=== PATIENT | female | born 1950 | race Caucasian/White ===

== ENCOUNTER 2016-09-08 11:54 | Observation (INO) | payer OTHER ==
[2016-09-08] MEDS ORDERED: RX INFO: IV CONTRAST WAS GIVEN 1 EACH MISC MISCELLANE PRN (12:23)
[2016-09-08] MEDS ORDERED: SODIUM CHLORIDE 0.9% 500 ML IV STA (12:23)
--- NOTE | 2016-09-08 12:53 | ED ---
General Adult HPI - General Source: patient, RN notes reviewed Mode of arrival: wheelchair Limitations: no limitations <Carlo Betts - Last Filed: 09/08/16 12:51> <Rufino Gil - Last Filed: 09/08/16 15:45> - General Chief complaint: Recheck/Abnormal Lab/Rx Stated complaint: Bowel Issues Time Seen by Provider: 09/08/16 12:13 - History of Present Illness Initial comments: this a 65-year-old female presents emergency Department chief complaint concerns about her colostomy. Patient states that around 450 this morning she felt that she is a have a bowel movement though she states that she's had a colostomy since January. Patient states that she sat down below the bathroom and states that she had a large bowel movement which had formed stool. Patient is concerned about this. Patient states she had her ruptured bowel and this is her cause of her colostomy. Patient states she has no abdominal discomfort this time. Denies any nausea vomiting. Denies fever, chills, dysuria. Patient denies rectal bleeding. (Carlo Betts) - Related Data Home Medications Medication Instructions Recorded Confirmed Amiodarone [Cordarone] 200 mg PO DAILY 03/01/16 09/08/16 Allopurinol [Zyloprim] 100 mg PO DAILY 03/09/16 09/08/16 Atorvastatin [Lipitor] 40 mg PO HS 03/09/16 09/08/16 Carvedilol [Coreg] 6.25 mg PO BID 03/09/16 09/08/16 Famotidine [Pepcid] 20 mg PO DAILY 03/09/16 09/08/16 Ferrous Sulfate [Feosol] 325 mg PO DAILY 03/09/16 09/08/16 Ipratropium-Albuterol Nebulize 3 ml INHALATION RT-QID PRN 03/09/16 09/08/16 [Duoneb 0.5 mg-3 mg/3 ml Soln] Montelukast Sodium [Singulair] 10 mg PO HS 03/09/16 09/08/16 buPROPion XL [Wellbutrin XL] 300 mg PO DAILY 03/09/16 09/08/16 Acetaminophen Tab [Tylenol] 650 mg PO Q4H PRN 03/10/16 09/08/16 Citalopram Hydrobromide [CeleXA] 40 mg PO DAILY 03/10/16 09/08/16 HYDROcodone/APAP 10-325MG [[place] 1 tab PO QID PRN 03/10/16 09/08/16 10-325] Isosorbide Mononitrate ER [Imdur] 30 mg PO DAILY 03/10/16 09/08/16 Lactulose 10 gm PO Q12H 03/10/16 09/08/16 Beclomethasone Dipropionate [Qvar 2 puff INHALATION RT-BID PRN 09/08/16 09/08/16 80 mcg] Furosemide [Lasix] 20 mg PO W/SUPPER 09/08/16 09/08/16 Furosemide [Lasix] 60 mg PO QAM 09/08/16 09/08/16 Insulin Glargine [Lantus] 30 unit SQ HS 09/08/16 09/08/16 Insulin Glulisine [Apidra] See Protocol SQ DAILY 09/08/16 09/08/16 Losartan Potassium [Cozaar] 25 mg PO DAILY 09/08/16 09/08/16 Magnesium Oxide [Mag-Ox] 400 mg PO DAILY 09/08/16 09/08/16 Metolazone [Zaroxolyn] 2.5 mg PO MOWEFR 09/08/16 09/08/16 Potassium Chloride [Klor-Con 20] 20 meq PO DAILY 09/08/16 09/08/16 Spironolactone [Aldactone] 12.5 mg PO DAILY 09/08/16 09/08/16 amLODIPine BESYLATE [Norvasc] 5 mg PO DAILY 09/08/16 09/08/16 rOPINIRole HCL [Requip] 0.5 mg PO HS 09/08/16 09/08/16 Previous Rx's Medication Instructions Recorded Nitroglycerin Sl Tabs [Nitrostat] 0.4 mg SUBLINGUAL Q5M PRN #25 tab 12/17/15 Allergies Allergy/AdvReac Type Severity Reaction Status Date / Time cephalexin monohydrate Allergy Unknown Rash/Hives Verified 09/08/16 12:22 [From Keflex] Review of Systems ROS Other: All systems not noted in ROS Statement are negative. <Carlo Betts - Last Filed: 09/08/16 12:51> ROS Other: All systems not noted in ROS Statement are negative. <Rufino Gil - Last Filed: 09/08/16 15:45> ROS Statement: Those systems with pertinent positive or pertinent negative responses have been documented in the HPI. Past Medical History Past Medical History: Asthma, Heart Failure, COPD, Diabetes Mellitus, Hearing Disorder / Deafness, Hyperlipidemia, Hypertension, Osteoarthritis (OA), Pneumonia, Renal Disease, Sleep Apnea/CPAP/BIPAP, Vascular Disorder Additional Past Medical History / Comment(s): ANEMIA History of Any Multi-Drug Resistant Organisms: None Reported Past Surgical History: Bladder Surgery, Cholecystectomy, Coronary Bypass/CABG, Heart Catheterization, Heart Catheterization With Stent, Hernia Repair, Hysterectomy, Joint Replacement, Orthopedic Surgery Additional Past Surgical History / Comment(s): COLOSTOMY in january, bilateral knee surgery Past Anesthesia/Blood Transfusion Reactions: Motion Sickness, No Reported Reaction Additional Past Anesthesia/Blood Transfusion Reaction / Comment(s): Pt has received blood without reaction. Date of Last Stent Placement:: 2009 Past Psychological History: Anxiety, Depression Additional Psychological History / Comment(s): Pt resides wit her spouse. She uses a walker at times. She has not driven lately, her spouse drives her. She has a CPAP, home O2 and blood glucose monitor at home. Smoking Status: Former smoker Past Alcohol Use History: None Reported Additional Past Alcohol Use History / Comment(s): SMOKED 1 & 1/2 PPD-QUIT 2010, SMOKED FOR 47 YEARS. Past Drug Use History: None Reported - Past Family History Mother Family Medical History: Cancer Additional Family Medical History / Comment(s): Mother had lung cancer. Father Family Medical History: Liver Disease Additional Family Medical History / Comment(s): Father of cirrhosis of the liver. He was a alcoholic. <Carlo Betts - Last Filed: 09/08/16 12:51> General Exam Limitations: no limitations General appearance: alert, in no apparent distress Head exam: Present: atraumatic, normocephalic, normal inspection Eye exam: Present: normal appearance, PERRL, EOMI. Absent: scleral icterus, conjunctival injection, periorbital swelling ENT exam: Present: mucous membranes moist Respiratory exam: Present: normal lung sounds bilaterally. Absent: respiratory distress, wheezes, rales, rhonchi, stridor Cardiovascular Exam: Present: regular rate, normal rhythm, normal heart sounds. Absent: systolic murmur, diastolic murmur, rubs, gallop, clicks GI/Abdominal exam: Present: soft, normal bowel sounds, other (colostomy noted there is no erythema no drainage appears within normal limits). Absent: distended, tenderness, guarding, rebound, rigid Back exam: Absent: CVA tenderness (R), CVA tenderness (L) Skin exam: Present: warm, dry, intact, normal color. Absent: rash <Carlo Betts - Last Filed: 09/08/16 12:51> General appearance: alert, in no apparent distress, obese Head exam: Present: atraumatic, normocephalic, normal inspection Eye exam: Present: normal appearance, PERRL, EOMI. Absent: scleral icterus, conjunctival injection, periorbital swelling ENT exam: Present: normal exam, mucous membranes moist Neck exam: Present: normal inspection. Absent: tenderness, meningismus, lymphadenopathy Respiratory exam: Present: normal lung sounds bilaterally. Absent: respiratory distress, wheezes, rales, rhonchi, stridor Cardiovascular Exam: Present: regular rate, normal rhythm, normal heart sounds. Absent: systolic murmur, diastolic murmur, rubs, gallop, clicks GI/Abdominal exam: Present: soft, normal bowel sounds. Absent: distended, tenderness, guarding, rebound, rigid Extremities exam: Present: normal inspection, full ROM, normal capillary refill. Absent: tenderness, pedal edema, joint swelling, calf tenderness Back exam: Present: normal inspection Neurological exam: Present: alert, oriented X3, CN II-XII intact Psychiatric exam: Present: normal affect, normal mood Skin exam: Present: warm, dry, intact, normal color. Absent: rash <Rufino Gil - Last Filed: 09/08/16 15:45> Course <Carlo Betts - Last Filed: 09/08/16 12:51> <Rufino Gil - Last Filed: 09/08/16 15:45> Vital Signs 09/08/16 09/08/16 12:06 15:19 Temperature 100 F H 98 F Pulse Rate 59 L 56 L Respiratory 16 18 Rate Blood Pressure 109/56 85/48 O2 Sat by Pulse 100 Oximetry - Reevaluation(s) Reevaluation #1: 09/08/16 15:45 Patient is without bowel movement here in the emergency room, not lightheaded or dizziness or week (Rufino Gil) Medical Decision Making <Carlo Betts - Last Filed: 09/08/16 12:51> - Lab Data Result diagrams: 09/08/16 12:50 09/08/16 12:50 <Rufino Gil - Last Filed: 09/08/16 15:45> - Medical Decision Making 61 for female in the ER for evaluation of bowel movement, patient has no apparent abnormalities on CT, hemoglobin has dropped 3 points, patient be admitted for treading of hemoglobin and reevaluation by GI, this is been in recurrent issue since her last surgery. (Rufino Gil) - Lab Data Lab Results 09/08/16 09/08/16 09/08/16 Range/Units 12:50 12:50 13:35 WBC 5.5 (3.8-10.6) k/uL RBC 2.92 L (3.80-5.40) m/uL Hgb 7.5 L (11.4-16.0) gm/dL Hct 25.4 L (34.0-46.0) % MCV 87.0 (80.0-100.0) fL MCH 25.8 (25.0-35.0) pg MCHC 29.7 L (31.0-37.0) g/dL RDW 17.1 H (11.5-15.5) % Plt Count 271 (150-450) k/uL Neutrophils % (Manual) 75.0 % Band Neutrophils % 2.0 % Lymphocytes % (Manual) 10.0 % Monocytes % (Manual) 12.0 % Eosinophils % (Manual) 1.0 % Neutrophils # (Manual) 4.2 (1.3-7.7) k/uL Lymphocytes # (Manual) 0.6 L (1.0-4.8) k/uL Monocytes # (Manual) 0.7 (0-1.0) k/uL Eosinophils # (Manual) 0.1 (0-0.7) k/uL Nucleated RBCs 0 (0-0) /100 WBC Polychromasia Present Hypochromasia Marked Poikilocytosis (manual Present Anisocytosis Slight Ovalocytes Present Sodium 133 L (137-145) mmol/L Potassium 4.2 (3.5-5.1) mmol/L Chloride 94 L (98-107) mmol/L Carbon Dioxide 27 (22-30) mmol/L Anion Gap 12 mmol/L BUN 68 H (7-17) mg/dL Creatinine 1.21 H (0.52-1.04) mg/dL Est GFR (MDRD) Af Amer 54 (>60 ml/min/1.73 sqM) Est GFR (MDRD) Non-Af 45 (>60 ml/min/1.73 sqM) Glucose 187 H (74-99) mg/dL Calcium 8.7 (8.4-10.2) mg/dL Total Bilirubin 0.5 (0.2-1.3) mg/dL AST 21 (14-36) U/L ALT 27 (9-52) U/L Alkaline Phosphatase 50 (38-126) U/L Total Protein 6.0 L (6.3-8.2) g/dL Albumin 3.1 L (3.5-5.0) g/dL Amylase 38 (30-110) U/L Lipase 87 (23-300) U/L Urine Color Yellow Urine Appearance Clear (Clear) Urine pH 6.5 (5.0-8.0) Ur Specific [place] 1.008 (1.001-1.035) Urine Protein Negative (Negative) Urine Glucose (UA) Negative (Negative) Urine Ketones Negative (Negative) Urine Blood Negative (Negative) Urine Nitrate Negative (Negative) Urine Bilirubin Negative (Negative) Urine Urobilinogen <2.0 (<2.0) mg/dL Ur Leukocyte Esterase Trace H (Negative) Urine WBC 1 (0-5) /hpf Ur Squamous Epith Cells <1 (0-4) /hpf Hyaline Casts 3 H (0-2) /lpf Disposition <Carlo Betts - Last Filed: 09/08/16 12:51> <Rufino Gil - Last Filed: 09/08/16 15:45> Clinical Impression: Renal insufficiency, Anemia, GI bleed Disposition: ADMITTED IP TO THIS [facility] Condition: Fair Referrals: Lul Aquino MD [Primary Care Provider] - 1-2 days
[2016-09-08 13:14] LABS: Anisocytosis Slight; Aty Lym Flag Slight; CH 25.2; HCT 25.4 % (34.0-46.0); HDW 3.11; HGB 7.5 gm/dL (11.4-16.0); Hypochromasia Marked; MCH 25.8 pg (25.0-35.0); MCHC 29.7 g/dL (31.0-37.0); Mean Platelet Volume 6.8; RBC 2.92 m/uL (3.80-5.40); RDW 17.1 % (11.5-15.5); WBC 5.5 k/uL (3.8-10.6); WBC (Perox) 5.35
[2016-09-08 13:16] LABS: Calcium 8.7 mg/dL (8.4-10.2); Potassium 4.2 mmol/L (3.5-5.1); Total Bilirubin 0.5 mg/dL (0.2-1.3)
[2016-09-08 13:52] LABS: Appearance,Urine Clear (Clear); Bilirubin,Urine Negative (Negative); Glucose,Urine (UA) Negative (Negative); Ketones,Urine Negative (Negative); Leukocyte Esterase,Urine Trace (Negative); Nitrite,Urine Negative (Negative); PH, Urine 6.5 (5.0-8.0); Particle Count 1081; Protein,Urine Negative (Negative); Specific Gravity,Urine 1.008 (1.001-1.035); Squamous Epithelial Cell,Urine <1 /hpf (0-4); UA Billing (MACRO vs. MICRO) MICRO; Urobilinogen,Urine <2.0 mg/dL (<2.0); WBC,Urine 1 /hpf (0-5)
[2016-09-08 14:17] LABS: Add Differential Manual Differential
[2016-09-08 14:19] LABS: Nucleated Red Blood Cells 0 /100 WBC (0-0); Total Cells Counted 100
[2016-09-08] MEDS ORDERED: SODIUM CHLORIDE 0.9% 1,000 ML IV ONE ×2 (14:19→15:46)
[2016-09-08 14:23] LABS: Polychromasia Present
[2016-09-08 14:24] LABS: Ovalocytes Present
[2016-09-08] MEDS: IOHEXOL 350 MG/ML 25 ML BOTTLE (ORAL USE) PO PRN ×2 (15:02→15:04)
--- NOTE | 2016-09-08 15:20 | CT ---
EXAMINATION TYPE: CT abdomen pelvis wo con DATE OF EXAM: 09/08/2016 2:57 PM COMPARISON: NONE INDICATION: PT states of bowel movement today not via colostomy like normal. DLP: 1924.1 mGycm, Automated exposure control for dose reduction was used. CONTRAST: mL of . Study performed with Oral Contrast TECHNIQUE: Axial images were obtained from above the diaphragm to the pubic rami in the axial plane a t 5 mm thick sections. Reconstructed images are reviewed on the computer in the coronal plane. FINDINGS: Limited CT sections are obtained the lung bases. The lung bases are clear. CT ABDOMEN: Liver: Normal Spleen: Normal Pancreas: Normal Adrenal glands: The adrenal glands are normal. Gallbladder: Surgically absent Kidneys: No masses are evident. No hydronephrosis is present. No cysts are present. Aorta: Vascular calcification is within the aorta. Inferior vena cava: Normal. There is an anterior abdominal wall hernia containing loops of colon. This extends toward the ostomy. No obstruction is identified. CT PELVIS: Loops of bowel within the abdomen and pelvis are normal. Appendix: Not identified Urinary bladder: Normal. Genitourinary structures: Uterus and adnexa are not identified. Osseous structures: No suspicious lytic or sclerotic lesions. Degenerative disc changes are through t he lumbar spine IMPRESSIONS: 1. Anterior abdominal wall hernia at the ostomy site. Mesenteric fat and loops of bowel are greater than typical for normal ostomy postsurgical changes.
[2016-09-08] MEDS ORDERED: PANTOPRAZOLE 40 MG/10 ML VIAL IVP STA (15:46)
[2016-09-08] MEDS ORDERED: ONDANSETRON 4 MG/2 ML VIAL IVP PRN (15:46)
[2016-09-08] MEDS ORDERED: ONDANSETRON 4 MG/2 ML VIAL IVP STA (15:46)
[2016-09-08 17:49] LABS: Glucose,Whole Blood 118 mg/dL (75-99)
[2016-09-08] MEDS ORDERED: NITROGLYCERIN SL TABS 0.4 MG TAB SUBLINGUAL PRN (18:53)
[2016-09-08] MEDS ORDERED: IPRATROPIUM-ALBUTEROL 3 ML NEB INHALATION PRN (18:53)
[2016-09-08] MEDS ORDERED: ACETAMINOPHEN TAB 325 MG TAB PO PRN (18:53)
[2016-09-08] MEDS: MONTELUKAST 10 MG TAB PO SCH (20:28)
[2016-09-08] MEDS: INSULIN GLARGINE 100 UNIT/ML 10 ML VIAL SQ SCH (20:28)
[2016-09-08] MEDS: ATORVASTATIN 40 MG TAB PO SCH (20:28)
[2016-09-08 21:03] LABS: Glucose,Whole Blood 127 mg/dL (75-99)
[2016-09-08] MEDS: INSULIN LISPRO (humaLOG) 300 UNIT/3 ML VIAL SQ SCH (21:11)
[2016-09-08] MEDS: METOLAZONE 2.5 MG TAB PO SCH (21:15)
[2016-09-08] MEDS: CARVEDILOL 6.25 MG TAB PO SCH (21:16)
[2016-09-08] MEDS: HYDROcodone/APAP 10-325MG 1 EACH TAB PO PRN (23:38)
[2016-09-09 06:16] LABS: Anisocytosis Slight; Aty Lym Flag Slight; CH 25.8; CHCM 28.9; HCT 26.8 % (34.0-46.0); HDW 4.11; Hypochromasia Marked; MCH 26.5 pg (25.0-35.0); MCHC 29.7 g/dL (31.0-37.0); MCV 89.2 fL (80.0-100.0); Mean Platelet Volume 6.6; Poikilocytosis Moderate; RDW 16.6 % (11.5-15.5); WBC (Perox) 5.26
[2016-09-09 06:26] LABS: Glucose,Whole Blood 116 mg/dL (75-99)
[2016-09-09] MEDS: INSULIN LISPRO (humaLOG) 300 UNIT/3 ML VIAL SQ SCH ×4 (06:26→20:56)
[2016-09-09] MEDS: CARVEDILOL 6.25 MG TAB PO SCH ×2 (06:30→17:13)
[2016-09-09 06:41] LABS: Anion Gap 8 mmol/L; Blood Urea Nitrogen 46 mg/dL (7-17); Calcium 8.2 mg/dL (8.4-10.2); Carbon Dioxide 26 mmol/L (22-30); Chloride 100 mmol/L (98-107); Glucose 109 mg/dL (74-99); Non-African American GFR(MDRD) 56 (>60 ml/min/1.73 sqM); Sodium 134 mmol/L (137-145)
[2016-09-09 08:06] LABS: Add Differential Manual Differential
[2016-09-09 08:10] LABS: Manual Review Performed; Nucleated Red Blood Cells 0 /100 WBC (0-0); Total Cells Counted 100
[2016-09-09] MEDS: PANTOPRAZOLE 40 MG/10 ML VIAL IVP SCH (09:21)
[2016-09-09] MEDS: FUROSEMIDE 20 MG TAB PO SCH (09:21)
[2016-09-09] MEDS: buPROPion XL 150 MG TAB.ER.24H PO SCH (09:21)
[2016-09-09] MEDS: ALLOPURINOL 100 MG TAB PO SCH (09:22)
[2016-09-09] MEDS: ISOSORBIDE MONONITRATE ER 30 MG TAB.ER.24H PO SCH (09:22)
[2016-09-09] MEDS: amLODIPine 5 MG TAB PO SCH (09:22)
[2016-09-09] MEDS: AMIODARONE 200 MG TAB PO SCH (09:22)
[2016-09-09] MEDS: LOSARTAN 25 MG TAB PO SCH (09:22)
[2016-09-09] MEDS: POTASSIUM CHLORIDE ER 20 MEQ TAB.ER PO SCH (09:22)
[2016-09-09] MEDS: SPIRONOLACTONE 25 MG TAB PO SCH (09:22)
[2016-09-09] MEDS: CITALOPRAM HYDROBROMIDE 20 MG TAB PO SCH (09:22)
[2016-09-09] MEDS: BECLOMETHASONE DIP 80 MCG/PUFF INHALER INHALATION PRN ×2 (09:49→20:05)
--- NOTE | 2016-09-09 10:07 | P.CONS ---
History of Present Illness - Reason for Consult Consult date: 09/09/16 Possible GI bleed Requesting physician: Arminda Mayes - History of Present Illness 65-year-old female patient of Dr. Aquino with a past medical history of morbid obesity, ischemic colitis with colectomy/colostomy 2016 at [facility], CAD, advanced COPD, chronic anemia, diabetes mellitus, chronic neuropathy, CHF with ischemic cardiomyopathy, and depression. Admitted with concerns of bleeding near her ostomy. Patient states on Thursday she noticed some thin red blood emanating around the stoma but denies gross blood inside her colostomy bag. Denies fever, chills, diarrhea, epigastric/ abdominal pain, coffee-ground emesis, hematemesis, gross hematochezia or melena. No rectal bleeding. Admission hemoglobin 7.5. MCV 87. Current hemoglobin 8.0. Creatinine 1.2. BUN 68 currently 46. Upon review of medical records average hemoglobin ranges between 7-10; maintained on oral iron supplementation. Denies NSAID aspirin usage. No history of EGD. She believes she had a colonoscopy after her bowel surgery. CT abdomen and pelvis without contrast reported intra-abdominal hernia at the ostomy site. Review of Systems Constitutional: Denies fever, chills, sweats, weight gain, or loss. HEENT: Negative for migraines, blurred vision or loss, earaches, drainage, tinnitus, oral mucosal lesions, dysphagia, or odynophagia. CARDIAC: CHF. Hypertension. Hyperlipidemia. Ischemic cardiomyopathy. Negative for chest pain, arrhythmias, or palpitation. RESPIRATORY: Asthma. Advanced COPD. Sleep apnea. Denies hemoptysis, cough, or sputum production. GI: See HPI for pertinent findings. : Negative for hematuria, urgency, frequency, polyuria, or dysuria. GYNc: Denies possibility of . Negative vaginal discharge. MUSCULOSKELETAL: Negative for muscle aches, swelling, arthritis, and arthralgias. NEUROLOGIC: Negative for stroke or TIA. ENDOCRINE: Diabetes mellitus. Negative for thyroid problems. SKIN: Negative for rash or itching. PSYCHIATRIC: Negative history for depression and anxiety All systems: negative (See HPI) Past Medical History Past Medical History: Asthma, Heart Failure, COPD, Diabetes Mellitus, Hearing Disorder / Deafness, Hyperlipidemia, Hypertension, Osteoarthritis (OA), Pneumonia, Renal Disease, Sleep Apnea/CPAP/BIPAP, Vascular Disorder Additional Past Medical History / Comment(s): ANEMIA, RLS, HOME 02 2 LITERS N/C , RT EYE CATARACT, SORE ON 2ND TOE OF BOTH FEET, anemia of chronic disease, pulmonary hypertension, hyponatremia, combined systolic and diastolic failure, last ejection fraction 35% August 2016, hypovolemic shock, circulatory collapse, diabetic polyneuropathy, gout, chronic pain, restless legs syndrome History of Any Multi-Drug Resistant Organisms: None Reported Past Surgical History: Bladder Surgery, Cholecystectomy, Coronary Bypass/CABG, Heart Catheterization, Heart Catheterization With Stent, Hernia Repair, Hysterectomy, Joint Replacement, Orthopedic Surgery Additional Past Surgical History / Comment(s): RUPTURED BOWEL HADCOLOSTOMY in january, bilateral knee surgery(X2 RT KNEE REPLACMENTS) Past Anesthesia/Blood Transfusion Reactions: Motion Sickness, No Reported Reaction Additional Past Anesthesia/Blood Transfusion Reaction / Comm: Pt has received blood without reaction. Date of Last Stent Placement:: 2009 Past Psychological History: Anxiety, Depression Additional Psychological History / Comment(s): Pt resides with her spouse. She uses a walker at times. She has not driven lately, her spouse drives her. She has a CPAP, home O2 and blood glucose monitor at home. Smoking Status: Former smoker Past Alcohol Use History: None Reported Additional Past Alcohol Use History / Comment(s): SMOKED 1 & 1/2 PPD-QUIT 2010, SMOKED FOR 47 YEARS. Past Drug Use History: None Reported - Past Family History Mother Family Medical History: Cancer Additional Family Medical History / Comment(s): Mother had lung cancer. Father Family Medical History: Liver Disease Additional Family Medical History / Comment(s): Father of cirrhosis of the liver. He was a alcoholic. Medications and Allergies Home Medications Medication Instructions Recorded Confirmed Type Amiodarone [Cordarone] 200 mg PO DAILY 03/01/16 09/08/16 History Allopurinol [Zyloprim] 100 mg PO DAILY 03/09/16 09/08/16 History Atorvastatin [Lipitor] 40 mg PO HS 03/09/16 09/08/16 History Carvedilol [Coreg] 6.25 mg PO BID 03/09/16 09/08/16 History Famotidine [Pepcid] 20 mg PO DAILY 03/09/16 09/08/16 History Ferrous Sulfate [Feosol] 325 mg PO DAILY 03/09/16 09/08/16 History Ipratropium-Albuterol Nebulize 3 ml INHALATION RT-QID PRN 03/09/16 09/08/16 History [Duoneb 0.5 mg-3 mg/3 ml Soln] Montelukast Sodium [Singulair] 10 mg PO HS 03/09/16 09/08/16 History buPROPion XL [Wellbutrin XL] 300 mg PO DAILY 03/09/16 09/08/16 History Acetaminophen Tab [Tylenol] 650 mg PO Q4H PRN 03/10/16 09/08/16 History Citalopram Hydrobromide [CeleXA] 40 mg PO DAILY 03/10/16 09/08/16 History HYDROcodone/APAP 10-325MG [[place] 1 tab PO QID PRN 03/10/16 09/08/16 History 10-325] Isosorbide Mononitrate ER [Imdur] 30 mg PO DAILY 03/10/16 09/08/16 History Lactulose 10 gm PO Q12H 03/10/16 09/08/16 History Beclomethasone Dipropionate [Qvar 2 puff INHALATION RT-BID PRN 09/08/16 History 80 mcg] Furosemide [Lasix] 20 mg PO W/SUPPER 09/08/16 09/08/16 History Furosemide [Lasix] 60 mg PO QAM 09/08/16 09/08/16 History Insulin Glargine [Lantus] 30 unit SQ HS 09/08/16 09/08/16 History Insulin Glulisine [Apidra] See Protocol SQ DAILY 09/08/16 09/08/16 History Losartan Potassium [Cozaar] 25 mg PO DAILY 09/08/16 09/08/16 History Magnesium Oxide [Mag-Ox] 400 mg PO DAILY 09/08/16 09/08/16 History Metolazone [Zaroxolyn] 2.5 mg PO MOWEFR 09/08/16 09/08/16 History Potassium Chloride [Klor-Con 20] 20 meq PO DAILY 09/08/16 09/08/16 History Spironolactone [Aldactone] 12.5 mg PO DAILY 09/08/16 09/08/16 History amLODIPine BESYLATE [Norvasc] 5 mg PO DAILY 02/27/17 02/27/17 History rOPINIRole HCL [Requip] 0.5 mg PO HS 09/08/16 09/08/16 History Allergies Allergy/AdvReac Type Severity Reaction Status Date / Time cephalexin monohydrate Allergy Unknown Rash/Hives Verified 09/08/16 12:22 [From Keflex] Physical Exam Vitals: Vital Signs Temp Pulse Pulse Resp BP BP Pulse Ox 09/09/16 08:00 96.6 F L 56 L 16 94/56 99 09/09/16 02:56 61 16 09/09/16 02:55 97.1 F L 61 16 95/48 98 09/08/16 23:58 61 16 09/08/16 23:56 97.1 F L 61 16 80/44 97 09/08/16 20:42 98.2 F 50 L 18 80/44 100 09/08/16 20:00 97.1 F L 50 L 18 80/44 100 09/08/16 18:53 98.2 F 58 L 18 84/53 100 09/08/16 18:23 98.2 F 57 L 18 88/51 100 09/08/16 18:13 98.2 F 57 L 18 75/40 100 09/08/16 17:22 57 L 18 99/62 98 09/08/16 16:45 98.2 F 59 L 18 103/56 100 09/08/16 16:03 98.9 F 61 18 96/45 98 Intake and Output 09/08/16 09/09/16 09/09/16 22:59 06:59 14:59 Intake Total 550 2210 318 Output Total 1100 1400 Balance -550 810 318 Intake: IV 1100 Sodium Chloride 0.9% 1, 1100 000 ml @ 100 mls/hr IV . Q10H ONE Rx#:[id number] Oral 240 800 318 Blood Product 310 310 Rc As-1 Unit 310 [id number] Output: Urine 1100 1400 Other: Voiding Method Bedside Commode Bedside Commode # Voids 0 0 # Bowel Movements 0 0 Weight 115.4 kg 115.3 kg General appearance: The patient is alert, oriented, in no acute distress. HET: Head is normocephalic and atraumatic. Pupils are equal and reactive. Oropharynx is clear without lesions. Neck: Supple without lymphadenopathy. Trachea midline. Heart: S1 S2. Regular rate and rhythm. Lungs: No crackles or wheezes are heard. Abdomen: Soft, peristomal hernia present. Stoma pink viable with 3 large brown formed bowel movements in bag without evidence of bleeding. No bleeding around stoma site., nondistended with bowel sounds. Obese large pannus. No peritoneal signs. No palpable organomegaly or masses. Extremities: Normal skin color and turgor. No cyanosis, rash, ulceration, clubbing, or edema. Radial and pedal pulses are 2/4 bilaterally. Neurological: No focal deficits. Strength and sensation are grossly intact. Results CBC & Chem 7: 09/09/16 05:45 09/09/16 05:45 Labs: Abnormal Lab Results - Last 24 Hours (Table) 09/08/16 09/08/16 09/09/16 Range/Units 17:40 21:01 05:45 RBC 3.00 L (3.80-5.40) m/uL Hgb 8.0 L (11.4-16.0) gm/dL Hct 26.8 L (34.0-46.0) % MCHC 29.7 L (31.0-37.0) g/dL RDW 16.6 H (11.5-15.5) % Lymphocytes # (Manual) 0.9 L (1.0-4.8) k/uL Sodium (137-145) mmol/L BUN (7-17) mg/dL Glucose (74-99) mg/dL POC Glucose (mg/dL) 118 H 127 H (75-99) mg/dL Calcium (8.4-10.2) mg/dL 09/09/16 09/09/16 Range/Units 05:45 06:25 RBC (3.80-5.40) m/uL Hgb (11.4-16.0) gm/dL Hct (34.0-46.0) % MCHC (31.0-37.0) g/dL RDW (11.5-15.5) % Lymphocytes # (Manual) (1.0-4.8) k/uL Sodium 134 L (137-145) mmol/L BUN 46 H (7-17) mg/dL Glucose 109 H (74-99) mg/dL POC Glucose (mg/dL) 116 H (75-99) mg/dL Calcium 8.2 L (8.4-10.2) mg/dL CT scan - abdomen: report reviewed (Reviewed by Dr. Scott) Assessment and Plan (1) Anemia Narrative/Plan: Chronic anemia with reports of bleeding suspect peristomal in nature with bright red blood with no current evidence of overt gastrointestinal bleeding such as hematemesis, hematochezia, or melena. History of ischemic bowel with partial colectomy 1 year ago with reports of postoperative colonoscopy being performed. Status: Acute Plan: 1. Diabetic diet. Endoscopy is not planned at this time; contingent on clinical course. Presently ostomy is producing brown formed stool with stable hemoglobin. We'll reevaluate patient and monitor CBC. Advised patient to follow up in GI office after discharge 1 week for reevaluation. Continue supportive measures. Thank you for this kind referral and the opportunity to participate in the care of your patient. This consultation was discussed with Dr. Scott. The impression and plan of care have been directed as dictated.
--- NOTE | 2016-09-09 10:15 | P.HPIM ---
History of Present Illness H&P Date: 09/08/16 Chief Complaint: Rectal excrement after colostomy, anemia This is a 65-year-old pleasant lady patient of Dr. Lul Pickett, underlying history of COPD CHF diabetes mellitus hypertension diabetes polyneuropathy restless leg and prior history of colostomy placement, she was recently discharged from [facility] Admitted to [facility] 08/23/2016- Secondary to COPD Exacerbation, CHF exacerbation on chronic combined with severe cardiomyopathy ejection fraction 35%, pulmonary hypertension major depression AND was discharged with oral antibiotics, and tapering dose of prednisone. She was seen by cardiology and pulmonary infectious disease during her last admission She presented with emergency room she worried that after her colostomy in early last year, she had a rectal excrementtoday , non blood she thought that they were stools, patient denies any sam bleeding from the GI tract including the upper GI and lower gi. her colostomy always has liquid stools or pasty stools patient denies any fever and chills abdominal cramps and in the emergency room she had routine labs however she was found to have hemoglobin of 7.0, her last hemoglobin on [facility] was around 8.5. GI source of bleeding among others were the primary admitting diagnosis. Her pulmonary complaints are stable. she can black tarry stool on colostomy on occasion with epigastric pain. Review of Systems All systems: negative Constitutional: Reports as per HPI, Denies anorexia, Denies chills, Denies chronic headaches, Denies chronic pain, Denies daytime sleepiness, Denies fatigue, Denies fever, Denies lethargy, Denies malaise, Denies night sweats, Denies poor appetite, Denies sweats, Denies weakness, Denies weight gain, Denies weight loss Ears, nose, mouth and throat: Reports as per HPI, Denies ant. neck pain, Denies bleeding gums, Denies dental pain, Denies dysphagia, Denies epistaxis, Denies headache, Denies hoarseness, Denies mouth pain, Denies nasal congestion, Denies nasal discharge, Denies neck fullness/pressure, Denies neck lump, Denies nose pain, Denies odynophagia, Denies post-nasal drip, Denies sinus pain, Denies sinus pressure, Denies swelling in mouth, Denies swelling in throat, Denies sore throat, Denies vertigo, Denies voice changes Cardiovascular: Reports as per HPI, Denies chest pain, Denies claudication, Denies decreased exercise tolerance, Denies dyspnea on exertion, Denies edema, Denies high blood pressure, Denies irregular heart beat, Denies leg edema, Denies lightheadedness, Denies orthopnea, Denies palpitations, Denies paroxysmal nocturnal dyspnea, Denies phlebitis, Denies rapid heart beat, Denies shortness of breath, Denies syncope Respiratory: Reports as per HPI, Denies congestion, Denies cough, Denies cough with sputum, Denies dyspnea, Denies excessive sputum, Denies hemoptysis, Denies home oxygen, Denies pain, Denies pain on inspiration, Denies pleurisy, Denies respiratory infections, Denies sleep apnea, Denies snoring, Denies wheezing Gastrointestinal: Reports as per HPI, Denies abdominal pain, Denies belching, Denies bloating, Denies BRBPR, Denies change in bowel habits, Denies coffee ground emesis, Denies constipation, Denies diarrhea, Denies dyspepsia, Denies early satiety, Denies excessive gas, Denies heartburn, Denies hematemesis, Denies hematochezia, Denies indigestion, Denies jaundice, Denies lactose intolerance, Denies loss of appetite, Denies melena, Denies nausea, Denies vomiting Genitourinary: Reports as per HPI, Denies abnormal vaginal bleeding, Denies decreased libido, Denies difficulty conceiving, Denies difficulty voiding, Denies dysmenorrhea, Denies dyspareunia, Denies dysuria, Denies flank pain, Denies genital sores, Denies hematuria, Denies hot flashes, Denies incomplete emptying, Denies kidney stones, Denies menorrhagia, Denies mixed incontinence, Denies nocturia, Denies pelvic pain, Denies post void dribbling, Denies , Denies prolapse symptoms, Denies stress incontinence, Denies urge incontinence , Denies urgency, Denies urinary frequency, Denies vaginal discharge, Denies vaginal dryness, Denies vaginal itching, Denies vaginal odor Menstruation: Reports as per HPI, Denies amenorrhea, Denies amenorrhea on BC, Denies currently menstrual, Denies cycle < 21 days, Denies cycle > 35 days, Denies cycle variable, Denies menses 1-7 days, Denies menses 8 or > days, Denies menses variable, Denies period heavy, Denies period light, Denies period normal, Denies period spotting, Denies post hysterectomy, Denies postmenopausal , Denies premenarcheal Musculoskeletal: Reports as per HPI, Denies arm numbness/tingling, Denies atrophy, Denies fractures, Denies frequent falls, Denies gait dysfunction, Denies hot joints, Denies leg numbness/tingling, Denies limitation of motion, Denies loss of height, Denies low back pain, Denies morning stiffness, Denies muscle cramps, Denies muscle weakness, Denies myalgias, Denies neck pain, Denies neck stiffness, Denies prior amputations, Denies redness of joints, Denies shooting arm pain, Denies shooting leg pain Integumentary: Reports as per HPI, Denies acne, Denies boils, Denies brittle nails, Denies change in hair/nails, Denies color changes, Denies darkening of skin, Denies depigmentation, Denies dryness, Denies foot/leg ulcers, Denies growths, Denies hirsutism, Denies lesions, Denies onychomycosis, Denies pruritus , Denies rash, Denies sores, Denies striae, Denies unusual bruising, Denies wounds Neurological: Reports as per HPI, Denies aphasia, Denies ataxia, Denies balance difficulties, Denies burning pain, Denies change in mentation, Denies change in smell/taste, Denies change in speech, Denies confusion, Denies convulsions, Denies double vision, Denies gait dysfunction, Denies head injury, Denies headaches, Denies hearing difficulties, Denies lack of coordination, Denies loss of vision, Denies memory loss, Denies migraines, Denies motor disturbance, Denies numbness, Denies paralysis, Denies paresthesias, Denies seizures, Denies sensory deficit, Denies spasticity, Denies syncope, Denies tic, Denies tingling , Denies transient paralysis, Denies tremors, Denies vertigo, Denies weakness, Denies visual changes Psychiatric: Reports as per HPI, Denies anhedonia, Denies anxiety, Denies anxiety attacks, Denies change in appetite, Denies change in libido, Denies change in sleep habits, Denies confusion, Denies depression, Denies difficulty concentrating, Denies disorientation, Denies hallucinations, Denies hopelessness , Denies hypersomnia, Denies insomnia, Denies irritability, Denies memory loss, Denies mood swings, Denies paranoia, Denies sadness/tearfulness, Denies sleep disturbances, Denies suicidal ideation Endocrine: Reports as per HPI, Denies cold intolerance, Denies deepening of the voice, Denies excessive sweating, Denies excessive thirst, Denies fatigue, Denies flushing, Denies heat intolerance, Denies high blood sugars, Denies increase in ring/shoe/hat size, Denies low blood sugars, Denies nocturia, Denies palpitations, Denies polydipsia, Denies polyphagia, Denies polyuria, Denies proptosis, Denies recent glucocorticoid use, Denies thyroid mass, Denies weight change Hematologic/Lymphatic: Reports as per HPI, Denies easy bleeding, Denies easy bruising, Denies lymphadenopathy, Denies lymphedema, Denies thrombophilia Allergic/Immunologic: Reports as per HPI, Denies allergic rhinitis, Denies anaphylaxis, Denies angioedema, Denies gluten intolerance, Denies persistent infections, Denies seasonal allergies, Denies urticaria, Denies wheezing Past Medical History Past Medical History: Asthma, Heart Failure, COPD, Diabetes Mellitus, Hearing Disorder / Deafness, Hyperlipidemia, Hypertension, Osteoarthritis (OA), Pneumonia, Renal Disease, Sleep Apnea/CPAP/BIPAP, Vascular Disorder Additional Past Medical History / Comment(s): ANEMIA, RLS, HOME 02 2 LITERS N/C , RT EYE CATARACT, SORE ON 2ND TOE OF BOTH FEET, anemia of chronic disease, pulmonary hypertension, hyponatremia, combined systolic and diastolic failure, last ejection fraction 35% August 2016, hypovolemic shock, circulatory collapse, diabetic polyneuropathy, gout, chronic pain, restless legs syndrome History of Any Multi-Drug Resistant Organisms: None Reported Past Surgical History: Bladder Surgery, Cholecystectomy, Coronary Bypass/CABG, Heart Catheterization, Heart Catheterization With Stent, Hernia Repair, Hysterectomy, Joint Replacement, Orthopedic Surgery Additional Past Surgical History / Comment(s): RUPTURED BOWEL HADCOLOSTOMY in january, bilateral knee surgery(X2 RT KNEE REPLACMENTS) Past Anesthesia/Blood Transfusion Reactions: Motion Sickness, No Reported Reaction Additional Past Anesthesia/Blood Transfusion Reaction / Comment(s): Pt has received blood without reaction. Date of Last Stent Placement:: 2009 Past Psychological History: Anxiety, Depression Additional Psychological History / Comment(s): Pt resides with her spouse. She uses a walker at times. She has not driven lately, her spouse drives her. She has a CPAP, home O2 and blood glucose monitor at home. Smoking Status: Former smoker Past Alcohol Use History: None Reported Additional Past Alcohol Use History / Comment(s): SMOKED 1 & 1/2 PPD-QUIT 2010, SMOKED FOR 47 YEARS. Past Drug Use History: None Reported - Past Family History Mother Family Medical History: Cancer Additional Family Medical History / Comment(s): Mother had lung cancer. Father Family Medical History: Liver Disease Additional Family Medical History / Comment(s): Father of cirrhosis of the liver. He was a alcoholic. Medications and Allergies Home Medications Medication Instructions Recorded Confirmed Type Amiodarone [Cordarone] 200 mg PO DAILY 03/01/16 09/08/16 History Allopurinol [Zyloprim] 100 mg PO DAILY 03/09/16 09/08/16 History Atorvastatin [Lipitor] 40 mg PO HS 03/09/16 09/08/16 History Carvedilol [Coreg] 6.25 mg PO BID 03/09/16 09/08/16 History Famotidine [Pepcid] 20 mg PO DAILY 03/09/16 09/08/16 History Ferrous Sulfate [Feosol] 325 mg PO DAILY 03/09/16 09/08/16 History Ipratropium-Albuterol Nebulize 3 ml INHALATION RT-QID PRN 03/09/16 09/08/16 History [Duoneb 0.5 mg-3 mg/3 ml Soln] Montelukast Sodium [Singulair] 10 mg PO HS 03/09/16 09/08/16 History buPROPion XL [Wellbutrin XL] 300 mg PO DAILY 03/09/16 09/08/16 History Acetaminophen Tab [Tylenol] 650 mg PO Q4H PRN 03/10/16 09/08/16 History Citalopram Hydrobromide [CeleXA] 40 mg PO DAILY 03/10/16 09/08/16 History HYDROcodone/APAP 10-325MG [Ono 1 tab PO QID PRN 03/10/16 09/08/16 History 10-325] Isosorbide Mononitrate ER [Imdur] 30 mg PO DAILY 03/10/16 09/08/16 History Lactulose 10 gm PO Q12H 03/10/16 09/08/16 History Beclomethasone Dipropionate [Qvar 2 puff INHALATION RT-BID PRN 09/08/16 History 80 mcg] Furosemide [Lasix] 20 mg PO W/SUPPER 09/08/16 09/08/16 History Furosemide [Lasix] 60 mg PO QAM 09/08/16 09/08/16 History Insulin Glargine [Lantus] 30 unit SQ HS 09/08/16 09/08/16 History Insulin Glulisine [Apidra] See Protocol SQ DAILY 09/08/16 09/08/16 History Losartan Potassium [Cozaar] 25 mg PO DAILY 09/08/16 09/08/16 History Magnesium Oxide [Mag-Ox] 400 mg PO DAILY 09/08/16 09/08/16 History Metolazone [Zaroxolyn] 2.5 mg PO MOWEFR 09/08/16 09/08/16 History Potassium Chloride [Klor-Con 20] 20 meq PO DAILY 09/08/16 09/08/16 History Spironolactone [Aldactone] 12.5 mg PO DAILY 09/08/16 09/08/16 History amLODIPine BESYLATE [Norvasc] 5 mg PO DAILY 09/08/16 09/08/16 History rOPINIRole HCL [Requip] 0.5 mg PO HS 09/08/16 09/08/16 History Allergies Allergy/AdvReac Type Severity Reaction Status Date / Time cephalexin monohydrate Allergy Unknown Rash/Hives Verified 09/08/16 12:22 [From Keflex] Physical Exam Vitals: Vital Signs Temp Pulse Pulse Resp BP BP Pulse Ox 09/08/16 20:42 98.2 F 50 L 18 80/44 100 09/08/16 20:00 97.1 F L 50 L 18 80/44 100 09/08/16 18:53 98.2 F 58 L 18 84/53 100 09/08/16 18:23 98.2 F 57 L 18 88/51 100 09/08/16 18:13 98.2 F 57 L 18 75/40 100 09/08/16 17:22 57 L 18 99/62 98 09/08/16 16:45 98.2 F 59 L 18 103/56 100 09/08/16 16:03 98.9 F 61 18 96/45 98 Intake and Output 09/08/16 09/08/16 09/08/16 06:59 14:59 22:59 Intake Total 310 Balance 310 Intake: Blood Product 310 Rc As-1 Unit 310 [id number] Other: Voiding Method Bedside Commode # Voids 0 # Bowel Movements 0 Weight 115.4 kg Patient Weight 09/09/16 06:59 Weight 115.4 kg - Constitutional General appearance: cooperative, morbidly obese - EENT Eyes: anicteric sclerae, EOMI, PERRLA, dentition normal, normal appearance ENT: hearing grossly normal, NA/AT, normal oropharynx - Neck Neck: no lymphadenopathy, normal ROM, no other, no rigidity, no stridor, no thyromegaly - Respiratory Respiratory: bilateral: CTA, negative: diminished, dullness, rales, rhonchi, wheezing - Cardiovascular Rhythm: regular Heart sounds: normal: S1, S2 Abnormal Heart Sounds: no systolic murmur, no diastolic murmur, no rub, no S3 Gallop, no S4 Gallop, no click, no other - Gastrointestinal General gastrointestinal: normal bowel sounds - Integumentary Integumentary: normal, normal turgor - Neurologic Neurologic: CNII-XII intact - Musculoskeletal Musculoskeletal: gait normal - Psychiatric Psychiatric: A&O x's 3, appropriate affect, intact judgment & insight Results CBC & Chem 7: 09/09/16 05:45 09/09/16 05:45 Labs: Abnormal Lab Results - Last 24 Hours (Table) 09/08/16 09/08/16 Range/Units 17:40 21:01 POC Glucose (mg/dL) 118 H 127 H (75-99) mg/dL Laboratory Results WBC 5.5 k/uL (3.8-10.6) 09/08/16 12:50 RBC 2.92 m/uL (3.80-5.40) L 09/08/16 12:50 Hgb 7.5 gm/dL (11.4-16.0) L 09/08/16 12:50 Hct 25.4 % (34.0-46.0) L 09/08/16 12:50 MCV 87.0 fL (80.0-100.0) 09/08/16 12:50 MCH 25.8 pg (25.0-35.0) 09/08/16 12:50 MCHC 29.7 g/dL (31.0-37.0) L 09/08/16 12:50 RDW 17.1 % (11.5-15.5) H 09/08/16 12:50 Plt Count 271 k/uL (150-450) 09/08/16 12:50 Neutrophils % (Manual) 75.0 % 09/08/16 12:50 Band Neutrophils % 2.0 % 09/08/16 12:50 Lymphocytes % (Manual) 10.0 % 09/08/16 12:50 Monocytes % (Manual) 12.0 % 09/08/16 12:50 Eosinophils % (Manual) 1.0 % 09/08/16 12:50 Neutrophils # (Manual) 4.2 k/uL (1.3-7.7) 09/08/16 12:50 Lymphocytes # (Manual) 0.6 k/uL (1.0-4.8) L 09/08/16 12:50 Monocytes # (Manual) 0.7 k/uL (0-1.0) 09/08/16 12:50 Eosinophils # (Manual) 0.1 k/uL (0-0.7) 09/08/16 12:50 Nucleated RBCs 0 /100 WBC (0-0) 09/08/16 12:50 Polychromasia Present 09/08/16 12:50 Hypochromasia Marked 09/08/16 12:50 Poikilocytosis (manual Present 09/08/16 12:50 Anisocytosis Slight 09/08/16 12:50 Ovalocytes Present 09/08/16 12:50 Sodium 133 mmol/L (137-145) L 09/08/16 12:50 Potassium 4.2 mmol/L (3.5-5.1) 09/08/16 12:50 Chloride 94 mmol/L (98-107) L 09/08/16 12:50 Carbon Dioxide 27 mmol/L (22-30) 09/08/16 12:50 Anion Gap 12 mmol/L 09/08/16 12:50 BUN 68 mg/dL (7-17) H 09/08/16 12:50 Creatinine 1.21 mg/dL (0.52-1.04) H 09/08/16 12:50 Est GFR (MDRD) Af Amer 54 (>60 ml/min/1.73 sqM) 09/08/16 12:50 Est GFR (MDRD) Non-Af 45 (>60 ml/min/1.73 sqM) 09/08/16 12:50 Glucose 187 mg/dL (74-99) H 09/08/16 12:50 POC Glucose (mg/dL) 127 mg/dL (75-99) H 09/08/16 21:01 POC Glu [employer]opter [employer] ID Jackie Billings 09/08/16 21:[address] Glu mg/dL 154 mg/dL 09/08/16 12:50 Hemoglobin A1c 7.0 % (4.2-6.1) H 09/08/16 12:50 Calcium 8.7 mg/dL (8.4-10.2) 09/08/16 12:50 Total Bilirubin 0.5 mg/dL (0.2-1.3) 09/08/16 12:50 AST 21 U/L (14-36) 09/08/16 12:50 ALT 27 U/L (9-52) 09/08/16 12:50 Alkaline Phosphatase 50 U/L (38-126) 09/08/16 12:50 Total Protein 6.0 g/dL (6.3-8.2) L 09/08/16 12:50 Albumin 3.1 g/dL (3.5-5.0) L 09/08/16 12:50 Amylase 38 U/L (30-110) 09/08/16 12:50 Lipase 87 U/L (23-300) 09/08/16 12:50 Urine Color Yellow 09/08/16 13:35 Urine Appearance Clear (Clear) 09/08/16 13:35 Urine pH 6.5 (5.0-8.0) 09/08/16 13:35 Ur Specific [place] 1.008 (1.001-1.035) 09/08/16 13:35 Urine Protein Negative (Negative) 09/08/16 13:35 Urine Glucose (UA) Negative (Negative) 09/08/16 13:35 Urine Ketones Negative (Negative) 09/08/16 13:35 Urine Blood Negative (Negative) 09/08/16 13:35 Urine Nitrate Negative (Negative) 09/08/16 13:35 Urine Bilirubin Negative (Negative) 09/08/16 13:35 Urine Urobilinogen <2.0 mg/dL (<2.0) 09/08/16 13:35 Ur Leukocyte Esterase Trace (Negative) H 09/08/16 13:35 Urine WBC 1 /hpf (0-5) 09/08/16 13:35 Ur Squamous Epith Cells <1 /hpf (0-4) 09/08/16 13:35 Hyaline Casts 3 /lpf (0-2) H 09/08/16 13:35 Blood Type A Positive 09/08/16 12:50 Blood Type Recheck No 09/08/16 12:50 Antibody Screen NEGATIVE 09/08/16 12:50 Crossmatch See Detail 09/08/16 12:50 Spec Expiration Date 09/11/2016234909/08/16 12:50 Thrombosis Risk Factor Assmnt - Choose All That Apply Each Factor Represents 1 point: Heart failure (<1month), Obesity (BMI >25) Each Risk Factor Represents 2 Points: Age 61-74 years Thrombosis Risk Factor Assessment Total Risk Factor Score: 4 Assessment and Plan Plan: 1. Anemia multifactorial has anemia of chronic illness possibly also from multiple admissions iatrogenic blood loss has been unavoidable,suspect steroid gastritis, lower GI bleeding cannot be ruled out, she would be seen consultation by gastroenterology iron studies will be performed upper GI sources also need to be ruled out as the patient has been exposed to multiple treatments for COPD including steroids, might need an EGD during this hospitalization, continue protonix iv 2. Rectal excrement after colectomy, most likely secondary to retained glandular secretions from the rectum, we would investigate this further as the patient is worried about this, also facet nephrology is following the patient 3. COPD with pulmonary hypertension and chronic bronchitis stable has nebulized albuterol Atrovent was recently placed on oral prednisone and antibiotic from her last admission, continue Singulair 4. Diabetes mellitus with renal complications, CK D stage III, diabetic polyneuropathy, patient is on Levemir 15 units twice a day and NovoLog 15 units 3 times a day pre-meal 5. CAD currently on ice Sorbide 30 mg daily, Coreg 6.25 mg daily, amiodarone 200 mg daily 6. Recent admission for mixed systolic diastolic CHF ejection fraction 35%, compensated 10. CK D stage III, or toxins will be avoided, avoid hypotension, maintain medications at this time 11. gout, on allopurinol 12 Obstructive sleep apnea patient has a home CPAP machine which would be brought from home for use in the hospital 13 Chronic pain syndrome on Ono when necessary 14 Restless leg syndrome Requip 0.75 mg twice a day 15Hypertensive cardio vascular disease on coronary 6.25 mg, atorvastatin 40 mg, 16 Chronic hypoxemia on maintenance O2 at home 17. gi prophylaxis with protonix dvt prophlazxis with mechanical, chemical prophylaxis probably wll be unsafe at this time as blood loss anemia is entertained expected length of stay 2 days
[2016-09-09 11:36] LABS: Glucose,Whole Blood 140 mg/dL (75-99)
[2016-09-09 11:40] LABS: % Iron Saturation 11.3 % (20-50)
[2016-09-09] MEDS: FERROUS SULFATE 325 MG TAB PO SCH (11:57)
[2016-09-09] MEDS: MAGNESIUM OXIDE 400 MG TAB PO SCH (11:57)
[2016-09-09 17:06] LABS: Glucose,Whole Blood 194 mg/dL (75-99)
[2016-09-09] MEDS ORDERED: FUROSEMIDE 20 MG TAB PO SCH (17:30)
[2016-09-09] MEDS: ATORVASTATIN 40 MG TAB PO SCH (20:13)
[2016-09-09] MEDS: MONTELUKAST 10 MG TAB PO SCH (20:13)
[2016-09-09 20:50] LABS: Glucose,Whole Blood 137 mg/dL (75-99)
[2016-09-09] MEDS: HYDROcodone/APAP 10-325MG 1 EACH TAB PO PRN (20:57)
[2016-09-09] MEDS: INSULIN GLARGINE 100 UNIT/ML 10 ML VIAL SQ SCH (20:57)
[2016-09-10 02:51] VITALS: TEMP 98.8
[2016-09-10 06:02] LABS: Glucose,Whole Blood 103 mg/dL (75-99)
[2016-09-10 06:14] LABS: Anisocytosis Slight; Aty Lym Flag Slight; CHCM 29.6; HCT 28.3 % (34.0-46.0); HDW 3.84; HGB 8.5 gm/dL (11.4-16.0); Hypochromasia Marked; MCH 26.3 pg (25.0-35.0); MCHC 29.8 g/dL (31.0-37.0); MCV 88.3 fL (80.0-100.0); Mean Platelet Volume 7.6; Poikilocytosis Slight; RBC 3.21 m/uL (3.80-5.40); RDW 16.8 % (11.5-15.5)
[2016-09-10 06:23] LABS: Anion Gap 11 mmol/L; Blood Urea Nitrogen 41 mg/dL (7-17); Calcium 8.6 mg/dL (8.4-10.2); Carbon Dioxide 28 mmol/L (22-30); Chloride 98 mmol/L (98-107); Glucose 86 mg/dL (74-99); Non-African American GFR(MDRD) 51 (>60 ml/min/1.73 sqM); Potassium 3.8 mmol/L (3.5-5.1); Sodium 137 mmol/L (137-145)
[2016-09-10] MEDS: INSULIN LISPRO (humaLOG) 300 UNIT/3 ML VIAL SQ SCH ×2 (06:38→12:41)
[2016-09-10] MEDS: CARVEDILOL 6.25 MG TAB PO SCH (06:39)
[2016-09-10 07:00] LABS: Add Differential Manual Differential
[2016-09-10 07:06] LABS: Manual Review Performed; Nucleated Red Blood Cells 0 /100 WBC (0-0); Total Cells Counted 100
[2016-09-10 08:16] VITALS: RESP 18
[2016-09-10] MEDS: FUROSEMIDE 20 MG TAB PO SCH (08:29)
[2016-09-10] MEDS: buPROPion XL 150 MG TAB.ER.24H PO SCH (08:29)
[2016-09-10] MEDS: CITALOPRAM HYDROBROMIDE 20 MG TAB PO SCH (08:29)
[2016-09-10] MEDS: ISOSORBIDE MONONITRATE ER 30 MG TAB.ER.24H PO SCH (08:30)
[2016-09-10] MEDS: LOSARTAN 25 MG TAB PO SCH (08:30)
[2016-09-10] MEDS: METOLAZONE 2.5 MG TAB PO SCH (08:30)
[2016-09-10] MEDS: ALLOPURINOL 100 MG TAB PO SCH (08:30)
[2016-09-10] MEDS: PANTOPRAZOLE 40 MG/10 ML VIAL IVP SCH (08:30)
[2016-09-10] MEDS: amLODIPine 5 MG TAB PO SCH (08:30)
[2016-09-10] MEDS: SPIRONOLACTONE 25 MG TAB PO SCH (08:30)
[2016-09-10] MEDS: AMIODARONE 200 MG TAB PO SCH (08:30)
[2016-09-10] MEDS: POTASSIUM CHLORIDE ER 20 MEQ TAB.ER PO SCH (08:30)
[2016-09-10] MEDS: BECLOMETHASONE DIP 80 MCG/PUFF INHALER INHALATION PRN (09:32)
--- NOTE | 2016-09-10 09:32 | P.PN ---
Subjective Principal diagnosis: GI bleed 55-year-old female with a history of ischemic colitis with partial colectomy year ago at [facility] presents with reports of bleeding around her ostomy. No episodes of GI bleeding. Ostomy producing brown formed stool. Denies abdominal pain. Tolerating diet. Hemoglobin 8.5. Objective - Vital Signs Vital signs: Vital Signs Temp 98.8 F 09/10/16 08:00 Pulse 52 L 09/10/16 08:00 Resp 18 09/10/16 08:00 BP 85/54 09/10/16 08:00 Pulse Ox 97 09/10/16 08:00 Intake & Output 09/09/16 09/10/16 09/10/16 18:59 06:59 18:59 Intake Total 1198 Output Total 1300 2650 Balance -102 -2650 Weight 115.3 kg 114.5 kg Intake: IV 500 Sodium Chloride 0.9% 1, 500 000 ml @ 100 mls/hr IV . Q10H ONE Rx#:[id number] Oral 698 Output: Urine 1300 2650 Other: Voiding Method Bedside Commode Bedside Commode # Voids 0 0 # Bowel Movements 0 0 - Exam General appearance: The patient is alert, oriented, in no acute distress. HET: Head is normocephalic and atraumatic. Pupils are equal and reactive. Oropharynx is clear without lesions. Neck: Supple without lymphadenopathy. Trachea midline. Heart: S1 S2. Regular rate and rhythm. Lungs: No crackles or wheezes are heard. Abdomen: Soft, peristomal hernia present. Stoma pink viable with large brown formed stool without evidence of bleeding. No bleeding around stoma site., nondistended with bowel sounds. Obese large pannus. No peritoneal signs. No palpable organomegaly or masses. Extremities: Normal skin color and turgor. No cyanosis, rash, ulceration, clubbing, or edema. Radial and pedal pulses are 2/4 bilaterally. Neurological: No focal deficits. Strength and sensation are grossly intact. - Labs CBC & Chem 7: 09/10/16 05:47 09/10/16 05:47 Labs: Abnormal Lab Results - Last 24 Hours (Table) 09/09/16 09/09/16 09/09/16 Range/Units 05:45 11:33 17:03 RBC (3.80-5.40) m/uL Hgb (11.4-16.0) gm/dL Hct (34.0-46.0) % MCHC (31.0-37.0) g/dL RDW (11.5-15.5) % BUN (7-17) mg/dL Creatinine (0.52-1.04) mg/dL POC Glucose (mg/dL) 140 H 194 H (75-99) mg/dL Iron 36 L (37-170) ug/dL % Saturation 11.3 L (20-50) % 09/09/16 09/10/16 09/10/16 Range/Units 20:46 05:47 05:47 RBC 3.21 L (3.80-5.40) m/uL Hgb 8.5 L (11.4-16.0) gm/dL Hct 28.3 L (34.0-46.0) % MCHC 29.8 L (31.0-37.0) g/dL RDW 16.8 H (11.5-15.5) % BUN 41 H (7-17) mg/dL Creatinine 1.09 H (0.52-1.04) mg/dL POC Glucose (mg/dL) 137 H (75-99) mg/dL Iron (37-170) ug/dL % Saturation (20-50) % 09/10/16 Range/Units 06:00 RBC (3.80-5.40) m/uL Hgb (11.4-16.0) gm/dL Hct (34.0-46.0) % MCHC (31.0-37.0) g/dL RDW (11.5-15.5) % BUN (7-17) mg/dL Creatinine (0.52-1.04) mg/dL POC Glucose (mg/dL) 103 H (75-99) mg/dL Iron (37-170) ug/dL % Saturation (20-50) % Assessment and Plan (1) Anemia Narrative/Plan: Chronic anemia with reports of bleeding suspect peristomal in nature with bright red blood with no current evidence of overt gastrointestinal bleeding such as hematemesis, hematochezia, or melena. History of ischemic bowel with partial colectomy 1 year ago with reports of postoperative colonoscopy being performed. Status: Acute Plan: 1. No further workup at this time. Return to GI office in 1-2 weeks after discharge for reevaluation and discussion of outpatient endoscopies if necessary. Continue oral iron supplementation. Assessment and plan of care discussed with Dr. Scott
[2016-09-10] MEDS: HYDROcodone/APAP 10-325MG 1 EACH TAB PO PRN (11:25)
[2016-09-10 11:44] VITALS: BP 83/52; PULSE 54
[2016-09-10 12:00] LABS: Glucose,Whole Blood 144 mg/dL (75-99)
[2016-09-10] MEDS: MAGNESIUM OXIDE 400 MG TAB PO SCH (12:40)
[2016-09-10] MEDS: FERROUS SULFATE 325 MG TAB PO SCH (12:40)
[2016-09-10 15:10] VITALS: BMI 43.3
--- NOTE | 2016-09-16 15:09 | P.DS ---
Providers Date of admission: 09/08/16 15:44 Expected date of discharge: 09/10/16 Attending physician: Arminda Mayes Primary care physician: Lul [place] Hospital Course: This is a 65-year-old pleasant lady patient of Dr. Lul Pickett, underlying history of COPD CHF diabetes mellitus hypertension diabetes polyneuropathy restless leg and prior history of colostomy placement, she was recently discharged from [facility] Admitted to [facility] 08/23/2016- Secondary to COPD Exacerbation, CHF exacerbation on chronic combined with severe cardiomyopathy ejection fraction 35%, pulmonary hypertension major depression AND was discharged with oral antibiotics, and tapering dose of prednisone. She was seen by cardiology and pulmonary infectious disease during her last admission She presented with emergency room she worried that after her colostomy in early last year, she had a rectal excrementtoday , non blood she thought that they were stools, patient denies any sam bleeding from the GI tract including the upper GI and lower gi. her colostomy always has liquid stools or pasty stools patient denies any fever and chills abdominal cramps and in the emergency room she had routine labs however she was found to have hemoglobin of 7.0, her last hemoglobin on [facility] was around 8.5. GI source of bleeding among others were the primary admitting diagnosis. Her pulmonary complaints are stable. she can black tarry stool on colostomy on occasion with epigastric pain. 09/10: Patient has been seen by GI with no plan for endoscopy. Plan to follow-up in the office after discharge in 1 week. Iron studies show iron level XXXVI, TIBC 318, iron saturation 11.3, ferritin 46. Patient will be discharged home in stable condition. Discharge diagnoses: 1. Anemia multifactorial has anemia of chronic illness possibly also from multiple admissions iatrogenic blood loss has been unavoidable,suspect steroid gastritis, lower GI bleeding cannot be ruled out 2. Rectal excrement after colectomy, most likely secondary to retained glandular secretions from the rectum 3. COPD with pulmonary hypertension and chronic bronchitis stable 4. Diabetes mellitus 2, insulin-requiring with renal complications, CKD stage III, diabetic polyneuropathy 5. CAD 6. Chronic systolic and diastolic heart failure 10. CKD stage III 11. gout, unspecified 12 Obstructive sleep apnea patient has a home CPAP machine 13 Chronic pain syndrome 14 Restless leg syndrome 15Hypertensive cardio vascular disease 16 Chronic hypoxemia respiratory failure on home O2 Discharge plan: Return home Impression and plan of care have been directed as dictated by the signing physician. Charmaine Fowler nurse practitioner acting as scribe for signing physician. Cc: Dr. Lul Aquino Patient Condition at Discharge: Good Plan - Discharge Summary New Discharge Prescriptions: Omeprazole [PriLOSEC] 20 mg PO AC-BID #60 cap Discharge Medication List Nitroglycerin Sl Tabs [Nitrostat] 0.4 mg SUBLINGUAL Q5M PRN #25 tab 12/17/15 [Rx ] Amiodarone [Cordarone] 200 mg PO DAILY 03/01/16 [History] Allopurinol [Zyloprim] 100 mg PO DAILY 03/09/16 [History] Atorvastatin [Lipitor] 40 mg PO HS 03/09/16 [History] Carvedilol [Coreg] 6.25 mg PO BID 03/09/16 [History] Ferrous Sulfate [Feosol] 325 mg PO DAILY 03/09/16 [History] Ipratropium-Albuterol Nebulize [Duoneb 0.5 mg-3 mg/3 ml Soln] 3 ml INHALATION RT -QID PRN 03/09/16 [History] Montelukast Sodium [Singulair] 10 mg PO HS 03/09/16 [History] buPROPion XL [Wellbutrin XL] 300 mg PO DAILY 03/09/16 [History] Acetaminophen Tab [Tylenol] 650 mg PO Q4H PRN 03/10/16 [History] Citalopram Hydrobromide [CeleXA] 40 mg PO DAILY 03/10/16 [History] HYDROcodone/APAP 10-325MG [[place] 10-325] 1 tab PO QID PRN 03/10/16 [History] Lactulose 10 gm PO Q12H 03/10/16 [History] Beclomethasone Dipropionate [Qvar 80 mcg] 2 puff INHALATION RT-BID PRN 09/08/16 [History] Furosemide [Lasix] 20 mg PO W/SUPPER 09/08/16 [History] Insulin Glargine [Lantus] 30 unit SQ HS 09/08/16 [History] Insulin Glulisine [Apidra] See Protocol SQ DAILY 09/08/16 [History] Losartan Potassium [Cozaar] 25 mg PO DAILY 09/08/16 [History] Magnesium Oxide [Mag-Ox] 400 mg PO DAILY 09/08/16 [History] Metolazone [Zaroxolyn] 2.5 mg PO MOWEFR 09/08/16 [History] Potassium Chloride [Klor-Con 20] 20 meq PO DAILY 09/08/16 [History] Spironolactone [Aldactone] 12.5 mg PO DAILY 09/08/16 [History] rOPINIRole HCL [Requip] 0.5 mg PO HS 09/08/16 [History] Furosemide [Lasix] 40 mg PO QAM tab 09/10/16 [Rx] Omeprazole [PriLOSEC] 20 mg PO AC-BID #60 cap 09/10/16 [Rx] amLODIPine BESYLATE [Norvasc] 2.5 mg PO DAILY #0 09/10/16 [Rx] Follow up Appointment(s)/Referral(s): Rowena Scott MD [STAFF PHYSICIAN] - 09/22/16 4:00 pm Lul Aquino MD [Primary Care Provider] - 09/17/16 12:45 pm Ty Scott MD [STAFF PHYSICIAN] - 09/18/16 1:45 pm Patient Instructions/Handouts: Gastrointestinal Bleeding (DC), Anemia (DC) Discharge Disposition: HOME SELF-CARE
== END 2016-09-10 16:06 | disposition home or self-care (01) ==
LOC: EC 11:54 → INTOOBSV 15:44 → 6SEL 15:44
PROVIDERS: ADMIT Family Medicine; ATTEND Family Medicine
PROC: 30233N1 Transfusion of Nonautologous Red Blood Cells into Peripheral Vein, Percutaneous Approach (ICD-10-PCS; principal; 2016-09-08)
DX: D50.0 Iron deficiency anemia secondary to blood loss (chronic) (principal); I50.42 Chronic combined systolic (congestive) and diastolic (congestive) heart failure; E11.29 Type 2 diabetes mellitus with other diabetic kidney complication; I27.2 Other secondary pulmonary hypertension; Z68.41 Body mass index [BMI] 40.0-44.9, adult; K92.2 Gastrointestinal hemorrhage, unspecified; K94.01 Colostomy hemorrhage; E66.01 Morbid (severe) obesity due to excess calories; E11.42 Type 2 diabetes mellitus with diabetic polyneuropathy; D63.8 Anemia in other chronic diseases classified elsewhere; E78.5 Hyperlipidemia, unspecified; F32.9 Major depressive disorder, single episode, unspecified; F41.9 Anxiety disorder, unspecified; G25.81 Restless legs syndrome; G47.33 Obstructive sleep apnea (adult) (pediatric); G89.4 Chronic pain syndrome; H91.90 Unspecified hearing loss, unspecified ear; I25.10 Atherosclerotic heart disease of native coronary artery without angina pectoris; I25.5 Ischemic cardiomyopathy; J44.9 Chronic obstructive pulmonary disease, unspecified; J45.909 Unspecified asthma, uncomplicated; K46.9 Unspecified abdominal hernia without obstruction or gangrene; M10.9 Gout, unspecified; R09.02 Hypoxemia; M19.90 Unspecified osteoarthritis, unspecified site; I12.9 Hypertensive chronic kidney disease with stage 1 through stage 4 chronic kidney disease, or unspecified chronic kidney disease; N18.3 Chronic kidney disease, stage 3 (moderate); Z79.899 Other long term (current) drug therapy; Z79.4 Long term (current) use of insulin; Z87.891 Personal history of nicotine dependence; Z95.1 Presence of aortocoronary bypass graft; Z99.81 Dependence on supplemental oxygen; Z95.5 Presence of coronary angioplasty implant and graft; Y83.3 Surgical operation with formation of external stoma as the cause of abnormal reaction of the patient, or of later complication, without mention of misadventure at the time of the procedure
CPT/HCPCS: 96361; 96374; 96375; 99285; 36415; 94640 ×3; 86900; 86901; 80053; 80048 ×2; 82728; 82150; 83036; 83540; 83550; 83690; 85025 ×3; 86850; 86920; 81001; 74176; G0378 ×3; P9016; J2405; C9113 ×3; 96376; 99284

== ENCOUNTER 2016-10-03 07:07 | Day surgery (SDC) | payer OTHER ==
[2016-10-02 14:24] VITALS: BMI 42.5
[~2016-10-03 07:07] MED LIST: LACTATED RINGERS 1,000 ML IV SCH; LIDOCAINE 1% 20 ML VIAL (10MG/ML) FOR IV START INTRADERMA PRN
[2016-10-03 07:47] VITALS: RESP 20; TEMP 97.6
[2016-10-03 07:51] LABS: Glucose,Whole Blood 139 mg/dL (75-99)
[2016-10-03] MEDS ORDERED: LIDOCAINE 1% INJ 10MG/ML (20 ML MDV) ONE (08:16)
[2016-10-03] MEDS ORDERED: PROPOFOL 10 MG/ML 20 ML VIAL IV ONE (08:16)
--- NOTE | 2016-10-03 09:03 | P.PCN ---
Date of Procedure: 10/03/16 Procedure(s) Performed: Brief history: Patient is a pleasant 65-year-old white female, scheduled for an elective upper endoscopy as well as colonoscopy as a part of evaluation of iron deficiency anemia. She was recently noted to have a hemoglobin of 7. right 5 requiring 2 units of PRBC transfusion. She has history of acute ischemic colitis in February 2016 admission she was transferred to [facility] and she underwent emergency last colectomy with colostomy. She recalls having a colonoscopy about 20 years ago. Because of iron deficiency anemia she is scheduled for both an upper endoscopy as well as colonoscopy today. She is been complaining of intermittent rectal bleeding for the colostomy bag in the last 6 months. Procedure performed: Esophagogastroduodenoscopy with biopsy Colonoscopy with biopsy and tattooing with Kristen ink Preoperative diagnosis: Iron deficiency anemia Intermittent bleeding for the colostomy Anesthesia: MAC Procedure: After informed consent was obtained from the patient was brought into the endoscopy unit and IV conscious sedation was administered by anesthesia under continuous monitoring. Initially upper endoscopy was done. The Olympus GF 160 video endoscope was inserted inserted into the mouth and esophagus intubated without any difficulty and was gradually advanced into the stomach and duodenum and carefully examined. The bulb and second part of the duodenum appeared normal. Biopsies were done from the duodenum to rule out celiac disease. The scope was then withdrawn into the stomach adequately insufflated with air and upon careful examination the antrum had mild diffuse gastritis and biopsies were done from this area. The body, cardia and fundus appeared normal. The scope was then withdrawn into the esophagus. The GE junction was located at 40 cm to the incisors. It appeared regular with no erythema erosions or ulcerations. Rest of the esophagus appeared normal. Patient tolerated the procedure well. At this time the patient continued to remain sedation. Initial digital rectal examination was normal. Olympus CF 160 video colonoscope was then inserted into the rectum and gradually advanced to the sigmoid colon and there was no mucosal pathology identified. There was some fecal material noted. At this time the patient was placed in supine position. The colostomy f area was exposed. The mucosa of the colostomy appeared normal. Digital examination was normal. The Olympus CF 160 video colonoscope was then inserted into the colostomy site and was gradually advanced into the right colon and cecum without any difficulty. Careful examination was performed as the scope was gradually being withdrawn. The prep was excellent. The cecum, appeared normal. In the mid descending colon extending to the distal ascending colon there was a circumferential ulcerated mass identified and multiple biopsies were done from this area. The tattooing of the distal margin was performed using Kristen ink. The transverse colon, descending colon, appeared normal Patient tolerated the procedure well. Impression: 1 Upper endoscopy revealed mild diffuse antral gastritis but no evidence of esophagitis or peptic ulcer disease. 2.. Colonoscopy through the colostomy revealed: a) Mid ascending colon ulcerated mass, nonobstructing measuring 6 cm in length suspicious for neoplasm status post multiple biopsies b) Rest of the colon appeared normal c) Biggs's pouch appeared normal Recommendations: Findings of this examination were discussed with the patient as well as well as her family. She was advised to follow with the biopsy results. In the meantime she'll be scheduled for a CT of the abdomen and pelvis and she'll be seen in the office in a week to discuss the results and constipation for surgical surgical evaluation
[2016-10-03 10:05] VITALS: BP 152/75; PULSE 70
== END 2016-10-03 10:25 | disposition home or self-care (01) ==
LOC: ORWHC2ENDO 07:07
PROVIDERS: ATTEND Internal Medicine Gastroenterology
DX: C18.2 Malignant neoplasm of ascending colon (principal); K29.50 Unspecified chronic gastritis without bleeding; Z87.19 Personal history of other diseases of the digestive system; Z93.3 Colostomy status; I25.10 Atherosclerotic heart disease of native coronary artery without angina pectoris; I11.0 Hypertensive heart disease with heart failure; I50.9 Heart failure, unspecified; E78.5 Hyperlipidemia, unspecified; J44.9 Chronic obstructive pulmonary disease, unspecified; J45.909 Unspecified asthma, uncomplicated; G47.33 Obstructive sleep apnea (adult) (pediatric); E11.9 Type 2 diabetes mellitus without complications; Z79.4 Long term (current) use of insulin; Z79.51 Long term (current) use of inhaled steroids; Z79.899 Other long term (current) drug therapy; Z88.1 Allergy status to other antibiotic agents
CPT/HCPCS: 88305; 88342; 44389; 43239; 44404; J2001; J2704; 45381

== ENCOUNTER → 2016-10-08 | Outpatient (CLI) | payer OTHER ==
[2016-10-08 08:15] LABS: Blood Urea Nitrogen 45 mg/dL (7-17); Non-African American GFR(MDRD) 53 (>60 ml/min/1.73 sqM)
--- NOTE | 2016-10-08 09:37 | CT ---
EXAMINATION TYPE: CT abdomen pelvis w con DATE OF EXAM: 10/08/2016 8:54 AM COMPARISON: Prior CT abdomen pelvis August, additional CTs 11 April 2009, 2015 HISTORY: Follow abn colonoscopy, mass CT DLP: 1789 mGycm Automated exposure control for dose reduction was used. TECHNIQUE: Helical acquisition of images was performed from the lung bases through the pelvis. CONTRAST: Performed with Oral Contrast and with IV Contrast, patient injected with 100 mL of Omnipaque 300. FINDINGS: LUNG BASES: No significant abnormality is appreciated. LIVER/GB: Stable, the liver shows low attenuation possibly due to fatty infiltration. Patient is post cholecystectomy. Liver at the upper limit of normal for size. Soft tissue density measuring 2.5 cm a t the level of the lorenzo and associated metallic densities is stable and may be postoperative or repr esent local carlos enlargement. PANCREAS: No significant abnormality is seen. SPLEEN: No significant abnormality is seen. ADRENALS: Similar to prior, there is a soft tissue mass with associated calcification at the level of the left adrenal gland which is stable and measures approximately 3 cm, lesion is stable dating to March KIDNEYS: Left kidney is atrophic. Right kidney shows no hydronephrosis. RETROPERITONEAL ADENOPATHY: None visualized REPRODUCTIVE ORGANS: Postop changes are stable status post hysterectomy URINARY BLADDER: No significant abnormality is seen. PELVIC ADENOPATHY: None visualized. OSSEOUS STRUCTURES: Stable degenerative disc disease in the visualized spine, associated facet arthr opathy and possible spinal stenosis BOWEL: There is thickening of the colon at the level of the hepatic flexure which is indeterminate, c orrelate for patient's mass Large anterior abdominal wall hernia is again noted at the level of the p atient's ostomy, there is increased density within the subcutaneous fat possibly due to local celluli tis, edema OTHER: Aorta is not dilated but shows atheromatous change. Colonic interposition is present anterior to the liver. There are coronary artery calcifications. IMPRESSION: COLONIC GAS MAY BE PRESENT AT THE HEPATIC FLEXURE. ADDITIONAL FINDINGS ABOVE ARE ESSENTIALLY STABLE.
== END ==
LOC: RADCTMAIN 07:27
PROVIDERS: ATTEND Internal Medicine Gastroenterology
DX: K63.89 Other specified diseases of intestine (principal)
CPT/HCPCS: 82565; 84520; 74177; 36415; Q9967

== ENCOUNTER → 2017-01-22 | Outpatient (CLI) | payer MEDICARE ==
--- NOTE | 2017-01-28 11:01 | P.ARTDOP ---
Arterial Doppler LOWER EXTREMITY ARTERIAL DOPPLER: DATE OF SERVICE: 01/22/2017 Reason for study: Cold feet. Doppler waveforms: Multiphasic bilaterally throughout. Pulse volume recording: Normal configuration. Pressure gradients: Mild gradients below the knee. Ankle-brachial indices: 0.94 on the right and 0.91 on the left.. Toe pressures: 49 on the right, 74 on the left Impression: Probably normal lower extremity until Doppler. Given the excellent waveforms at the toe level I suspect the gradient is related to vasospastic phenomenon. Perfusion should be more than adequate for healing..
== END | disposition home or self-care (01) ==
LOC: RADUSWWP 09:28
PROVIDERS: ATTEND Family Medicine
DX: R68.89 Other general symptoms and signs (principal)
CPT/HCPCS: 93923

== ENCOUNTER 2017-02-09 14:16 | Inpatient (IN) | payer MEDICARE ==
[2017-02-09] MEDS ORDERED: SODIUM CHLORIDE 0.9% 500 ML IV STA (15:55)
[2017-02-09] MEDS ORDERED: PIPERACILLIN-TAZOBACTAM 3.375 GM in DEXTROSE/WATER 1 50ML.BAG IVPB STA (16:01)
--- NOTE | 2017-02-09 16:17 | ED ---
General Adult HPI - General Source: patient, RN notes reviewed Mode of arrival: wheelchair Limitations: no limitations <Rufino Gregory - Last Filed: 02/09/17 16:04> <Bebe Mace - Last Filed: 02/09/17 19:07> - General Chief complaint: Recheck/Abnormal Lab/Rx Stated complaint: Dr Janay Time Seen by Provider: 02/09/17 15:35 - History of Present Illness Initial comments: This is a 66-year-old female with past medical history significant for cancer and a colectomy. Patient also has a ventral hernia. Patient went in and saw Dr. Ashraf he ordered a CAT scan of the abdomen and pelvis I got a call from CAT scan that the patient had a intra-abdominal abscess. Patient states she was not having any more abdominal discomfort than normal. Patient denies any nausea vomiting or diarrhea. Patient denies any recent history trauma. Patient denies chest pain difficulty breathing first breath per patient denies any lightheadedness or dizziness. Patient denies any recent fever chills. Patient denies any back pain. Patient denies dysuria hematuria urinary frequency. (Rufino Gregory) - Related Data Home Medications Medication Instructions Recorded Confirmed Amiodarone [Cordarone] 200 mg PO DAILY 03/01/16 02/09/17 Allopurinol [Zyloprim] 100 mg PO DAILY 03/09/16 02/09/17 Atorvastatin [Lipitor] 40 mg PO HS 03/09/16 02/09/17 Carvedilol [Coreg] 6.25 mg PO BID 03/09/16 02/09/17 Ferrous Sulfate [Feosol] 325 mg PO DAILY 03/09/16 02/09/17 Ipratropium-Albuterol Nebulize 3 ml INHALATION RT-QID PRN 03/09/16 02/09/17 [Duoneb 0.5 mg-3 mg/3 ml Soln] Montelukast Sodium [Singulair] 10 mg PO HS 03/09/16 02/09/17 Beclomethasone Dipropionate [Qvar 2 puff INHALATION RT-BID PRN 09/08/16 02/09/17 80 mcg] Insulin Glargine [Lantus] 30 unit SQ HS 09/08/16 02/09/17 Insulin Glulisine [Apidra] See Protocol SQ DAILY 09/08/16 02/09/17 Potassium Chloride [Klor-Con 20] 20 meq PO DAILY 09/08/16 02/09/17 rOPINIRole HCL [Requip] 0.5 mg PO DAILY PRN 09/08/16 02/09/17 Furosemide [Lasix] 60 mg PO DAILY 10/02/16 02/09/17 Cholecalciferol (Vitamin D3) 2,000 unit PO DAILY 02/09/17 02/09/17 [Vitamin D3] DULoxetine HCL [Cymbalta] 60 mg PO DAILY 02/09/17 02/09/17 Famotidine [Pepcid] 20 mg PO HS 02/09/17 02/09/17 HYDROcodone/APAP 7.5-325MG [[place] 1 tab PO TID PRN 02/09/17 02/09/17 7.5-325] Isosorbide Mononitrate ER [Imdur] 30 mg PO DAILY 02/09/17 02/09/17 Lactulose 20 gm PO BID PRN 02/09/17 02/09/17 Levothyroxine Sodium [Synthroid] 25 mcg PO DAILY 02/09/17 02/09/17 Lisinopril [Zestril] 5 mg PO DAILY 02/09/17 02/09/17 amLODIPine [Norvasc] 5 mg PO DAILY 02/09/17 02/09/17 guaiFENesin [Mucinex] 600 mg PO Q12H PRN 02/09/17 02/09/17 rOPINIRole HCL [Requip] 1 mg PO HS 02/09/17 02/09/17 Previous Rx's Medication Instructions Recorded Nitroglycerin Sl Tabs [Nitrostat] 0.4 mg SUBLINGUAL Q5M PRN #25 tab 12/17/15 Allergies Allergy/AdvReac Type Severity Reaction Status Date / Time cephalexin monohydrate Allergy Unknown Rash/Hives Verified 02/09/17 16:02 [From Keflex] Review of Systems ROS Other: All systems not noted in ROS Statement are negative. <Rufino Gregory - Last Filed: 02/09/17 16:04> ROS Other: All systems not noted in ROS Statement are negative. <Bebe Mace - Last Filed: 02/09/17 19:07> ROS Statement: Those systems with pertinent positive or pertinent negative responses have been documented in the HPI. Past Medical History Past Medical History: Asthma, Heart Failure, COPD, Diabetes Mellitus, Hearing Disorder / Deafness, Hyperlipidemia, Hypertension, Osteoarthritis (OA), Pneumonia, Renal Disease, Sleep Apnea/CPAP/BIPAP, Vascular Disorder Additional Past Medical History / Comment(s): ANEMIA, HOME 02 2 LITERS N/C PRN, SORE ON 2ND TOE OF BOTH FEET, has colostomy, pulmonary hypertension, combined systolic and diastolic failure, last ejection fraction 35% August 2016, diabetic neuropathy, gout, chronic pain, restless leg syndrome, uses CPAP History of Any Multi-Drug Resistant Organisms: None Reported Past Surgical History: Bladder Surgery, Cholecystectomy, Coronary Bypass/CABG, Heart Catheterization, Heart Catheterization With Stent, Hernia Repair, Hysterectomy, Joint Replacement, Orthopedic Surgery Additional Past Surgical History / Comment(s): RUPTURED BOWEL-HAD COLOSTOMY in january, bilateral knee surgery(X2 RT KNEE REPLACEMENTS), cataract surg., triple bypass 2007 Past Anesthesia/Blood Transfusion Reactions: Motion Sickness, No Reported Reaction Additional Past Anesthesia/Blood Transfusion Reaction / Comment(s): Pt has received blood without reaction. Date of Last Stent Placement:: 2009 Past Psychological History: Anxiety, Depression Smoking Status: Former smoker Past Alcohol Use History: None Reported Past Drug Use History: None Reported - Past Family History Mother Family Medical History: Cancer Additional Family Medical History / Comment(s): Mother had lung cancer. Father Family Medical History: Liver Disease Additional Family Medical History / Comment(s): Father of cirrhosis of the liver. He was a alcoholic. <Rufino Gregory - Last Filed: 02/09/17 16:04> General Exam Limitations: no limitations <Rufino Gregory - Last Filed: 02/09/17 16:04> <Bebe Mace - Last Filed: 02/09/17 19:07> - General Exam Comments Initial Comments: GENERAL: Patient is well-developed and well-nourished. Patient is nontoxic and well- hydrated and is in no acute distress. ENT: Neck is soft and supple. No significant lymphadenopathy is noted. Oropharynx is clear. Moist mucous membranes. Neck has full range of motion without eliciting any pain. EYES: The sclera were anicteric and conjunctiva were pink and moist. Extraocular movements were intact and pupils were equal round and reactive to light. Eyelids were unremarkable. PULMONARY: Unlabored respirations. Good breath sounds bilaterally. No audible rales rhonchi or wheezing was noted. CARDIOVASCULAR: There is a regular rate and rhythm without any murmurs gallops or rubs. ABDOMEN: Patient has slight left-sided abdominal pain patient also has a small ventral hernia. SKIN: Skin is clear with no lesions or rashes and otherwise unremarkable. NEUROLOGIC: Patient is alert and oriented x3. Cranial nerves II through XII are grossly intact. Motor and sensory are also intact. Normal speech, volume and content. Symmetrical smile. MUSCULOSKELETAL: Normal extremities with adequate strength and full range of motion. No lower extremity swelling or edema. No calf tenderness. LYMPHATICS: No significant lymphadenopathy is noted PSYCHIATRIC: Normal psychiatric evaluation. (Rufino Gregory) Course <Rufino Gregory - Last Filed: 02/09/17 16:04> <Bebe Mace - Last Filed: 02/09/17 19:07> Vital Signs 02/09/17 02/09/17 02/09/17 14:32 16:22 17:06 Temperature 98.7 F Pulse Rate 85 86 80 Respiratory 18 18 18 Rate Blood Pressure 122/63 147/66 119/66 O2 Sat by Pulse 98 97 97 Oximetry 02/09/17 02/09/17 17:22 18:22 Temperature 98.4 F Pulse Rate 72 72 Respiratory 18 18 Rate Blood Pressure 138/63 120/77 O2 Sat by Pulse 96 95 Oximetry At 1845 patient's labs and CAT scan was reviewed, CBC, compressive metabolic panel urinalysis are absolutely normal and she had a CAT scan of the abdomen earlier earlier done in order by Dr. gonzales showed 5 cm fluid collection she be better to Dr. Alexander's service and Dr. Atkinson also (Bebe Mace) - Reevaluation(s) Reevaluation #1: 02/09/17 19:06 Patient had a question about eating and drinking discussed with Dr. Champagne, she okayed a regular diet for now (Bebe Mace) Medical Decision Making - Lab Data Result diagrams: 02/09/17 16:48 02/09/17 16:48 <Bebe Mace - Last Filed: 02/09/17 19:07> - Lab Data Lab Results 02/09/17 02/09/17 02/09/17 Range/Units 16:48 16:48 16:48 WBC 8.9 (3.8-10.6) k/uL RBC 4.48 (3.80-5.40) m/uL Hgb 12.0 (11.4-16.0) gm/dL Hct 38.9 (34.0-46.0) % MCV 87.0 (80.0-100.0) fL MCH 26.8 (25.0-35.0) pg MCHC 30.8 L (31.0-37.0) g/dL RDW 19.1 H (11.5-15.5) % Plt Count 285 (150-450) k/uL Neutrophils % 72 % Lymphocytes % 17 % Monocytes % 6 % Eosinophils % 1 % Basophils % 1 % Neutrophils # 6.4 (1.3-7.7) k/uL Lymphocytes # 1.5 (1.0-4.8) k/uL Monocytes # 0.6 (0-1.0) k/uL Eosinophils # 0.1 (0-0.7) k/uL Basophils # 0.0 (0-0.2) k/uL Hypochromasia Moderate Anisocytosis Slight Sodium 135 L (137-145) mmol/L Potassium 4.4 (3.5-5.1) mmol/L Chloride 96 L (98-107) mmol/L Carbon Dioxide 28 (22-30) mmol/L Anion Gap 11 mmol/L BUN 35 H (7-17) mg/dL Creatinine 0.94 (0.52-1.04) mg/dL Est GFR (MDRD) Af Amer >60 (>60 ml/min/1.73 sqM) Est GFR (MDRD) Non-Af 60 (>60 ml/min/1.73 sqM) Glucose 149 H (74-99) mg/dL Plasma Lactic Acid Jose 1.3 (0.7-2.0) mmol/L Calcium 9.8 (8.4-10.2) mg/dL Total Bilirubin 0.6 (0.2-1.3) mg/dL AST 33 (14-36) U/L ALT 41 (9-52) U/L Alkaline Phosphatase 80 (38-126) U/L Total Protein 7.6 (6.3-8.2) g/dL Albumin 4.1 (3.5-5.0) g/dL Amylase 51 (30-110) U/L Lipase 160 (23-300) U/L Urine Color Urine Appearance (Clear) Urine pH (5.0-8.0) Ur Specific [place] (1.001-1.035) Urine Protein (Negative) Urine Glucose (UA) (Negative) Urine Ketones (Negative) Urine Blood (Negative) Urine Nitrite (Negative) Urine Bilirubin (Negative) Urine Urobilinogen (<2.0) mg/dL Ur Leukocyte Esterase (Negative) 02/09/17 Range/Units 18:15 WBC (3.8-10.6) k/uL RBC (3.80-5.40) m/uL Hgb (11.4-16.0) gm/dL Hct (34.0-46.0) % MCV (80.0-100.0) fL MCH (25.0-35.0) pg MCHC (31.0-37.0) g/dL RDW (11.5-15.5) % Plt Count (150-450) k/uL Neutrophils % % Lymphocytes % % Monocytes % % Eosinophils % % Basophils % % Neutrophils # (1.3-7.7) k/uL Lymphocytes # (1.0-4.8) k/uL Monocytes # (0-1.0) k/uL Eosinophils # (0-0.7) k/uL Basophils # (0-0.2) k/uL Hypochromasia Anisocytosis Sodium (137-145) mmol/L Potassium (3.5-5.1) mmol/L Chloride (98-107) mmol/L Carbon Dioxide (22-30) mmol/L Anion Gap mmol/L BUN (7-17) mg/dL Creatinine (0.52-1.04) mg/dL Est GFR (MDRD) Af Amer (>60 ml/min/1.73 sqM) Est GFR (MDRD) Non-Af (>60 ml/min/1.73 sqM) Glucose (74-99) mg/dL Plasma Lactic Acid Jose (0.7-2.0) mmol/L Calcium (8.4-10.2) mg/dL Total Bilirubin (0.2-1.3) mg/dL AST (14-36) U/L ALT (9-52) U/L Alkaline Phosphatase (38-126) U/L Total Protein (6.3-8.2) g/dL Albumin (3.5-5.0) g/dL Amylase (30-110) U/L Lipase (23-300) U/L Urine Color Yellow Urine Appearance Clear (Clear) Urine pH 7.0 (5.0-8.0) Ur Specific [place] 1.040 H (1.001-1.035) Urine Protein Trace H (Negative) Urine Glucose (UA) Negative (Negative) Urine Ketones Negative (Negative) Urine Blood Negative (Negative) Urine Nitrite Negative (Negative) Urine Bilirubin Negative (Negative) Urine Urobilinogen <2.0 (<2.0) mg/dL Ur Leukocyte Esterase Negative (Negative) Disposition <Rufino Gregory - Last Filed: 02/09/17 16:04> <Bebe Mace - Last Filed: 02/09/17 19:07> Clinical Impression: Intra-abdominal abscess Disposition: ADMITTED IP TO THIS HOSP Condition: Good Referrals: Lul Aquino MD [Primary Care Provider] - 1-2 days
[2017-02-09] MEDS ORDERED: ACETAMINOPHEN TAB 325 MG TAB PO STA (16:25)
[2017-02-09 16:58] LABS: Anisocytosis Slight; Basophils % (A) 1 %; CH 26.6; CHCM 30.6; Eosinophils # (A) 0.1 k/uL (0-0.7); Eosinophils % (A) 1 %; HCT 38.9 % (34.0-46.0); HDW 2.99; Hypochromasia Moderate; Luc # (Auto) 0.26; Luc % (Auto) 3; Lymphocytes # (A) 1.5 k/uL (1.0-4.8); Lymphocytes % (A) 17 %; MCH 26.8 pg (25.0-35.0); MCHC 30.8 g/dL (31.0-37.0); Mean Platelet Volume 7.5; Monocytes # (A) 0.6 k/uL (0-1.0); Monocytes % (A) 6 %; Neutrophils # (A) 6.4 k/uL (1.3-7.7); Neutrophils % (A) 72 %; RBC 4.48 m/uL (3.80-5.40); RDW 19.1 % (11.5-15.5); WBC 8.9 k/uL (3.8-10.6)
[2017-02-09 17:09] LABS: ALT 41 U/L (9-52); AST 33 U/L (14-36); Alkaline Phosphatase 80 U/L (38-126); Amylase 51 U/L (30-110); Anion Gap 11 mmol/L; Blood Urea Nitrogen 35 mg/dL (7-17); Calcium 9.8 mg/dL (8.4-10.2); Carbon Dioxide 28 mmol/L (22-30); Chloride 96 mmol/L (98-107); Glucose 149 mg/dL (74-99); Non-African American GFR(MDRD) 60 (>60 ml/min/1.73 sqM); Potassium 4.4 mmol/L (3.5-5.1); Sodium 135 mmol/L (137-145); Total Bilirubin 0.6 mg/dL (0.2-1.3); Total Protein 7.6 g/dL (6.3-8.2)
[2017-02-09 18:47] LABS: Appearance,Urine Clear (Clear); Bilirubin,Urine Negative (Negative); Glucose,Urine (UA) Negative (Negative); Ketones,Urine Negative (Negative); Leukocyte Esterase,Urine Negative (Negative); Nitrite,Urine Negative (Negative); Protein,Urine Trace (Negative); UA Billing (MACRO vs. MICRO) CHEM; Urobilinogen,Urine <2.0 mg/dL (<2.0)
[2017-02-09] MEDS ORDERED: SODIUM CHLORIDE 0.9% 1,000 ML IV ONE (19:07)
[2017-02-09] MEDS ORDERED: NITROGLYCERIN SL TABS 0.4 MG TAB SUBLINGUAL PRN (19:11)
[2017-02-09] MEDS ORDERED: guaiFENesin 600 MG TABLET.ER PO PRN (19:11)
[2017-02-09] MEDS ORDERED: LACTULOSE 20 GM/30 ML CUP PO PRN (19:11)
[2017-02-09 20:14] LABS: Glucose,Whole Blood 147 mg/dL (75-99)
[2017-02-09 20:25] VITALS: BMI 40.8
[2017-02-09] MEDS: BUDESONIDE 1 MG/2 ML NEBU INHALATION SCH (20:50)
[2017-02-09] MEDS ORDERED: FAMOTIDINE 20 MG TAB PO SCH (21:00)
[2017-02-09] MEDS: INSULIN GLARGINE 100 UNIT/ML 10 ML VIAL SQ SCH (22:05)
[2017-02-09] MEDS: HYDROcodone/APAP 7.5-325MG 1 EACH TAB PO PRN (22:06)
[2017-02-09] MEDS: ATORVASTATIN 40 MG TAB PO SCH (22:08)
[2017-02-09] MEDS: MONTELUKAST 10 MG TAB PO SCH (22:08)
[2017-02-09] MEDS: CARVEDILOL 6.25 MG TAB PO SCH (22:08)
[2017-02-10] MEDS: PIPERACILLIN-TAZOBACTAM 3.375 GM in DEXTROSE/WATER 1 50ML.BAG IVPB SCH ×4 (00:46→22:43)
[2017-02-10] MEDS: LEVOTHYROXINE 25 MCG TAB PO SCH (05:22)
[2017-02-10] MEDS: HYDROcodone/APAP 7.5-325MG 1 EACH TAB PO PRN ×2 (05:24→16:12)
[2017-02-10] MEDS: IPRATROPIUM-ALBUTEROL 3 ML NEB INHALATION PRN ×4 (07:49→20:26)
[2017-02-10] MEDS: BUDESONIDE 1 MG/2 ML NEBU INHALATION SCH ×2 (07:49→20:26)
--- NOTE | 2017-02-10 08:34 | P.GSCN ---
History of Present Illness Consult date: 02/10/17 Reason for Consult: Abscess History of present illness: The patient is a 66-year-old female known to me for a colon resection earlier this year for colon cancer. She went in for a routine computed tomography scan of her chest, abdomen, pelvis, which was ordered by Dr. Ashraf. This Was for staging. She was found to have an abscess. She denies any fevers or chills. No nausea or vomiting. Her bowels are moving normally. She has some discomfort in the lower abdomen which has been present for quite some time. It hasn't Changed in character. Review of Systems All systems: negative Past Medical History Past Medical History: Asthma, Heart Failure, COPD, Diabetes Mellitus, Hearing Disorder / Deafness, Hyperlipidemia, Hypertension, Osteoarthritis (OA), Pneumonia, Renal Disease, Sleep Apnea/CPAP/BIPAP, Vascular Disorder Additional Past Medical History / Comment(s): ANEMIA, N, SORE ON 2ND TOE OF BOTH FEET, , pulmonary hypertension, combined systolic and diastolic failure, last ejection fraction 35% August 2016, diabetic neuropathy, gout, chronic pain, restless leg syndrome, uses CPAP, colon Ca History of Any Multi-Drug Resistant Organisms: None Reported Past Surgical History: Bladder Surgery, Cholecystectomy, Coronary Bypass/CABG, Heart Catheterization, Heart Catheterization With Stent, Hernia Repair, Hysterectomy, Joint Replacement, Orthopedic Surgery Additional Past Surgical History / Comment(s): RUPTURED BOWEL-HAD COLOSTOMY in january, bilateral knee surgery(X2 RT KNEE REPLACEMENTS), cataract surg., triple bypass 2007 Past Anesthesia/Blood Transfusion Reactions: Motion Sickness, No Reported Reaction Additional Past Anesthesia/Blood Transfusion Reaction / Comm: Pt has received blood without reaction. Date of Last Stent Placement:: 2009 Past Psychological History: Anxiety, Depression Additional Psychological History / Comment(s): Pt resides with her spouse. She uses a walker at times. She has not driven lately, her spouse drives her. She has a CPAP, and blood glucose monitor at home. Smoking Status: Former smoker Past Alcohol Use History: None Reported Additional Past Alcohol Use History / Comment(s): SMOKED 1 & 1/2 PPD-QUIT 2010, SMOKED FOR 47 YEARS. Past Drug Use History: None Reported - Past Family History Mother Family Medical History: Cancer Additional Family Medical History / Comment(s): Mother had lung cancer. Father Family Medical History: Liver Disease Additional Family Medical History / Comment(s): Father of cirrhosis of the liver. He was a alcoholic. Medications and Allergies Home Medications Medication Instructions Recorded Confirmed Type Amiodarone [Cordarone] 200 mg PO DAILY 03/01/16 02/09/17 History Allopurinol [Zyloprim] 100 mg PO DAILY 03/09/16 02/09/17 History Atorvastatin [Lipitor] 40 mg PO HS 03/09/16 02/09/17 History Carvedilol [Coreg] 6.25 mg PO BID 03/09/16 02/09/17 History Ferrous Sulfate [Feosol] 325 mg PO DAILY 03/09/16 02/09/17 History Ipratropium-Albuterol Nebulize 3 ml INHALATION RT-QID PRN 03/09/16 02/09/17 History [Duoneb 0.5 mg-3 mg/3 ml Soln] Montelukast Sodium [Singulair] 10 mg PO HS 03/09/16 02/09/17 History Beclomethasone Dipropionate [Qvar 2 puff INHALATION RT-BID PRN 09/08/16 History 80 mcg] Insulin Glargine [Lantus] 30 unit SQ HS 09/08/16 02/09/17 History Insulin Glulisine [Apidra] See Protocol SQ DAILY 09/08/16 02/09/17 History Potassium Chloride [Klor-Con 20] 20 meq PO DAILY 09/08/16 02/09/17 History rOPINIRole HCL [Requip] 0.5 mg PO DAILY PRN 09/08/16 02/09/17 History Furosemide [Lasix] 60 mg PO DAILY 10/02/16 02/09/17 History Cholecalciferol (Vitamin D3) 2,000 unit PO DAILY 02/09/17 02/09/17 History [Vitamin D3] DULoxetine HCL [Cymbalta] 60 mg PO DAILY 02/09/17 02/09/17 History Famotidine [Pepcid] 20 mg PO HS 02/09/17 02/09/17 History HYDROcodone/APAP 7.5-325MG [[place] 1 tab PO TID PRN 02/09/17 02/09/17 History 7.5-325] Isosorbide Mononitrate ER [Imdur] 30 mg PO DAILY 02/09/17 02/09/17 History Lactulose 20 gm PO BID PRN 02/09/17 02/09/17 History Levothyroxine Sodium [Synthroid] 25 mcg PO DAILY 02/09/17 02/09/17 History Lisinopril [Zestril] 5 mg PO DAILY 02/09/17 02/09/17 History amLODIPine [Norvasc] 5 mg PO DAILY 02/09/17 02/09/17 History guaiFENesin [Mucinex] 600 mg PO Q12H PRN 02/09/17 02/09/17 History rOPINIRole HCL [Requip] 1 mg PO HS 02/09/17 02/09/17 History Allergies Allergy/AdvReac Type Severity Reaction Status Date / Time cephalexin monohydrate Allergy Unknown Rash/Hives Verified 02/10/17 02:10 [From Keflex] Surgical - Exam Osteopathic Statement: *. No significant issues noted on an osteopathic structural exam other than those noted in the History and Physical/Consult. Vital Signs Temp Pulse Resp BP Pulse Ox 98.7 F 85 18 122/63 98 02/09/17 14:32 02/09/17 14:32 02/09/17 14:32 02/09/17 14:32 02/09/17 14:32 - General well developed, well nourished, obese - Eyes normal ocular movement - ENT normal mucosa - Neck trachea midline - Respiratory clear to auscultation (Mildly diminished bilaterally which is chronic) - Cardiovascular Rhythm: regular - Abdomen Abdomen: soft, bowel sounds, surgical scars Hernia: incisional (irreducible fat filled periumbilical hernia. Minimal nonspecific tenderness without guarding or rebound) - Psychiatric oriented to time, oriented to person, oriented to place, speech is normal, memory intact Results - Labs 02/09/17 16:48 02/09/17 16:48 Abnormal Lab Results - Last 24 Hours (Table) 02/09/17 02/09/17 02/09/17 Range/Units 16:48 16:48 18:15 MCHC 30.8 L (31.0-37.0) g/dL RDW 19.1 H (11.5-15.5) % Sodium 135 L (137-145) mmol/L Chloride 96 L (98-107) mmol/L BUN 35 H (7-17) mg/dL Glucose 149 H (74-99) mg/dL POC Glucose (mg/dL) (75-99) mg/dL Ur Specific [place] 1.040 H (1.001-1.035) Urine Protein Trace H (Negative) 02/09/17 Range/Units 20:12 MCHC (31.0-37.0) g/dL RDW (11.5-15.5) % Sodium (137-145) mmol/L Chloride (98-107) mmol/L BUN (7-17) mg/dL Glucose (74-99) mg/dL POC Glucose (mg/dL) 147 H (75-99) mg/dL Ur Specific [place] (1.001-1.035) Urine Protein (Negative) Diabetes panel 02/09/17 Range/Units 16:48 Sodium 135 L (137-145) mmol/L Potassium 4.4 (3.5-5.1) mmol/L Chloride 96 L (98-107) mmol/L Carbon Dioxide 28 (22-30) mmol/L BUN 35 H (7-17) mg/dL Creatinine 0.94 (0.52-1.04) mg/dL Glucose 149 H (74-99) mg/dL Calcium 9.8 (8.4-10.2) mg/dL AST 33 (14-36) U/L ALT 41 (9-52) U/L Alkaline Phosphatase 80 (38-126) U/L Total Protein 7.6 (6.3-8.2) g/dL Albumin 4.1 (3.5-5.0) g/dL Calcium panel 02/09/17 Range/Units 16:48 Calcium 9.8 (8.4-10.2) mg/dL Albumin 4.1 (3.5-5.0) g/dL Pituitary panel 02/09/17 Range/Units 16:48 Sodium 135 L (137-145) mmol/L Potassium 4.4 (3.5-5.1) mmol/L Chloride 96 L (98-107) mmol/L Carbon Dioxide 28 (22-30) mmol/L BUN 35 H (7-17) mg/dL Creatinine 0.94 (0.52-1.04) mg/dL Glucose 149 H (74-99) mg/dL Calcium 9.8 (8.4-10.2) mg/dL Adrenal panel 02/09/17 Range/Units 16:48 Sodium 135 L (137-145) mmol/L Potassium 4.4 (3.5-5.1) mmol/L Chloride 96 L (98-107) mmol/L Carbon Dioxide 28 (22-30) mmol/L BUN 35 H (7-17) mg/dL Creatinine 0.94 (0.52-1.04) mg/dL Glucose 149 H (74-99) mg/dL Calcium 9.8 (8.4-10.2) mg/dL Total Bilirubin 0.6 (0.2-1.3) mg/dL AST 33 (14-36) U/L ALT 41 (9-52) U/L Alkaline Phosphatase 80 (38-126) U/L Total Protein 7.6 (6.3-8.2) g/dL Albumin 4.1 (3.5-5.0) g/dL - Imaging CT scan - abdomen: report reviewed, image reviewed (CT was reviewed with the radiologist. There is a fluid collection with an air-fluid level.) Assessment and Plan (1) History of colon cancer Status: Acute (2) Intra-abdominal abscess Status: Acute (3) COPD (chronic obstructive pulmonary disease) Status: Acute (4) Diabetes Status: Acute Plan: Given the fact this is an incidental finding on a staging CAT scan with no sign of fever, chills or leukocytosis, this could be a sterile abscess. I discussed the case with the radiologist. To see whether this is an acute process, we'll order a tagged WBC scan to further evaluate the fluid collection. Further recommendations to follow.
[2017-02-10] MEDS: amLODIPine 5 MG TAB PO SCH (09:20)
[2017-02-10] MEDS: FUROSEMIDE 20 MG TAB PO SCH (09:21)
[2017-02-10] MEDS: LISINOPRIL 5 MG TAB PO SCH (09:21)
[2017-02-10] MEDS: ISOSORBIDE MONONITRATE ER 30 MG TAB.ER.24H PO SCH (09:29)
[2017-02-10] MEDS: POTASSIUM CHLORIDE ER 20 MEQ TAB.ER PO SCH (09:29)
[2017-02-10] MEDS: AMIODARONE 200 MG TAB PO SCH (09:29)
[2017-02-10] MEDS: ALLOPURINOL 100 MG TAB PO SCH (09:30)
[2017-02-10] MEDS: DULoxetine HCL 60 MG CAPSULE.DR PO SCH (09:30)
[2017-02-10] MEDS: CHOLECALCIFEROL 1,000 UNIT TAB PO SCH (09:30)
[2017-02-10] MEDS: CARVEDILOL 6.25 MG TAB PO SCH ×2 (09:30→17:46)
[2017-02-10] MEDS: FERROUS SULFATE 325 MG TAB PO SCH (09:30)
[2017-02-10] MEDS: PANTOPRAZOLE 40 MG TABLET PO SCH (11:59)
--- NOTE | 2017-02-10 13:17 | P.HPIM ---
History of Present Illness H&P Date: 02/10/17 Chief Complaint: Abnormal finding on CAT scan, lower abdominal pain This is a 66-year-old female patient of Dr. Aquino with past history of COPD, chronic systolic heart failure, pulmonary hypertension, diabetes mellitus type 2 with diabetic polyneuropathy, hypertension, restless leg syndrome, recurrent depression. Patient has history of subtotal colectomy with colostomy at [facility] in approximately January 2016 with reversal done in October 2016. She follows with Dr. Ashraf. Patient underwent an outpatient routine CAT scan of the chest, abdomen, pelvis for staging and found to have an abscess. Patient denies having any fever or chills. She has had no nausea or vomiting. Patient does complain of pressure at the site of the scar. She also states this area hurts when she coughs. She denies having any chemotherapy or radiation therapy and she states that this time she does not want any. She is complaining of cough at night with phlegm production. She is also complaining of headache to the right sabianism there is been going on for the last one and half weeks with sudden onset and lasts for about 15 minutes each episode. Patient complains that she has gastric esophageal reflux disease and current use of Pepcid is not helping. She has had weight loss of 63 pounds over the past year. Review of Systems All systems: negative Constitutional: Denies chills, Denies fever Eyes: denies blurred vision, denies pain Ears, nose, mouth and throat: Reports headache, Denies sore throat Cardiovascular: Denies chest pain, Denies shortness of breath Respiratory: Reports cough with sputum, Denies cough Gastrointestinal: Reports abdominal pain, Denies diarrhea, Denies nausea, Denies vomiting Genitourinary: Denies dysuria, Denies hematuria Musculoskeletal: Denies myalgias Integumentary: Denies pruritus, Denies rash Neurological: Denies numbness, Denies weakness Psychiatric: Denies anxiety, Denies depression Endocrine: Denies fatigue, Denies weight change Past Medical History Past Medical History: Asthma, Heart Failure, COPD, Diabetes Mellitus, Hearing Disorder / Deafness, Hyperlipidemia, Hypertension, Osteoarthritis (OA), Pneumonia, Renal Disease, Sleep Apnea/CPAP/BIPAP, Vascular Disorder Additional Past Medical History / Comment(s): ANEMIA, N, SORE ON 2ND TOE OF BOTH FEET, , pulmonary hypertension, combined systolic and diastolic failure, last ejection fraction 35% August 2016, diabetic neuropathy, gout, chronic pain, restless leg syndrome, uses CPAP, colon Ca History of Any Multi-Drug Resistant Organisms: None Reported Past Surgical History: Bladder Surgery, Cholecystectomy, Coronary Bypass/CABG, Heart Catheterization, Heart Catheterization With Stent, Hernia Repair, Hysterectomy, Joint Replacement, Orthopedic Surgery Additional Past Surgical History / Comment(s): RUPTURED BOWEL-HAD COLOSTOMY in january, bilateral knee surgery(X2 RT KNEE REPLACEMENTS), cataract surg., triple bypass 2007 Past Anesthesia/Blood Transfusion Reactions: Motion Sickness, No Reported Reaction Additional Past Anesthesia/Blood Transfusion Reaction / Comment(s): Pt has received blood without reaction. Date of Last Stent Placement:: 2009 Past Psychological History: Anxiety, Depression Additional Psychological History / Comment(s): Pt resides with her spouse. She uses a walker at times. She has not driven lately, her spouse drives her. She has a CPAP, and blood glucose monitor at home. Smoking Status: Former smoker Past Alcohol Use History: None Reported Additional Past Alcohol Use History / Comment(s): SMOKED 1 & 1/2 PPD-QUIT 2010, SMOKED FOR 47 YEARS. Past Drug Use History: None Reported - Past Family History Mother Family Medical History: Cancer Additional Family Medical History / Comment(s): Mother had lung cancer. Father Family Medical History: Liver Disease Additional Family Medical History / Comment(s): Father of cirrhosis of the liver. He was a alcoholic. Medications and Allergies Home Medications Medication Instructions Recorded Confirmed Type Amiodarone [Cordarone] 200 mg PO DAILY 03/01/16 02/09/17 History Allopurinol [Zyloprim] 100 mg PO DAILY 03/09/16 02/09/17 History Atorvastatin [Lipitor] 40 mg PO HS 03/09/16 02/09/17 History Carvedilol [Coreg] 6.25 mg PO BID 03/09/16 02/09/17 History Ferrous Sulfate [Feosol] 325 mg PO DAILY 03/09/16 02/09/17 History Ipratropium-Albuterol Nebulize 3 ml INHALATION RT-QID PRN 03/09/16 02/09/17 History [Duoneb 0.5 mg-3 mg/3 ml Soln] Montelukast Sodium [Singulair] 10 mg PO HS 03/09/16 02/09/17 History Beclomethasone Dipropionate [Qvar 2 puff INHALATION RT-BID PRN 09/08/16 History 80 mcg] Insulin Glargine [Lantus] 30 unit SQ HS 09/08/16 02/09/17 History Insulin Glulisine [Apidra] See Protocol SQ DAILY 09/08/16 02/09/17 History Potassium Chloride [Klor-Con 20] 20 meq PO DAILY 09/08/16 02/09/17 History rOPINIRole HCL [Requip] 0.5 mg PO DAILY PRN 09/08/16 02/09/17 History Furosemide [Lasix] 60 mg PO DAILY 10/02/16 02/09/17 History Cholecalciferol (Vitamin D3) 2,000 unit PO DAILY 02/09/17 02/09/17 History [Vitamin D3] DULoxetine HCL [Cymbalta] 60 mg PO DAILY 02/09/17 02/09/17 History Famotidine [Pepcid] 20 mg PO HS 02/09/17 02/09/17 History HYDROcodone/APAP 7.5-325MG [[place] 1 tab PO TID PRN 02/09/17 02/09/17 History 7.5-325] Isosorbide Mononitrate ER [Imdur] 30 mg PO DAILY 02/09/17 02/09/17 History Lactulose 20 gm PO BID PRN 02/09/17 02/09/17 History Levothyroxine Sodium [Synthroid] 25 mcg PO DAILY 02/09/17 02/09/17 History Lisinopril [Zestril] 5 mg PO DAILY 02/09/17 02/09/17 History amLODIPine [Norvasc] 5 mg PO DAILY 02/09/17 02/09/17 History guaiFENesin [Mucinex] 600 mg PO Q12H PRN 02/09/17 02/09/17 History rOPINIRole HCL [Requip] 1 mg PO HS 02/09/17 02/09/17 History Allergies Allergy/AdvReac Type Severity Reaction Status Date / Time cephalexin monohydrate Allergy Unknown Rash/Hives Verified 02/10/17 02:10 [From Keflex] Physical Exam Vitals: Vital Signs Temp Pulse Pulse Resp BP BP Pulse Ox 02/10/17 08:00 80 02/10/17 07:50 78 02/09/17 23:00 96.8 F L 81 16 145/64 96 02/09/17 20:50 73 14 02/09/17 20:16 96.9 F L 74 16 141/65 95 02/09/17 19:41 99.0 F 71 20 114/53 97 02/09/17 18:22 98.4 F 72 18 120/77 95 02/09/17 17:22 72 18 138/63 96 02/09/17 17:06 80 18 119/66 97 02/09/17 16:22 86 18 147/66 97 02/09/17 14:32 98.7 F 85 18 122/63 98 Intake and Output 02/09/17 02/10/17 02/10/17 22:59 06:59 14:59 Intake Total 590 180 Balance 590 180 Intake: Oral 590 180 Other: Voiding Method Toilet # Voids 3 1 Weight 107.955 kg Gen: This is a morbidly obese 66-year-old female. She is sitting on the edge of the bed and appears to be in no acute distress. HEENT: Head is atraumatic, normocephalic. Pupils equal, round. Sclerae is anicteric. NECK: Supple. No JVD. No lymphadenopathy. No thyromegaly. LUNGS: Clear to auscultation. No wheezes or rhonchi. No intercostal retractions. HEART: Regular rate and rhythm. No murmur. ABDOMEN: Soft. Bowel sounds are present. No masses. No tenderness. EXTREMITIES: No pedal edema. No calf tenderness. Dorsalis pedis +1 bilaterally. NEUROLOGICAL: Patient is awake, alert and oriented x3. Cranial nerves 2 through 12 are grossly intact. Results CBC & Chem 7: 02/09/17 16:48 02/09/17 16:48 Labs: Abnormal Lab Results - Last 24 Hours (Table) 02/09/17 02/09/17 02/09/17 Range/Units 16:48 16:48 18:15 MCHC 30.8 L (31.0-37.0) g/dL RDW 19.1 H (11.5-15.5) % Sodium 135 L (137-145) mmol/L Chloride 96 L (98-107) mmol/L BUN 35 H (7-17) mg/dL Glucose 149 H (74-99) mg/dL POC Glucose (mg/dL) (75-99) mg/dL Ur Specific [place] 1.040 H (1.001-1.035) Urine Protein Trace H (Negative) 02/09/17 Range/Units 20:12 MCHC (31.0-37.0) g/dL RDW (11.5-15.5) % Sodium (137-145) mmol/L Chloride (98-107) mmol/L BUN (7-17) mg/dL Glucose (74-99) mg/dL POC Glucose (mg/dL) 147 H (75-99) mg/dL Ur Specific [place] (1.001-1.035) Urine Protein (Negative) Thrombosis Risk Factor Assmnt - DVT/VTE Prophylaxis DVT/VTE Prophylaxis: Pharmacologic Prophylaxis ordered - Choose All That Apply Each Factor Represents 1 point: Obesity (BMI >25) Each Risk Factor Represents 2 Points: Age 61-74 years Thrombosis Risk Factor Assessment Total Risk Factor Score: 3 Thrombosis Risk Factor Assessment Level: Moderate Risk Assessment and Plan Plan: 1. Possible intra-abdominal abscess found on staging CAT scan with no fever, chills, leukocytosis. Consult with Dr. Mahi castellanos. Patient is scheduled for tagged WBC scan. Continue Zosyn. 2. History of colon cancer in the care of Dr. Ashraf. 3. Coronary artery disease. Continue amiodarone, Lipitor, Coreg, Imdur. 4. Chronic systolic heart failure. Continue Lasix 60 mg daily 5. Chronic kidney disease stage III. Avoid nephrotoxic agents and hypotension. 6. Obstructive sleep apnea on CPAP. 7. Restless leg syndrome. Continue Requip. 8. Hypertension, hypertensive cardiovascular disease. Continue Norvasc, Coreg , lisinopril 9. Diabetes mellitus type 2, insulin requiring. Continue Lantus 30 units at bedtime and Humalog scale before meals and at bedtime. 10. Gout. Continue allopurinol. 11. Gastroesophageal reflux disease and gastrointestinal prophylaxis. Continue Protonix 40 mg daily. 12. DVT prophylaxis. Heparin subcu. Patient will be admitted to the hospital for a minimum of 2 night stay. Discharge plan: Home with VNA Impression and plan of care have been directed as dictated by the signing physician. Charmaine Fowler nurse practitioner acting as scribe for signing physician.
[2017-02-10 14:33] LABS: Hemoglobin A1C 6.9 % (4.2-6.1)
[2017-02-10 16:51] LABS: Glucose,Whole Blood 170 mg/dL (75-99)
[2017-02-10] MEDS: INSULIN LISPRO (humaLOG) 300 UNIT/3 ML VIAL SQ SCH ×2 (17:46→20:20)
[2017-02-10] MEDS: ATORVASTATIN 40 MG TAB PO SCH (20:20)
[2017-02-10] MEDS: MONTELUKAST 10 MG TAB PO SCH (20:20)
[2017-02-10 20:47] LABS: Glucose,Whole Blood 154 mg/dL (75-99)
[2017-02-10] MEDS: INSULIN GLARGINE 100 UNIT/ML 10 ML VIAL SQ SCH (22:42)
[2017-02-11] MEDS: IPRATROPIUM-ALBUTEROL 3 ML NEB INHALATION PRN ×4 (03:35→19:34)
[2017-02-11] MEDS: LEVOTHYROXINE 25 MCG TAB PO SCH (05:15)
[2017-02-11 06:54] LABS: Glucose,Whole Blood 131 mg/dL (75-99)
[2017-02-11] MEDS: ENOXAPARIN 40 MG/0.4 ML SYRINGE SQ SCH (07:59)
[2017-02-11] MEDS: CARVEDILOL 6.25 MG TAB PO SCH ×2 (07:59→18:13)
[2017-02-11] MEDS: ISOSORBIDE MONONITRATE ER 30 MG TAB.ER.24H PO SCH (07:59)
[2017-02-11] MEDS: CHOLECALCIFEROL 1,000 UNIT TAB PO SCH (07:59)
[2017-02-11] MEDS: PANTOPRAZOLE 40 MG TABLET PO SCH (07:59)
[2017-02-11] MEDS: amLODIPine 5 MG TAB PO SCH (07:59)
[2017-02-11 08:00] LABS: ALT 33 U/L (9-52); AST 19 U/L (14-36); Alkaline Phosphatase 72 U/L (38-126); Anion Gap 9 mmol/L; Blood Urea Nitrogen 21 mg/dL (7-17); Calcium 9.1 mg/dL (8.4-10.2); Carbon Dioxide 23 mmol/L (22-30); Chloride 105 mmol/L (98-107); Glucose 113 mg/dL (74-99); Non-African American GFR(MDRD) >60 (>60 ml/min/1.73 sqM); Potassium 3.8 mmol/L (3.5-5.1); Sodium 137 mmol/L (137-145); Total Bilirubin 0.7 mg/dL (0.2-1.3); Total Protein 6.2 g/dL (6.3-8.2)
[2017-02-11] MEDS: POTASSIUM CHLORIDE ER 20 MEQ TAB.ER PO SCH (08:00)
[2017-02-11] MEDS: PIPERACILLIN-TAZOBACTAM 3.375 GM in DEXTROSE/WATER 1 50ML.BAG IVPB SCH ×2 (08:00→16:33)
[2017-02-11] MEDS: ALLOPURINOL 100 MG TAB PO SCH (08:00)
[2017-02-11] MEDS: AMIODARONE 200 MG TAB PO SCH (08:00)
[2017-02-11] MEDS: LISINOPRIL 5 MG TAB PO SCH (08:00)
[2017-02-11] MEDS: FERROUS SULFATE 325 MG TAB PO SCH (08:00)
[2017-02-11] MEDS: FUROSEMIDE 20 MG TAB PO SCH (08:00)
[2017-02-11] MEDS: DULoxetine HCL 60 MG CAPSULE.DR PO SCH (08:00)
[2017-02-11] MEDS: INSULIN LISPRO (humaLOG) 300 UNIT/3 ML VIAL SQ SCH ×4 (08:09→21:38)
--- NOTE | 2017-02-11 08:43 | PN ---
Jasmin is seen on rounds this morning. She is having no pain, no nausea, no vomiting, no fevers, no chills. Abdomen is soft and then tender. ASSESSMENT: Abscess, question sterile abscess. PLAN: A nuclear medicine test has been ordered to rule out an infectious process. When she was seen this evening about 5:30, results were pending. Further recommendations to follow. AMYD
[2017-02-11] MEDS: BUDESONIDE 1 MG/2 ML NEBU INHALATION SCH ×2 (09:00→19:34)
[2017-02-11] MEDS: HYDROcodone/APAP 7.5-325MG 1 EACH TAB PO PRN ×2 (10:39→20:39)
[2017-02-11 11:14] LABS: Glucose,Whole Blood 192 mg/dL (75-99)
--- NOTE | 2017-02-11 11:46 | P.PN ---
Subjective Principal diagnosis: Pelvic abscess Patient denies any significant pain. She describes some mild pressure sensation in the lower pelvis. She is tolerating her regular diet. Normal bowel function per the patient. White blood cell scan is still pending. Objective - Vital Signs Vital signs: Vital Signs Temp 98.2 F 02/11/17 07:00 Pulse 72 02/11/17 09:18 Resp 14 02/11/17 07:00 BP 119/67 02/11/17 07:00 Pulse Ox 99 02/11/17 07:00 Intake & Output 02/10/17 02/11/17 02/11/17 18:59 06:59 18:59 Intake Total 180 1130 120 Output Total 800 2600 1200 Balance -243 -8353 -2866 Weight 107.955 kg Intake: Intake, IV Titration 400 Amount Piperacillin-Tazobactam 3 100 .375 gm In Dextrose/Water 1 50ml.bag @ 12.5 mls/hr IVPB Q8HR [facility] Rx#: [id number] Sodium Chloride 0.9% 1, 300 000 ml @ 100 mls/hr IV . Q10H [facility] Rx#:[id number] Oral 180 730 120 Output: Urine 800 2600 1200 Uretheral ([place]) 1200 1000 Other: Voiding Method Indwelling Catheter Indwelling Catheter Indwelling Catheter - Exam Abdomen: Soft, obese, minimal lower abdominal tenderness - Labs CBC & Chem 7: 02/09/17 16:48 02/11/17 07:24 Labs: Abnormal Lab Results - Last 24 Hours (Table) 02/09/17 02/10/17 02/10/17 Range/Units 16:51 16:48 20:17 BUN (7-17) mg/dL Glucose (74-99) mg/dL POC Glucose (mg/dL) 170 H 154 H (75-99) mg/dL Hemoglobin A1c 6.9 H (4.2-6.1) % Total Protein (6.3-8.2) g/dL Albumin (3.5-5.0) g/dL 02/11/17 02/11/17 02/11/17 Range/Units 06:49 07:24 11:08 BUN 21 H (7-17) mg/dL Glucose 113 H (74-99) mg/dL POC Glucose (mg/dL) 131 H 192 H (75-99) mg/dL Hemoglobin A1c (4.2-6.1) % Total Protein 6.2 L (6.3-8.2) g/dL Albumin 3.2 L (3.5-5.0) g/dL Assessment and Plan (1) Intra-abdominal abscess Narrative/Plan: Await findings of the white blood cell scan. Continue diet. Status: Acute
--- NOTE | 2017-02-11 14:48 | NM ---
EXAMINATION TYPE: NM WBC abscess imaging DATE OF EXAM: 02/11/2017 COMPARISON: CT chest abdomen pelvis 02/09/2017 HISTORY: Intra-abdominal fluid collection TECHNIQUE: Following administration of 23.9 mCi Tc99m Ceretec. Images obtained 4 hour(s) and 24 stacy r(s) post injection. FINDINGS: There is normal biodistribution of the radio pharmaceutical at 4 hours with 1 exception. There is a f ocal area of radiopharmaceutical uptake present at the level of pelvic inlet which may correspond to the abnormal fluid collection seen on CT rather than bladder. Rfanklin catheter is in place. IMPRESSION: Findings suggest abdominal abscess as described.
[2017-02-11 17:35] LABS: Glucose,Whole Blood 167 mg/dL (75-99)
[2017-02-11 20:14] LABS: Glucose,Whole Blood 147 mg/dL (75-99)
[2017-02-11] MEDS: ATORVASTATIN 40 MG TAB PO SCH (21:37)
[2017-02-11] MEDS: MONTELUKAST 10 MG TAB PO SCH (21:37)
[2017-02-11] MEDS: INSULIN GLARGINE 100 UNIT/ML 10 ML VIAL SQ SCH (21:40)
[2017-02-12] MEDS: PIPERACILLIN-TAZOBACTAM 3.375 GM in DEXTROSE/WATER 1 50ML.BAG IVPB SCH ×3 (00:01→16:26)
[2017-02-12] MEDS: LEVOTHYROXINE 25 MCG TAB PO SCH (06:16)
[2017-02-12 06:58] LABS: Glucose,Whole Blood 123 mg/dL (75-99)
[2017-02-12] MEDS: IPRATROPIUM-ALBUTEROL 3 ML NEB INHALATION PRN ×4 (07:04→20:30)
[2017-02-12] MEDS: BUDESONIDE 1 MG/2 ML NEBU INHALATION SCH ×2 (07:04→20:30)
[2017-02-12] MEDS: HYDROcodone/APAP 7.5-325MG 1 EACH TAB PO PRN ×3 (07:17→22:36)
[2017-02-12] MEDS: ISOSORBIDE MONONITRATE ER 30 MG TAB.ER.24H PO SCH (07:20)
[2017-02-12] MEDS: amLODIPine 5 MG TAB PO SCH (07:20)
[2017-02-12] MEDS: FERROUS SULFATE 325 MG TAB PO SCH (07:20)
[2017-02-12] MEDS: CARVEDILOL 6.25 MG TAB PO SCH ×2 (07:20→18:03)
[2017-02-12] MEDS: AMIODARONE 200 MG TAB PO SCH (07:21)
[2017-02-12] MEDS: PANTOPRAZOLE 40 MG TABLET PO SCH (07:21)
[2017-02-12] MEDS: CHOLECALCIFEROL 1,000 UNIT TAB PO SCH (07:21)
[2017-02-12] MEDS: LISINOPRIL 5 MG TAB PO SCH (07:21)
[2017-02-12] MEDS: FUROSEMIDE 20 MG TAB PO SCH (07:21)
[2017-02-12] MEDS: ALLOPURINOL 100 MG TAB PO SCH (07:21)
[2017-02-12] MEDS: ENOXAPARIN 40 MG/0.4 ML SYRINGE SQ SCH (07:22)
[2017-02-12] MEDS: DULoxetine HCL 60 MG CAPSULE.DR PO SCH (07:22)
[2017-02-12] MEDS: POTASSIUM CHLORIDE ER 20 MEQ TAB.ER PO SCH (07:22)
[2017-02-12] MEDS: INSULIN LISPRO (humaLOG) 300 UNIT/3 ML VIAL SQ SCH ×5 (08:00→21:03)
[2017-02-12 08:05] LABS: Anion Gap 11 mmol/L; Blood Urea Nitrogen 28 mg/dL (7-17); Carbon Dioxide 22 mmol/L (22-30); Chloride 103 mmol/L (98-107); Glucose 102 mg/dL (74-99); Non-African American GFR(MDRD) >60 (>60 ml/min/1.73 sqM); Potassium 4.1 mmol/L (3.5-5.1); Sodium 136 mmol/L (137-145)
[2017-02-12 08:08] LABS: Anisocytosis Slight; Basophils % (A) 1 %; CH 26.3; CHCM 29.8; Eosinophils # (A) 0.2 k/uL (0-0.7); Eosinophils % (A) 3 %; HCT 35.5 % (34.0-46.0); HGB 10.9 gm/dL (11.4-16.0); Hypochromasia Marked; Luc # (Auto) 0.22; Luc % (Auto) 3; Lymphocytes # (A) 1.1 k/uL (1.0-4.8); Lymphocytes % (A) 15 %; MCH 27.2 pg (25.0-35.0); MCHC 30.8 g/dL (31.0-37.0); MCV 88.4 fL (80.0-100.0); Mean Platelet Volume 7.3; Monocytes # (A) 0.5 k/uL (0-1.0); Monocytes % (A) 6 %; Neutrophils # (A) 5.3 k/uL (1.3-7.7); Neutrophils % (A) 72 %; RBC 4.01 m/uL (3.80-5.40); RDW 18.4 % (11.5-15.5); WBC 7.3 k/uL (3.8-10.6); WBC (Perox) 7.63
--- NOTE | 2017-02-12 09:21 | P.PN ---
Subjective This is a 66-year-old female patient of Dr. Aquino with past history of COPD, chronic systolic heart failure, pulmonary hypertension, diabetes mellitus type 2 with diabetic polyneuropathy, hypertension, restless leg syndrome, recurrent depression. Patient has history of subtotal colectomy with colostomy at [facility] in approximately January 2016 with reversal done in October 2016. She follows with Dr. Ashraf. Patient underwent an outpatient routine CAT scan of the chest, abdomen, pelvis for staging and found to have an abscess. Patient denies having any fever or chills. She has had no nausea or vomiting. Patient does complain of pressure at the site of the scar. She also states this area hurts when she coughs. She denies having any chemotherapy or radiation therapy and she states that this time she does not want any. She is complaining of cough at night with phlegm production. She is also complaining of headache to the right yazdanism there is been going on for the last one and half weeks with sudden onset and lasts for about 15 minutes each episode. Patient complains that she has gastric esophageal reflux disease and current use of Pepcid is not helping. She has had weight loss of 63 pounds over the past year. 02/11: Patient denies any new complaints. She states she has her continued abdominal pain which is unchanged. She denies any nausea or vomiting. WBC scan shows abscess. Await further recommendations from general surgery. She is currently on IV Zosyn. Objective - Vital Signs Vital signs: Vital Signs Temp 97.5 F L 02/11/17 01:10 Pulse 68 02/11/17 09:00 Resp 16 02/11/17 01:10 BP 116/80 02/11/17 01:10 Pulse Ox 92 L 02/11/17 01:10 Intake & Output 02/10/17 02/11/17 02/11/17 18:59 06:59 18:59 Intake Total 180 1130 120 Output Total 800 2600 Balance -620 -1470 120 Weight 107.955 kg Intake: Intake, IV Titration 400 Amount Piperacillin-Tazobactam 3 100 .375 gm In Dextrose/Water 1 50ml.bag @ 12.5 mls/hr IVPB Q8HR [facility] Rx#: [id number] Sodium Chloride 0.9% 1, 300 000 ml @ 100 mls/hr IV . Q10H ONE Rx#:[id number] Oral 180 730 120 Output: Urine 800 2600 Uretheral ([place]) 1200 Other: Voiding Method Indwelling Catheter Indwelling Catheter - Exam Gen: This is a morbidly obese 66-year-old female. She is sitting on the edge of the bed and appears to be in no acute distress. HEENT: Head is atraumatic, normocephalic. Pupils equal, round. Sclerae is anicteric. NECK: Supple. No JVD. No lymphadenopathy. No thyromegaly. LUNGS: Clear to auscultation. No wheezes or rhonchi. No intercostal retractions. HEART: Regular rate and rhythm. No murmur. ABDOMEN: Soft. Bowel sounds are present. No masses. No tenderness. EXTREMITIES: No pedal edema. No calf tenderness. Dorsalis pedis +1 bilaterally. NEUROLOGICAL: Patient is awake, alert and oriented x3. Cranial nerves 2 through 12 are grossly intact. - Labs CBC & Chem 7: 02/12/17 06:39 02/12/17 06:39 Labs: Abnormal Lab Results - Last 24 Hours (Table) 02/09/17 02/10/17 02/10/17 Range/Units 16:51 16:48 20:17 BUN (7-17) mg/dL Glucose (74-99) mg/dL POC Glucose (mg/dL) 170 H 154 H (75-99) mg/dL Hemoglobin A1c 6.9 H (4.2-6.1) % Total Protein (6.3-8.2) g/dL Albumin (3.5-5.0) g/dL 02/11/17 02/11/17 Range/Units 06:49 07:24 BUN 21 H (7-17) mg/dL Glucose 113 H (74-99) mg/dL POC Glucose (mg/dL) 131 H (75-99) mg/dL Hemoglobin A1c (4.2-6.1) % Total Protein 6.2 L (6.3-8.2) g/dL Albumin 3.2 L (3.5-5.0) g/dL Assessment and Plan Plan: 1. Possible intra-abdominal abscess found on staging CAT scan with no fever, chills, leukocytosis. Consult with Dr. Champagne appreciated. Tagged WBC scan as above. Continue Zosyn. 2. History of colon cancer in the care of Dr. Ashraf. 3. Coronary artery disease. Continue amiodarone, Lipitor, Coreg, Imdur. 4. Chronic systolic heart failure. Continue Lasix 60 mg daily 5. Chronic kidney disease stage III. Avoid nephrotoxic agents and hypotension. 6. Obstructive sleep apnea on CPAP. 7. Restless leg syndrome. Continue Requip. 8. Hypertension, hypertensive cardiovascular disease. Continue Norvasc, Coreg , lisinopril 9. Diabetes mellitus type 2, insulin requiring. Continue Lantus 30 units at bedtime and Humalog scale before meals and at bedtime. 10. Gout. Continue allopurinol. 11. Gastroesophageal reflux disease and gastrointestinal prophylaxis. Continue Protonix 40 mg daily. 12. DVT prophylaxis. Heparin subcu. Patient will be admitted to the hospital for a minimum of 2 night stay. Discharge plan: Home with VNA Impression and plan of care have been directed as dictated by the signing physician. Charmaine Fowler nurse practitioner acting as scribe for signing physician.
[2017-02-12 11:44] LABS: Glucose,Whole Blood 152 mg/dL (75-99)
--- NOTE | 2017-02-12 12:05 | P.PN ---
Subjective This is a 66-year-old female patient of Dr. Aquino with past history of COPD, chronic systolic heart failure, pulmonary hypertension, diabetes mellitus type 2 with diabetic polyneuropathy, hypertension, restless leg syndrome, recurrent depression. Patient has history of subtotal colectomy with colostomy at [facility] in approximately January 2016 with reversal done in October 2016. She follows with Dr. Ashraf. Patient underwent an outpatient routine CAT scan of the chest, abdomen, pelvis for staging and found to have an abscess. Patient denies having any fever or chills. She has had no nausea or vomiting. Patient does complain of pressure at the site of the scar. She also states this area hurts when she coughs. She denies having any chemotherapy or radiation therapy and she states that this time she does not want any. She is complaining of cough at night with phlegm production. She is also complaining of headache to the right muslim there is been going on for the last one and half weeks with sudden onset and lasts for about 15 minutes each episode. Patient complains that she has gastric esophageal reflux disease and current use of Pepcid is not helping. She has had weight loss of 63 pounds over the past year. 02/11: Patient denies any new complaints. She states she has her continued abdominal pain which is unchanged. She denies any nausea or vomiting. WBC scan shows abscess. Await further recommendations from general surgery. She is currently on IV Zosyn. 02/12: Contacted Dr. chino with recommendations to have ID consult and PICC line placement for IV antibiotics. Consult placed with Dr. Mace. PICC line ordered for today. Anticipate discharge home tomorrow. Case management updated. Objective - Vital Signs Vital signs: Vital Signs Temp 98.0 F 02/11/17 23:00 Pulse 72 02/12/17 07:22 Resp 16 02/12/17 04:00 BP 167/85 02/11/17 23:00 Pulse Ox 93 L 02/11/17 23:00 Intake & Output 02/11/17 02/12/17 02/12/17 18:59 06:59 18:59 Intake Total 1070 680 Output Total 1200 Balance -130 680 Intake: Intake, IV Titration 50 Amount Piperacillin-Tazobactam 3 50 .375 gm In Dextrose/Water 1 50ml.bag @ 12.5 mls/hr IVPB Q8HR [facility] Rx#: [id number] Oral 1020 680 Output: Urine 1200 Uretheral ([place]) 1000 Other: Voiding Method Toilet Toilet # Voids 2 1 - Exam Gen: This is a morbidly obese 66-year-old female. She is sitting on the edge of the bed and appears to be in no acute distress. HEENT: Head is atraumatic, normocephalic. Pupils equal, round. Sclerae is anicteric. NECK: Supple. No JVD. No lymphadenopathy. No thyromegaly. LUNGS: Clear to auscultation. No wheezes or rhonchi. No intercostal retractions. HEART: Regular rate and rhythm. No murmur. ABDOMEN: Soft. Bowel sounds are present. No masses. No tenderness. EXTREMITIES: No pedal edema. No calf tenderness. Dorsalis pedis +1 bilaterally. NEUROLOGICAL: Patient is awake, alert and oriented x3. Cranial nerves 2 through 12 are grossly intact. - Labs CBC & Chem 7: 02/12/17 06:39 02/12/17 06:39 Labs: Abnormal Lab Results - Last 24 Hours (Table) 02/11/17 02/11/17 02/11/17 Range/Units 11:08 17:34 20:12 Hgb (11.4-16.0) gm/dL MCHC (31.0-37.0) g/dL RDW (11.5-15.5) % Sodium (137-145) mmol/L BUN (7-17) mg/dL Glucose (74-99) mg/dL POC Glucose (mg/dL) 192 H 167 H 147 H (75-99) mg/dL 02/12/17 02/12/17 02/12/17 Range/Units 06:39 06:39 06:56 Hgb 10.9 L (11.4-16.0) gm/dL MCHC 30.8 L (31.0-37.0) g/dL RDW 18.4 H (11.5-15.5) % Sodium 136 L (137-145) mmol/L BUN 28 H (7-17) mg/dL Glucose 102 H (74-99) mg/dL POC Glucose (mg/dL) 123 H (75-99) mg/dL Assessment and Plan Plan: 1. Possible intra-abdominal abscess found on staging CAT scan with no fever, chills, leukocytosis. Consult with Dr. Mahi castellanos. Tagged WBC scan as above. Continue Zosyn. Consult with Dr. Mace. PICC line to be placed today. 2. History of colon cancer in the care of Dr. Ashraf. 3. Coronary artery disease. Continue amiodarone, Lipitor, Coreg, Imdur. 4. Chronic systolic heart failure. Continue Lasix 60 mg daily 5. Chronic kidney disease stage III. Avoid nephrotoxic agents and hypotension. 6. Obstructive sleep apnea on CPAP. 7. Restless leg syndrome. Continue Requip. 8. Hypertension, hypertensive cardiovascular disease. Continue Norvasc, Coreg , lisinopril 9. Diabetes mellitus type 2, insulin requiring. Continue Lantus 30 units at bedtime and Humalog scale before meals and at bedtime. 10. Gout. Continue allopurinol. 11. Gastroesophageal reflux disease and gastrointestinal prophylaxis. Continue Protonix 40 mg daily. 12. DVT prophylaxis. Heparin subcu. Discharge plan: Home with VNA Impression and plan of care have been directed as dictated by the signing physician. Charmaine Fowler nurse practitioner acting as scribe for signing physician.
[2017-02-12 17:00] LABS: Glucose,Whole Blood 150 mg/dL (75-99)
--- NOTE | 2017-02-12 18:22 | P.PN ---
Subjective Principal diagnosis: Pelvic abscess Patient continues to have minimal lower abdominal pressure. Complains more of slight discomfort at her hernia site. No nausea or vomiting. Tolerating diet. She was quite anxious today after learning about the results of the white blood cell scan. She is afebrile. Count is normal. Objective - Vital Signs Vital signs: Vital Signs Temp 98.7 F 02/12/17 15:00 Pulse 74 02/12/17 17:11 Resp 18 02/12/17 16:00 BP 96/59 02/12/17 16:23 Pulse Ox 95 02/12/17 15:00 Intake & Output 02/11/17 02/12/17 02/12/17 18:59 06:59 18:59 Intake Total 1070 680 450 Output Total 1200 200 Balance -130 680 250 Weight 107.955 kg Intake: Intake, IV Titration 50 50 Amount Piperacillin-Tazobactam 3 50 50 .375 gm In Dextrose/Water 1 50ml.bag @ 12.5 mls/hr IVPB Q8HR [facility] Rx#: [id number] Oral 1020 680 400 Output: Urine 1200 200 Uretheral ([place]) 1000 Other: Voiding Method Toilet Toilet Toilet # Voids 2 1 4 - Exam Abdomen: Soft, nondistended, reducible incisional hernia that is nontender, no significant lower abdominal tenderness now. - Labs CBC & Chem 7: 02/12/17 06:39 02/12/17 06:39 Labs: Abnormal Lab Results - Last 24 Hours (Table) 02/11/17 02/12/17 02/12/17 Range/Units 20:12 06:39 06:39 Hgb 10.9 L (11.4-16.0) gm/dL MCHC 30.8 L (31.0-37.0) g/dL RDW 18.4 H (11.5-15.5) % Sodium 136 L (137-145) mmol/L BUN 28 H (7-17) mg/dL Glucose 102 H (74-99) mg/dL POC Glucose (mg/dL) 147 H (75-99) mg/dL 02/12/17 02/12/17 02/12/17 Range/Units 06:56 11:42 16:56 Hgb (11.4-16.0) gm/dL MCHC (31.0-37.0) g/dL RDW (11.5-15.5) % Sodium (137-145) mmol/L BUN (7-17) mg/dL Glucose (74-99) mg/dL POC Glucose (mg/dL) 123 H 152 H 150 H (75-99) mg/dL Assessment and Plan (1) Intra-abdominal abscess Narrative/Plan: Continue antibiotics. Recommend a nonsurgical approach at this point. Outpatient IV antibiotics being considered. We'll follow with you. Status: Acute
[2017-02-12 20:59] LABS: Glucose,Whole Blood 163 mg/dL (75-99)
[2017-02-12] MEDS: INSULIN GLARGINE 100 UNIT/ML 10 ML VIAL SQ SCH (21:02)
[2017-02-12] MEDS: ATORVASTATIN 40 MG TAB PO SCH (21:03)
[2017-02-12] MEDS: MONTELUKAST 10 MG TAB PO SCH (21:03)
[2017-02-13 00:48] LABS: Glucose,Whole Blood 120 mg/dL (75-99)
[2017-02-13] MEDS: PIPERACILLIN-TAZOBACTAM 3.375 GM in DEXTROSE/WATER 1 50ML.BAG IVPB SCH ×2 (01:45→08:03)
[2017-02-13] MEDS: HYDROcodone/APAP 7.5-325MG 1 EACH TAB PO PRN (05:37)
[2017-02-13] MEDS: LEVOTHYROXINE 25 MCG TAB PO SCH (05:38)
[2017-02-13 07:05] LABS: Glucose,Whole Blood 111 mg/dL (75-99)
[2017-02-13] MEDS: IPRATROPIUM-ALBUTEROL 3 ML NEB INHALATION PRN (09:08)
[2017-02-13] MEDS: BUDESONIDE 1 MG/2 ML NEBU INHALATION SCH (09:08)
[2017-02-13] MEDS: INSULIN LISPRO (humaLOG) 300 UNIT/3 ML VIAL SQ SCH ×2 (09:19→13:42)
[2017-02-13] MEDS: ENOXAPARIN 40 MG/0.4 ML SYRINGE SQ SCH (09:26)
[2017-02-13 09:31] VITALS: PULSE 76
[2017-02-13] MEDS ORDERED: LIDOCAINE 2% INJ 20 MG/ML SQ ONE (10:10)
[2017-02-13] MEDS ORDERED: ONDANSETRON 4 MG/2 ML VIAL IVP PRN (10:23)
--- NOTE | 2017-02-13 11:11 | CONS ---
DATE OF SERVICE: 02/12/2017 REASON FOR CONSULTATION: Abdominal abscess. HISTORY OF PRESENT ILLNESS: The patient is a 66-year-old female who did have CT of the chest, abdomen and pelvis ( ) by Dr. Ashraf for staging of her disease. On that CAT scan, the patient was noticed to have phlegmonous changes within the pelvis with measurement of 5 x 4.8 cm. At the adjacent foci of air, these phlegmonous changes extend inferiorly and posteriorly towards the anastomotic site within the rectosigmoid junction. Patient subsequently has been admitted to the hospital where the patient was started on Zosyn. No blood cultures were done. Patient was evaluated by general surgery, Dr. Champagne, who did recommend a tagged WBC scan for abscess localization, which came back positive. ID was consulted for further recommendation regarding antibiotic and therapy. The patient did have some vague abdominal pain, which apparently is not severe or worse in the last few days to weeks. The patient denies any high grade fever, rigors and chills. The patient did not have any elevated white count. Patient denies significant chest pain, shortness of breath or cough. REVIEW OF SYSTEMS: CONSTITUTIONAL: Positive for weakness, but no fever has been encountered. EYES: No complaint. ENT: No complaint. RESPIRATORY: No complaint. CARDIOVASCULAR: No complaint. GENITOURINARY: No complaint. GASTROINTESTINAL: As per HPI. MUSCULOSKELETAL: No complaint. INTEGUMENTARY: No complaint. PSYCHOLOGICAL: No complaint. ENDOCRINE: No complaint. NEUROLOGIC: No complaint. PAST MEDICAL HISTORY: COPD, heart failure, diabetes mellitus, hypertension, hyperlipidemia, osteoarthritis, pneumonia, renal insufficiency, sleep apnea, diverticulitis with perforation. PAST SURGICAL HISTORY: Cholecystectomy, coronary artery bypass grafting, PTCA with stent placement, hysterectomy, colostomy, subsequent reversal. SOCIAL HISTORY: Former smoker. Quit back in 2010. No drinking or drug use. FAMILY HISTORY: Mother with history of lung cancer. Father from cirrhosis of the liver. Allergies to CEPHALEXIN. Medications currently include patient is on [place], DuoNeb, Zyloprim, amiodarone , Norvasc, Lipitor, Pulmicort, Coreg, vitamin D3, Cymbalta, iron sulfate, Lasix , Mucinex, Lantus, piperacillin tazobactam, Requip. On examination her blood pressure is 103/55 with a pulse of 66, temperature 98.4. She is 93% on 2 L nasal cannula. General description is an elderly female up in the chair in no distress. No tachypnea or accessory muscle of respiration use. HEENT examination shows pallor. No scleral icterus. Oral mucous membranes are dry. NECK: Trachea is central. No thyromegaly. LUNGS: Unlabored breathing. Clear to auscultation anteriorly. No wheeze or crackles. HEART: S1 and S2 regular rate and rhythm. ABDOMEN: Soft. She did have an epigastric ( ) hernia. No significant guarding or rigidity was noticed. EXTREMITIES: No edema of feet. SKIN EXAMINATION: No rashes or masses palpable. NEUROLOGICALLY: The patient is awake, alert and oriented x3. Mood and affect normal. LABS: Hemoglobin is 10.9, white count 7.3 with a BUN of 20, creatinine 0.90. Electrolytes have been normal. No culture has been obtained. CT report as mentioned above. DIAGNOSTIC IMPRESSION AND PLAN: Patient admitted to the hospital with abnormality seen on the CT scan of abdomen and pelvis that was done for staging of disease. The patient does have history of perforated diverticulitis requiring extensive surgery in the past with colostomy that has currently been reversed now with fluid which is 5 x 4.8 cm with some air fluid collection and extending all the way down to the anastomotic site. Underlying abscess felt to be the likely suspicious, however, the patient is clinically not behaving as an abscess with no fever and no elevated white count. PLAN: 1. Will need to confirm the diagnosis of the abscess as this fluid should be aspirated, CT guided; if not, laparoscopic guided through surgery. This will be discussed further with the surgeon on the case as we need the cultures to guide antibiotic therapy. 2. Blood cultures have been ordered stat. 3. Depending on her clinical response as well as culture ( ) will adjust antibiotics further. Thank you for this consultation. I will follow this patient along with you. MARLENY
--- NOTE | 2017-02-13 11:24 | IR ---
EXAMINATION TYPE: IR cvc insert >=5 years DATE OF EXAM: 02/13/2017 COMPARISON: NONE CLINICAL HISTORY: Abscess Needs long-term intravenous access for antibiotics. PROCEDURE: After informed consent, the skin overlying the right basilic vein was localized with ultrasound and n oted to be compressible and patent. An ultrasound image was obtained and submitted on the patient's chart. The overlying skin was prepped and draped and Lidocaine was used for local anesthesia. A ski n juanjo was made with a scalpel. Access was gained to the vein under ultrasound guidance with a 21 ga uge needle and a 0.018 inch wire was advanced. Access site was dilated with Peel-Away sheath and cat heter tailored to the appropriate length and advanced such that the distal tip is at the cavoatrial j unction. Spot image was obtained verifying placement. Catheter was fixed to the skin with suture an d a sterile dressing was placed following hemostasis. Catheter was aspirated and flushed with saline . Patient was discharged in stable condition without complication. Maximal barrier technique is util ized. Ultrasound image is documented on the chart. Ultrasound used with sterile technique. Fluoro time and fluoroscopic images submitted to document procedure: 0.5 minutes fluoroscopy time, 35 intraoperative C-arm images document the procedure IMPRESSION: STATUS POST ULTRASOUND AND FLUOROSCOPIC GUIDED PICC LINE PLACEMENT, READY FOR USE. THIS PROCEDURE WAS PERFORMED BY THE UNDERSIGNED.
[2017-02-13 11:50] LABS: Glucose,Whole Blood 184 mg/dL (75-99)
[2017-02-13] MEDS: AMIODARONE 200 MG TAB PO SCH (12:15)
[2017-02-13] MEDS: amLODIPine 5 MG TAB PO SCH (12:15)
[2017-02-13] MEDS: ISOSORBIDE MONONITRATE ER 30 MG TAB.ER.24H PO SCH (12:15)
[2017-02-13] MEDS: FERROUS SULFATE 325 MG TAB PO SCH (12:15)
[2017-02-13] MEDS: ALLOPURINOL 100 MG TAB PO SCH (12:15)
[2017-02-13] MEDS: CHOLECALCIFEROL 1,000 UNIT TAB PO SCH (12:15)
[2017-02-13] MEDS: POTASSIUM CHLORIDE ER 20 MEQ TAB.ER PO SCH (12:16)
[2017-02-13] MEDS: FUROSEMIDE 20 MG TAB PO SCH (12:16)
[2017-02-13] MEDS: PANTOPRAZOLE 40 MG TABLET PO SCH (12:16)
[2017-02-13] MEDS: CARVEDILOL 6.25 MG TAB PO SCH (12:16)
[2017-02-13] MEDS: LISINOPRIL 5 MG TAB PO SCH (12:16)
[2017-02-13] MEDS: DULoxetine HCL 60 MG CAPSULE.DR PO SCH (12:16)
--- NOTE | 2017-02-13 13:10 | CDI ---
In responding to this query, please exercise your independent professional judgment. The [facility] Coding Staff and Clinical Documentation Specialists appreciate your assistance in clarifying documentation, maintaining compliance with coding guidelines, accurately documenting patients condition and capturing severity of illness. The fact that a question is asked does not imply that any particular answer is desired or expected. Communication forms are a method of clarifying documentation and are not made part of the Legal Health Record. Thank you in advance for your clarification. Last Revision, May 2015 Lakia Cabrera [address] [place] [address] Documentation Clarification Form Date: 02/13/2017 1:05:00 PM From: Ev Tan RN, CCDS Admit Date: 02/09/2017 7:08:00 PM Patient Name: Jasmin Uirbe Visit Number: [id number] Dr. Mor Sinclair/Charmaine Fowler CNP A diagnosis of anemia lacks specificity to accurately reflect your patients severity of condition and clarification is needed. Patient history/risk factors: Anemia, asthma, Combined CHF, COPD, DM, pneumonia, RAFA w CPAP, Pulmonary HTN Clinical Indicators: Hemoglobin: 12/10.9 Hematocrit: 38.9/35.5 Treatment: Feosol 325 MG PO QD CBC In order to capture the severity of condition, please clarify the type of anemia and etiology if known: Acute blood loss anemia Acute on chronic blood loss anemia Chronic blood loss anemia Iron deficiency anemia Hemolytic anemia Drug induced anemia Anemia due to malignancy Nutritional anemia Anemia of chronic kidney disease Unable to determine Other, please specify Please document in your progress notes and discharge summary in order to capture severity of illness and risk of mortality. Include clinical findings that support your diagnosis. FYI: Press F11 to launch patient chart. MARLENY
[2017-02-13] MEDS ORDERED: ERTAPENEM 1 GM in SODIUM CHLORIDE 0.9% 50 ML IVPB STA (14:32)
[2017-02-13 14:55] VITALS: BP 147/67; RESP 16; TEMP 97.5
--- NOTE | 2017-02-13 17:40 | PN ---
DATE OF SERVICE: 02/13/2017 REASON FOR FOLLOW UP: Possible abdominal abscess. INTERVAL HISTORY: The patient is afebrile. The patient denies any worsening abdominal pain. No nausea, vomiting or any diarrhea. The patient seemed to be slightly upset on whole scenario that she has been in here in the hospital for this possible abscess. On examination, blood pressure 147/57 with a pulse of 76, temperature 97.5, she is 90% on room air. GENERAL DESCRIPTION: Elderly female up in bed in no distress. RESPIRATORY: Unlabored breathing. Clear to auscultation. HEART: S1/S2, regular. ABDOMEN: Soft. No significant tenderness, guarding or rigidity. LABS: White count normal at 7.3 as of yesterday. BUN 28 with a creatinine of 0.90. Blood culture obtained yesterday so far pending. DIAGNOSTIC IMPRESSION: Patient with abdominal fluid collection in a patient noted to have history of ruptured diverticulitis status post laparotomy, drainage of the abscess previously and diverting colostomy that was recently reversed in October of 2016. The patient did have staging CT of chest, abdomen and pelvis done as outpatient and this ( ) patient was not having significant fever or abdominal pain. I did review the CT itself with the radiologist and it shows inflammatory changes on the left lower abdominal area that extend all the way down to the anastomotic site. An underlying infection cannot be entirely excluded. We did offer a CT guided drainage of this abscess , however, that could not be done and this case was discussed in detail with Dr. Guillen, the surgeon currently on the case who thinks it cannot be done laparoscopically and the patient would need to have a laparotomy and another diverting colostomy and drainage of this fluid. The patient will be sent for ( ) antibiotic therapy. However, apparently the patient is refusing any further surgery. We have her on Zosyn and the patient already got a PICC line per the admitting services. ( ) outpatient of antibiotic therapy though the patient has been told it will be empiric as we do not have any microbiological diagnosis. Zosyn could not be done because the patient does not have any antibiotic coverage at home and she has to come to the infusion clinic per the case investigator working on the case. The patient did have a cephalexin allergy limiting the use of Rocephin or Flagyl. Hence, the patient will be tried on Invanz 1 gm a day. If she tolerates it she can go home on IV Invanz along with oral Flagyl for two weeks with repeat CT scan done in 1-2 weeks time. The plan of care discussed in detail with the patient and the in layman's terms and also with Dr. Guillen, currently the surgeon on the case. MARLENY
--- NOTE | 2017-02-17 12:20 | PN ---
This is a 66-year-old female who presented to the hospital with abdominal pain. The patient was evaluated by Dr. Champagne who felt that the patient was having intra-abdominal fluid collection. WBC scan was done and showed possible abscess. Dr. Guillen was covering for Dr. Champagne who recommended IV antibiotics and PICC line placement. Infectious disease consult was obtained. The patient currently is denying chest pain, shortness of breath, nausea, vomiting, abdominal pain, dizziness, lightheadedness or or blurry vision. PHYSICAL EXAMINATION: VITAL SIGNS: Reviewed and stable. LUNGS: Clear to auscultation bilaterally. HEART: S1/S2. ABDOMEN: Soft. Tenderness in the midline. No guarding or rebound. Positive bowel sounds in all four quadrants. LOWER EXTREMITIES: No edema. PSYCH: Alert and oriented x3. Relaxed mood and affect. IMAGING AND LABS: Glucose fluctuating between 111 and 184. ASSESSMENT AND PLAN: 1. Intra-abdominal abscess. Patient would benefit from IV antibiotics and PICC line placement, awaiting on Dr. Mace evaluation. Patient is not a candidate for CT guided drainage given the location and I discussed that with Dr. Champagne who states that it is going to be exploratory laparotomy and that will cause patient to have right colostomy again. Patient is against colostomy and would like to take the chance and treat with IV antibiotics. At this point will follow up with Dr. Mace's recommendation. 2. Colon cancer. Patient is following up with Dr. Powell outpatient. Patient is to resume her chemo and radiation regimen outpatient with Dr. Powell when appropriate by him. 3. Diabetes, under fair control. 4. Morbid obesity. Was counseled regarding weight loss. 5. Hypertension, under fair control. 6. Discharge planning once PICC line inserted and Dr. Mace evaluates the patient for recommendation regarding IV antibiotics. [facility]
--- NOTE | 2017-02-20 14:37 | P.DS ---
Providers Date of admission: 02/09/17 19:08 Expected date of discharge: 02/13/17 Attending physician: Mor Sinclair Consults: 02/09/17 19:07 Consult Physician Stat Consulting Provider: Colette Champagne Consult Reason/Comments: Intra-abdominal abscess Do you want consulting provider notified?: Yes Primary care physician: Llu Aquino [facility] Course: This is a 66-year-old female patient of Dr. Aquino with past history of COPD, chronic systolic heart failure, pulmonary hypertension, diabetes mellitus type 2 with diabetic polyneuropathy, hypertension, restless leg syndrome, recurrent depression. Patient has history of subtotal colectomy with colostomy at [facility] in approximately January 2016 with reversal done in October 2016. She follows with Dr. Ashraf. Patient underwent an outpatient routine CAT scan of the chest, abdomen, pelvis for staging and found to have an abscess. Patient denies having any fever or chills. She has had no nausea or vomiting. Patient does complain of pressure at the site of the scar. She also states this area hurts when she coughs. She denies having any chemotherapy or radiation therapy and she states that this time she does not want any. She is complaining of cough at night with phlegm production. She is also complaining of headache to the right catholic there is been going on for the last one and half weeks with sudden onset and lasts for about 15 minutes each episode. Patient complains that she has gastric esophageal reflux disease and current use of Pepcid is not helping. She has had weight loss of 63 pounds over the past year. 02/11: Patient denies any new complaints. She states she has her continued abdominal pain which is unchanged. She denies any nausea or vomiting. WBC scan shows abscess. Await further recommendations from general surgery. She is currently on IV Zosyn. 02/12: Contacted Dr. Guillen and he recommended ID consult and PICC line placement for IV antibiotics. Consult placed with Dr. Mace. PICC line ordered for today. Anticipate discharge home tomorrow. Case management updated. 02/13: Patient was set up with IV Invanz and oral Flagyl Discharge diagnoses: 1. Intra-abdominal abscess found on staging CAT scan 2. History of colon cancer in the care of Dr. Ashraf. 3. Coronary artery disease. 4. Chronic systolic heart failure. 5. Chronic kidney disease stage IIIwith anemia of chronic kidney disease. 6. Obstructive sleep apnea on CPAP. 7. Restless leg syndrome. 8. Hypertension, hypertensive cardiovascular disease. 9. Diabetes mellitus type 2, insulin requiring. 10. Gout, unspecified. 11. Gastroesophageal reflux disease. Discharge plan: Home with [facility] Impression and plan of care have been directed as dictated by the signing physician. Charmaine Fowler nurse practitioner acting as scribe for signing physician. Patient Condition at Discharge: Good Plan - Discharge Summary New Discharge Prescriptions: New Ertapenem [INVanz] 1 gm IVPB Q24H #14 bag metroNIDAZOLE [Flagyl] 500 mg PO TID #42 tab No Action RX: Nitroglycerin Sl Tabs [Nitrostat] 0.4 mg SUBLINGUAL Q5M PRN #25 tab PRN Reason: Chest Pain RX: Amiodarone [Cordarone] 200 mg PO DAILY RX: Ipratropium-Albuterol Nebulize [Duoneb 0.5 mg-3 mg/3 ml Soln] 3 ml INHALATION TID PRN PRN Reason: Wheezing RX: Carvedilol [Coreg] 6.25 mg PO BID RX: Montelukast Sodium [Singulair] 10 mg PO HS RX: Atorvastatin [Lipitor] 40 mg PO HS RX: Allopurinol [Zyloprim] 100 mg PO DAILY RX: Ferrous Sulfate [Feosol] 325 mg PO DAILY RX: rOPINIRole HCL [Requip] 0.5 mg PO DAILY PRN PRN Reason: Restless Legs RX: Beclomethasone Dipropionate [Qvar 80 mcg] 2 puff INHALATION RT-BID PRN PRN Reason: Shortness Of Breath RX: Potassium Chloride [Klor-Con 20] 20 meq PO DAILY RX: Insulin Glargine [Lantus] 30 unit SQ HS RX: Insulin Glulisine [Apidra] See Protocol SQ DAILY RX: Furosemide [Lasix] 60 mg PO DAILY Isosorbide Mononitrate ER [Imdur] 30 mg PO DAILY Lisinopril [Zestril] 5 mg PO DAILY Cholecalciferol (Vitamin D3) [Vitamin D3] 2,000 unit PO DAILY rOPINIRole HCL [Requip] 1 mg PO HS Levothyroxine Sodium [Synthroid] 25 mcg PO DAILY amLODIPine [Norvasc] 5 mg PO DAILY guaiFENesin [Mucinex] 600 mg PO Q12H PRN PRN Reason: Cold Symptoms Famotidine [Pepcid] 20 mg PO HS RX: Lactulose 20 gm PO BID PRN PRN Reason: Constipation DULoxetine HCL [Cymbalta] 60 mg PO DAILY HYDROcodone/APAP 7.5-325MG [[place] 7.5-325] 1 tab PO TID PRN PRN Reason: Pain Discharge Medication List RX: Nitroglycerin Sl Tabs [Nitrostat] 0.4 mg SUBLINGUAL Q5M PRN #25 tab [Rx] RX: Amiodarone [Cordarone] 200 mg PO DAILY 03/01/16 [History] RX: Allopurinol [Zyloprim] 100 mg PO DAILY 03/09/16 [History] RX: Atorvastatin [Lipitor] 40 mg PO HS 03/09/16 [History] RX: Carvedilol [Coreg] 6.25 mg PO BID 03/09/16 [History] RX: Ferrous Sulfate [Feosol] 325 mg PO DAILY 03/09/16 [History] RX: Ipratropium-Albuterol Nebulize [Duoneb 0.5 mg-3 mg/3 ml Soln] 3 ml INHALATION TID PRN 03/09/16 [History] RX: Montelukast Sodium [Singulair] 10 mg PO HS 03/09/16 [History] RX: Beclomethasone Dipropionate [Qvar 80 mcg] 2 puff INHALATION RT-BID PRN 09/08 [History] RX: Insulin Glargine [Lantus] 30 unit SQ HS 09/08/16 [History] RX: Insulin Glulisine [Apidra] See Protocol SQ DAILY 09/08/16 [History] RX: Potassium Chloride [Klor-Con 20] 20 meq PO DAILY 09/08/16 [History] RX: rOPINIRole HCL [Requip] 0.5 mg PO DAILY PRN 09/08/16 [History] RX: Furosemide [Lasix] 60 mg PO DAILY 10/02/16 [History] Cholecalciferol (Vitamin D3) [Vitamin D3] 2,000 unit PO DAILY 02/09/17 [History] DULoxetine HCL [Cymbalta] 60 mg PO DAILY 02/09/17 [History] Famotidine [Pepcid] 20 mg PO HS 02/09/17 [History] HYDROcodone/APAP 7.5-325MG [[place] 7.5-325] 1 tab PO TID PRN 02/09/17 [History] Isosorbide Mononitrate ER [Imdur] 30 mg PO DAILY 02/09/17 [History] Levothyroxine Sodium [Synthroid] 25 mcg PO DAILY 02/09/17 [History] Lisinopril [Zestril] 5 mg PO DAILY 02/09/17 [History] RX: Lactulose 20 gm PO BID PRN 02/09/17 [History] amLODIPine [Norvasc] 5 mg PO DAILY 02/09/17 [History] guaiFENesin [Mucinex] 600 mg PO Q12H PRN 02/09/17 [History] rOPINIRole HCL [Requip] 1 mg PO HS 02/09/17 [History] Ertapenem [INVanz] 1 gm IVPB Q24H #14 bag 02/13/17 [Rx] metroNIDAZOLE [Flagyl] 500 mg PO TID #42 tab 02/13/17 [Rx] Follow up Appointment(s)/Referral(s): Chau Ashraf MD [STAFF PHYSICIAN] - 02/17/17 3:30 pm [facility], [REFERRING] - Lul Aquino MD [Primary Care Provider] - 1 Week (Office closed. Please call office Thursday to make follow-up appointment.) Luisa Mace MD [STAFF PHYSICIAN] - 02/19/17 11:00 am [facility] Visiting Nurse, [NON-STAFF] - Activity/Diet/Wound Care/Special Instructions: IV antibiotics to start Thursday02/14/2017 at 5PM in Pediatrics. Discharge Disposition: HOME WITH HOME HEALTH SERVICES
== END 2017-02-13 16:34 | disposition home health service (06) | DRG 372 ==
LOC: EC 14:16 → 3SUR 19:08
PROVIDERS: ADMIT Internal Medicine; ATTEND Internal Medicine
PROC: 02HV33Z Insertion of Infusion Device into Superior Vena Cava, Percutaneous Approach (ICD-10-PCS; principal; 2017-02-13 10:00)
PROC: B548ZZA Ultrasonography of Superior Vena Cava, Guidance (ICD-10-PCS; 2017-02-13 10:00)
PROC: B518ZZA Fluoroscopy of Superior Vena Cava, Guidance (ICD-10-PCS; 2017-02-13 10:00)
DX: K65.1 Peritoneal abscess (principal); I50.22 Chronic systolic (congestive) heart failure; I13.0 Hypertensive heart and chronic kidney disease with heart failure and stage 1 through stage 4 chronic kidney disease, or unspecified chronic kidney disease; Z68.41 Body mass index [BMI] 40.0-44.9, adult; I27.2 Other secondary pulmonary hypertension; C18.9 Malignant neoplasm of colon, unspecified; E11.22 Type 2 diabetes mellitus with diabetic chronic kidney disease; F33.9 Major depressive disorder, recurrent, unspecified; E11.42 Type 2 diabetes mellitus with diabetic polyneuropathy; E66.01 Morbid (severe) obesity due to excess calories; N18.3 Chronic kidney disease, stage 3 (moderate); J44.9 Chronic obstructive pulmonary disease, unspecified; I25.10 Atherosclerotic heart disease of native coronary artery without angina pectoris; G47.33 Obstructive sleep apnea (adult) (pediatric); G25.81 Restless legs syndrome; K21.9 Gastro-esophageal reflux disease without esophagitis; M10.9 Gout, unspecified; D63.1 Anemia in chronic kidney disease; R51 Headache; K43.9 Ventral hernia without obstruction or gangrene; H91.90 Unspecified hearing loss, unspecified ear; E78.5 Hyperlipidemia, unspecified; F41.9 Anxiety disorder, unspecified; G89.29 Other chronic pain; M19.91 Primary osteoarthritis, unspecified site; Z79.4 Long term (current) use of insulin; Z79.899 Other long term (current) drug therapy; Z95.1 Presence of aortocoronary bypass graft; Z95.5 Presence of coronary angioplasty implant and graft; Z96.653 Presence of artificial knee joint, bilateral; Z98.49 Cataract extraction status, unspecified eye; Z87.891 Personal history of nicotine dependence; Z90.710 Acquired absence of both cervix and uterus; Z90.49 Acquired absence of other specified parts of digestive tract; Z91.02 Food additives allergy status; Z88.1 Allergy status to other antibiotic agents
CPT/HCPCS: 36415; 36569; 76937; 77001; 78805; 80048; 80053; 81003; 82150; 83036; 83605; 83690; 85025; 87040; 94640; 96365; 96366; 99285

== ENCOUNTER → 2017-02-09 | Outpatient (CLI) | payer MEDICARE ==
[2017-02-09 11:56] LABS: Blood Urea Nitrogen 34 mg/dL (7-17); Non-African American GFR(MDRD) >60 (>60 ml/min/1.73 sqM)
--- NOTE | 2017-02-09 13:55 | CT ---
EXAMINATION TYPE: CT ChestAbdPelvis w con DATE OF EXAM: 02/09/2017 COMPARISON: CT abdomen pelvis dated 10/08/2016. CT abdomen pelvis dated 04/11/2009. HISTORY: colon ca CT DLP: 3058.8 mGycm. Automated Exposure Control for Dose Reduction was Utilized. CONTRAST: CT scan of the thorax, abdomen and pelvis is performed with IV Contrast, patient injected with 100 mL of Omnipaque 300. FINDINGS: LUNGS: The lungs are grossly clear, there is no concerning parenchymal mass or nodule identified. T here is no pleural effusion or pneumothorax seen. The tracheobronchial tree is patent. MEDIASTINUM: There are no greater than 1 cm hilar or mediastinal lymph nodes. No pericardial effusi on is seen. OTHER: No additional significant abnormality is seen. LIVER/GB: There is mild hepatic steatosis, limiting the evaluation for underlying masses. Soft tissue attenuation just inferior to the lorenzo hepatis with associated calcifications adjacent to cholecyste ctomy clips is stable in size from the prior examination currently measuring 1.9 x 2.5 cm. This may r epresent treated carlos disease or postoperative changes. This mass within the lorenzo hepatis is decrea sed in size in comparison the prior exam of 04/11/2009. No intrahepatic or extra hepatic biliary ducta l dilatation. PANCREAS: No significant abnormality is seen. SPLEEN: No significant abnormality is seen. ADRENALS: A left-sided adrenal gland mass containing calcification is overall unchanged in comparison to exam of 04/11/2009 and therefore favored to be benign in etiology. KIDNEYS: There is left renal atrophy in comparison to the right. Numerous right renal cortical defect s likely relate to scarring.. BOWEL: There has been interval surgical closure of the previously seen midline ventral hernia with a small periumbilical hernia remaining containing loops of nondilated small bowel. This hernia neck keshav sures 2.7 cm. Phlegmonous changes are seen within the pelvis. Just superior to the urinary bladder and closely asso ciated with numerous loops of small bowel there is a central fluid collection containing an air-fluid level measuring approximately 5.0 x 4.8 cm. Other adjacent foci of air are thought to be located wit hin decompressed loops of bowel rather than relating to pneumoperitoneum and perforation. Phlegmonous changes extend inferiorly and posteriorly towards the anastomotic site within the rectosigmoid junct ion. The descending colon remains unaffected. Subcutaneous emphysema is noted of the left lateral abd ominal wall, and may be related to injections or postsurgical. Focal skin thickening is seen along th e anterior left paracentral abdominal wall and may relate to postsurgical changes or cellulitis. No e vidence of bowel obstruction. GENITAL ORGANS: No gross abnormality seen. LYMPH NODES: No greater than 1cm abdominal or pelvic lymph nodes are appreciated. OSSEOUS STRUCTURES: No significant abnormality is seen. No suspicious abnormality is seen. Degenerati ve changes are present of the thoracolumbar and lumbosacral spine. Midline sternotomy wires are prese nt from prior coronary artery bypass grafting. OTHER: No significant additional abnormality is seen. IMPRESSION: 1. 5.0 cm intra-abdominal fluid collection containing an air-fluid level concerning for abscess. This is intimately associated with adjacent loops of small bowel and phlegmonous changes and therefore ma y not be amenable to percutaneous drainage. 2. Stable left adrenal mass dating back to 2009 and stable soft tissue density within the lorenzo hepat is, likely treated adenopathy. 3. Interval ventral hernia repair with a small periumbilical residual hernia containing loops of nond ilated small bowel. 4. Left anterior abdominal wall skin thickening which may relate to cellulitis or postsurgical change . Findings communicated directly to Dr. Ashraf (ordering physician) by Dr. Weber on 02/09/2017 at 1350.
== END | disposition home or self-care (01) ==
LOC: RADCTMAIN 11:14
PROVIDERS: ATTEND Internal Medicine Hematology & Oncology
DX: E27.8 Other specified disorders of adrenal gland (principal); R19.09 Other intra-abdominal and pelvic swelling, mass and lump; K43.9 Ventral hernia without obstruction or gangrene; R23.4 Changes in skin texture; C18.2 Malignant neoplasm of ascending colon; E11.9 Type 2 diabetes mellitus without complications; Z88.1 Allergy status to other antibiotic agents
CPT/HCPCS: 82565; 84520; 71260; 74177; 36415; Q9967

== ENCOUNTER → 2017-03-03 | Outpatient (CLI) | payer MEDICARE ==
--- NOTE | 2017-03-03 14:16 | CT ---
EXAMINATION TYPE: CT abdomen pelvis wo con DATE OF EXAM: 03/03/2017 COMPARISON: Chest abdomen pelvis 02/09/2017 INDICATION: Follow up to peritoneal abscess DLP: 1370.3 mGycm, Automated exposure control for dose reduction was used. CONTRAST: 0 mL of Omnipaque 300. Study performed with Oral Contrast TECHNIQUE: Axial images were obtained from above the diaphragm to the pubic rami in the axial plane a t 5 mm thick sections. Reconstructed images are reviewed on the computer in the coronal plane. FINDINGS: Limited CT sections are obtained the lung bases. The lung bases are clear. Coronary artery calcific ations present. CT ABDOMEN: Beam hardening artifact from the patient's arms limits the evaluation of the upper abdome n. There is an anterior abdominal wall hernia in the periumbilical region containing small bowel loop s with contrast. No obstruction is evident. Opening is approximately 2.7 cm. Liver: Normal Spleen: Normal Pancreas: Normal Adrenal glands: Left adrenal gland is thickened at 2.4 cm. The right adrenal gland appears normal. Gallbladder: Normal Kidneys: Left kidney: Left kidney appears atrophic. Right kidney: No masses are evident. No hydronephrosis is present. No cysts are present. Delayed i mages were obtained through the kidneys, which remain unremarkable. Aorta: Vascular calcification is within the aorta. Inferior vena cava: Normal. CT PELVIS: Within the mid pelvis at the location of the previous abscess there is continued air collection the s maller density adjacent to normal contrast-filled loops of bowel. This measures approximately 2.9 x 1 .9 cm which is diminished from 5.0 x 4.8 cm. Findings can be compatible with resolving abscess. Loops of bowel within the abdomen and pelvis are normal. There are loops of bowel which are incom pletely distended or lack oral contrast limiting their evaluation. The ascending colon appears resect ed. Appendix: Not present. Urinary bladder: Normal. Genitourinary structures: Osseous structures: No suspicious lytic or sclerotic lesions. Degenerative disc changes throughout th e lumbar spine. IMPRESSIONS: 1. Postsurgical changes through the abdomen. 2. Enlarged left adrenal gland. 3. Anterior abdominal wall hernia containing a loop of nonobstructed small bowel. 4. Prior pelvic abscess appears to be resolving.
== END | disposition home or self-care (01) ==
LOC: RADCTMAIN 10:53
PROVIDERS: ATTEND Internal Medicine Infectious Disease
DX: K43.9 Ventral hernia without obstruction or gangrene (principal); E27.9 Disorder of adrenal gland, unspecified; N73.9 Female pelvic inflammatory disease, unspecified; Z98.890 Other specified postprocedural states
CPT/HCPCS: 74176

== ENCOUNTER → 2017-04-01 | Outpatient (CLI) | payer MEDICARE ==
--- NOTE | 2017-04-01 08:19 | CT ---
EXAMINATION TYPE: CT abdomen pelvis wo con DATE OF EXAM: 04/01/2017 COMPARISON: 03/03/2017 HISTORY: abdominal abscess CT DLP: 1305.70 mGycm Examination of the solid and hollow viscera is limited given the lack of contrast. FINDINGS: LUNG BASES: No evidence for nodule. No evidence for infiltrate. LIVER/GB: No space-occupying hepatic lesion. Cholecystectomy clips are in place. PANCREAS: No pancreatic mass identified. No inflammatory process seen. SPLEEN: No evidence for splenomegaly. No intrasplenic lesions seen. ADRENALS: Left adrenal nodule measures 2.4 cm. No evidence for thickening. KIDNEYS: Atrophic changes of the left kidney. No evidence for renal mass. No nephrolithiasis. No hydr onephrosis. BOWEL: Again noted within the mid pelvis at the location of prior abscess there is continued air elizabeth ection adjacent to normal contrast-filled small bowel loops. Current measurement is 2.6 x 1.6 cm vers us 4.9 x 3.0 cm previously. Stable periumbilical anterior abdominal wall hernia which contains a shor t segment of small bowel. No evidence for obstruction or incarceration. Appendix has a normal appeara nce. No evidence of bowel obstruction. No inflammatory process. Lymph nodes: No evidence for adenopathy greater than 1 cm. Abdominal aorta: Atheromatous changes seen. No evidence for aneurysm. Genital organs: No significant abnormality. Other: No significant abnormality. IMPRESSION: 1. CONTINUED DIMINUTION IN SIZE OF PELVIC ABSCESS. 2. STABLE LEFT ADRENAL NODULE. 3. STABLE ATROPHIC CHANGE LEFT KIDNEY. 4. STABLE ANTERIOR ABDOMINAL WALL HERNIA.
== END | disposition home or self-care (01) ==
LOC: RADCTMAIN 07:42
PROVIDERS: ATTEND Internal Medicine Infectious Disease
DX: K65.1 Peritoneal abscess (principal); E27.9 Disorder of adrenal gland, unspecified; K46.9 Unspecified abdominal hernia without obstruction or gangrene; N26.1 Atrophy of kidney (terminal)
CPT/HCPCS: 74176

== ENCOUNTER → 2017-04-27 | Outpatient (CLI) | payer MEDICARE ==
--- NOTE | 2017-04-27 14:23 | CT ---
EXAMINATION TYPE: CT abdomen pelvis wo con DATE OF EXAM: 04/27/2017 COMPARISON: 04/01/2017 HISTORY: Follow up to abd abscess CT DLP: 2303.2 mGycm Automated exposure control for dose reduction was used. TECHNIQUE: Helical acquisition of images was performed from the lung bases through the pelvis. FINDINGS: Lack of intravenous contrast limits evaluation of the solid viscera. LUNG BASES: Extensive three-vessel coronary artery calcifications are partially visualized. Heart is not enlarged. LIVER/GB: No significant abnormality is appreciated. Cholecystectomy clips are within the gallbladder fossa. Adjacent to this there is a calcified mesenteric possible lymph node measuring approximately 2.5 x 1.7 cm on series 3 image 40 that is unchanged from the prior exam. PANCREAS: No significant abnormality is seen. SPLEEN: No significant abnormality is seen. ADRENALS: Overall stable left adrenal gland nodule measures 2.8 x 2.3 cm and measured 2.8 cm on the e xam of 04/11/2009, therefore this is likely benign. Right adrenal gland is unremarkable. KIDNEYS: Left renal atrophy is again demonstrated. FREE AIR/BOWEL: There is overall similar size in the loculated intraperitoneal air within the midlin e pelvis at the location of the prior intra-abdominal abscess measuring similar to the prior exam. Th is currently measures 2.7 x 1.6 cm and previously measured 2.6 x 1.7 cm. Phlegmonous changes are seen surrounding this with no focal circumscribed fluid collection. Postsurgical changes of the ventral a bdominal wall are again present with diastases recti and small bowel filled ventral/periumbilical her georgie with a neck measuring 3.1 cm that is just superior to the umbilicus. Bowel is nondilated with no bowel wall thickening to correspond to CT evidence of incarceration. Anastomotic site is seen within the right lower quadrant ADENOPATHY: Numerous prominent but nonenlarged lymph nodes are seen within the periaortic region and within the mesentery. No greater than 1 cm lymph nodes are seen within the abdomen or pelvis. Nonenl arged superficial inguinal and right external chain iliac lymph nodes are also visualized. OSSEOUS STRUCTURES: Multilevel degenerative change of the visualized thoracolumbar and lumbosacral s pine are moderate to severe. OTHER: Localized skin thickening is seen of the left lower abdomen measuring up to 9 mm which could c orrespond with cellulitis. IMPRESSION: 1. STABLE SIZE OF THE LOCULATED AIR WITHIN THE MIDLINE PELVIS WITHOUT DISCRETE FLUID COLLECTION IN CO MPARISON TO THE EXAM OF 04/01/2017. 2. LOCALIZED SKIN THICKENING OVER THE LEFT LOWER QUADRANT WHICH COULD RELATE TO CELLULITIS. 3. UNCHANGED VENTRAL ABDOMINAL HERNIA CONTAINING LOOPS OF SMALL BOWEL WITHOUT BOWEL WALL THICKENING O R EVIDENCE OF CURRENT OBSTRUCTION.
== END | disposition home or self-care (01) ==
LOC: RADCTMAIN 12:09
PROVIDERS: ATTEND Internal Medicine Infectious Disease
DX: K43.9 Ventral hernia without obstruction or gangrene (principal)
CPT/HCPCS: 74176

== ENCOUNTER → 2017-07-01 | Outpatient (CLI) | payer MEDICARE, OTHER ==
--- NOTE | 2017-07-01 15:36 | CT ---
EXAMINATION TYPE: CT abdomen pelvis w con DATE OF EXAM: 07/01/2017 COMPARISON: 04/27/2017, 04/01/2017, 02/09/2017, 03/01/2016 HISTORY: 66-year-old female with history of colon cancer. Per patient, this exam is to follow-up on a bscess and infection in stomach. TECHNIQUE: Contiguous axial scanning of the abdomen and pelvis following administration of 100 ml Omn ipaque 300 IV contrast. Delayed images through the kidneys and coronal/sagittal reconstructions perf ormed. CT DLP: 2067.30 mGycm Automated exposure control for dose reduction was used. FINDINGS: Retained epicardial pacer leads. Heart normal size. No pericardial effusion. Slight circumferential w all thickening distal esophagus. Some patchy dependent atelectasis posterior right base. Somewhat early phase of postcontrast imaging. No focal liver lesion seen allowing for incomplete enha ncement. Cholecystectomy clips are present. No biliary ductal dilatation. Right adrenal gland, spleen, and pancreas show no gross abnormality. Chronic 2.8 cm left adrenal mass, unchanged from 03/01/2016 Cortical defect lateral upper pole right kidney suggests sequela of prior vascular or infectious insu lt. Atrophic left kidney possibly secondary to renal artery stenosis given the degree of atherosclerotic calcifications. Delayed excretion of contrast from both kidneys. Moderate atherosclerotic calcifications throughout the abdominal aorta and iliac arteries. While contrast has progressed to the proximal transverse colon. Suspect prior ascending colectomy wit h ileocolonic anastomosis. Moderate stool burden. Moderate sized anterior abdominal wall hernia hernia sac measuring 5.2 cm wide containing couple smal l bowel loops. No abnormal dilatation. Thick walled small air collection interposed centrally behind mid lower abdominal small bowel loops m easures 3.2 cm wide versus 2.7 cm, previously. It does not appear to be significantly changed. Mild s urrounding and fat stranding persists. This does not contain any oral contrast material. No free fluid or free air. Continued soft tissue thickening along the deep anterior abdominal wall gonzalez bcutaneous fat. Bladder partially distended. Uterus surgically absent. Ovaries are visualized. No pelvic lymphadenopa thy seen. Anastomotic staple line at the rectosigmoid junction. Bones: Degenerative changes at the hips. Degenerative changes throughout the lumbar spine. No osseous destructive process. IMPRESSION: 1. THICK WALLED AIR COLLECTION MIDLINE LOWER ABDOMEN INTERPOSED BEHIND SOME SMALL BOWEL LOOPS IS NOT SIGNIFICANTLY CHANGED. IT MEASURES 3.2 CM, A FEW MILLIMETERS LARGER BUT THE OVERALL APPEARANCE IS STA BLE. THERE IS SOME CONTINUED SURROUNDING LOW-GRADE INFLAMMATION. A CHRONIC CONTAINED ABSCESS IS CONSI DERED. GIVEN THE INTERNAL AIR, THERE MAY BE FISTULOUS COMMUNICATION WITH THE ADJACENT SIGMOID. 2. REDEMONSTRATED ATROPHIC LEFT KIDNEY POSSIBLY SECONDARY TO RENAL ARTERY STENOSIS GIVEN THE DEGREE O F ATHEROSCLEROTIC CALCIFICATION. 3. MODERATE-SIZED VENTRAL ABDOMINAL WALL HERNIA MEASURING 5.2 CM WIDE CONTINUES TO CONTAIN A COUPLE S MALL BOWEL LOOPS. NO OBSTRUCTIVE CHANGES. 4. CONTINUED SUBCUTANEOUS SOFT TISSUE THICKENING ALONG THE LOWER ANTERIOR ABDOMINAL WALL COULD REPRES ENT SCARRING OR CELLULITIS.
== END | disposition home or self-care (01) ==
LOC: RADCTMAIN 12:28
PROVIDERS: ATTEND Internal Medicine Hematology & Oncology
DX: C18.2 Malignant neoplasm of ascending colon (principal); N26.1 Atrophy of kidney (terminal); K43.9 Ventral hernia without obstruction or gangrene; R93.5 Abnormal findings on diagnostic imaging of other abdominal regions, including retroperitoneum
CPT/HCPCS: 74177; Q9967

== ENCOUNTER → 2017-08-03 | Outpatient (CLI) | payer MEDICARE, OTHER ==
--- NOTE | 2017-08-03 13:33 | CT ---
EXAMINATION TYPE: CT pelvis wo con DATE OF EXAM: 08/03/2017 COMPARISON: NONE HISTORY: 66-year-old female with generalized abdominal pain, abscess TECHNIQUE: Contiguous axial scanning of the pelvis after oral and rectal contrast. Coronal and sagitt al reconstructions performed. CT DLP: 962 mGycm Automated exposure control for dose reduction was used. FINDINGS: The abnormal thick-walled air collection in the lower abdomen and upper post and some small bowel loo ps is redemonstrated. This appears slightly larger in the interval measuring 5.6 x 5.5 cm versus 3.2 cm, previously. The abutting small bowel loops may be matted together here from chronic inflammation. There seems to be some surgical change with anastomosis at the rectosigmoid junction probably within and to side anastomosis. The blind-ending distal end fills with contrast and seems to terminate at th e site of inflammation and irregular air collection. No contrast accumulating within the collection a t this time. Right ovary is seen just adjacent. Left ovary not clearly seen. Mild straightening edema tracking lola ng the right adnexa without any significant free fluid. Redemonstrated 5.8 cm wide ventral abdominal wall hernia containing a couple small bowel loops. No ob structive changes. There is narrowing of the mid sigmoid proximal to the anastomosis with some wall thickening likely re active changes from the adjacent inflammation. Bladder nondistended. Rectal tube is present. No lower abdominal lymphadenopathy seen. Bones: Degenerative changes throughout the lumbar spine. IMPRESSION: 1. THE INFLAMMATORY, THICK-WALLED AIR COLLECTION IN THE LOWER ABDOMEN APPEARS SLIGHTLY LARGER NOW JONATHAN SURING 5.6 X 5.5 CM VERSUS 3.2 CM, PREVIOUSLY. 2. THIS INFLAMMATORY COLLECTION SEEMS TO BE AT THE BLIND END OF AN END TO SIDE RECTOSIGMOID ANASTOMOS IS. CHRONIC CONTAINED LEAK FROM THE STAPLED BLIND END IS CONSIDERED (REFER TO CORONAL IMAGES 45 THROU GH 50). 3. CIRCUMFERENTIAL WALL THICKENING AND NARROWING ALONG THE DISTAL SIGMOID BEFORE THE ANASTOMOSIS LIKE LY REACTIVE TO THE ADJACENT INFLAMMATION. 4. SMALL BOWEL LOOPS ABUTTING THE COLLECTION MAY BE MATTED TOGETHER FROM THE CHRONIC INFLAMMATION.
== END | disposition home or self-care (01) ==
LOC: RADCTMAIN 11:33
PROVIDERS: ATTEND Surgery
DX: K65.1 Peritoneal abscess (principal); R10.84 Generalized abdominal pain; Z98.890 Other specified postprocedural states
CPT/HCPCS: 72192; Q9967

== ENCOUNTER → 2017-08-15 | Outpatient (CLI) | payer MEDICARE, OTHER ==
--- NOTE | 2017-08-16 15:09 | PE ---
EXAMINATION TYPE: PET CT fusion skull to thigh DATE OF EXAM: 08/15/2017 COMPARISON: CT abdomen pelvis 07/01/2017, CT pelvis 08/03/2017 Prior PET/CT: None HISTORY: Colorectal cancer TECHNIQUE: Following the intravenous administration of 13.92 mCi of F-18 FDG, whole body images are performed from the skull base to the midthigh. Images are reviewed on the computer in the coronal, a xial, and sagittal planes. Reconstructed rotating images are created on independent workstation and reviewed on the computer. A localization and attenuation correction CT is performed in conjunction with the PET scan. DLP: 441.86 mGycm SCAN: Initial Blood glucose: 119 mg/dL Average Mediastinum SUV: 1.25 Average Liver SUV: 2.90 FINDINGS: NECK: No abnormal uptake THORAX: There is increased uptake about the left shoulder which can be related to some inflammatory c hanges. Suspicious changes for metastatic lesions are not identified. ABDOMEN: No abnormal uptake PELVIS: In the mid pelvis there is a focal area of increased radiotracer accumulation which appears t o be associated with the sigmoid colon. This has an SUV value of 6.69 which may be related to the pat ient's colon cancer. Correlate with previous findings. This is located at the location of previous gonzalez spected abscess. SUV value is greater than expected for infection. OSSEOUS STRUCTURES: No abnormal uptake LOCALIZATION CT: Left kidney is atrophic. The ascending thoracic aorta at the level the main pulmonar y artery is 3.8 cm. The main pulmonary artery the bifurcation is 3.5 cm. COMPARISON: Focus of radiotracer accumulation correlates with the previous suspected abscess within t he pelvis. SUV value appears more suggestive for neoplasm. Fecal debris is within the colon. IMPRESSION: 1. Increased radiotracer accumulation within the mid pelvis has elevated SUV suggestive for neoplasm. The location of the patient's colorectal cancer. 2. Distant metastatic lesions are not identified. 3. Inflammatory changes at the left shoulder.
== END ==
LOC: RADPETMAIN 14:47
PROVIDERS: ATTEND Internal Medicine Hematology & Oncology
DX: C19 Malignant neoplasm of rectosigmoid junction (principal)
CPT/HCPCS: 78815; A9552

== ENCOUNTER 2017-10-10 07:08 | Inpatient (IN) | payer MEDICARE, OTHER ==
[2017-10-10] MEDS ORDERED: methylPREDNISolone SOD SUCCI 125 MG/2 ML VIAL IV STA (07:14)
[2017-10-10] MEDS ORDERED: LEVOFLOXACIN 750MG-D5W PMX 750 MG in DEXTROSE/WATER 1 150ML.BAG IVPB STA (07:14)
[2017-10-10] MEDS ORDERED: SODIUM CHLORIDE 0.9% 1,000 ML IV STA (07:14)
[2017-10-10] MEDS ORDERED: FUROSEMIDE 10 MG/ML 4 ML VIAL IV STA (07:14)
[2017-10-10] MEDS ORDERED: ALBUTEROL NEBULIZED 2.5 MG/3 ML INHALATION STA (07:14)
[2017-10-10 07:31] LABS: ABG Base Excess 3.8 mmol/L; ABG HCO3 29 mmol/L (21-25); ABG PCO2 47 mmHg (35-45); ABG PO2 >400 mmHg (83-108); ABG TCO2 30 mmol/L (19-24)
--- NOTE | 2017-10-10 07:34 | ED ---
SOB HPI - General Chief Complaint: Shortness of Breath Stated Complaint: frederick Time Seen by Provider: 10/10/17 07:13 Source: patient, family, EMS Mode of arrival: EMS Limitations: no limitations - History of Present Illness Initial Comments: 66 Years old with a BMI of 43 With the difficulty breathing she has ongoing shortness of breath for a few days ago worse today , on arrival EMS noticed that his O2 sat was 85% and she was breathing at a rate of 70 breaths per minute and she was using accessory muscles she has a history of respiratory distress in the past she has a history of COPD, CHF, diabetes, hypertension, sleep apnea, coronary artery disease status post CABG she is complaining about the chest pain worse with deep breaths along the shortness of breath , she came in on a CPAP, we converted that to BiPAP she is not able to talk she is only answering with the knots she is nodding her head reactive system is unremarkable otherwise - Related Data Home Medications Medication Instructions Recorded Confirmed Amiodarone [Cordarone] 200 mg PO DAILY 03/01/16 06/16/17 Allopurinol [Zyloprim] 100 mg PO DAILY 03/09/16 06/16/17 Atorvastatin [Lipitor] 40 mg PO HS 03/09/16 06/16/17 Ferrous Sulfate [Feosol] 325 mg PO DAILY 03/09/16 06/16/17 Ipratropium-Albuterol Nebulize 3 ml INHALATION RT-QID PRN 03/09/16 06/16/17 [Duoneb 0.5 mg-3 mg/3 ml Soln] Montelukast Sodium [Singulair] 10 mg PO HS 03/09/16 06/16/17 Insulin Glargine [Lantus] 35 unit SQ HS 09/08/16 06/16/17 Insulin Glulisine [Apidra] See Protocol SQ DAILY 09/08/16 06/16/17 Potassium Chloride [Klor-Con 20] 20 meq PO DAILY 09/08/16 06/16/17 Furosemide [Lasix] 60 mg PO DAILY 10/02/16 06/16/17 Cholecalciferol (Vitamin D3) 2,000 unit PO DAILY 02/09/17 06/16/17 [Vitamin D3] DULoxetine HCL [Cymbalta] 60 mg PO DAILY 02/09/17 06/16/17 Isosorbide Mononitrate ER [Imdur] 30 mg PO DAILY 02/09/17 06/16/17 Levothyroxine Sodium [Synthroid] 25 mcg PO DAILY 02/09/17 06/16/17 rOPINIRole HCL [Requip] 1 mg PO HS 02/09/17 06/16/17 Losartan Potassium 50 mg PO DAILY 06/16/17 06/16/17 Magnesium Oxide [Mag-Ox] 400 mg PO DAILY 06/16/17 06/16/17 Spironolactone [Aldactone] 25 mg PO DAILY 06/16/17 06/16/17 Previous Rx's Medication Instructions Recorded Nitroglycerin Sl Tabs [Nitrostat] 0.4 mg SUBLINGUAL Q5M PRN #25 tab 12/17/15 Carvedilol [Coreg*] 12.5 mg PO BID-W/MEALS #60 tab 06/19/17 Metolazone [Zaroxolyn] 2.5 mg PO DAILY PRN #30 tablet 06/19/17 guaiFENesin [Mucinex] 600 mg PO Q12HR tablet.er 06/19/17 Allergies Allergy/AdvReac Type Severity Reaction Status Date / Time cephalexin monohydrate Allergy Unknown Rash/Hives Verified 06/16/17 10:36 [From Keflex] yellow dye Allergy Unknown Verified 06/16/17 10:36 Review of Systems ROS Statement: Those systems with pertinent positive or pertinent negative responses have been documented in the HPI. ROS Other: All systems not noted in ROS Statement are negative. 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 triple bypass 2007, picc line -since removed. one cardiac stent Past Anesthesia/Blood Transfusion Reactions: Motion Sickness, No Reported Reaction Additional Past Anesthesia/Blood Transfusion Reaction / Comment(s): Pt has received blood without reaction. Date of Last Stent Placement:: 2009 Past Psychological History: Anxiety, Depression Smoking Status: Former smoker - Past Family History Mother Family Medical History: Cancer Additional Family Medical History / Comment(s): Mother had lung cancer. Father Family Medical History: Liver Disease Additional Family Medical History / Comment(s): Father of cirrhosis of the liver. He was a alcoholic. General Exam - General Exam Comments Initial Comments: General: The patient is awake in severe distress unable to talk only able to nod her head him and noticed some sweats Skin: Skin is warm and dry and no rashes or lesions are noted. Eye: Pupils are equal, round and reactive to light, extra-ocular movements are intact; there is normal conjunctiva bilaterally. Ears, nose, mouth and throat: There are moist mucous membranes and no oral lesions. Neck: The neck is supple, there is no tenderness Cardiovascular: There is a regular rate and rhythm. No murmur, rub or gallop is appreciated. Respiratory: To auscultation bilateral, hardly moving any air Gastrointestinal: Soft, non-distended, non-tender abdomen without masses or organomegaly noted. There is no rebound or guarding present. Bowel sounds are unremarkable. Back: There is no tenderness to palpation in the midline. There is no obvious deformity. Musculoskeletal: Normal ROM, no tenderness, There is no pedal edema. There is no calf tenderness or swelling. No cords were appreciated. Neurological: CN II-XII intact, Cranial nerves III through XII are intact. There are no obvious motor or sensory deficits. Coordination appears grossly intact. Speech is normal. Psychiatric: Cooperative, appropriate mood & affect, normal judgment. Limitations: no limitations Course Vital Signs 10/10/17 10/10/17 10/10/17 07:09 07:22 07:44 Temperature 97 F L Pulse Rate 96 56 L Respiratory 26 H 26 H Rate Blood Pressure 176/67 O2 Sat by Pulse 98 Oximetry 10/10/17 10/10/17 08:00 08:15 Temperature Pulse Rate 62 60 Respiratory Rate Blood Pressure O2 Sat by Pulse Oximetry Respiratory distress EKG has multiple artifacts that makes interpretation accurately and possible acute EKG was bit better but still has a lot of artifacts , G showed left bundle branch block last EKG was from 06/16/2017 WE had a left bundle branch block Medical Decision Making - Lab Data Result diagrams: 10/10/17 08:20 10/10/17 08:20 Lab Results 10/10/17 10/10/17 10/10/17 Range/Units 07:27 08:20 08:20 WBC 7.5 (3.8-10.6) k/uL RBC 3.75 L (3.80-5.40) m/uL Hgb 11.3 L (11.4-16.0) gm/dL Hct 36.5 (34.0-46.0) % MCV 97.4 (80.0-100.0) fL MCH 30.1 (25.0-35.0) pg MCHC 30.9 L (31.0-37.0) g/dL RDW 16.6 H (11.5-15.5) % Plt Count 179 (150-450) k/uL Neutrophils % 88 % Lymphocytes % 6 % Monocytes % 4 % Eosinophils % 2 % Basophils % 0 % Neutrophils # 6.6 (1.3-7.7) k/uL Lymphocytes # 0.4 L (1.0-4.8) k/uL Monocytes # 0.3 (0-1.0) k/uL Eosinophils # 0.1 (0-0.7) k/uL Basophils # 0.0 (0-0.2) k/uL Hypochromasia Moderate Anisocytosis Slight Macrocytosis Slight PT 10.3 (9.0-12.0) sec INR 1.1 (<1.2) APTT 18.4 L (22.0-30.0) sec D-Dimer 7.79 H (<0.60) mg/L FEU Sample Site rt radial ABG pH 7.40 (7.35-7.45) ABG pCO2 47 H (35-45) mmHg ABG pO2 >400 H (83-108) mmHg ABG HCO3 29 H (21-25) mmol/L ABG Total CO2 30 H (19-24) mmol/L ABG O2 Saturation 100.0 H (94-97) % ABG Base Excess 3.8 mmol/L Kyle Test Yes FiO2 100 % Sodium (137-145) mmol/L Potassium (3.5-5.1) mmol/L Chloride (98-107) mmol/L Carbon Dioxide (22-30) mmol/L Anion Gap mmol/L BUN (7-17) mg/dL Creatinine (0.52-1.04) mg/dL Est GFR (CKD-EPI)AfAm (>60 ml/min/1.73 sqM) Est GFR (CKD-EPI)NonAf (>60 ml/min/1.73 sqM) Glucose (74-99) mg/dL Calcium (8.4-10.2) mg/dL Total Bilirubin (0.2-1.3) mg/dL AST (14-36) U/L ALT (9-52) U/L Alkaline Phosphatase (38-126) U/L Total Creatine Kinase (30-135) U/L CK-MB (CK-2) (0.0-2.4) ng/mL CK-MB (CK-2) Rel Index Troponin I (0.000-0.034) ng/mL Total Protein (6.3-8.2) g/dL Albumin (3.5-5.0) g/dL 10/10/17 10/10/17 Range/Units 08:20 08:20 WBC (3.8-10.6) k/uL RBC (3.80-5.40) m/uL Hgb (11.4-16.0) gm/dL Hct (34.0-46.0) % MCV (80.0-100.0) fL MCH (25.0-35.0) pg MCHC (31.0-37.0) g/dL RDW (11.5-15.5) % Plt Count (150-450) k/uL Neutrophils % % Lymphocytes % % Monocytes % % Eosinophils % % Basophils % % Neutrophils # (1.3-7.7) k/uL Lymphocytes # (1.0-4.8) k/uL Monocytes # (0-1.0) k/uL Eosinophils # (0-0.7) k/uL Basophils # (0-0.2) k/uL Hypochromasia Anisocytosis Macrocytosis PT (9.0-12.0) sec INR (<1.2) APTT (22.0-30.0) sec D-Dimer (<0.60) mg/L FEU Sample Site ABG pH (7.35-7.45) ABG pCO2 (35-45) mmHg ABG pO2 (83-108) mmHg ABG HCO3 (21-25) mmol/L ABG Total CO2 (19-24) mmol/L ABG O2 Saturation (94-97) % ABG Base Excess mmol/L Kyle Test FiO2 % Sodium 142 (137-145) mmol/L Potassium 4.5 (3.5-5.1) mmol/L Chloride 99 (98-107) mmol/L Carbon Dioxide 29 (22-30) mmol/L Anion Gap 14 mmol/L BUN 53 H (7-17) mg/dL Creatinine 1.01 (0.52-1.04) mg/dL Est GFR (CKD-EPI)AfAm 68 (>60 ml/min/1.73 sqM) Est GFR (CKD-EPI)NonAf 59 (>60 ml/min/1.73 sqM) Glucose 197 H (74-99) mg/dL Calcium 9.4 (8.4-10.2) mg/dL Total Bilirubin 1.2 (0.2-1.3) mg/dL AST 65 H (14-36) U/L ALT 57 H (9-52) U/L Alkaline Phosphatase 105 (38-126) U/L Total Creatine Kinase 55 (30-135) U/L CK-MB (CK-2) 0.9 (0.0-2.4) ng/mL CK-MB (CK-2) Rel Index 1.6 Troponin I 0.022 (0.000-0.034) ng/mL Total Protein 7.1 (6.3-8.2) g/dL Albumin 3.8 (3.5-5.0) g/dL Critical Care Time Total Critical Care Time: 45 Critical Care Time: 66 years old female with a history of COPD, congestive heart failure, diabetes, hypertension, sleep apnea, status post CABG and renal insufficiency came in with a respiratory failure BiPAP was started immediately ABG surprisingly were not too bad pH is 7.39 and bicarb was 28.7 pCO2 was 46 but she was breathing at the rate of 30 breaths per minute chest x-ray reveals COPD plus congestive heart failure CBC is unremarkable chest x-ray is positive troponin is unremarkable, d-dimer is quite elevated down ([facility] do the CT chest angiogram a creatinine is normal. Regardless of firm CT angios she would need admission because he came in with a respiratory failure patient be admitted to Dr. Caraballo' s service and Dr. Marie auto radio mechanic will be a consult obviously will go on heparin if PE is confirmed him a she did get her Lasix and BiPAP for congestive heart failure Disposition Clinical Impression: CHF (congestive heart failure), COPD with acute exacerbation, Elevated d-dimer Disposition: ADMITTED IP TO THIS HOSP Referrals: Lul Aquino MD [Primary Care Provider] - 1-2 days
--- NOTE | 2017-10-10 08:10 | XR ---
EXAMINATION TYPE: XR chest 1V portable DATE OF EXAM: 10/10/2017 HISTORY: difficulty breathing. REFERENCE: The dated 03/13/2016. FINDINGS: There has been a midline sternotomy. The heart is enlarged. There is vascular congestion and interstitial change. There are bilateral effu sions. There is underlying COPD. IMPRESSION: 1. COPD. 2. CHANGES CONSISTENT WITH MILD HEART FAILURE. 3. SMALL, BILATERAL EFFUSIONS.
[2017-10-10 08:37] LABS: Anisocytosis Slight; Basophils % (A) 0 %; Eosinophils # (A) 0.1 k/uL (0-0.7); Eosinophils % (A) 2 %; HCT 36.5 % (34.0-46.0); HGB 11.3 gm/dL (11.4-16.0); Hypochromasia Moderate; Lymphocytes # (A) 0.4 k/uL (1.0-4.8); Lymphocytes % (A) 6 %; MCH 30.1 pg (25.0-35.0); MCHC 30.9 g/dL (31.0-37.0); MCV 97.4 fL (80.0-100.0); Macrocytosis Slight; Mean Platelet Volume 8.2; Monocytes # (A) 0.3 k/uL (0-1.0); Monocytes % (A) 4 %; Neutrophils # (A) 6.6 k/uL (1.3-7.7); Neutrophils % (A) 88 %; Platelet Count 179 k/uL (150-450); RBC 3.75 m/uL (3.80-5.40); RDW 16.6 % (11.5-15.5); WBC 7.5 k/uL (3.8-10.6)
[2017-10-10 08:47] LABS: Albumin 3.8 g/dL (3.5-5.0); Calcium 9.4 mg/dL (8.4-10.2); Potassium 4.5 mmol/L (3.5-5.1); Total Bilirubin 1.2 mg/dL (0.2-1.3); Total Protein 7.1 g/dL (6.3-8.2)
[2017-10-10 09:00] LABS: D-Dimer 7.79 mg/L FEU (<0.60); INR 1.1 (<1.2); Prothrombin Time 10.3 sec (9.0-12.0)
[2017-10-10 09:04] LABS: Partial Thromboplastin Time 18.4 sec (22.0-30.0)
[2017-10-10] MEDS ORDERED: RX INFO: IV CONTRAST WAS GIVEN 1 EACH MISC MISCELLANE PRN (09:19)
[2017-10-10 09:20] LABS: Creatine Kinase MB 0.9 ng/mL (0.0-2.4); Troponin I 0.022 ng/mL (0.000-0.034)
[2017-10-10] MEDS ORDERED: IPRATROPIUM-ALBUTEROL 3 ML NEB INHALATION PRN ×2 (09:30→09:34)
[2017-10-10] MEDS ORDERED: NITROGLYCERIN SL TABS 0.4 MG TAB SUBLINGUAL PRN (09:34)
[2017-10-10] MEDS ORDERED: METOLAZONE 2.5 MG TAB PO PRN (09:34)
[2017-10-10] MEDS ORDERED: ACETAMINOPHEN TAB 500 MG TAB PO STA (10:45)
--- NOTE | 2017-10-10 11:13 | CT ---
EXAMINATION TYPE: CT angio chest DATE OF EXAM: 10/10/2017 11:10 AM COMPARISON: Previous study dated 06/16/2017 HISTORY: CRISTI CT DLP: 1148.2 mGycm Automated exposure control for dose reduction was used. CONTRAST: CTA scan of the thorax is performed with IV Contrast, patient injected with 80 mL of Isovue 370, pulm onary embolism protocol. . FINDINGS: There are emphysematous changes throughout the lungs. There is dependent atelectasis at the lung bases. There are small, bilateral effusions, slightly greater on the right than the left. There is no significant mediastinal or hilar adenopathy. There is no evidence of pulmonary embolus. The aorta is normal in caliber. There is no pericardial fluid. The heart is mildly enlarged. There is a 2.9 cm, partially calcified rounded mass adjacent to the left adrenal gland and adjacent t o the tail of the pancreas. This was present previously and is unchanged. There is moderately severe hypertrophic spondylosis within the spine. IMPRESSION: 1. THIS EXAMINATION IS NEGATIVE FOR PULMONARY EMBOLUS. 2. EMPHYSEMATOUS CHANGE. 3. SMALL, BILATERAL EFFUSIONS, GREATER ON THE RIGHT THAN THE LEFT. 4. MILD CARDIOMEGALY. 5. STABLE LEFT UPPER QUADRANT MASS. 6. DEGENERATIVE CHANGES WITHIN THE SPINE.
[2017-10-10] MEDS: HYDROcodone/APAP 10-325MG 1 EACH TAB PO PRN ×2 (12:14→20:36)
[2017-10-10] MEDS: methylPREDNISolone SOD SUCCI 125 MG/2 ML VIAL IV SCH ×3 (12:15→22:55)
--- NOTE | 2017-10-10 12:21 | P.CNPUL ---
History of Present Illness Consult date: 10/10/17 Reason for consult: dyspnea Chief complaint: Shortness of breath History of present illness: This is a 66-year-old female who presented emergency department complaining of worsening shortness of breath. The patient was recently admitted at outside hospital on 10/06/2017. The patient was discharged to home. She states at home her breathing became worse and she became very short of breath. She states she does have a CPAP at home but does not like the mask that she has. This is been discussed with her as an outpatient on multiple occasions. She does follow with Dr. YULIA To in the office. The patient is currently on BiPAP and states that she is feeling better. She would like some water or ice chips. The patient did have an O2 saturation of 85% the emergency department. She did have a chest x-ray which showed small pleural effusions and pulmonary edema. She underwent CTA of the chest which is negative for pulmonary embolism. It does show again small bilateral pleural effusions. Review of Systems All systems: negative Past Medical History Past Medical History: Asthma, Cancer, Heart Failure, COPD, Diabetes Mellitus, Hearing Disorder / Deafness, Hyperlipidemia, Hypertension, Osteoarthritis (OA), Pneumonia, Renal Disease, Sleep Apnea/CPAP/BIPAP, Vascular Disorder Additional Past Medical History / Comment(s): ANEMIA,(previously charted pulmonary hypertension, combined systolic and diastolic failure, last ejection fraction 35% August 2016), diabetic neuropathy, gout, chronic pain, restless leg syndrome, uses CPAP, colon Ca, constipation, History of Any Multi-Drug Resistant Organisms: None Reported Past Surgical History: Bladder Surgery, Cholecystectomy, Coronary Bypass/CABG, Heart Catheterization, Heart Catheterization With Stent, Hernia Repair, Hysterectomy, Joint Replacement, Orthopedic Surgery Additional Past Surgical History / Comment(s): RUPTURED BOWEL-HAD COLOSTOMY since reversed,lX2 RT KNEE REPLACEMENTS, [place] cataract surg. triple bypass 2007, picc line -since removed. one cardiac stent Past Anesthesia/Blood Transfusion Reactions: Motion Sickness, No Reported Reaction Additional Past Anesthesia/Blood Transfusion Reaction / Comment(s): Pt has received blood without reaction. Date of Last Stent Placement:: 2009 Past Psychological History: Anxiety, Depression Smoking Status: Former smoker - Past Family History Mother Family Medical History: Cancer Additional Family Medical History / Comment(s): Mother had lung cancer. Father Family Medical History: Liver Disease Additional Family Medical History / Comment(s): Father of cirrhosis of the liver. He was a alcoholic. Medications and Allergies Home Medications Medication Instructions Recorded Confirmed Type Atorvastatin [Lipitor] 40 mg PO HS 03/09/16 10/10/17 History Montelukast Sodium [Singulair] 10 mg PO HS 03/09/16 10/10/17 History Potassium Chloride [Klor-Con 20] 20 meq PO BID 09/08/16 10/10/17 History Furosemide [Lasix] 40 mg PO BID 10/02/16 10/10/17 History Isosorbide Mononitrate ER [Imdur] 15 mg PO DAILY 02/09/17 10/10/17 History Levothyroxine Sodium [Synthroid] 25 mcg PO DAILY 02/09/17 10/10/17 History Losartan Potassium 50 mg PO DAILY 06/16/17 10/10/17 History Carvedilol [Coreg*] 12.5 mg PO BID-W/MEALS #60 tab 06/19/17 10/10/17 Rx Albuterol Nebulized [Ventolin 2.5 mg INHALATION RT-QID 10/10/17 10/10/17 History Nebulized] DULoxetine HCL [Cymbalta] 30 mg PO DAILY 10/10/17 10/10/17 History Fluticasone Propionate [Flovent 2 puff INHALATION RT-BID 10/10/17 10/10/17 History Hfa 110mcg] HYDROcodone/APAP 10-325MG [[place] 1 tab PO TID PRN 10/10/17 10/10/17 History 10-325] Insulin Aspart [NovoLOG See Protocol SQ AC-TID PRN 10/10/17 10/10/17 History (formulary)] amLODIPine [Norvasc] 5 mg PO DAILY 10/10/17 10/10/17 History Allergies Allergy/AdvReac Type Severity Reaction Status Date / Time cephalexin monohydrate Allergy Unknown Rash/Hives Verified 06/16/17 10:36 [From Keflex] yellow dye Allergy Unknown Verified 06/16/17 10:36 Physical Exam Osteopathic Statement: *. No significant issues noted on an osteopathic structural exam other than those noted in the History and Physical/Consult. Vitals: Vital Signs Temp Pulse Resp BP Pulse Ox 10/10/17 11:04 97 F L 78 18 151/89 100 10/10/17 10:18 78 18 151/89 100 10/10/17 08:15 60 10/10/17 08:00 62 10/10/17 07:44 56 L 10/10/17 07:22 26 H 10/10/17 07:09 97 F L 96 26 H 176/67 98 Intake and Output 10/09/17 10/10/17 10/10/17 22:59 06:59 14:59 Other: Weight 123.06 kg Gen.: Patient is alert and oriented 3, no acute distress, currently on BiPAP and appears comfortable Cardiovascular: Regular rate and rhythm, S1/S2 Lungs: Diminished breath sounds bilaterally with scattered crackles Abdomen: Soft nontender nondistended positive bowel sounds Extremities: Trace edema Results - Laboratory Findings CBC and BMP: 10/10/17 08:20 10/10/17 08:20 ABG ABG pH 7.40 (7.35-7.45) 10/10/17 07:27 ABG pCO2 47 mmHg (35-45) H 10/10/17 07:27 ABG pO2 >400 mmHg (83-108) H 10/10/17 07:27 ABG O2 Saturation 100.0 % (94-97) H 10/10/17 07:27 PT/INR, D-dimer PT 10.3 sec (9.0-12.0) 10/10/17 08:20 INR 1.1 (<1.2) 10/10/17 08:20 D-Dimer 7.79 mg/L FEU (<0.60) H 10/10/17 08:20 Abnormal lab findings: Abnormal Labs 10/10/17 10/10/17 10/10/17 07:27 08:20 08:20 RBC 3.75 L Hgb 11.3 L MCHC 30.9 L RDW 16.6 H Lymphocytes # 0.4 L APTT 18.4 L D-Dimer 7.79 H ABG pCO2 47 H ABG pO2 >400 H ABG HCO3 29 H ABG Total CO2 30 H ABG O2 Saturation 100.0 H BUN Glucose AST ALT 10/10/17 08:20 RBC Hgb MCHC RDW Lymphocytes # APTT D-Dimer ABG pCO2 ABG pO2 ABG HCO3 ABG Total CO2 ABG O2 Saturation BUN 53 H Glucose 197 H AST 65 H ALT 57 H - Diagnostic Findings Chest x-ray: report reviewed, image reviewed CT scan - chest: report reviewed, image reviewed Assessment and Plan Assessment: Acute on chronic hypoxic respiratory failure Small bilateral pleural effusions and pulmonary vascular congestion Acute exacerbation of diastolic congestive heart failure Acute exacerbation of COPD Peripheral eosinophilia Obstructive sleep apnea, patient noncompliant with CPAP Iron deficiency anemia Pulmonary hypertension Atherosclerotic coronary artery disease with a history of PCI Hypertension Morbid obesity Paroxysmal atrial fibrillation Chronic kidney disease stage III Diabetes mellitus type 2 Depression Hypothyroidism O2 to maintain saturation greater than or equal to 90% BiPAP at night and as needed, discussed with nursing okay to trial off today Pulmicort and Perforomist Duray nebs Singulair Diuresis Continue patient's home medications Mucinex Solu-Medrol taper Consult PT and OT Incentive spirometry and pulmonary hygiene Patient might benefit from rehab placement No evidence of PE on CTA GI and DVT prophylaxis Outpatient discussion for possible biologic Thank you for this consultation. We will continue to follow along.
[2017-10-10 12:22] LABS: Glucose,Whole Blood 196 mg/dL (75-99)
--- NOTE | 2017-10-10 13:32 | P.HPIM ---
History of Present Illness H&P Date: 10/10/17 This is a 66 years old female patient of Dr. Aquino with past medical history of sytolic heart failure last reported ejection fraction 35%, advanced COPD, history of colon cancer with ruptured bowels for which she was transferred to [facility] ended up having partial colectomy and colostomy which was reversed later. Patient was found to have an intra- abdominal abscess on computed tomography scan which was considered to be a sterile abscess, followed by [facility] Hayward and Dr. Gulilen. Patient was recently hospitalized at [facility] for acute exacerbation of COPD at that time she did have an echocardiogram was seen in consultation by pulmonary and by cardiology and the patient was discharged home yesterday at around 3:00 in the afternoon patient was placed on oxygen at 2 L nasal cannula, patient does have a nebulizer at home she also does have a CPAP that does not work properly, according to her son she needs a change in the tubing of her CPAP, apparently the patient went to bed yesterday after she had subs with her at [facility] and she was feeling fine up until 5:00 in the morning when she woke up with extreme shortness of breath associated with significant hypoxemia patient's ended up the getting sent to the ER at [facility] and she was found to have a low oxygen saturation at 85% she ended up going to the computed tomography scan of the chest because of elevated d- dimer that was negative for pulmonary embolism however it did show bilateral pleural effusion patient did have an echocardiogram at [facility] yesterday the results still pending at the time of dictation I have placed a consultation for cardiology Dr. Alberto and pulmonary medicine Dr. Morejon and patient was admitted to the hospital she was pleasant and BiPAP and she will be weaned down to nasal cannula 2 L cannula, I spoke with her as well as her son the bedside and updated about her situation was given. Review of Systems Constitutional: Reports weakness, Reports weight gain, Denies anorexia, Denies chronic headaches, Denies lethargy Eyes: denies blurred vision, denies bulging eye, denies decreased vision, denies diplopia Ears: deny: decreased hearing Ears, nose, mouth and throat: Denies dental pain, Denies neck fullness/pressure , Denies swelling in throat, Denies sore throat Breasts: absent: as per HPI Cardiovascular: Reports decreased exercise tolerance, Reports dyspnea on exertion, Reports high blood pressure, Reports shortness of breath, Denies chest pain, Denies paroxysmal nocturnal dyspnea, Denies phlebitis, Denies rapid heart beat Respiratory: Reports congestion, Reports cough, Reports cough with sputum, Reports dyspnea, Reports home oxygen, Reports sleep apnea, Reports snoring, Reports wheezing Gastrointestinal: Denies abdominal pain, Denies bloating Genitourinary: Denies dysuria, Denies hematuria Menstruation: Reports post hysterectomy, Reports postmenopausal Musculoskeletal: Denies myalgias Musculoskeletal: absent: ankle pain, ankle stiffness, ankle swelling, elbow pain , elbow stiffness, elbow swelling, foot pain, foot stiffness, foot swelling, hand pain, hand stiffness, hand swelling, hip pain, hip stiffness, hip swelling , knee pain, knee stiffness, knee swelling, shoulder pain, shoulder stiffness, shoulder swelling, wrist pain, wrist stiffness, wrist swelling Integumentary: Denies pruritus, Denies rash Neurological: Denies numbness, Denies weakness Psychiatric: Reports anxiety, Reports depression, Denies sadness/tearfulness, Denies sleep disturbances, Denies suicidal ideation Endocrine: Denies fatigue, Denies weight change Past Medical History Past Medical History: Asthma, Cancer, Heart Failure, COPD, Diabetes Mellitus, Hearing Disorder / Deafness, Hyperlipidemia, Hypertension, Osteoarthritis (OA), Pneumonia, Renal Disease, Sleep Apnea/CPAP/BIPAP, Vascular Disorder Additional Past Medical History / Comment(s): ANEMIA,(previously charted pulmonary hypertension, combined systolic and diastolic failure, last ejection fraction 35% August 2016), diabetic neuropathy, gout, chronic pain, restless leg syndrome, uses CPAP, colon Ca, constipation, History of Any Multi-Drug Resistant Organisms: None Reported Past Surgical History: Bladder Surgery, Cholecystectomy, Coronary Bypass/CABG, Heart Catheterization, Heart Catheterization With Stent, Hernia Repair, Hysterectomy, Joint Replacement, Orthopedic Surgery Additional Past Surgical History / Comment(s): RUPTURED BOWEL-HAD COLOSTOMY since reversed,lX2 RT KNEE REPLACEMENTS, corinna cataract surg. triple bypass 2007, picc line -since removed. one cardiac stent Past Anesthesia/Blood Transfusion Reactions: Motion Sickness, No Reported Reaction Additional Past Anesthesia/Blood Transfusion Reaction / Comment(s): Pt has received blood without reaction. Date of Last Stent Placement:: 2009 Past Psychological History: Anxiety, Depression Smoking Status: Former smoker - Past Family History Mother Family Medical History: Cancer Additional Family Medical History / Comment(s): Mother had lung cancer. Father Family Medical History: Liver Disease Additional Family Medical History / Comment(s): Father of cirrhosis of the liver. He was a alcoholic. Medications and Allergies Home Medications Medication Instructions Recorded Confirmed Type Atorvastatin [Lipitor] 40 mg PO HS 03/09/16 10/10/17 History Montelukast Sodium [Singulair] 10 mg PO HS 03/09/16 10/10/17 History Isosorbide Mononitrate ER [Imdur] 15 mg PO DAILY 02/09/17 10/10/17 History Levothyroxine Sodium [Synthroid] 25 mcg PO DAILY 02/09/17 10/10/17 History Carvedilol [Coreg*] 12.5 mg PO BID-W/MEALS #60 tab 06/19/17 10/10/17 Rx DULoxetine HCL [Cymbalta] 30 mg PO DAILY 10/10/17 10/10/17 History Fluticasone Propionate [Flovent 2 puff INHALATION RT-BID 10/10/17 10/10/17 History Hfa 110mcg] HYDROcodone/APAP 10-325MG [[place] 1 tab PO TID PRN 10/10/17 10/10/17 History 10-325] Insulin Aspart [NovoLOG See Protocol SQ AC-TID PRN 10/10/17 10/10/17 History (formulary)] amLODIPine [Norvasc] 5 mg PO DAILY 10/10/17 10/10/17 History Allopurinol [Zyloprim] 100 mg PO DAILY tab 10/13/17 Rx Amiodarone [Cordarone] 200 mg PO DAILY tab 10/13/17 Rx Cholecalciferol [Vitamin D3] 2,000 unit PO DAILY@1200 tab 10/13/17 Rx Furosemide [Lasix] 60 mg PO BID #60 tab 10/13/17 Rx Insulin Aspart [NovoLOG 0 unit SQ ACHS vial 10/13/17 Rx (formulary)] Ipratropium-Albuterol Nebulize 3 ml INHALATION QID #120 neb 10/13/17 Rx [Duoneb 0.5 mg-3 mg/3 ml Soln] Ipratropium-Albuterol Nebulize 3 ml INHALATION RT-QID #120 10/13/17 Rx [Duoneb 0.5 mg-3 mg/3 ml Soln] ampul.neb Magnesium Oxide [Mag-Ox] 400 mg PO DAILY #0 tab 10/13/17 Rx Metolazone [Zaroxolyn] 2.5 mg PO DAILY PRN #30 tab 10/13/17 Rx Nitroglycerin Sl Tabs [Nitrostat] 0.4 mg SUBLINGUAL Q5M PRN #25 tab 10/13/17 Rx Potassium Chloride [Klor-Con 20] 20 meq PO DAILY #0 10/13/17 10/10/17 Rx Sacubitril/Valsartan [Entresto 24 1 each PO BID #60 tablet 10/13/17 Rx mg-26 mg Tablet] Spironolactone [Aldactone] 25 mg PO DAILY #30 tab 10/13/17 Rx guaiFENesin [Mucinex] 600 mg PO Q12HR tablet.er 10/13/17 Rx predniSONE 0 mg PO DIRECTED #40 tab 10/13/17 Rx rOPINIRole HCL [Requip] 1 mg PO HS tab 10/13/17 Rx Allergies Allergy/AdvReac Type Severity Reaction Status Date / Time cephalexin monohydrate Allergy Unknown Rash/Hives Verified 06/16/17 10:36 [From Keflex] yellow dye Allergy Unknown Verified 06/16/17 10:36 Physical Exam Vitals: Vital Signs Temp Pulse Resp BP Pulse Ox 10/10/17 11:04 97 F L 78 18 151/89 100 10/10/17 10:18 78 18 151/89 100 10/10/17 08:15 60 10/10/17 08:00 62 10/10/17 07:44 56 L 10/10/17 07:22 26 H 10/10/17 07:09 97 F L 96 26 H 176/67 98 Intake and Output 10/09/17 10/10/17 10/10/17 22:59 06:59 14:59 Other: Weight 123.06 kg - Constitutional General appearance: mild distress, morbidly obese - EENT Eyes: anicteric sclerae, EOMI, PERRLA, no ptosis, no scleral icterus, normal appearance ENT: hearing grossly normal, NA/AT, normal oropharynx, no thrush Ears: bilateral: normal - Neck Neck: no lymphadenopathy, normal ROM, no rigidity, no stridor, no thyromegaly Carotids: bilateral: upstroke normal Thyroid: bilateral: normal size - Respiratory Respiratory: bilateral: diminished, rhonchi, wheezing, prolonged expiration, negative: dullness, rales - Cardiovascular Rhythm: regular Heart sounds: normal: S1, S2 Abnormal Heart Sounds: systolic murmur, S3 Gallop - Gastrointestinal General gastrointestinal: normal bowel sounds, soft, no splenomegaly, no tenderness, no umbilical hernia - Integumentary Integumentary: normal, normal turgor - Neurologic Neurologic: CNII-XII intact - Musculoskeletal Musculoskeletal: generalized weakness, strength equal bilaterally - Psychiatric Psychiatric: A&O x's 3, appropriate affect, intact judgment & insight Results CBC & Chem 7: 10/12/17 05:16 10/12/17 05:16 Labs: Abnormal Lab Results - Last 24 Hours (Table) 10/10/17 10/10/17 10/10/17 Range/Units 07:27 08:20 08:20 RBC 3.75 L (3.80-5.40) m/uL Hgb 11.3 L (11.4-16.0) gm/dL MCHC 30.9 L (31.0-37.0) g/dL RDW 16.6 H (11.5-15.5) % Lymphocytes # 0.4 L (1.0-4.8) k/uL APTT 18.4 L (22.0-30.0) sec D-Dimer 7.79 H (<0.60) mg/L FEU ABG pCO2 47 H (35-45) mmHg ABG pO2 >400 H (83-108) mmHg ABG HCO3 29 H (21-25) mmol/L ABG Total CO2 30 H (19-24) mmol/L ABG O2 Saturation 100.0 H (94-97) % BUN (7-17) mg/dL Glucose (74-99) mg/dL AST (14-36) U/L ALT (9-52) U/L 10/10/17 Range/Units 08:20 RBC (3.80-5.40) m/uL Hgb (11.4-16.0) gm/dL MCHC (31.0-37.0) g/dL RDW (11.5-15.5) % Lymphocytes # (1.0-4.8) k/uL APTT (22.0-30.0) sec D-Dimer (<0.60) mg/L FEU ABG pCO2 (35-45) mmHg ABG pO2 (83-108) mmHg ABG HCO3 (21-25) mmol/L ABG Total CO2 (19-24) mmol/L ABG O2 Saturation (94-97) % BUN 53 H (7-17) mg/dL Glucose 197 H (74-99) mg/dL AST 65 H (14-36) U/L ALT 57 H (9-52) U/L Thrombosis Risk Factor Assmnt - DVT/VTE Prophylaxis DVT/VTE Prophylaxis: Pharmacologic Prophylaxis ordered, Mechanical Prophylaxis ordered Assessment and Plan Assessment: Assessment and Plan Plan: 1. Acute on chronic hypoxemic respiratory failure due to acute systolic heart failure with bilateral perfusion as well as COPD exacerbation with pulmonary hypertension. Continue Solu-Medrol 60 mg IV push every 6 hours, continue DuoNeb 3 mL nebulization 4 times every day, continue oxygen support, continue the patient on Lasix 60 minute gram orally once every day as well as metolazone 2.5 mg orally once every day, discontinue IV fluid, discontinue IV antibiotic, pulmonary consultation as well as cardiology consultation. 2. Coronary artery disease status post PCI. Continue patient on aspirin 325 mg orally once every day, Imdur 30 mg orally once every day, Lipitor 40 mg orally once every day. 3. Chronic systolic heart failure with pulmonary hypertension. Continue Lasix 60 mg orally once every day as well as metolazone 2.5 mg orally once every day. 4. Obstructive sleep apnea on CPAP. Patient may need to have a BiPAP at home. 5. Restless leg syndrome. Continue Requip. 6. Hypertension, hypertensive cardiovascular disease. Continue Norvasc 5 mg orally once every day, Coreg 12.5 mg orally twice every day, losartan 50 mg orally once every day. 7. Diabetes mellitus type 2 with steroid-induced hyperglycemia. Start the patient on sliding scale insulin. 8. Gout. Continue allopurinol 100 mg orally once every day. 9. Gastroesophageal reflux disease and gastrointestinal prophylaxis. Continue Protonix 40 mg daily. 10. DVT prophylaxis. Heparin 5000 units subcutaneously every 8 hours. 11. Gout. Continue allopurinol 100 mg orally once every day. 12. Depression. Continue Cymbalta 60 mg orally once every day. 13. Admit to inpatient. Estimate length of stay 2 midnights. 14. Full code.
--- NOTE | 2017-10-10 14:04 | P.CRDCN ---
History of Present Illness Consult date: 10/10/17 Chief complaint: Shortness of breath History of present illness: This is a pleasant 66-year-old female patient who I have seen in the past and who she follows with Dr. Scott in the office on regular basis presented to the hospital complaining of shortness of breath. The patient just was discharged from [facility] yesterday after she was admitted with congestive heart failure exacerbation. The last echocardiogram from June 2017 revealed severe cardiomyopathy with an ejection fraction around 30 %. The patient was at home with her has been when she started experiencing dyspnea and she noticed the oxygen saturation was coming down. The patient was discharged from the hospital on home oxygen. At that point the patient presented to the emergency room. She did not have any symptoms of chest pain or chest discomfort nor dizziness or lightheadedness nor syncope. In the emergency room here she was found to be hypoxic with oxygen saturation around 85 %. She underwent subsequently a computed tomography scan of the chest which showed no PE but it did show bilateral pleural effusion. The chest x-ray showed cardiomegaly with bilateral pleural effusion as well. The patient does have an extensive medical history consistent of morbid obesity , coronary artery disease, COPD, hypertension, dyslipidemia, and also severe cardiomyopathy with an echo recently showing an EF of 30%. She did undergo an echo at [facility] but we don't have the results at this point. The EKG showed sinus rhythm with LBBB. We don't have a BMP on the patient at this point. She stated that the shortness of breath seems to be slightly better. 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 triple bypass 2007, picc line -since removed. one cardiac stent Past Anesthesia/Blood Transfusion Reactions: Motion Sickness, No Reported Reaction Additional Past Anesthesia/Blood Transfusion Reaction / Comment(s): Pt has received blood without reaction. Date of Last Stent Placement:: 2009 Past Psychological History: Anxiety, Depression Smoking Status: Former smoker - Past Family History Mother Family Medical History: Cancer Additional Family Medical History / Comment(s): Mother had lung cancer. Father Family Medical History: Liver Disease Additional Family Medical History / Comment(s): Father of cirrhosis of the liver. He was a alcoholic. Medications and Allergies Home Medications Medication Instructions Recorded Confirmed Type Atorvastatin [Lipitor] 40 mg PO HS 03/09/16 10/10/17 History Montelukast Sodium [Singulair] 10 mg PO HS 03/09/16 10/10/17 History Potassium Chloride [Klor-Con 20] 20 meq PO BID 09/08/16 10/10/17 History Furosemide [Lasix] 40 mg PO BID 10/02/16 10/10/17 History Isosorbide Mononitrate ER [Imdur] 15 mg PO DAILY 02/09/17 10/10/17 History Levothyroxine Sodium [Synthroid] 25 mcg PO DAILY 02/09/17 10/10/17 History Losartan Potassium 50 mg PO DAILY 06/16/17 10/10/17 History Carvedilol [Coreg*] 12.5 mg PO BID-W/MEALS #60 tab 06/19/17 10/10/17 Rx Albuterol Nebulized [Ventolin 2.5 mg INHALATION RT-QID 10/10/17 10/10/17 History Nebulized] DULoxetine HCL [Cymbalta] 30 mg PO DAILY 10/10/17 10/10/17 History Fluticasone Propionate [Flovent 2 puff INHALATION RT-BID 10/10/17 10/10/17 History Hfa 110mcg] HYDROcodone/APAP 10-325MG [[place] 1 tab PO TID PRN 10/10/17 10/10/17 History 10-325] Insulin Aspart [NovoLOG See Protocol SQ AC-TID PRN 10/10/17 10/10/17 History (formulary)] amLODIPine [Norvasc] 5 mg PO DAILY 10/10/17 10/10/17 History Allergies Allergy/AdvReac Type Severity Reaction Status Date / Time cephalexin monohydrate Allergy Unknown Rash/Hives Verified 06/16/17 10:36 [From Keflex] yellow dye Allergy Unknown Verified 06/16/17 10:36 Physical Exam Vitals: Vital Signs Temp Pulse Resp BP Pulse Ox 10/10/17 11:04 97 F L 78 18 151/89 100 10/10/17 10:18 78 18 151/89 100 10/10/17 08:15 60 10/10/17 08:00 62 10/10/17 07:44 56 L 10/10/17 07:22 26 H 10/10/17 07:09 97 F L 96 26 H 176/67 98 Intake and Output 10/09/17 10/10/17 10/10/17 22:59 06:59 14:59 Other: Weight 123.06 kg - Constitutional General appearance: mild distress - Respiratory Respiratory: bilateral: rales - Cardiovascular Rhythm: regular Heart sounds: normal: S1, S2 Results 10/10/17 08:20 10/10/17 08:20 Cardiac Enzymes 10/10/17 10/10/17 Range/Units 08:20 08:20 AST 65 H (14-36) U/L CK-MB (CK-2) 0.9 (0.0-2.4) ng/mL Troponin I 0.022 (0.000-0.034) ng/mL Coagulation 10/10/17 Range/Units 08:20 PT 10.3 (9.0-12.0) sec APTT 18.4 L (22.0-30.0) sec CBC 10/10/17 Range/Units 08:20 WBC 7.5 (3.8-10.6) k/uL RBC 3.75 L (3.80-5.40) m/uL Hgb 11.3 L (11.4-16.0) gm/dL Hct 36.5 (34.0-46.0) % Plt Count 179 (150-450) k/uL Comprehensive Metabolic Panel 10/10/17 Range/Units 08:20 Sodium 142 (137-145) mmol/L Potassium 4.5 (3.5-5.1) mmol/L Chloride 99 (98-107) mmol/L Carbon Dioxide 29 (22-30) mmol/L BUN 53 H (7-17) mg/dL Creatinine 1.01 (0.52-1.04) mg/dL Glucose 197 H (74-99) mg/dL Calcium 9.4 (8.4-10.2) mg/dL AST 65 H (14-36) U/L ALT 57 H (9-52) U/L Alkaline Phosphatase 105 (38-126) U/L Total Protein 7.1 (6.3-8.2) g/dL Albumin 3.8 (3.5-5.0) g/dL Current Medications Generic Name Dose Route Start Last Admin Trade Name Freq PRN Reason Stop Dose Admin Hydrocodone Bitart/Acetaminophen 1 each 10/10/17 12:02 10/10/17 12:14 [place] 10 PO 1 each Q8H PRN Administration Moderate Pain Albuterol/Ipratropium 3 ml 10/10/17 09:34 Duoneb 0.5 Mg-3 Mg/3 Ml Soln INHALATION RT-QID PRN Wheezing Albuterol/Ipratropium 3 ml 10/10/17 16:00 Duoneb 0.5 Mg-3 Mg/3 Ml Soln INHALATION RT-Q4H [facility] Allopurinol 100 mg 10/11/17 09:00 Zyloprim PO DAILY [facility] Amiodarone HCl 200 mg 10/11/17 09:00 Cordarone PO DAILY [facility] Amlodipine Besylate 5 mg 10/11/17 09:00 Norvasc PO DAILY [facility] Atorvastatin Calcium 40 mg 10/10/17 21:00 Lipitor PO HS [facility] Budesonide 0.5 mg 10/10/17 20:00 Pulmicort INHALATION RT-BID [facility] Carvedilol 12.5 mg 10/10/17 17:30 Coreg PO BID-W/MEALS [facility] Cholecalciferol 2,000 unit 10/11/17 12:00 Vitamin D3 PO DAILY@1200 [facility] Duloxetine HCl 60 mg 10/11/17 09:00 Cymbalta PO DAILY [facility] Ferrous Sulfate 325 mg 10/11/17 12:00 Feosol PO DAILY@1200 [facility] Formoterol Fumarate 20 mcg 10/10/17 20:00 Perforomist INHALATION RT-BID [facility] Furosemide 40 mg 10/10/17 21:00 Lasix IV Q12HR [facility] Guaifenesin 600 mg 10/10/17 21:00 Mucinex PO Q12HR [facility] Heparin Sodium (Porcine) 5,000 unit 10/10/17 16:00 Heparin SQ Q8HR [facility] Insulin Aspart 0 unit 10/10/17 17:30 Novolog SQ ACHS [facility] Protocol Insulin Detemir 35 unit 10/10/17 21:00 Levemir SQ HS [facility] Isosorbide Mononitrate 30 mg 10/11/17 09:00 Imdur PO DAILY [facility] Levothyroxine Sodium 25 mcg 10/11/17 06:30 Synthroid PO 0630 [facility] Magnesium Oxide 400 mg 10/11/17 09:00 Mag-Ox PO DAILY [facility] Methylprednisolone Sodium Succinate 60 mg 10/10/17 12:00 10/10/17 12:15 Solu-Medrol IV 60 mg Q6HR [facility] Administration Metolazone 2.5 mg 10/10/17 09:34 Zaroxolyn PO DAILY PRN weight gain Miscellaneous Information 1 each 10/10/17 09:19 Rx Info: Iv Contrast Was Given MISCELLANE 10/12/17 09:20 DAILY PRN Per Protocol Montelukast Sodium 10 mg 10/10/17 21:00 Singulair PO HS [facility] Nitroglycerin 0.4 mg 10/10/17 09:34 Nitrostat SUBLINGUAL Q5M PRN Chest Pain Pantoprazole Sodium 40 mg 10/11/17 07:30 Protonix PO AC-BRKFST [facility] Potassium Chloride 20 meq 10/11/17 09:00 K-Dur 20 PO DAILY [facility] Ropinirole HCl 1 mg 10/10/17 21:00 Requip PO HS [facility] Sacubitril/Valsartan 1 each 10/10/17 21:00 Entresto 24 Mg-26 Mg Tablet PO BID [facility] Spironolactone 25 mg 10/11/17 09:00 Aldactone PO DAILY [facility] Intake and Output 10/09/17 10/10/17 10/10/17 22:59 06:59 14:59 Other: Weight 123.06 kg Patient Weight 10/11/17 06:59 Weight 123.06 kg 10/10/17 08:20 10/10/17 08:20 Assessment and Plan Assessment: Assessment #1 acute respiratory failure related to COPD exacerbation as well as CHF exacerbation. #2 congestive heart failure exacerbation secondary to systolic dysfunction #3 known severe cardiomyopathy which is likely to be ischemic with an ejection fraction of 30% on the last echocardiogram from June 2017 #4 coronary artery disease #5 hypertension #6 morbid obesity #7 diabetes #8 chronic respiratory failure Plan #1 I do feel that the patient benefit from Entresto. I am going to DC the losartan and start her on that #2 DC the Lasix by mouth and start the patient on Lasix IV. Continue Aldactone as well #3 monitor the kidney function and electrolytes. #4 obtain a BNP #5 obtaining the echocardiogram from [facility] #6 follow-up with the patient. Thank you for allowing us participate in her care
[2017-10-10] MEDS: IPRATROPIUM-ALBUTEROL 3 ML NEB INHALATION SCH ×3 (16:19→23:48)
[2017-10-10 17:18] LABS: Glucose,Whole Blood 248 mg/dL (75-99)
[2017-10-10] MEDS: HEPARIN SODIUM,PORCINE 5,000 UNIT/ML 1 ML VIAL SQ SCH ×2 (17:31→22:55)
[2017-10-10] MEDS: CARVEDILOL 12.5 MG TAB PO SCH (17:32)
[2017-10-10] MEDS: INSULIN ASPART 100 UNIT/ML 1 ML 10 ML VIAL SQ SCH ×2 (17:32→20:35)
[2017-10-10 17:54] VITALS: BMI 44.6
[2017-10-10] MEDS: BUDESONIDE 0.5 MG/2 ML NEBU INHALATION SCH (19:39)
[2017-10-10] MEDS: FORMOTEROL FUMARATE 20 MCG/2 ML NEBU INHALATION SCH (19:39)
[2017-10-10 20:32] LABS: Glucose,Whole Blood 242 mg/dL (75-99)
[2017-10-10] MEDS: guaiFENesin 600 MG TABLET.ER PO SCH (20:35)
[2017-10-10] MEDS: FUROSEMIDE 10 MG/ML 4 ML VIAL IV SCH (20:35)
[2017-10-10] MEDS: ATORVASTATIN 40 MG TAB PO SCH (20:35)
[2017-10-10] MEDS: SACUBITRIL/VALSARTAN 24 MG-26 MG TABLET PO SCH (20:36)
[2017-10-10] MEDS: MONTELUKAST 10 MG TAB PO SCH (20:36)
[2017-10-10] MEDS: INSULIN DETEMIR 100 UNIT/ML 10 ML VIAL SQ SCH (20:36)
[2017-10-10 23:22] LABS: Hemoglobin A1C 6.7 % (4.0-6.0)
[2017-10-11] MEDS: IPRATROPIUM-ALBUTEROL 3 ML NEB INHALATION SCH ×5 (05:38→19:38)
[2017-10-11] MEDS: HYDROcodone/APAP 10-325MG 1 EACH TAB PO PRN ×3 (06:01→23:34)
[2017-10-11] MEDS: methylPREDNISolone SOD SUCCI 125 MG/2 ML VIAL IV SCH ×3 (06:29→17:13)
[2017-10-11] MEDS: LEVOTHYROXINE 25 MCG TAB PO SCH (06:30)
[2017-10-11 06:44] LABS: Glucose,Whole Blood 244 mg/dL (75-99)
[2017-10-11] MEDS: PANTOPRAZOLE 40 MG TABLET PO SCH (06:50)
[2017-10-11] MEDS: INSULIN ASPART 100 UNIT/ML 1 ML 10 ML VIAL SQ SCH ×4 (06:50→21:42)
[2017-10-11] MEDS: CARVEDILOL 12.5 MG TAB PO SCH ×2 (06:50→17:13)
[2017-10-11 06:51] LABS: Anisocytosis Slight; Basophils % (A) 0 %; Eosinophils % (A) 0 %; HCT 36.2 % (34.0-46.0); HGB 10.9 gm/dL (11.4-16.0); Hypochromasia Moderate; Lymphocytes # (A) 0.4 k/uL (1.0-4.8); Lymphocytes % (A) 6 %; MCH 29.6 pg (25.0-35.0); MCHC 30.2 g/dL (31.0-37.0); MCV 97.8 fL (80.0-100.0); Macrocytosis Slight; Mean Platelet Volume 8.2; Monocytes # (A) 0.3 k/uL (0-1.0); Monocytes % (A) 4 %; Neutrophils # (A) 6.2 k/uL (1.3-7.7); Neutrophils % (A) 90 %; Platelet Count 169 k/uL (150-450); RDW 16.4 % (11.5-15.5); WBC 6.9 k/uL (3.8-10.6)
[2017-10-11 07:06] LABS: Albumin 3.5 g/dL (3.5-5.0); Calcium 9.6 mg/dL (8.4-10.2); Potassium 3.9 mmol/L (3.5-5.1); Total Bilirubin 1.2 mg/dL (0.2-1.3); Total Protein 6.6 g/dL (6.3-8.2)
[2017-10-11] MEDS: HEPARIN SODIUM,PORCINE 5,000 UNIT/ML 1 ML VIAL SQ SCH ×3 (08:06→23:34)
[2017-10-11] MEDS: DULoxetine HCL 60 MG CAPSULE.DR PO SCH (08:09)
[2017-10-11] MEDS: ISOSORBIDE MONONITRATE ER 30 MG TAB.ER.24H PO SCH (08:09)
[2017-10-11] MEDS: FUROSEMIDE 10 MG/ML 4 ML VIAL IV SCH ×2 (08:09→20:11)
[2017-10-11] MEDS: MAGNESIUM OXIDE 400 MG TAB PO SCH (08:09)
[2017-10-11] MEDS: guaiFENesin 600 MG TABLET.ER PO SCH ×2 (08:09→20:11)
[2017-10-11] MEDS: SPIRONOLACTONE 25 MG TAB PO SCH (08:10)
[2017-10-11] MEDS: POTASSIUM CHLORIDE ER 20 MEQ TAB.ER PO SCH (08:10)
[2017-10-11] MEDS: SACUBITRIL/VALSARTAN 24 MG-26 MG TABLET PO SCH ×2 (08:10→21:42)
[2017-10-11] MEDS: AMIODARONE 200 MG TAB PO SCH (08:17)
[2017-10-11] MEDS: FORMOTEROL FUMARATE 20 MCG/2 ML NEBU INHALATION SCH ×2 (08:25→19:38)
[2017-10-11] MEDS: BUDESONIDE 0.5 MG/2 ML NEBU INHALATION SCH ×2 (08:25→19:39)
[2017-10-11] MEDS ORDERED: LOSARTAN 50 MG TAB PO SCH (09:00)
[2017-10-11] MEDS ORDERED: FUROSEMIDE 20 MG TAB PO SCH (09:00)
--- NOTE | 2017-10-11 10:23 | P.PN ---
Subjective Progress Note Date: 10/11/17 This is a 66 years old female patient of Dr. Aquino with past medical history of systolic heart failure last reported ejection fraction 55% in October 2016, advanced COPD, history of colon cancer with ruptured bowels for which she was transferred to [facility] ended up having partial colectomy and colostomy which was reversed later. Patient was found to have an intra- abdominal abscess on computed tomography scan which was considered to be a sterile abscess, followed by [facility] and Dr. Guillen. Patient was recently hospitalized at [facility] for acute exacerbation of COPD at that time she did have an echocardiogram was seen in consultation by pulmonary and by cardiology and the patient was discharged home yesterday at around 3:00 in the afternoon patient was placed on oxygen at 2 L nasal cannula, patient does have a nebulizer at home she also does have a CPAP that does not work properly, according to her son she needs a change in the tubing of her CPAP, apparently the patient went to bed yesterday after she had subs with her at [facility] and she was feeling fine up until 5:00 in the morning when she woke up with extreme shortness of breath associated with significant hypoxemia patient's ended up the getting sent to the ER at [facility] and she was found to have a low oxygen saturation at 85% she ended up going to the computed tomography scan of the chest because of elevated d- dimer that was negative for pulmonary embolism however it did show bilateral pleural effusion patient did have an echocardiogram at [facility] yesterday the results still pending at the time of dictation I have placed a consultation for cardiology Dr. Alberto and pulmonary medicine Dr. Morejon and patient was admitted to the hospital she was pleasant and BiPAP and she will be weaned down to nasal cannula 2 L cannula, I spoke with her as well as her son the bedside and updated about her situation was given. 10/11: Patient is feeling a lot better today she denies any chest pain she is less short of breath she is tolerating nasal cannula this time, we will obtain the results of the echocardiogram that was done at [facility] about 48 hours ago. Objective - Vital Signs Vital signs: Vital Signs Temp 97.2 F L 10/11/17 04:00 Pulse 84 10/11/17 05:54 Resp 18 10/11/17 04:00 BP 104/56 10/11/17 04:00 Pulse Ox 97 10/11/17 04:00 Intake & Output 10/10/17 10/11/17 10/11/17 18:59 06:59 18:59 Intake Total 120 160 Output Total 600 Balance 120 -440 Weight 118 kg 118.1 kg Intake: Intake, IV Titration 160 Amount Sodium Chloride 0.9% 1, 160 000 ml @ 100 mls/hr IV . Q10H STA Rx#:[id number] Oral 120 Output: Urine 600 Other: Voiding Method Bedpan Bedside Commode # Voids 0 1 # Bowel Movements 1 - Exam - Constitutional General appearance: mild distress, morbidly obese - EENT Eyes: anicteric sclerae, EOMI, PERRLA, no ptosis, no scleral icterus, normal appearance ENT: hearing grossly normal, NA/AT, normal oropharynx, no thrush Ears: bilateral: normal - Neck Neck: no lymphadenopathy, normal ROM, no rigidity, no stridor, no thyromegaly Carotids: bilateral: upstroke normal Thyroid: bilateral: normal size - Respiratory Respiratory: bilateral: diminished, rhonchi, wheezing, prolonged expiration, negative: dullness, rales - Cardiovascular Rhythm: regular Heart sounds: normal: S1, S2 Abnormal Heart Sounds: systolic murmur, S3 Gallop - Gastrointestinal General gastrointestinal: normal bowel sounds, soft, no splenomegaly, no tenderness, no umbilical hernia - Integumentary Integumentary: normal, normal turgor - Neurologic Neurologic: CNII-XII intact - Musculoskeletal Musculoskeletal: generalized weakness, strength equal bilaterally - Psychiatric Psychiatric: A&O x's 3, appropriate affect, intact judgment & insight - Labs CBC & Chem 7: 10/11/17 06:32 10/11/17 06:32 Labs: Abnormal Lab Results - Last 24 Hours (Table) 10/10/17 10/10/17 10/10/17 Range/Units 07:27 08:20 08:20 RBC 3.75 L (3.80-5.40) m/uL Hgb 11.3 L (11.4-16.0) gm/dL MCHC 30.9 L (31.0-37.0) g/dL RDW 16.6 H (11.5-15.5) % Lymphocytes # 0.4 L (1.0-4.8) k/uL APTT 18.4 L (22.0-30.0) sec D-Dimer 7.79 H (<0.60) mg/L FEU ABG pCO2 47 H (35-45) mmHg ABG pO2 >400 H (83-108) mmHg ABG HCO3 29 H (21-25) mmol/L ABG Total CO2 30 H (19-24) mmol/L ABG O2 Saturation 100.0 H (94-97) % Carbon Dioxide (22-30) mmol/L BUN (7-17) mg/dL Glucose (74-99) mg/dL POC Glucose (mg/dL) (75-99) mg/dL AST (14-36) U/L ALT (9-52) U/L 10/10/17 10/10/17 10/10/17 Range/Units 08:20 12:12 17:07 RBC (3.80-5.40) m/uL Hgb (11.4-16.0) gm/dL MCHC (31.0-37.0) g/dL RDW (11.5-15.5) % Lymphocytes # (1.0-4.8) k/uL APTT (22.0-30.0) sec D-Dimer (<0.60) mg/L FEU ABG pCO2 (35-45) mmHg ABG pO2 (83-108) mmHg ABG HCO3 (21-25) mmol/L ABG Total CO2 (19-24) mmol/L ABG O2 Saturation (94-97) % Carbon Dioxide (22-30) mmol/L BUN 53 H (7-17) mg/dL Glucose 197 H (74-99) mg/dL POC Glucose (mg/dL) 196 H 248 H (75-99) mg/dL AST 65 H (14-36) U/L ALT 57 H (9-52) U/L 10/10/17 10/11/17 10/11/17 Range/Units 20:31 06:32 06:32 RBC 3.70 L (3.80-5.40) m/uL Hgb 10.9 L (11.4-16.0) gm/dL MCHC 30.2 L (31.0-37.0) g/dL RDW 16.4 H (11.5-15.5) % Lymphocytes # 0.4 L (1.0-4.8) k/uL APTT (22.0-30.0) sec D-Dimer (<0.60) mg/L FEU ABG pCO2 (35-45) mmHg ABG pO2 (83-108) mmHg ABG HCO3 (21-25) mmol/L ABG Total CO2 (19-24) mmol/L ABG O2 Saturation (94-97) % Carbon Dioxide 31 H (22-30) mmol/L BUN 41 H (7-17) mg/dL Glucose 241 H (74-99) mg/dL POC Glucose (mg/dL) 242 H (75-99) mg/dL AST (14-36) U/L ALT (9-52) U/L 10/11/17 Range/Units 06:42 RBC (3.80-5.40) m/uL Hgb (11.4-16.0) gm/dL MCHC (31.0-37.0) g/dL RDW (11.5-15.5) % Lymphocytes # (1.0-4.8) k/uL APTT (22.0-30.0) sec D-Dimer (<0.60) mg/L FEU ABG pCO2 (35-45) mmHg ABG pO2 (83-108) mmHg ABG HCO3 (21-25) mmol/L ABG Total CO2 (19-24) mmol/L ABG O2 Saturation (94-97) % Carbon Dioxide (22-30) mmol/L BUN (7-17) mg/dL Glucose (74-99) mg/dL POC Glucose (mg/dL) 244 H (75-99) mg/dL AST (14-36) U/L ALT (9-52) U/L Assessment and Plan Assessment: Assessment and Plan Plan: 1. Acute on chronic hypoxemic respiratory failure due to acute diastolic heart failure with bilateral perfusion as well as COPD exacerbation with pulmonary hypertension. Continue Solu-Medrol 60 mg IV push every 6 hours, continue DuoNeb 3 mL nebulization 4 times every day, continue oxygen support, continue the patient on Lasix 40 mg IVP q 12 h as well as metolazone 2.5 mg orally once every day, discontinue IV fluid, discontinue IV antibiotic, pulmonary consultation as well as cardiology consultation. will get the report of echocardiogram from [facility]. 2. Coronary artery disease status post PCI. Continue patient on aspirin 325 mg orally once every day, Imdur 30 mg orally once every day, Lipitor 40 mg orally once every day. 3. Chronic diastolic heart failure with pulmonary hypertension. Continue Lasix 60 mg orally once every day as well as metolazone 2.5 mg orally once every day. 4. Obstructive sleep apnea on CPAP. Patient may need to have a BiPAP at home. 5. Restless leg syndrome. Continue Requip. 6. Hypertension, hypertensive cardiovascular disease. Continue Norvasc 5 mg orally once every day, Coreg 12.5 mg orally twice every day, losartan 50 mg orally once every day. 7. Diabetes mellitus type 2 with steroid-induced hyperglycemia. Start the patient on sliding scale insulin. 8. Gout. Continue allopurinol 100 mg orally once every day. 9. Gastroesophageal reflux disease and gastrointestinal prophylaxis. Continue Protonix 40 mg daily. 10. DVT prophylaxis. Heparin 5000 units subcutaneously every 8 hours. 11. Gout. Continue allopurinol 100 mg orally once every day. 12. Depression. Continue Cymbalta 60 mg orally once every day.
--- NOTE | 2017-10-11 11:09 | P.PN ---
Subjective Progress Note Date: 10/11/17 Principal diagnosis: congestive heart failure exacerbation This is a pleasant 66-year-old female patient who I have seen in the past and who she follows with Dr. Scott in the office on regular basis presented to the hospital complaining of shortness of breath. The patient just was discharged from [facility] yesterday after she was admitted with congestive heart failure exacerbation. The last echocardiogram from June 2017 revealed severe cardiomyopathy with an ejection fraction around 30 %. The patient was at home with her has been when she started experiencing dyspnea and she noticed the oxygen saturation was coming down. The patient was discharged from the hospital on home oxygen. At that point the patient presented to the emergency room. She did not have any symptoms of chest pain or chest discomfort nor dizziness or lightheadedness nor syncope. In the emergency room here she was found to be hypoxic with oxygen saturation around 85 %. She underwent subsequently a computed tomography scan of the chest which showed no PE but it did show bilateral pleural effusion. The chest x-ray showed cardiomegaly with bilateral pleural effusion as well. The patient does have an extensive medical history consistent of morbid obesity , coronary artery disease, COPD, hypertension, dyslipidemia, and also severe cardiomyopathy with an echo recently showing an EF of 30%. She did undergo an echo at [facility] but we don't have the results at this point. The EKG showed sinus rhythm with LBBB. We don't have a BMP on the patient at this point. She stated that the shortness of breath seems to be slightly better. The patient was started yesterday on Lasix IV. She also was started on Entresto and I did a DC the losartan. I'll follow-up with her today, she is feeling better in terms of shortness of breath. No chest pain or chest discomfort. We will obtain a copy of the echocardiogram from [facility]. It was performed just this past Thursday. Objective - Vital Signs Vital signs: Vital Signs Temp 96.8 F L 10/11/17 08:00 Pulse 92 10/11/17 08:48 Resp 18 10/11/17 08:00 BP 90/54 10/11/17 08:00 Pulse Ox 97 10/11/17 08:26 Intake & Output 10/10/17 10/11/17 10/11/17 18:59 06:59 18:59 Intake Total 120 160 360 Output Total 600 Balance 120 -440 360 Weight 118 kg 118.1 kg Intake: Intake, IV Titration 160 Amount Sodium Chloride 0.9% 1, 160 000 ml @ 100 mls/hr IV . Q10H [facility] Rx#:[id number] Oral 120 360 Output: Urine 600 Other: Voiding Method Bedpan Bedside Commode Bedside Commode # Voids 0 1 # Bowel Movements 1 1 - Constitutional General appearance: Present: no acute distress - Respiratory Respiratory: bilateral: rales - Cardiovascular Heart sounds: normal: S1, S2 - Labs CBC & Chem 7: 10/11/17 06:32 10/11/17 06:32 Labs: Abnormal Lab Results - Last 24 Hours (Table) 10/10/17 10/10/17 10/10/17 Range/Units 12:12 17:07 20:31 RBC (3.80-5.40) m/uL Hgb (11.4-16.0) gm/dL MCHC (31.0-37.0) g/dL RDW (11.5-15.5) % Lymphocytes # (1.0-4.8) k/uL Carbon Dioxide (22-30) mmol/L BUN (7-17) mg/dL Glucose (74-99) mg/dL POC Glucose (mg/dL) 196 H 248 H 242 H (75-99) mg/dL 10/11/17 10/11/17 10/11/17 Range/Units 06:32 06:32 06:42 RBC 3.70 L (3.80-5.40) m/uL Hgb 10.9 L (11.4-16.0) gm/dL MCHC 30.2 L (31.0-37.0) g/dL RDW 16.4 H (11.5-15.5) % Lymphocytes # 0.4 L (1.0-4.8) k/uL Carbon Dioxide 31 H (22-30) mmol/L BUN 41 H (7-17) mg/dL Glucose 241 H (74-99) mg/dL POC Glucose (mg/dL) 244 H (75-99) mg/dL Assessment and Plan Assessment: Assessment #1 acute respiratory failure related to COPD exacerbation as well as CHF exacerbation. #2 congestive heart failure exacerbation secondary to systolic dysfunction #3 known severe cardiomyopathy which is likely to be ischemic with an ejection fraction of 30% on the last echocardiogram from June 2017 #4 coronary artery disease #5 hypertension #6 morbid obesity #7 diabetes #8 chronic respiratory failure Plan #1 continue the Entresto. #2 continue the IV Lasix #3 monitor the kidney function and electrolytes. #4 obtain the last echocardiogram from [facility] Thank you for allowing us participate in her care
[2017-10-11] MEDS: CHOLECALCIFEROL 1,000 UNIT TAB PO SCH (11:16)
[2017-10-11] MEDS: FERROUS SULFATE 325 MG TAB PO SCH (11:16)
[2017-10-11] MEDS: ALLOPURINOL 100 MG TAB PO SCH (11:17)
[2017-10-11] MEDS: amLODIPine 5 MG TAB PO SCH (11:23)
[2017-10-11 12:19] LABS: Glucose,Whole Blood 265 mg/dL (75-99)
[2017-10-11 16:35] LABS: Glucose,Whole Blood 313 mg/dL (75-99)
[2017-10-11] MEDS: MONTELUKAST 10 MG TAB PO SCH (20:11)
[2017-10-11] MEDS: ATORVASTATIN 40 MG TAB PO SCH (20:11)
[2017-10-11 21:29] LABS: Glucose,Whole Blood 410 mg/dL (75-99)
[2017-10-11] MEDS: INSULIN DETEMIR 100 UNIT/ML 10 ML VIAL SQ SCH (21:42)
[2017-10-11] MEDS: methylPREDNISolone SOD SUCCI 40 MG/ML 1 ML VIAL IV SCH (23:34)
[2017-10-12 00:34] LABS: Glucose,Whole Blood 383 mg/dL (75-99)
[2017-10-12] MEDS: IPRATROPIUM-ALBUTEROL 3 ML NEB INHALATION SCH ×6 (00:46→20:41)
[2017-10-12] MEDS ORDERED: INSULIN ASPART 100 UNIT/ML 1 ML 10 ML VIAL SQ ONE (02:19)
[2017-10-12 02:37] LABS: Glucose,Whole Blood 378 mg/dL (75-99)
[2017-10-12 05:52] LABS: Anisocytosis Slight; Basophils % (A) 0 %; Eosinophils % (A) 0 %; HCT 35.5 % (34.0-46.0); HGB 11.4 gm/dL (11.4-16.0); Hypochromasia Slight; Lymphocytes # (A) 0.4 k/uL (1.0-4.8); Lymphocytes % (A) 3 %; MCH 31.3 pg (25.0-35.0); MCV 97.7 fL (80.0-100.0); Macrocytosis Slight; Monocytes # (A) 0.4 k/uL (0-1.0); Monocytes % (A) 4 %; Neutrophils # (A) 11.5 k/uL (1.3-7.7); Neutrophils % (A) 92 %; Platelet Count 206 k/uL (150-450); RBC 3.63 m/uL (3.80-5.40); RDW 16.1 % (11.5-15.5); WBC 12.4 k/uL (3.8-10.6)
[2017-10-12 06:00] LABS: Albumin 3.3 g/dL (3.5-5.0); Calcium 9.3 mg/dL (8.4-10.2); Potassium 4.2 mmol/L (3.5-5.1); Total Bilirubin 0.6 mg/dL (0.2-1.3); Total Protein 6.3 g/dL (6.3-8.2)
[2017-10-12 06:38] LABS: Glucose,Whole Blood 263 mg/dL (75-99)
[2017-10-12] MEDS: INSULIN ASPART 100 UNIT/ML 1 ML 10 ML VIAL SQ SCH ×5 (06:43→21:24)
[2017-10-12] MEDS: PANTOPRAZOLE 40 MG TABLET PO SCH (06:43)
[2017-10-12] MEDS: LEVOTHYROXINE 25 MCG TAB PO SCH (06:43)
[2017-10-12] MEDS: CARVEDILOL 12.5 MG TAB PO SCH ×2 (06:43→17:39)
[2017-10-12] MEDS: BUDESONIDE 0.5 MG/2 ML NEBU INHALATION SCH ×2 (07:41→20:41)
[2017-10-12] MEDS: FORMOTEROL FUMARATE 20 MCG/2 ML NEBU INHALATION SCH ×2 (07:41→20:55)
[2017-10-12 09:09] VITALS: RESP 18
[2017-10-12] MEDS: POTASSIUM CHLORIDE ER 20 MEQ TAB.ER PO SCH (09:14)
[2017-10-12] MEDS: SACUBITRIL/VALSARTAN 24 MG-26 MG TABLET PO SCH ×2 (09:14→21:24)
[2017-10-12] MEDS: SPIRONOLACTONE 25 MG TAB PO SCH (09:15)
[2017-10-12] MEDS: methylPREDNISolone SOD SUCCI 40 MG/ML 1 ML VIAL IV SCH ×2 (09:15→21:24)
[2017-10-12] MEDS: HEPARIN SODIUM,PORCINE 5,000 UNIT/ML 1 ML VIAL SQ SCH ×3 (09:15→21:24)
[2017-10-12] MEDS: AMIODARONE 200 MG TAB PO SCH (09:16)
[2017-10-12] MEDS: ALLOPURINOL 100 MG TAB PO SCH (09:16)
[2017-10-12] MEDS: DULoxetine HCL 60 MG CAPSULE.DR PO SCH (09:16)
[2017-10-12] MEDS: amLODIPine 5 MG TAB PO SCH (09:16)
[2017-10-12] MEDS: guaiFENesin 600 MG TABLET.ER PO SCH ×2 (09:16→21:25)
[2017-10-12] MEDS: FUROSEMIDE 10 MG/ML 4 ML VIAL IV SCH ×2 (09:16→21:24)
[2017-10-12] MEDS: MAGNESIUM OXIDE 400 MG TAB PO SCH (09:17)
[2017-10-12] MEDS: ISOSORBIDE MONONITRATE ER 30 MG TAB.ER.24H PO SCH (09:17)
[2017-10-12] MEDS: HYDROcodone/APAP 10-325MG 1 EACH TAB PO PRN ×2 (09:17→21:24)
[2017-10-12] MEDS: FERROUS SULFATE 325 MG TAB PO SCH (11:47)
[2017-10-12] MEDS: CHOLECALCIFEROL 1,000 UNIT TAB PO SCH (11:47)
[2017-10-12 11:48] LABS: Glucose,Whole Blood 241 mg/dL (75-99)
--- NOTE | 2017-10-12 11:53 | P.PN ---
Subjective Progress Note Date: 10/12/17 Principal diagnosis: Respiratory distress This is a pleasant 66-year-old female who follows with Dr. Sebastian in the office. She presented to the hospital with symptoms of severe shortness of breath. She was just recently discharged from [facility] the day before after being admitted there with congestive heart failure exacerbation. She did have an echocardiogram with Doppler study performed there which reversed , reveals an ejection fraction of 30-35%. Oxygen saturation on arrival here 85% . Subsequently to her arrival here she underwent a CAT scan of the chest which was negative for pulmonary embolism but did show pleural effusions bilaterally. Patient does have an extensive medical history consistent for morbid obesity, coronary artery disease, COPD, hypertension, hyperlipidemia, severe cardiomyopathy, ischemic, diabetes, renal disease, sleep apnea. He arrival here 6350. Patient was initiated on IV Lasix on admission here. Overall she states she has not been diuresing much, she does state that she hurt breathing has significantly improved since arrival here. White blood cell count 12.4, hemoglobin 11.4, platelet count 206. Objective - Vital Signs Vital signs: Vital Signs Temp 97 F L 10/12/17 08:00 Pulse 80 10/12/17 08:02 Resp 18 10/12/17 08:00 BP 104/53 10/12/17 08:00 Pulse Ox 98 10/12/17 08:00 Intake & Output 10/11/17 10/12/17 10/12/17 18:59 06:59 18:59 Intake Total 720 480 Balance 720 480 Weight 120.4 kg Intake: Oral 720 480 Other: Voiding Method Bedside Commode Bedside Commode Bedside Commode # Voids 2 1 # Bowel Movements 1 - Exam PHYSICAL EXAMINATION: HEENT: Head is atraumatic, normocephalic. Pupils equal, round. Neck is supple. There is no elevated jugular venous pressure. HEART EXAMINATION: Heart S1 and S2 systolic murmur is heard. CHEST EXAMINATION: Lungs reveal diminished air entry bilaterally with scattered coarse rhonchi and wheezing throughout ABDOMEN: Soft, obese, nontender. Bowel sounds are heard. No organomegaly noted. EXTREMITIES: 2+ peripheral pulses with trace evidence of peripheral edema and no calf tenderness noted. NEUROLOGIC patient is awake, alert and oriented -3. . - Labs CBC & Chem 7: 10/12/17 05:16 10/12/17 05:16 Labs: Abnormal Lab Results - Last 24 Hours (Table) 10/10/17 10/11/17 10/11/17 Range/Units 08:20 11:57 16:29 WBC (3.8-10.6) k/uL RBC (3.80-5.40) m/uL RDW (11.5-15.5) % Neutrophils # (1.3-7.7) k/uL Lymphocytes # (1.0-4.8) k/uL BUN (7-17) mg/dL Glucose (74-99) mg/dL POC Glucose (mg/dL) 265 H 313 H (75-99) mg/dL Hemoglobin A1c 6.7 H (4.0-6.0) % Albumin (3.5-5.0) g/dL 10/11/17 10/12/17 10/12/17 Range/Units 21:25 00:25 02:27 WBC (3.8-10.6) k/uL RBC (3.80-5.40) m/uL RDW (11.5-15.5) % Neutrophils # (1.3-7.7) k/uL Lymphocytes # (1.0-4.8) k/uL BUN (7-17) mg/dL Glucose (74-99) mg/dL POC Glucose (mg/dL) 410 H 383 H 378 H (75-99) mg/dL Hemoglobin A1c (4.0-6.0) % Albumin (3.5-5.0) g/dL 10/12/17 10/12/17 10/12/17 Range/Units 05:16 05:16 06:32 WBC 12.4 H (3.8-10.6) k/uL RBC 3.63 L (3.80-5.40) m/uL RDW 16.1 H (11.5-15.5) % Neutrophils # 11.5 H (1.3-7.7) k/uL Lymphocytes # 0.4 L (1.0-4.8) k/uL BUN 51 H (7-17) mg/dL Glucose 289 H (74-99) mg/dL POC Glucose (mg/dL) 263 H (75-99) mg/dL Hemoglobin A1c (4.0-6.0) % Albumin 3.3 L (3.5-5.0) g/dL Assessment and Plan Plan: Assessment and plan #1 acute on chronic respiratory failure likely secondary to COPD exacerbation as well as systolic congestive heart failure acute on chronic. Recent echo at [facility] shows an ejection fraction of 30-35%. #2 known history of coronary artery disease with prior PCI #3 ischemic cardiomyopathy #4 obstructive sleep apnea on CPAP # 5 hypertension #6 diabetes #7 hyperlipidemia #8 obesity Plan We will bladder scan the patient and if necessary straight catheter. We will continue IV Lasix, continue to monitor intake and output along with daily weights. Pulmonary also following. DNP note has been reviewed, I agree with a documented findings and plan of care. Patient was seen and examined.
--- NOTE | 2017-10-12 14:07 | PN ---
PROGRESS NOTE DATE OF SERVICE: 10/12/2017 INTERVAL HISTORY: Patient is a 66-year-old obese female who is seen sitting up in bed, is awake, alert, feels a little better today, a little less short of breath. Patient is hemodynamically stable, afebrile, in no acute distress. PHYSICAL EXAM: VITAL SIGNS: Temp is 96.8, heart rate is 80, respiratory rate 18, blood pressure is 101/56, O2 saturation 96% on 2 L O2 via nasal cannula. HEENT: Head is normocephalic, atraumatic. Neck is supple. Trachea is midline. LUNGS: Decreased to the bilateral bases posteriorly with good air entry to the upper and mid lobes. HEART: S1, S2 heard. Not tachycardic. ABDOMEN: Soft, obese. Bowel sounds are heard. Extremities with no edema. NEUROLOGIC: Patient is awake and alert, oriented. LABS: White count is 12.4, hemoglobin is 11.4, hematocrit is 35.5 with 206,000 platelets. Sodium is 138, potassium is 4.2, chloride is 100, CO2 is 30, anion gap is 8, BUN is 51, creatinine 1.04, glucose 289, calcium 9.3, total bilirubin 0.6, AST is 20, ALT is 35, alk phos is 83, total protein 6.3, albumin is 3.3. No new imaging to review. IMPRESSION: 1. Acute on chronic hypoxic respiratory failure. 2. Small bilateral pleural effusions and pulmonary vascular congestion. 3. Acute exacerbation of diastolic congestive heart failure. 4. Acute exacerbation of chronic obstructive pulmonary disease. 5. Peripheral eosinophilia. 6. Obstructive sleep apnea. Patient noncompliant with CPAP. 7. Iron deficiency anemia. 8. Pulmonary hypertension. 9. Atherosclerotic coronary artery disease with a history of PCI. 10.Hypertension. 11.Morbid obesity. 12.Paroxysmal atrial fibrillation. 13.Chronic kidney disease stage 3. 14.Diabetes mellitus type 2. 15.Depression. 16.Hypothyroidism. PLAN: Will continue supplemental oxygen to maintain saturations greater than or equal to 90%. Continue BiPAP at night and as needed throughout the day during sleep. Continue bronchodilators and aerosol steroids. Continue leukotriene inhibitors will start decreasing the IV Solu-Medrol to 40 q.12 and would expect that we can probably switch to oral prednisone in the a.m. continue. Continue PT and OT. Continue incentive spirometry and pulmonary hygiene. Continue GI and DVT prophylaxis and we will follow patient closely with you, making further changes as necessary. MMODL / IJN: [id number] /
--- NOTE | 2017-10-12 15:05 | P.PN ---
<Charmaine Fowler A - Last Filed: 10/12/17 15:01> Subjective Progress Note Date: 10/12/17 This is a 66 years old female patient of Dr. Aquino with past medical history of systolic heart failure last reported ejection fraction 55% in October 2016, advanced COPD, history of colon cancer with ruptured bowels for which she was transferred to [facility] ended up having partial colectomy and colostomy which was reversed later. Patient was found to have an intra- abdominal abscess on computed tomography scan which was considered to be a sterile abscess, [facility] and Dr. Guillen. Patient was recently hospitalized at [facility] for acute exacerbation of COPD at that time she did have an echocardiogram was seen in consultation by pulmonary and by cardiology and the patient was discharged home yesterday at around 3:00 in the afternoon patient was placed on oxygen at 2 L nasal cannula, patient does have a nebulizer at home she also does have a CPAP that does not work properly, according to her son she needs a change in the tubing of her CPAP, apparently the patient went to bed yesterday after she had subs with her at [facility] and she was feeling fine up until 5:00 in the morning when she woke up with extreme shortness of breath associated with significant hypoxemia patient's ended up the getting sent to the ER at [facility] and she was found to have a low oxygen saturation at 85% she ended up going to the computed tomography scan of the chest because of elevated d- dimer that was negative for pulmonary embolism however it did show bilateral pleural effusion patient did have an echocardiogram at [facility] yesterday the results still pending at the time of dictation I have placed a consultation for cardiology Dr. Alberto and pulmonary medicine Dr. Morejon and patient was admitted to the hospital she was pleasant and BiPAP and she will be weaned down to nasal cannula 2 L cannula, I spoke with her as well as her son the bedside and updated about her situation was given. 4/1: Patient is feeling a lot better today she denies any chest pain she is less short of breath she is tolerating nasal cannula this time, we will obtain the results of the echocardiogram that was done at [facility] about 48 hours ago. 4/2: Patient states her breathing is a little bit better from yesterday. Her lungs sound slightly improved. She denies having any bowel movement today. Echocardiogram from [facility] rate revealed EF of 35%. Solu- Medrol has are to been switched over to 40 mg every 12 hours. Blood sugars are running in the 203 100s and we will add in NovoLog 5 units scheduled with meals on top of the Lantus and NovoLog scale. Objective - Vital Signs Vital signs: Vital Signs Temp 96.8 F L 10/12/17 12:00 Pulse 80 10/12/17 12:15 Resp 18 10/12/17 12:00 BP 101/56 10/12/17 12:00 Pulse Ox 96 10/12/17 12:00 Intake & Output 10/11/17 10/12/17 10/12/17 18:59 06:59 18:59 Intake Total 720 840 Output Total 400 Balance 720 440 Weight 120.4 kg Intake: Oral 720 840 Output: Urine 400 Other: Voiding Method Bedside Commode Bedside Commode Bedside Commode # Voids 2 1 # Bowel Movements 1 - Exam General appearance: mild distress, morbidly obese - EENT Eyes: anicteric sclerae, EOMI, PERRLA, no ptosis, no scleral icterus, normal appearance ENT: hearing grossly normal, NA/AT, normal oropharynx, no thrush Ears: bilateral: normal - Neck Neck: no lymphadenopathy, normal ROM, no rigidity, no stridor, no thyromegaly Carotids: bilateral: upstroke normal Thyroid: bilateral: normal size - Respiratory Respiratory: bilateral: diminished, rhonchi, wheezing, prolonged expiration, negative: dullness, rales - Cardiovascular Rhythm: regular Heart sounds: normal: S1, S2 Abnormal Heart Sounds: systolic murmur, S3 Gallop - Gastrointestinal General gastrointestinal: normal bowel sounds, soft, no splenomegaly, no tenderness, no umbilical hernia - Integumentary Integumentary: normal, normal turgor - Neurologic Neurologic: CNII-XII intact - Musculoskeletal Musculoskeletal: generalized weakness, strength equal bilaterally - Psychiatric Psychiatric: A&O x's 3, appropriate affect, intact judgment & insight - Labs CBC & Chem 7: 10/12/17 05:16 10/12/17 05:16 Labs: Abnormal Lab Results - Last 24 Hours (Table) 10/10/17 10/11/17 10/11/17 Range/Units 08:20 16:29 21:25 WBC (3.8-10.6) k/uL RBC (3.80-5.40) m/uL RDW (11.5-15.5) % Neutrophils # (1.3-7.7) k/uL Lymphocytes # (1.0-4.8) k/uL BUN (7-17) mg/dL Glucose (74-99) mg/dL POC Glucose (mg/dL) 313 H 410 H (75-99) mg/dL Hemoglobin A1c 6.7 H (4.0-6.0) % Albumin (3.5-5.0) g/dL 10/12/17 10/12/17 10/12/17 Range/Units 00:25 02:27 05:16 WBC 12.4 H (3.8-10.6) k/uL RBC 3.63 L (3.80-5.40) m/uL RDW 16.1 H (11.5-15.5) % Neutrophils # 11.5 H (1.3-7.7) k/uL Lymphocytes # 0.4 L (1.0-4.8) k/uL BUN (7-17) mg/dL Glucose (74-99) mg/dL POC Glucose (mg/dL) 383 H 378 H (75-99) mg/dL Hemoglobin A1c (4.0-6.0) % Albumin (3.5-5.0) g/dL 10/12/17 10/12/17 10/12/17 Range/Units 05:16 06:32 11:44 WBC (3.8-10.6) k/uL RBC (3.80-5.40) m/uL RDW (11.5-15.5) % Neutrophils # (1.3-7.7) k/uL Lymphocytes # (1.0-4.8) k/uL BUN 51 H (7-17) mg/dL Glucose 289 H (74-99) mg/dL POC Glucose (mg/dL) 263 H 241 H (75-99) mg/dL Hemoglobin A1c (4.0-6.0) % Albumin 3.3 L (3.5-5.0) g/dL Assessment and Plan Plan: 1. Acute on chronic hypoxemic respiratory failure due to acute diastolic heart failure with bilateral perfusion as well as COPD exacerbation with pulmonary hypertension. Continue Solu-Medrol 40 mg IV push every 12 hours, continue DuoNeb 3 mL nebulization 4 times every day, continue oxygen support, continue the patient on Lasix 40 mg IVP q 12 h as well as metolazone 2.5 mg orally once every day, discontinue IV fluid, discontinue IV antibiotic, pulmonary consultation as well as cardiology consultation. will get the report of echocardiogram from [facility]. 2. Coronary artery disease status post PCI. Continue patient on aspirin 325 mg orally once every day, Imdur 30 mg orally once every day, Lipitor 40 mg orally once every day. 3. Chronic diastolic heart failure with pulmonary hypertension. Continue Lasix 60 mg orally once every day as well as metolazone 2.5 mg orally once every day. 4. Obstructive sleep apnea on CPAP. Patient may need to have a BiPAP at home. 5. Restless leg syndrome. Continue Requip. 6. Hypertension, hypertensive cardiovascular disease. Continue Norvasc 5 mg orally once every day, Coreg 12.5 mg orally twice every day, losartan 50 mg orally once every day. 7. Diabetes mellitus type 2 with steroid-induced hyperglycemia. Start the patient on sliding scale insulin, Humalog with meals and Levemir 35 units at bedtime. 8. Gout. Continue allopurinol 100 mg orally once every day. 9. Gastroesophageal reflux disease and gastrointestinal prophylaxis. Continue Protonix 40 mg daily. 10. DVT prophylaxis. Heparin 5000 units subcutaneously every 8 hours. 11. Depression, recurrent. Continue Cymbalta 60 mg orally once every day. Discharge plan: Home with [facility] Impression and plan of care have been directed as dictated by the signing physician. Charmaine Fowler nurse practitioner acting as scribe for signing physician. <Spencer Aguila - Last Filed: 10/17/17 12:22> Objective - Vital Signs Vital signs: Vital Signs Temp 97.9 F 10/13/17 11:36 Pulse 64 10/13/17 16:24 Resp 18 10/13/17 11:36 BP 97/56 10/13/17 11:36 Pulse Ox 98 10/13/17 11:36 - Labs CBC & Chem 7: 10/12/17 05:16 10/12/17 05:16 Assessment and Plan Plan: Acute systolic heart failure as opposed to diastolic.
[2017-10-12 16:58] LABS: Glucose,Whole Blood 322 mg/dL (75-99)
[2017-10-12 21:11] LABS: Glucose,Whole Blood 365 mg/dL (75-99)
[2017-10-12] MEDS: INSULIN DETEMIR 100 UNIT/ML 10 ML VIAL SQ SCH (21:24)
[2017-10-12] MEDS: ATORVASTATIN 40 MG TAB PO SCH (21:25)
[2017-10-12] MEDS: MONTELUKAST 10 MG TAB PO SCH (21:25)
[2017-10-13] MEDS: IPRATROPIUM-ALBUTEROL 3 ML NEB INHALATION SCH ×5 (00:12→16:13)
[2017-10-13 06:24] LABS: Glucose,Whole Blood 206 mg/dL (75-99)
[2017-10-13] MEDS: PANTOPRAZOLE 40 MG TABLET PO SCH (06:38)
[2017-10-13] MEDS: LEVOTHYROXINE 25 MCG TAB PO SCH (06:38)
[2017-10-13] MEDS: INSULIN ASPART 100 UNIT/ML 1 ML 10 ML VIAL SQ SCH ×4 (06:38→12:20)
[2017-10-13] MEDS: CARVEDILOL 12.5 MG TAB PO SCH (06:38)
[2017-10-13] MEDS: HEPARIN SODIUM,PORCINE 5,000 UNIT/ML 1 ML VIAL SQ SCH (08:26)
[2017-10-13] MEDS: ALLOPURINOL 100 MG TAB PO SCH (08:27)
[2017-10-13] MEDS: AMIODARONE 200 MG TAB PO SCH (08:27)
[2017-10-13] MEDS: guaiFENesin 600 MG TABLET.ER PO SCH (08:28)
[2017-10-13] MEDS: DULoxetine HCL 60 MG CAPSULE.DR PO SCH (08:28)
[2017-10-13] MEDS: amLODIPine 5 MG TAB PO SCH ×2 (08:28→09:30)
[2017-10-13] MEDS: FUROSEMIDE 10 MG/ML 4 ML VIAL IV SCH (08:28)
[2017-10-13] MEDS: ISOSORBIDE MONONITRATE ER 30 MG TAB.ER.24H PO SCH (08:28)
[2017-10-13] MEDS: MAGNESIUM OXIDE 400 MG TAB PO SCH (08:28)
[2017-10-13] MEDS: methylPREDNISolone SOD SUCCI 40 MG/ML 1 ML VIAL IV SCH (08:29)
[2017-10-13] MEDS: SACUBITRIL/VALSARTAN 24 MG-26 MG TABLET PO SCH ×2 (08:29→16:36)
[2017-10-13] MEDS: SPIRONOLACTONE 25 MG TAB PO SCH (08:29)
[2017-10-13] MEDS: POTASSIUM CHLORIDE ER 20 MEQ TAB.ER PO SCH (08:29)
[2017-10-13] MEDS: FORMOTEROL FUMARATE 20 MCG/2 ML NEBU INHALATION SCH (09:04)
[2017-10-13] MEDS: BUDESONIDE 0.5 MG/2 ML NEBU INHALATION SCH (09:04)
[2017-10-13] MEDS: HYDROcodone/APAP 10-325MG 1 EACH TAB PO PRN (09:26)
--- NOTE | 2017-10-13 10:16 | P.PN ---
Subjective Progress Note Date: 10/13/17 Principal diagnosis: Acute exacerbation of CHF This is a 66-year-old female who presented emergency department complaining of worsening shortness of breath. The patient was recently admitted at outside hospital on 10/06/2017. The patient was discharged to home. She states at home her breathing became worse and she became very short of breath. She states she does have a CPAP at home but does not like the mask that she has. This is been discussed with her as an outpatient on multiple occasions. She does follow with Dr. YULIA To in the office. The patient is currently on BiPAP and states that she is feeling better. She would like some water or ice chips. The patient did have an O2 saturation of 85% the emergency department. She did have a chest x-ray which showed small pleural effusions and pulmonary edema. She underwent CTA of the chest which is negative for pulmonary embolism. It does show again small bilateral pleural effusions. 10/13/2017: Patient seen and examined. Patient states her breathing is very good today. She states she was able to ambulate in the hallway without shortness of breath. She did wear the BiPAP overnight. She states she has gained over 12 pounds in water weight since her previous admission. However this is improving with diuresis. She denies fevers and chills. Objective - Vital Signs Vital signs: Vital Signs Temp 96.4 F L 10/13/17 08:00 Pulse 59 L 10/13/17 09:29 Resp 18 10/13/17 08:00 BP 106/59 10/13/17 09:29 Pulse Ox 98 10/13/17 08:00 Intake & Output 10/12/17 10/13/17 10/13/17 18:59 06:59 18:59 Intake Total 1320 Output Total 400 1450 500 Balance 920 -1450 -500 Weight 120.9 kg Intake: Oral 1320 Output: Urine 400 1450 500 Other: Voiding Method Bedside Commode Toilet Toilet # Voids 1 1 - Exam Gen.: Patient is alert and oriented 3, no acute distress, sitting up at bedside Cardiovascular: Regular rate and rhythm, S1/S2 Lungs: Diminished breath sounds bilaterally Abdomen: Soft nontender nondistended positive bowel sounds Extremities: Trace edema - Labs CBC & Chem 7: 10/12/17 05:16 10/12/17 05:16 Labs: Abnormal Lab Results - Last 24 Hours (Table) 10/12/17 10/12/17 10/12/17 Range/Units 11:44 16:37 21:08 POC Glucose (mg/dL) 241 H 322 H 365 H (75-99) mg/dL 10/13/17 Range/Units 06:21 POC Glucose (mg/dL) 206 H (75-99) mg/dL Assessment and Plan Assessment: Acute on chronic hypoxic respiratory failure Small bilateral pleural effusions and pulmonary vascular congestion Acute exacerbation of systolic congestive heart failure, EF 35% Acute exacerbation of COPD Peripheral eosinophilia Obstructive sleep apnea, patient noncompliant with BiPAP Iron deficiency anemia Pulmonary hypertension Atherosclerotic coronary artery disease with a history of PCI Hypertension Morbid obesity Paroxysmal atrial fibrillation Chronic kidney disease stage III Diabetes mellitus type 2 Depression Hypothyroidism O2 to maintain saturation greater than or equal to 90% BiPAP at night Pulmicort and Perforomist Duo nebs Singulair Diuresis Continue patient's home medications Mucinex Solu-Medrol taper Consult PT and OT Incentive spirometry and pulmonary hygiene Patient might benefit from rehab placement No evidence of PE on CTA GI and DVT prophylaxis Outpatient discussion for possible biologic We will try to arrange for patient to have different mask and her bipap repaired /replaced
[2017-10-13 11:38] VITALS: BP 97/56; TEMP 97.9
[2017-10-13] MEDS: CHOLECALCIFEROL 1,000 UNIT TAB PO SCH (11:42)
[2017-10-13] MEDS: FERROUS SULFATE 325 MG TAB PO SCH (11:43)
--- NOTE | 2017-10-13 12:08 | P.PN ---
Subjective Progress Note Date: 10/13/17 Principal diagnosis: Respiratory distress This is a pleasant 66-year-old female who follows with Dr. Sebastian in the office. She presented to the hospital with symptoms of severe shortness of breath. She was just recently discharged from [facility] the day before after being admitted there with congestive heart failure exacerbation. She did have an echocardiogram with Doppler study performed there which reversed , reveals an ejection fraction of 30-35%. Oxygen saturation on arrival here 85% . Subsequently to her arrival here she underwent a CAT scan of the chest which was negative for pulmonary embolism but did show pleural effusions bilaterally. Patient does have an extensive medical history consistent for morbid obesity, coronary artery disease, COPD, hypertension, hyperlipidemia, severe cardiomyopathy, ischemic, diabetes, renal disease, sleep apnea. He arrival here 6350. Patient was initiated on IV Lasix on admission here. Overall she states she has not been diuresing much, she does state that she hurt breathing has significantly improved since arrival here. White blood cell count 12.4, hemoglobin 11.4, platelet count 206. 10/13/2017 Patient was seen and examined this morning, feeling significantly better overall. She walked the length of the hallway with physical therapy today, with no shortness of breath. Blood pressure 106/60, heart rate in the 60s, 98% on 2 L of oxygen. Objective - Vital Signs Vital signs: Vital Signs Temp 97.9 F 10/13/17 11:36 Pulse 56 L 10/13/17 11:36 Resp 18 10/13/17 11:36 BP 97/56 10/13/17 11:36 Pulse Ox 98 10/13/17 11:36 Intake & Output 10/12/17 10/13/17 10/13/17 18:59 06:59 18:59 Intake Total 1320 240 Output Total 400 1450 500 Balance 920 -1450 -260 Weight 120.9 kg Intake: Oral 1320 240 Output: Urine 400 1450 500 Other: Voiding Method Bedside Commode Toilet Toilet # Voids 1 1 - Exam PHYSICAL EXAMINATION: HEENT: Head is atraumatic, normocephalic. Pupils equal, round. Neck is supple. There is no elevated jugular venous pressure. HEART EXAMINATION: Heart S1 and S2 systolic murmur is heard. CHEST EXAMINATION: Lungs clear to auscultation ABDOMEN: Soft, obese, nontender. Bowel sounds are heard. No organomegaly noted. EXTREMITIES: 2+ peripheral pulses with trace evidence of peripheral edema and no calf tenderness noted. NEUROLOGIC patient is awake, alert and oriented -3. . - Labs CBC & Chem 7: 10/12/17 05:16 10/12/17 05:16 Labs: Abnormal Lab Results - Last 24 Hours (Table) 10/12/17 10/12/17 10/13/17 Range/Units 16:37 21:08 06:21 POC Glucose (mg/dL) 322 H 365 H 206 H (75-99) mg/dL Assessment and Plan Plan: Assessment and plan #1 acute on chronic respiratory failure likely secondary to COPD exacerbation as well as systolic congestive heart failure acute on chronic. Recent echo at [facility] shows an ejection fraction of 30-35%. #2 known history of coronary artery disease with prior PCI #3 ischemic cardiomyopathy #4 obstructive sleep apnea on CPAP # 5 hypertension #6 diabetes #7 hyperlipidemia #8 obesity Plan From cardiology's perspective, we'll discontinue the IV Lasix and start the patient on Lasix 60 mg one tablet by mouth twice a day. She may be able to be discharged home once cleared by the primary and we will make her a follow-up appointment in the office post discharge. DNP note has been reviewed, I agree with a documented findings and plan of care. Patient was seen and examined.
[2017-10-13 12:12] LABS: Glucose,Whole Blood 261 mg/dL (75-99)
[2017-10-13] MEDS ORDERED: FUROSEMIDE 20 MG TAB PO SCH (16:00)
[2017-10-13 17:24] VITALS: PULSE 64
[2017-10-14] MEDS ORDERED: predniSONE 20 MG TAB PO SCH (09:00)
--- NOTE | 2017-10-14 09:21 | P.DS ---
<MalcolmCharmaine A - Last Filed: 10/14/17 08:50> Providers Date of admission: 10/10/17 09:30 Expected date of discharge: 10/13/17 Attending physician: Vega Bai Consults: 10/10/17 09:30 Consult Physician Stat Consulting Provider: Gera To Consult Reason/Comments: Respiratory failure, acute exacerbation of COPD Do you want consulting provider notified?: Yes 10/10/17 12:55 Consult Physician Routine Consulting Provider: Haim Alberto Consult Reason/Comments: CHF Do you want consulting provider notified?: Yes Primary care physician: Lul Aquino [place] [facility] Course: This is a 66 years old female patient of Dr. Aquino with past medical history of systolic heart failure last reported ejection fraction 55% in October 2016, advanced COPD, history of colon cancer with ruptured bowels for which she was transferred to [facility] ended up having partial colectomy and colostomy which was reversed later. Patient was found to have an intra- abdominal abscess on computed tomography scan which was considered to be a sterile abscess, followed by [facility] and Dr. Guillen. Patient was recently hospitalized at [facility] for acute exacerbation of COPD at that time she did have an echocardiogram was seen in consultation by pulmonary and by cardiology and the patient was discharged home yesterday at around 3:00 in the afternoon patient was placed on oxygen at 2 L nasal cannula, patient does have a nebulizer at home she also does have a CPAP that does not work properly, according to her son she needs a change in the tubing of her CPAP, apparently the patient went to bed yesterday after she had subs with her at [facility] and she was feeling fine up until 5:00 in the morning when she woke up with extreme shortness of breath associated with significant hypoxemia patient's ended up the getting sent to the ER at [facility] and she was found to have a low oxygen saturation at 85% she ended up going to the computed tomography scan of the chest because of elevated d- dimer that was negative for pulmonary embolism however it did show bilateral pleural effusion patient did have an echocardiogram at [facility] yesterday the results still pending at the time of dictation I have placed a consultation for cardiology Dr. Alberto and pulmonary medicine Dr. Morejon and patient was admitted to the hospital she was pleasant and BiPAP and she will be weaned down to nasal cannula 2 L cannula, I spoke with her as well as her son the bedside and updated about her situation was given. 4/1: Patient is feeling a lot better today she denies any chest pain she is less short of breath she is tolerating nasal cannula this time, we will obtain the results of the echocardiogram that was done at [facility] about 48 hours ago. 4/2: Patient states her breathing is a little bit better from yesterday. Her lungs sound slightly improved. She denies having any bowel movement today. Echocardiogram from [facility] rate revealed EF of 35%. Solu- Medrol has are to been switched over to 40 mg every 12 hours. Blood sugars are running in the 203 100s and we will add in NovoLog 5 units scheduled with meals on top of the Lantus and NovoLog scale. 4/3: Patient is feeling much better today. Breathing status is improving. She was able to walk the length of hallway with physical therapy. Pulse ox is 98% on 2 L. Cardiology and pulmonary medicine have cleared her for discharge. Discharge diagnoses: 1. Acute on chronic hypoxemic respiratory failure due to acute diastolic heart failure with bilateral perfusion as well as COPD exacerbation with pulmonary hypertension. 2. Coronary artery disease status post PCI. 3. Chronic diastolic heart failure with pulmonary hypertension. 4. Obstructive sleep apnea on CPAP. 5. Restless leg syndrome. 6. Hypertension, hypertensive cardiovascular disease. 7. Diabetes mellitus type 2 with steroid-induced hyperglycemia. 8. Gout, unspecified. 9. Gastroesophageal reflux disease 10. Depression, recurrent. Discharge plan: Home with [facility] Impression and plan of care have been directed as dictated by the signing physician. Charmaine Fowler nurse practitioner acting as scribe for signing physician. Patient Condition at Discharge: Good Plan - Discharge Summary Discharge Rx Participant: Yes New Discharge Prescriptions: New Allopurinol [Zyloprim] 100 mg PO DAILY tab Amiodarone [Cordarone] 200 mg PO DAILY tab Cholecalciferol [Vitamin D3] 2,000 unit PO DAILY@1200 tab Furosemide [Lasix] 60 mg PO BID #60 tab guaiFENesin [Mucinex] 600 mg PO Q12HR tablet.er Insulin Aspart [NovoLOG (formulary)] 0 unit SQ ACHS vial Ipratropium-Albuterol Nebulize [Duoneb 0.5 mg-3 mg/3 ml Soln] 3 ml INHALATION RT-QID #120 ampul.neb Magnesium Oxide [Mag-Ox] 400 mg PO DAILY #0 tab Metolazone [Zaroxolyn] 2.5 mg PO DAILY PRN #30 tab PRN Reason: weight gain Nitroglycerin Sl Tabs [Nitrostat] 0.4 mg SUBLINGUAL Q5M PRN #25 tab PRN Reason: Chest Pain predniSONE 0 mg PO DIRECTED #40 tab rOPINIRole HCL [Requip] 1 mg PO HS tab Sacubitril/Valsartan [Entresto 24 mg-26 mg Tablet] 1 each PO BID #60 tablet Spironolactone [Aldactone] 25 mg PO DAILY #30 tab Ipratropium-Albuterol Nebulize [Duoneb 0.5 mg-3 mg/3 ml Soln] 3 ml INHALATION QID #120 neb Continue Montelukast Sodium [Singulair] 10 mg PO HS Atorvastatin [Lipitor] 40 mg PO HS Isosorbide Mononitrate ER [Imdur] 15 mg PO DAILY Levothyroxine Sodium [Synthroid] 25 mcg PO DAILY Carvedilol [Coreg*] 12.5 mg PO BID-W/MEALS #60 tab amLODIPine [Norvasc] 5 mg PO DAILY HYDROcodone/APAP 10-325MG [Colerain 10-325] 1 tab PO TID PRN PRN Reason: Pain Fluticasone Propionate [Flovent Hfa 110mcg] 2 puff INHALATION RT-BID DULoxetine HCL [Cymbalta] 30 mg PO DAILY Insulin Aspart [NovoLOG (formulary)] See Protocol SQ AC-TID PRN PRN Reason: Blood Sugar - High Changed Potassium Chloride [Klor-Con 20] 20 meq PO DAILY #0 Discontinued Furosemide [Lasix] 40 mg PO BID Losartan Potassium 50 mg PO DAILY Albuterol Nebulized [Ventolin Nebulized] 2.5 mg INHALATION RT-QID Discharge Medication List Atorvastatin [Lipitor] 40 mg PO HS 03/09/16 [History] Montelukast Sodium [Singulair] 10 mg PO HS 03/09/16 [History] Isosorbide Mononitrate ER [Imdur] 15 mg PO DAILY 02/09/17 [History] Levothyroxine Sodium [Synthroid] 25 mcg PO DAILY 02/09/17 [History] Carvedilol [Coreg*] 12.5 mg PO BID-W/MEALS #60 tab 06/19/17 [Rx] DULoxetine HCL [Cymbalta] 30 mg PO DAILY 10/10/17 [History] Fluticasone Propionate [Flovent Hfa 110mcg] 2 puff INHALATION RT-BID 10/10/17 [ History] HYDROcodone/APAP 10-325MG [Colerain 10-325] 1 tab PO TID PRN 10/10/17 [History] Insulin Aspart [NovoLOG (formulary)] See Protocol SQ AC-TID PRN 10/10/17 [ History] amLODIPine [Norvasc] 5 mg PO DAILY 10/10/17 [History] Allopurinol [Zyloprim] 100 mg PO DAILY tab 10/13/17 [Rx] Amiodarone [Cordarone] 200 mg PO DAILY tab 10/13/17 [Rx] Cholecalciferol [Vitamin D3] 2,000 unit PO DAILY@1200 tab 10/13/17 [Rx] Furosemide [Lasix] 60 mg PO BID #60 tab 10/13/17 [Rx] Insulin Aspart [NovoLOG (formulary)] 0 unit SQ ACHS vial 10/13/17 [Rx] Ipratropium-Albuterol Nebulize [Duoneb 0.5 mg-3 mg/3 ml Soln] 3 ml INHALATION QID #120 neb 10/13/17 [Rx] Ipratropium-Albuterol Nebulize [Duoneb 0.5 mg-3 mg/3 ml Soln] 3 ml INHALATION RT -QID #120 ampul.neb 10/13/17 [Rx] Magnesium Oxide [Mag-Ox] 400 mg PO DAILY #0 tab 10/13/17 [Rx] Metolazone [Zaroxolyn] 2.5 mg PO DAILY PRN #30 tab 10/13/17 [Rx] Nitroglycerin Sl Tabs [Nitrostat] 0.4 mg SUBLINGUAL Q5M PRN #25 tab 10/13/17 [Rx ] Potassium Chloride [Klor-Con 20] 20 meq PO DAILY #0 10/13/17 [Rx] Sacubitril/Valsartan [Entresto 24 mg-26 mg Tablet] 1 each PO BID #60 tablet 09/27 [Rx] Spironolactone [Aldactone] 25 mg PO DAILY #30 tab 10/13/17 [Rx] guaiFENesin [Mucinex] 600 mg PO Q12HR tablet.er 10/13/17 [Rx] predniSONE 0 mg PO DIRECTED #40 tab 10/13/17 [Rx] rOPINIRole HCL [Requip] 1 mg PO HS tab 10/13/17 [Rx] Follow up Appointment(s)/Referral(s): [facility], [NON-STAFF] - As Needed Lul Aquino MD [Primary Care Provider] - 10/15/17 1:00 pm (Dr. Orozco covering for Dr. Aquino. In office on [facility] next to [place]. [address].) Gera To MD [STAFF PHYSICIAN] - 10/20/17 11:30 am Ty Scott MD [STAFF PHYSICIAN] - 10/28/17 3:15 pm (Please keep previous follow up appointment.) Patient Instructions/Handouts: Heart Failure (DC), COPD (Chronic Obstructive Pulmonary Disease) (DC), BiPAP (GEN) Activity/Diet/Wound Care/Special Instructions: Zaroxolyn take only if weight gain of 2-3 lbs. BIPAP originally ordered through [facility]: #[phone] Discharge Disposition: HOME WITH HOME HEALTH SERVICES <Spencer Aguila - Last Filed: 10/17/17 12:25> Hospital Course: just omit diastolic and replace it with systolic heart failure EF 35%.
--- NOTE | 2017-10-16 15:14 | P.PN ---
Subjective Progress Note Date: 10/11/17 (late entry note) Principal diagnosis: Acute on chronic hypoxic respiratory failure, congestive heart failure likely related to acute diastolic heart failure, small bilateral pleural effusion, severe COPD with acute exacerbation of COPD, severe morbid obesity with obstructive sleep apnea, coronary artery disease, pulmonary hypertension, paroxysmal atrial fibrillation, chronic renal failure, diabetes mellitus2 10/11/17, pt. seen and evaluated while covering for Dr. Lizarraga, patient remains shortness of breath the severity has improved does have some dry nonproductive cough get short of breath on activity and exertion labs reviewed medications reviewed as well, computed tomography scan performed on 10/10/2017 reviewed and compared, patient does have cardiomegaly with a small bilateral pleural effusion , no evidence of pulmonary embolism, extensive emphysematous changes have been noted This is a 66 years old female patient of Dr. Aquino with past medical history of systolic heart failure last reported ejection fraction 55% in October 2016, advanced COPD, history of colon cancer with ruptured bowels for which she was transferred to [facility] ended up having partial colectomy and colostomy which was reversed later. Patient was found to have an intra- abdominal abscess on computed tomography scan which was considered to be a sterile abscess, [facility] and Dr. Guillen. Patient was recently hospitalized at [facility] for acute exacerbation of COPD at that time she did have an echocardiogram was seen in consultation by pulmonary and by cardiology and the patient was discharged home yesterday at around 3:00 in the afternoon patient was placed on oxygen at 2 L nasal cannula, patient does have a nebulizer at home she also does have a CPAP that does not work properly, according to her son she needs a change in the tubing of her CPAP, apparently the patient went to bed yesterday after she had subs with her at [facility] and she was feeling fine up until 5:00 in the morning when she woke up with extreme shortness of breath associated with significant hypoxemia patient's ended up the getting sent to the ER at [facility] and she was found to have a low oxygen saturation at 85% she ended up going to the computed tomography scan of the chest because of elevated d- dimer Objective - Vital Signs Vital signs: Vital Signs Temp 97.9 F 10/13/17 11:36 Pulse 64 10/13/17 16:24 Resp 18 10/13/17 11:36 BP 97/56 10/13/17 11:36 Pulse Ox 98 10/13/17 11:36 - Exam Constitutional General appearance: mild distress, morbidly obese - EENT Eyes: anicteric sclerae, EOMI, PERRLA, no ptosis, no scleral icterus, normal appearance ENT: hearing grossly normal, NA/AT, normal oropharynx, no thrush Ears: bilateral: normal - Neck Neck: no lymphadenopathy, normal ROM, no rigidity, no stridor, no thyromegaly Carotids: bilateral: upstroke normal Thyroid: bilateral: normal size - Respiratory Respiratory: bilateral: diminished, rhonchi, wheezing, prolonged expiration, negative: dullness, rales - Cardiovascular Rhythm: regular Heart sounds: normal: S1, S2 Abnormal Heart Sounds: systolic murmur, S3 Gallop - Gastrointestinal General gastrointestinal: normal bowel sounds, soft, no splenomegaly, no tenderness, no umbilical hernia - Integumentary Integumentary: normal, normal turgor - Neurologic Neurologic: CNII-XII intact - Musculoskeletal Musculoskeletal: generalized weakness, strength equal bilaterally - Psychiatric Psychiatric: A&O x's 3, appropriate affect, intact judgment & insight - Labs CBC & Chem 7: 10/12/17 05:16 10/12/17 05:16 Assessment and Plan Assessment: Acute on chronic hypoxic respiratory failure Small bilateral pleural effusions and pulmonary vascular congestion Acute exacerbation of systolic congestive heart failure, EF 35% Acute exacerbation of COPD Obstructive sleep apnea, patient noncompliant with BiPAP Iron deficiency anemia Pulmonary hypertension Atherosclerotic coronary artery disease with a history of PCI Hypertension Morbid obesity Paroxysmal atrial fibrillation Chronic kidney disease stage III Diabetes mellitus type 2 Depression Hypothyroidism Plan: O2 to maintain saturation greater than or equal to 90% BiPAP at night Pulmicort and Perforomist Duo nebs, Singulair Diuresis Continue patient's home medications IV steroids with slow tapering Consult PT and OT Incentive spirometry and pulmonary hygiene Patient might benefit from rehab placement Time with Patient: Greater than 30
== END 2017-10-13 16:56 | disposition home health service (06) | DRG 189 ==
LOC: EC 07:08 → 6SEL 09:30
PROVIDERS: ADMIT Internal Medicine Geriatric Medicine; ATTEND Internal Medicine Geriatric Medicine
PROC: 5A09357 Assistance with Respiratory Ventilation, Less than 24 Consecutive Hours, Continuous Positive Airway Pressure (ICD-10-PCS; principal; 2017-10-10)
DX: J96.21 Acute and chronic respiratory failure with hypoxia (principal); I50.23 Acute on chronic systolic (congestive) heart failure; Z68.42 Body mass index [BMI] 45.0-49.9, adult; I13.0 Hypertensive heart and chronic kidney disease with heart failure and stage 1 through stage 4 chronic kidney disease, or unspecified chronic kidney disease; J44.1 Chronic obstructive pulmonary disease with (acute) exacerbation; D72.1 Eosinophilia; E11.22 Type 2 diabetes mellitus with diabetic chronic kidney disease; E11.40 Type 2 diabetes mellitus with diabetic neuropathy, unspecified; E11.65 Type 2 diabetes mellitus with hyperglycemia; N18.3 Chronic kidney disease, stage 3 (moderate); I48.0 Paroxysmal atrial fibrillation; E66.01 Morbid (severe) obesity due to excess calories; G25.81 Restless legs syndrome; D50.9 Iron deficiency anemia, unspecified; E03.9 Hypothyroidism, unspecified; T38.0X5A Adverse effect of glucocorticoids and synthetic analogues, initial encounter; E78.5 Hyperlipidemia, unspecified; F32.9 Major depressive disorder, single episode, unspecified; F41.9 Anxiety disorder, unspecified; G47.33 Obstructive sleep apnea (adult) (pediatric); H91.90 Unspecified hearing loss, unspecified ear; I25.10 Atherosclerotic heart disease of native coronary artery without angina pectoris; I25.5 Ischemic cardiomyopathy; I27.20 Pulmonary hypertension, unspecified; I44.7 Left bundle-branch block, unspecified; K21.9 Gastro-esophageal reflux disease without esophagitis; M10.9 Gout, unspecified; Z79.4 Long term (current) use of insulin; Z79.51 Long term (current) use of inhaled steroids; Z79.82 Long term (current) use of aspirin; Z79.899 Other long term (current) drug therapy; Z80.1 Family history of malignant neoplasm of trachea, bronchus and lung; Z85.038 Personal history of other malignant neoplasm of large intestine; Z87.891 Personal history of nicotine dependence; Z90.49 Acquired absence of other specified parts of digestive tract; Z90.710 Acquired absence of both cervix and uterus; Z91.19 Patient's noncompliance with other medical treatment and regimen; Z95.1 Presence of aortocoronary bypass graft; Z95.5 Presence of coronary angioplasty implant and graft; G89.29 Other chronic pain; Z96.651 Presence of right artificial knee joint; Z98.42 Cataract extraction status, left eye; Z98.41 Cataract extraction status, right eye; Z79.890 Hormone replacement therapy; Z79.891 Long term (current) use of opiate analgesic; Z88.1 Allergy status to other antibiotic agents; Z91.048 Other nonmedicinal substance allergy status; M19.90 Unspecified osteoarthritis, unspecified site; Z81.1 Family history of alcohol abuse and dependence; Z83.49 Family history of other endocrine, nutritional and metabolic diseases
CPT/HCPCS: 36415; 36600; 71045; 71275; 80053; 82550; 82553; 82805; 83036; 83605; 83880; 84484; 85025; 85379; 85610; 85730; 93005; 94640; 94644; 94660; 94760; 96361; 96365; 96375; 99291

== ENCOUNTER → 2018-01-06 | Emergency (ER) | payer MEDICARE, OTHER ==
--- NOTE | 2018-01-06 12:27 | CT ---
EXAMINATION TYPE: CT chest angio for PE DATE OF EXAM: 01/06/2018 COMPARISON: NONE HISTORY: Shortness of breath CONTRAST: Isovue 370/80, wasted 30 ml. Contrast-enhanced CT of the chest was performed through the course of the pulmonary arteries with tiffany g and mediastinal window settings submitted. 3D reconstruction with MIP imaging was also performed. PULMONARY ARTERIES: The pulmonary arteries and their major tributaries are patent. I do not see newton dence for sizable filling defect to suggest pulmonary embolic process. LUNGS: The lungs are clear and free of infiltrate. No evidence for atelectasis. No pulmonary nodule or mass is detected. No pleural effusion. MEDIASTINUM: Thoracic aorta is of normal caliber,however, evaluation is limited given timing of the contrast bolus. If there is concern for thoracic aortic pathology consider NATHANIEL. Correlate clinicall y . The heart is mildly enlarged. No evidence for mediastinal mass. No mediastinal lymph nodes grea ter than 1cm. HILAR STRUCTURES: No evidence for mass. No hilar lymph nodes greater than 1 cm. UPPER ABDOMEN: Cystectomy clips. Degenerative changes of thoracic spine. IMPRESSION: 1. No evidence for Pulmonary embolism at this time.
[2018-01-06 12:32] LABS: INR 1.1 (<1.2); Partial Thromboplastin Time 27.6 sec (22.0-30.0); Prothrombin Time 10.6 sec (9.0-12.0)
[2018-01-06 12:33] LABS: D-Dimer 1.77 mg/L FEU (<0.60)
[2018-01-06 12:35] LABS: Basophils % (A) 1 %; Eosinophils # (A) 0.2 k/uL (0-0.7); Eosinophils % (A) 4 %; HCT 35.5 % (34.0-46.0); HGB 11.3 gm/dL (11.4-16.0); Hypochromasia Slight; Lymphocytes % (A) 20 %; MCH 30.5 pg (25.0-35.0); MCHC 31.9 g/dL (31.0-37.0); MCV 95.5 fL (80.0-100.0); Mean Platelet Volume 8.3; Monocytes # (A) 0.5 k/uL (0-1.0); Monocytes % (A) 9 %; Neutrophils # (A) 3.2 k/uL (1.3-7.7); Neutrophils % (A) 64 %; Platelet Count 177 k/uL (150-450); RBC 3.72 m/uL (3.80-5.40); RDW 15.4 % (11.5-15.5)
[2018-01-06 13:16] LABS: Creatine Kinase 30 U/L (30-135); Creatine Kinase MB 0.3 ng/mL (0.0-2.4); Troponin I <0.012 ng/mL (0.000-0.034)
[2018-01-06 13:17] LABS: Albumin 3.5 g/dL (3.5-5.0); Calcium 8.7 mg/dL (8.4-10.2); Potassium 4.2 mmol/L (3.5-5.1); Total Bilirubin 0.7 mg/dL (0.2-1.3); Total Protein 6.5 g/dL (6.3-8.2)
[2018-01-06 13:28] LABS: Appearance,Urine Clear (Clear); Bilirubin,Urine Negative (Negative); Blood,Urine Negative (Negative); Color,Urine Yellow; Glucose,Urine (UA) Negative (Negative); Ketones,Urine Negative (Negative); Leukocyte Esterase,Urine Negative (Negative); Nitrite,Urine Negative (Negative); PH, Urine 6.5 (5.0-8.0); Protein,Urine Negative (Negative); Specific Gravity,Urine 1.012 (1.001-1.035); Urobilinogen,Urine <2.0 mg/dL (<2.0)
--- NOTE | 2018-01-06 15:29 | XR ---
Frontal chest x-ray HISTORY: Shortness of breath Single frontal view of the chest correlated to prior exam 10/10/2017 Findings are similar. Patient is post median sternotomy and rotated. There are overlying cardiac lead s. Heart is stable and enlarged. Interstitium is increased. Prominent lung volume could be indicative of underlying COPD. Difficult to exclude small effusions. No pneumothorax. IMPRESSION: Correlate for pulmonary venous hypertension and interstitial edema.
== END ==
LOC: EC 04:39
DX: I11.0 Hypertensive heart disease with heart failure (principal); I50.9 Heart failure, unspecified; Z85.038 Personal history of other malignant neoplasm of large intestine; Z87.891 Personal history of nicotine dependence; Z95.1 Presence of aortocoronary bypass graft; Z90.49 Acquired absence of other specified parts of digestive tract; Z88.1 Allergy status to other antibiotic agents
CPT/HCPCS: 36415; 94640; 93005; 85379; 83880; 80053; 82550; 82553; 84484; 85025; 85610; 85730; 81003; 71045; 71275; 99285; 96374; Q9967

== ENCOUNTER 2018-01-09 10:13 | Inpatient (IN) | payer MEDICARE, OTHER ==
[2018-01-09] MEDS ORDERED: HEPARIN SODIUM,PORCINE 5,000 UNIT/ML 1 ML VIAL IV ONE (10:39)
[2018-01-09] MEDS ORDERED: ALBUTEROL NEBULIZED 2.5 MG/3 ML INHALATION STA (10:59)
[2018-01-09] MEDS ORDERED: IPRATROPIUM 0.5 MG/2.5 ML NEBU INHALATION STA (10:59)
[2018-01-09] MEDS ORDERED: methylPREDNISolone SOD SUCCI 125 MG/2 ML VIAL IV STA (10:59)
--- NOTE | 2018-01-09 11:29 | ED ---
General Adult HPI - General Chief complaint: Shortness of Breath Stated complaint: CRISTI Time Seen by Provider: 01/09/18 10:33 Source: patient, EMS, RN notes reviewed, old records reviewed Mode of arrival: EMS Limitations: no limitations - History of Present Illness Initial comments: This is a 67-year-old female the ER for evaluation of weakness and shortness of breath, decreased activity level. Patient's strong and significant medical history of COPD CHF heart disease. Patient is to ER visits this week with no improvement in symptoms at home. She states her symptoms are active progressively worsening. No recent known travel history no sick contacts. Patient denies fever but she states she is very sweaty and had any difficulty with breathing today. - Related Data Home Medications Medication Instructions Recorded Confirmed Atorvastatin [Lipitor] 40 mg PO HS 03/09/16 10/10/17 Montelukast Sodium [Singulair] 10 mg PO HS 03/09/16 10/10/17 Isosorbide Mononitrate ER [Imdur] 15 mg PO DAILY 02/09/17 10/10/17 Levothyroxine Sodium [Synthroid] 25 mcg PO DAILY 02/09/17 10/10/17 DULoxetine HCL [Cymbalta] 30 mg PO DAILY 10/10/17 10/10/17 Fluticasone Propionate [Flovent 2 puff INHALATION RT-BID 10/10/17 10/10/17 Hfa 110mcg] HYDROcodone/APAP 10-325MG [Goldsmith 1 tab PO TID PRN 10/10/17 10/10/17 10-325] Insulin Aspart [NovoLOG See Protocol SQ AC-TID PRN 10/10/17 10/10/17 (formulary)] amLODIPine [Norvasc] 5 mg PO DAILY 10/10/17 10/10/17 Previous Rx's Medication Instructions Recorded Carvedilol [Coreg*] 12.5 mg PO BID-W/MEALS #60 tab 06/19/17 Allopurinol [Zyloprim] 100 mg PO DAILY tab 10/13/17 Amiodarone [Cordarone] 200 mg PO DAILY tab 10/13/17 Cholecalciferol [Vitamin D3] 2,000 unit PO DAILY@1200 tab 10/13/17 Furosemide [Lasix] 60 mg PO BID #60 tab 10/13/17 Insulin Aspart [NovoLOG 0 unit SQ ACHS vial 10/13/17 (formulary)] Ipratropium-Albuterol Nebulize 3 ml INHALATION QID #120 neb 10/13/17 [Duoneb 0.5 mg-3 mg/3 ml Soln] Ipratropium-Albuterol Nebulize 3 ml INHALATION RT-QID #120 10/13/17 [Duoneb 0.5 mg-3 mg/3 ml Soln] ampul.neb Magnesium Oxide [Mag-Ox] 400 mg PO DAILY #0 tab 10/13/17 Metolazone [Zaroxolyn] 2.5 mg PO DAILY PRN #30 tab 10/13/17 Nitroglycerin Sl Tabs [Nitrostat] 0.4 mg SUBLINGUAL Q5M PRN #25 tab 10/13/17 Potassium Chloride [Klor-Con 20] 20 meq PO DAILY #0 10/13/17 Sacubitril/Valsartan [Entresto 24 1 each PO BID #60 tablet 10/13/17 mg-26 mg Tablet] Spironolactone [Aldactone] 25 mg PO DAILY #30 tab 10/13/17 guaiFENesin [Mucinex] 600 mg PO Q12HR tablet.er 10/13/17 predniSONE 0 mg PO DIRECTED #40 tab 10/13/17 rOPINIRole HCL [Requip] 1 mg PO HS tab 10/13/17 Allergies Allergy/AdvReac Type Severity Reaction Status Date / Time cephalexin monohydrate Allergy Unknown Rash/Hives Verified 01/09/18 10:28 [From Keflex] yellow dye Allergy Unknown Verified 01/09/18 10:28 Review of Systems ROS Statement: Those systems with pertinent positive or pertinent negative responses have been documented in the HPI. ROS Other: All systems not noted in ROS Statement are negative. 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 triple bypass 2007, picc line -since removed. one cardiac stent Past Anesthesia/Blood Transfusion Reactions: Motion Sickness, No Reported Reaction Additional Past Anesthesia/Blood Transfusion Reaction / Comment(s): Pt has received blood without reaction. Date of Last Stent Placement:: 2009 Past Psychological History: Anxiety, Depression Smoking Status: Former smoker Past Alcohol Use History: None Reported Past Drug Use History: None Reported - Past Family History Mother Family Medical History: Cancer Additional Family Medical History / Comment(s): Mother had lung cancer. Father Family Medical History: Liver Disease Additional Family Medical History / Comment(s): Father of cirrhosis of the liver. He was a alcoholic. General Exam Limitations: no limitations General appearance: alert, anxious, lethargic, obese Head exam: Present: atraumatic, normocephalic, normal inspection Eye exam: Present: normal appearance, PERRL, EOMI. Absent: scleral icterus, conjunctival injection, periorbital swelling ENT exam: Present: normal exam, mucous membranes moist Neck exam: Present: normal inspection. Absent: tenderness, meningismus, lymphadenopathy Respiratory exam: Present: normal lung sounds bilaterally, wheezes, rales, decreased breath sounds, prolonged expiratory. Absent: respiratory distress, rhonchi, stridor Cardiovascular Exam: Present: regular rate, normal rhythm, normal heart sounds. Absent: systolic murmur, diastolic murmur, rubs, gallop, clicks GI/Abdominal exam: Present: soft, normal bowel sounds. Absent: distended, tenderness, guarding, rebound, rigid Extremities exam: Present: normal inspection, full ROM, normal capillary refill. Absent: tenderness, pedal edema, joint swelling, calf tenderness Back exam: Present: normal inspection Neurological exam: Present: alert, oriented X3, CN II-XII intact Psychiatric exam: Present: normal affect, normal mood Skin exam: Present: warm, dry, intact, normal color. Absent: rash Course Vital Signs 01/09/18 01/09/18 01/09/18 10:24 11:10 11:20 Temperature 97.7 F Pulse Rate 72 68 71 Respiratory 24 Rate Blood Pressure 107/64 O2 Sat by Pulse 96 Oximetry 01/09/18 11:21 Temperature Pulse Rate 71 Respiratory Rate Blood Pressure O2 Sat by Pulse Oximetry - Reevaluation(s) Reevaluation #1: 01/09/18 11:28 Medical record and prior ER visits reviewed EKG Findings - EKG Comments: EKG Findings:: EKG shows normal sinus rhythm rate of 79, [place] 104, QRS 136, QTc 472 Medical Decision Making - Medical Decision Making 67 cemented ER for evaluation positive COPD time CHF exacerbation with weakness. Patient be admitted for cardiology and pulmonology evaluation - Radiology Data Radiology results: report reviewed (Chest x-rays negative for acute disease), image reviewed Disposition Clinical Impression: Acute exacerbation of chronic obstructive airways disease, Systolic congestive heart failure, Acute pulmonary edema, Syncope, near, Congestive heart failure Disposition: ADMITTED IP TO THIS HOSP Is patient prescribed a controlled substance at d/c from ED?: No Referrals: Lul Aquino MD [Primary Care Provider] - 1-2 days
[2018-01-09 11:48] LABS: Basophils % (A) 0 %; Eosinophils # (A) 0.1 k/uL (0-0.7); Eosinophils % (A) 1 %; HCT 40.1 % (34.0-46.0); HGB 12.3 gm/dL (11.4-16.0); Hypochromasia Moderate; Lymphocytes # (A) 0.8 k/uL (1.0-4.8); Lymphocytes % (A) 9 %; MCH 29.9 pg (25.0-35.0); MCHC 30.6 g/dL (31.0-37.0); MCV 97.8 fL (80.0-100.0); Mean Platelet Volume 7.5; Monocytes # (A) 0.3 k/uL (0-1.0); Monocytes % (A) 4 %; Neutrophils # (A) 7.4 k/uL (1.3-7.7); Neutrophils % (A) 85 %; Platelet Count 190 k/uL (150-450); RBC 4.11 m/uL (3.80-5.40); RDW 15.1 % (11.5-15.5); WBC 8.7 k/uL (3.8-10.6)
[2018-01-09 11:53] LABS: Albumin 3.8 g/dL (3.5-5.0); Calcium 9.2 mg/dL (8.4-10.2); Magnesium 2.2 mg/dL (1.6-2.3); Potassium 4.9 mmol/L (3.5-5.1); Total Bilirubin 0.7 mg/dL (0.2-1.3); Total Protein 6.8 g/dL (6.3-8.2)
[2018-01-09] MEDS ORDERED: HYDROcodone/APAP 10-325MG 1 EACH TAB PO ONE (12:08)
[2018-01-09 12:09] LABS: INR 1.1 (<1.2); Partial Thromboplastin Time 25.7 sec (22.0-30.0); Prothrombin Time 10.7 sec (9.0-12.0)
[2018-01-09 12:23] LABS: Creatine Kinase MB 0.5 ng/mL (0.0-2.4); Troponin I 0.024 ng/mL (0.000-0.034)
[2018-01-09 12:24] LABS: Appearance,Urine Clear (Clear); Bilirubin,Urine Negative (Negative); Blood,Urine Negative (Negative); Color,Urine Yellow; Glucose,Urine (UA) Negative (Negative); Ketones,Urine Negative (Negative); Leukocyte Esterase,Urine Negative (Negative); Mucus,Urine Rare /hpf; Nitrite,Urine Negative (Negative); PH, Urine 5.5 (5.0-8.0); Protein,Urine 1+ (Negative); RBC,Urine 2 /hpf (0-5); Specific Gravity,Urine 1.016 (1.001-1.035); Squamous Epithelial Cell,Urine 1 /hpf (0-4); Urobilinogen,Urine <2.0 mg/dL (<2.0); WBC,Urine 2 /hpf (0-5)
[2018-01-09] MEDS ORDERED: FUROSEMIDE 10 MG/ML 4 ML VIAL IV ONE (12:30)
--- NOTE | 2018-01-09 12:42 | XR ---
EXAMINATION TYPE: XR chest 2V DATE OF EXAM: 01/09/2018 COMPARISON: Prior chest x-ray and CT 01/06/2018 HISTORY: Difficulty breathing TECHNIQUE: Frontal and lateral views of the chest are obtained. FINDINGS: Exam somewhat limited by patient body habitus. No significant interval change. Patient is p ost median sternotomy. Heart remains enlarged. No evident pneumothorax. No definite effusion. Central vascularity is prominent. There are overlying cardiac leads. IMPRESSION: Findings are similar to prior exam. Correlate to exclude pulmonary venous hypertension a nd interstitial edema. Findings could be chronic and compensated, limitations as described
[2018-01-09] MEDS: IPRATROPIUM-ALBUTEROL 3 ML NEB INHALATION SCH ×3 (13:26→19:54)
[2018-01-09] MEDS: methylPREDNISolone SOD SUCCI 125 MG/2 ML VIAL IV SCH ×2 (14:54→16:51)
[2018-01-09] MEDS: SODIUM CHLORIDE 0.9% 1,000 ML IV SCH (14:54)
[2018-01-09] MEDS ORDERED: NITROGLYCERIN SL TABS 0.4 MG TAB SUBLINGUAL PRN (15:44)
[2018-01-09] MEDS ORDERED: ALBUTEROL NEBULIZED 2.5 MG/3 ML INHALATION PRN (15:44)
[2018-01-09] MEDS ORDERED: METOLAZONE 2.5 MG TAB PO PRN (15:44)
[2018-01-09] MEDS: CARVEDILOL 12.5 MG TAB PO SCH (16:51)
[2018-01-09 17:28] LABS: Glucose,Whole Blood 283 mg/dL (75-99)
[2018-01-09] MEDS: DULoxetine HCL 30 MG CAPSULE.DR PO SCH (17:34)
[2018-01-09] MEDS: INSULIN ASPART 100 UNIT/ML 1 ML 10 ML VIAL SQ SCH ×2 (17:34→21:44)
--- NOTE | 2018-01-09 17:46 | P.HPIM ---
History of Present Illness H&P Date: 01/09/18 Chief Complaint: Shortness of breath difficulty in breathing This is a 66 years old female patient of Dr. Miles Scott cardiology Dr. Birdie To pulmonary with past medical history of sytolic heart failure last reported ejection fraction 20% last June 2017, advanced COPD, history of colon cancer with ruptured bowels for which she was transferred to [facility] ended up having partial colectomy and colostomy which was reversed later. Patient was found to have an intra-abdominal abscess on computed tomography scan which was considered to be a sterile abscess, followed by [facility] and Dr. Guillen. patient is chronically on on oxygen at 2 L nasal cannula , patient does have a nebulizer at home she also does have a CPAP that does not work properly, and hasn't used it for the past 2 months . Patient was seen in the emergency room secondary to worsening shortness of breath, he was seen in emergency room 3 days ago and was discharged to home, , her last prednisone was over 2 weeks ago when she saw Dr. Birdie To, she was given Lasix in the emergency room and was discharged to home. Patient denies any worsening of edema she does have chronic mild lower edema, clear cough, no fever some have sweats and chills, no palpitations no chest pain. Patient did not bring her home meds today and they were questioning and entresto use against losartan. 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 Patient admitted for COPD moderate persistent asthma exacerbation along with mixed systolic CHF exacerbation. Echocardiogram requested, IV Solu-Medrol, IV Lasix, cardiology and pulmonary to see on consultation Review of Systems Constitutional: Reports anorexia Ears, nose, mouth and throat: Reports as per HPI, Denies ant. neck pain, Denies bleeding gums, Denies dental pain, Denies dysphagia, Denies epistaxis, Denies headache, Denies hoarseness, Denies mouth pain, Denies nasal congestion, Denies nasal discharge, Denies neck fullness/pressure, Denies neck lump, Denies nose pain, Denies odynophagia, Denies post-nasal drip, Denies sinus pain, Denies sinus pressure, Denies swelling in mouth, Denies swelling in throat, Denies sore throat, Denies vertigo, Denies voice changes Cardiovascular: Reports as per HPI, Reports decreased exercise tolerance, Reports dyspnea on exertion, Reports shortness of breath Respiratory: Reports as per HPI, Denies congestion, Denies cough, Denies cough with sputum, Denies dyspnea, Denies excessive sputum, Denies hemoptysis, Denies home oxygen, Denies pain, Denies pain on inspiration, Denies pleurisy, Denies respiratory infections, Denies sleep apnea, Denies snoring, Denies wheezing Gastrointestinal: Reports as per HPI Menstruation: Reports as per HPI, Reports postmenopausal Musculoskeletal: Reports as per HPI, Reports gait dysfunction, Reports limitation of motion Integumentary: Reports as per HPI Neurological: Reports as per HPI Past Medical History Past Medical History: Asthma, Cancer, Heart Failure, COPD, Diabetes Mellitus, Hearing Disorder / Deafness, Hyperlipidemia, Hypertension, Osteoarthritis (OA), Pneumonia, Renal Disease, Sleep Apnea/CPAP/BIPAP, Vascular Disorder Additional Past Medical History / Comment(s): ANEMIA,(previously charted pulmonary hypertension, combined systolic and diastolic failure, last ejection fraction 35% August 2016), diabetic neuropathy, gout, chronic pain, restless leg syndrome, uses CPAP, colon Ca, constipation, History of Any Multi-Drug Resistant Organisms: None Reported Past Surgical History: Bladder Surgery, Cholecystectomy, Coronary Bypass/CABG, Heart Catheterization, Heart Catheterization With Stent, Hernia Repair, Hysterectomy, Joint Replacement, Orthopedic Surgery Additional Past Surgical History / Comment(s): RUPTURED BOWEL-HAD COLOSTOMY since reversed,lX2 RT KNEE REPLACEMENTS, [place] cataract surg. triple bypass 2007, picc line -since removed. one cardiac stent Past Anesthesia/Blood Transfusion Reactions: Motion Sickness, No Reported Reaction Additional Past Anesthesia/Blood Transfusion Reaction / Comment(s): Pt has received blood without reaction. Date of Last Stent Placement:: 2009 Past Psychological History: Anxiety, Depression Smoking Status: Former smoker Past Alcohol Use History: None Reported Past Drug Use History: None Reported - Past Family History Mother Family Medical History: Cancer Additional Family Medical History / Comment(s): Mother had lung cancer. Father Family Medical History: Liver Disease Additional Family Medical History / Comment(s): Father of cirrhosis of the liver. He was a alcoholic. Medications and Allergies Home Medications Medication Instructions Recorded Confirmed Type Atorvastatin [Lipitor] 40 mg PO HS 03/09/16 01/09/18 History Montelukast Sodium [Singulair] 10 mg PO HS 03/09/16 01/09/18 History Isosorbide Mononitrate ER [Imdur] 15 mg PO DAILY 02/09/17 01/09/18 History Levothyroxine Sodium [Synthroid] 25 mcg PO DAILY 02/09/17 01/09/18 History Carvedilol [Coreg*] 12.5 mg PO BID-W/MEALS #60 tab 06/19/17 01/09/18 Rx DULoxetine HCL [Cymbalta] 30 mg PO DAILY@1200 10/10/17 01/09/18 History Fluticasone Propionate [Flovent 2 puff INHALATION RT-BID 10/10/17 01/09/18 History Hfa 110mcg] HYDROcodone/APAP 10-325MG [[place] 1 tab PO TID PRN 10/10/17 01/09/18 History 10-325] amLODIPine [Norvasc] 5 mg PO DAILY 10/10/17 01/09/18 History Allopurinol [Zyloprim] 100 mg PO DAILY tab 10/13/17 01/09/18 Rx Amiodarone [Cordarone] 200 mg PO DAILY tab 10/13/17 01/09/18 Rx Cholecalciferol [Vitamin D3] 2,000 unit PO DAILY@1200 tab 10/13/17 01/09/18 Rx Furosemide [Lasix] 60 mg PO BID #60 tab 10/13/17 01/09/18 Rx Magnesium Oxide [Mag-Ox] 400 mg PO DAILY #0 tab 10/13/17 01/09/18 Rx Metolazone [Zaroxolyn] 2.5 mg PO DAILY PRN #30 tab 10/13/17 01/09/18 Rx Nitroglycerin Sl Tabs [Nitrostat] 0.4 mg SUBLINGUAL Q5M PRN #25 tab 10/13/17 Rx Spironolactone [Aldactone] 25 mg PO DAILY #30 tab 10/13/17 01/09/18 Rx Albuterol Nebulized [Ventolin 2.5 mg INHALATION RT-QID PRN 01/09/18 01/09/18 History Nebulized] Fluticasone Nasal [place] [Flonase 2 spr EA NOSTRIL DAILY 01/09/18 01/09/18 History Nasal [place]] Insulin Aspart [NovoLOG See Protocol SQ AC-TID 01/09/18 01/09/18 History (formulary)] Insulin Glargine [Lantus] 30 unit SQ HS 01/09/18 01/09/18 History Lactulose 20 gm PO BID 01/09/18 01/09/18 History Losartan Potassium [Cozaar] 25 mg PO BID 01/09/18 01/09/18 History Potassium Chloride [Klor-Con 20] 20 meq PO BID 01/09/18 01/09/18 History Sacubitril/Valsartan [Entresto 24 1 tab PO BID 01/09/18 01/09/18 History mg-26 mg Tablet] rOPINIRole HCL [Requip] 1 mg PO BID 01/09/18 01/09/18 History Allergies Allergy/AdvReac Type Severity Reaction Status Date / Time cephalexin monohydrate Allergy Unknown Rash/Hives Verified 01/09/18 11:44 [From Keflex] yellow dye Allergy Unknown Verified 01/09/18 11:44 Physical Exam Vitals: Vital Signs Temp Pulse Resp BP Pulse Ox 01/09/18 11:41 78 01/09/18 11:31 74 01/09/18 11:30 74 01/09/18 11:21 71 01/09/18 11:20 71 01/09/18 11:10 68 01/09/18 11:00 74 20 104/62 99 01/09/18 10:24 97.7 F 72 24 107/64 96 Intake and Output 01/08/18 01/09/18 01/09/18 22:59 06:59 14:59 Other: Weight 122.47 kg - Constitutional General appearance: cooperative, no acute distress - EENT Eyes: anicteric sclerae, EOMI, dentition normal ENT: NA/AT, normal oropharynx - Neck Neck: normal ROM - Respiratory Respiratory: bilateral: diminished, wheezing, negative: CTA, dullness, rales, rhonchi - Cardiovascular Rhythm: regular Heart sounds: normal: S1, S2 Abnormal Heart Sounds: no systolic murmur, no diastolic murmur, no rub, no S3 Gallop, no S4 Gallop, no click, no other - Gastrointestinal General gastrointestinal: normal bowel sounds, soft - Integumentary Integumentary: decreased turgor, normal - Neurologic Neurologic: CNII-XII intact - Musculoskeletal Musculoskeletal: gait normal, strength equal bilaterally - Psychiatric Psychiatric: A&O x's 3, appropriate affect, intact judgment & insight Results CBC & Chem 7: 01/09/18 11:30 01/09/18 11:30 Labs: Abnormal Lab Results - Last 24 Hours (Table) 01/09/18 01/09/18 01/09/18 Range/Units 11:30 11:30 12:05 MCHC 30.6 L (31.0-37.0) g/dL Lymphocytes # 0.8 L (1.0-4.8) k/uL BUN 46 H (7-17) mg/dL Creatinine 1.07 H (0.52-1.04) mg/dL Glucose 124 H (74-99) mg/dL AST 76 H (14-36) U/L ALT 53 H (9-52) U/L Urine Protein 1+ H (Negative) Urine Mucus Rare H (None) /hpf Thrombosis Risk Factor Assmnt - DVT/VTE Prophylaxis DVT/VTE Prophylaxis: Pharmacologic Prophylaxis ordered - Choose All That Apply Other Risk Factors: Yes Other congenital or acquired thrombophilia - If yes, enter type in comment: Yes Assessment and Plan Plan: 1. Acute on chronic hypoxemic respiratory failure due to acute systolic heart failure with bilateral perfusion as well as COPD exacerbation with pulmonary hypertension moderate persistent asthma exacerbation. Continue Solu-Medrol 60 mg IV push every 6 hours, continue DuoNeb 3 mL nebulization 4 times every day, continue oxygen support, continue the patient on Lasix 40 mgr orally q 8h day as well as metolazone 2.5 mg orally once every day, discontinue IV fluid, pulmonary consultation as well as cardiology consultation. 2. Coronary artery disease status post PCI. Continue patient on aspirin 325 mg orally once every day, Imdur 30 mg orally once every day, Lipitor 40 mg orally once every day. 3. Chronic systolic heart failure with pulmonary hypertension. Continue Lasix 60 mg orally once every day as well as metolazone 2.5 mg orally once every day, continue on entresto. 4. Obstructive sleep apnea on CPAP which it is out of commission for the past 2mos unable to tolerate facemask, patient requires nasal pillows. S/Adrián To pulmonary for CPAP machine Patient may need to have a BiPAP at home. 5. Restless leg syndrome. Continue Requip. 6. Hypertension, hypertensive cardiovascular disease. Continue Norvasc 5 mg orally once every day, Coreg 12.5 mg orally twice every day, losartan 50 mg orally once every day. 7. Diabetes mellitus type 2 with steroid-induced hyperglycemia. Start the patient on sliding scale insulin. 8. Gout. Continue allopurinol 100 mg orally once every day. 9. Gastroesophageal reflux disease and gastrointestinal prophylaxis. Continue Protonix 40 mg daily. 10. DVT prophylaxis. Heparin 5000 units subcutaneously every 8 hours. 11. Gout. Continue allopurinol 100 mg orally once every day. 12. Depression. Continue Cymbalta 60 mg orally once every day. 13. Admit to inpatient. Estimate length of stay 2 midnights. 14. Full code.
[2018-01-09] MEDS: METOLAZONE 2.5 MG TAB PO SCH (18:28)
[2018-01-09] MEDS: FUROSEMIDE 10 MG/ML 4 ML VIAL IV SCH (18:28)
[2018-01-09] MEDS ORDERED: HEPARIN SODIUM,PORCINE 5,000 UNIT/ML 1 ML VIAL IV PRN (18:50)
[2018-01-09] MEDS: HEPARIN SOD,PORK IN 0.45% NACL 25,000 UNIT in 0.45% NACL 1 500ML.BAG IV SCH (19:24)
[2018-01-09] MEDS: ASPIRIN 325 MG TAB PO SCH (19:31)
[2018-01-09 19:47] LABS: INR 1.1 (<1.2); Partial Thromboplastin Time 26.4 sec (22.0-30.0); Prothrombin Time 10.5 sec (9.0-12.0)
[2018-01-09] MEDS: HYDROcodone/APAP 10-325MG 1 EACH TAB PO PRN (20:31)
[2018-01-09] MEDS ORDERED: FUROSEMIDE 10 MG/ML 4 ML VIAL IV SCH (21:00)
[2018-01-09] MEDS ORDERED: LOSARTAN 25 MG TAB PO SCH (21:00)
[2018-01-09 21:18] LABS: Glucose,Whole Blood 283 mg/dL (75-99)
[2018-01-09] MEDS: LACTULOSE 20 GM/30 ML CUP PO SCH (21:43)
[2018-01-09] MEDS: INSULIN DETEMIR 100 UNIT/ML 10 ML VIAL SQ SCH (21:44)
[2018-01-09] MEDS: MONTELUKAST 10 MG TAB PO SCH (21:45)
[2018-01-09] MEDS: ATORVASTATIN 40 MG TAB PO SCH (21:45)
[2018-01-09] MEDS: SACUBITRIL/VALSARTAN 24 MG-26 MG TABLET PO SCH (21:45)
[2018-01-09] MEDS: POTASSIUM CHLORIDE ER 20 MEQ TAB.ER PO SCH (21:46)
[2018-01-10] MEDS: methylPREDNISolone SOD SUCCI 125 MG/2 ML VIAL IV SCH ×5 (01:02→23:16)
[2018-01-10] MEDS: FUROSEMIDE 10 MG/ML 4 ML VIAL IV SCH ×4 (01:03→23:16)
[2018-01-10] MEDS ORDERED: HEPARIN SODIUM,PORCINE 5,000 UNIT/ML 1 ML VIAL IV ONE (02:50)
[2018-01-10] MEDS: HYDROcodone/APAP 10-325MG 1 EACH TAB PO PRN ×4 (03:34→23:14)
[2018-01-10] MEDS: CARVEDILOL 12.5 MG TAB PO SCH ×2 (07:03→17:29)
[2018-01-10] MEDS: LEVOTHYROXINE 25 MCG TAB PO SCH (07:03)
[2018-01-10 07:23] LABS: Glucose,Whole Blood 245 mg/dL (75-99)
[2018-01-10] MEDS: POTASSIUM CHLORIDE ER 20 MEQ TAB.ER PO SCH ×2 (08:18→20:35)
[2018-01-10] MEDS: LACTULOSE 20 GM/30 ML CUP PO SCH ×2 (08:18→20:35)
[2018-01-10] MEDS: amLODIPine 5 MG TAB PO SCH (08:18)
[2018-01-10] MEDS: ISOSORBIDE MONONITRATE ER 15 MG TAB PO SCH (08:18)
[2018-01-10] MEDS: SACUBITRIL/VALSARTAN 24 MG-26 MG TABLET PO SCH ×2 (08:18→20:35)
[2018-01-10] MEDS: INSULIN ASPART 100 UNIT/ML 1 ML 10 ML VIAL SQ SCH ×4 (08:18→21:47)
[2018-01-10] MEDS: METOLAZONE 2.5 MG TAB PO SCH (08:18)
[2018-01-10] MEDS: AZITHROMYCIN 500 MG TAB PO SCH (08:18)
[2018-01-10] MEDS: SPIRONOLACTONE 25 MG TAB PO SCH (08:18)
[2018-01-10] MEDS: ALLOPURINOL 100 MG TAB PO SCH (08:19)
[2018-01-10] MEDS: FLUTICASONE 50MCG/SPRAY NASAL 16GM EA NOSTRIL SCH (08:19)
[2018-01-10] MEDS: ASPIRIN 325 MG TAB PO SCH (08:19)
[2018-01-10] MEDS: AMIODARONE 200 MG TAB PO SCH (08:19)
[2018-01-10] MEDS: IPRATROPIUM-ALBUTEROL 3 ML NEB INHALATION SCH ×4 (08:36→20:27)
[2018-01-10] MEDS ORDERED: FUROSEMIDE 20 MG TAB PO SCH (09:00)
[2018-01-10 10:02] LABS: Basophils % (A) 0 %; Eosinophils % (A) 0 %; HCT 38.8 % (34.0-46.0); HGB 12.6 gm/dL (11.4-16.0); Hypochromasia Moderate; Lymphocytes # (A) 0.4 k/uL (1.0-4.8); Lymphocytes % (A) 6 %; MCH 31.4 pg (25.0-35.0); MCHC 32.5 g/dL (31.0-37.0); MCV 96.8 fL (80.0-100.0); Mean Platelet Volume 8.2; Monocytes # (A) 0.2 k/uL (0-1.0); Monocytes % (A) 2 %; Neutrophils # (A) 6.4 k/uL (1.3-7.7); Neutrophils % (A) 91 %; Platelet Count 178 k/uL (150-450); RBC 4.01 m/uL (3.80-5.40)
[2018-01-10 10:17] LABS: Albumin 3.6 g/dL (3.5-5.0); Calcium 8.8 mg/dL (8.4-10.2); Potassium 3.6 mmol/L (3.5-5.1); Total Bilirubin 0.7 mg/dL (0.2-1.3); Total Protein 6.7 g/dL (6.3-8.2)
[2018-01-10] MEDS: MAGNESIUM OXIDE 400 MG TAB PO SCH (11:16)
[2018-01-10] MEDS: CHOLECALCIFEROL 1,000 UNIT TAB PO SCH (11:16)
[2018-01-10] MEDS: DULoxetine HCL 30 MG CAPSULE.DR PO SCH (11:16)
[2018-01-10] MEDS: SODIUM CHLORIDE 0.9% 1,000 ML IV SCH (11:18)
[2018-01-10 11:44] LABS: Glucose,Whole Blood 327 mg/dL (75-99)
--- NOTE | 2018-01-10 12:04 | CONS ---
CONSULTATION Jasmin Uribe is a 67-year-old female who presented to the ER with increasing shortness of breath of about 2 days duration. She had recently been on a prednisone taper. She ran out of her albuterol and took somebody else's albuterol who apparently was . It is unclear whether the albuterol that she took from the other person was . She subsequently came to the ED with worsening shortness of breath. She was thought to have pulmonary edema. She had no fever, chills or rigors. She denies any chest pain at this time. PAST MEDICAL HISTORY: Positive for colon cancer status post resection with possible metastatic disease for which she has not had further workup. History of asthma. History of obstructive sleep apnea for which she has been noncompliant with CPAP, history of diabetes mellitus type 2, gout, restless legs syndrome, coronary artery disease with previous stent and bypass, right knee replacement. FAMILY HISTORY: Positive for lung cancer in her mother. Father had a history of cirrhosis of the liver. SOCIAL HISTORY: Patient is a former smoker. Does not drink alcohol excessively. MEDICATIONS PRIOR TO ADMISSION: Ropinirole, Norvasc, Aldactone, and Entresto, Klor-Con 20, Nitrostat, Singulair, Zaroxolyn, Mag-Ox, Cozaar, Synthroid, lactulose, Imdur, Lantus, [place], Lasix, Flovent, Flonase, Cymbalta, vitamin D3, Coreg, Lipitor, Cordarone, Zyloprim, and Ventolin. REVIEW OF SYSTEMS: Noncontributory. PHYSICAL EXAMINATION: Respiratory rate is 18, pulse rate 88, temperature 98.2, blood pressure 111/62, O2 saturation on 2 L by nasal cannula is 98%. HEENT reveals pupils equal. Redundant tissue in the posterior pharynx. Chest reveals decreased breath sounds. Prolonged expiration. No clear wheeze. Cardiovascular system is S1, S2. ABDOMEN: Soft. There is 1+ pedal edema. LABORATORY DATA: White count of 7, hemoglobin of 12.6, sodium 138, potassium 3.6, chloride 97, bicarb 25, BUN 52, creatinine 1.01, PTT of 30.5 on heparin. Troponin of 0.042, glucose of 245. Chest x-ray shows no definite effusion. Central vascular prominence is seen with no change compared to prior x-ray from 01/06/2018. IMPRESSION: At this time: 1. Acute on chronic respiratory failure secondary to congestive heart failure with acute exacerbation. 2. Asthma with acute exacerbation. 3. Obstructive sleep apnea relatively untreated. 4. Possible pulmonary hypertension and cor pulmonale. 5. Previous history of colon cancer, stage of which is unclear. At this point in time from a pulmonary standpoint, keep her on IV steroids. Keep her in negative fluid balance. Keep her on Singulair. GI and DVT prophylaxis. Elevated troponin may be due to cardiac etiology versus other etiology. Would defer to Cardiology in deciding whether the IV heparin should be continued. MMODL / IJN: [id number] /
[2018-01-10 17:26] LABS: Glucose,Whole Blood 251 mg/dL (75-99)
[2018-01-10] MEDS: HEPARIN SOD,PORK IN 0.45% NACL 25,000 UNIT in 0.45% NACL 1 500ML.BAG IV SCH (17:29)
--- NOTE | 2018-01-10 18:20 | P.PN ---
Subjective Progress Note Date: 01/10/18 Chief Complaint: Shortness of breath difficulty in breathing This is a 66 years old female patient of Dr. Miles Scott cardiology Dr. Birdie To pulmonary with past medical history of sytolic heart failure last reported ejection fraction 20% last June 2017, advanced COPD, history of colon cancer with ruptured bowels for which she was transferred to [facility] ended up having partial colectomy and colostomy which was reversed later. Patient was found to have an intra-abdominal abscess on computed tomography scan which was considered to be a sterile abscess, followed by [facility] and Dr. Guillen. patient is chronically on on oxygen at 2 L nasal cannula , patient does have a nebulizer at home she also does have a CPAP that does not work properly, and hasn't used it for the past 2 months . Patient was seen in the emergency room secondary to worsening shortness of breath, he was seen in emergency room 3 days ago and was discharged to home, , her last prednisone was over 2 weeks ago when she saw Dr. Birdie To, she was given Lasix in the emergency room and was discharged to home. Patient denies any worsening of edema she does have chronic mild lower edema, clear cough, no fever some have sweats and chills, no palpitations no chest pain. Patient did not bring her home meds today and they were questioning and entresto use against losartan. 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 Patient admitted for COPD moderate persistent asthma exacerbation along with mixed systolic CHF exacerbation. Echocardiogram requested, IV Solu-Medrol, IV Lasix, cardiology and pulmonary to see on consultation 01/10: Patient has no new complaints today, still with this in exertion, otherwise no conversant dyspnea, echo pending, cardiology to see might need aicd based on June EF of under 20%, currently on entresto troponin was slightly elevated however plateaued, doubt NSTEMI, heparin iv to be discontinued Objective - Vital Signs Vital signs: Vital Signs Temp 98.2 F 01/10/18 06:36 Pulse 80 01/10/18 12:17 Resp 18 01/10/18 06:36 BP 111/62 01/10/18 06:36 Pulse Ox 98 01/10/18 06:36 Intake & Output 01/09/18 01/10/18 01/10/18 18:59 06:59 18:59 Intake Total 250 145.854 214.996 Output Total 600 3600 1550 Balance -350 -3454.146 -1335.004 Weight 122.47 kg 128.5 kg Intake: Intake, IV Titration 145.854 214.996 Amount Heparin Sod,Pork in 0.45% 145.854 214.996 NaCl 25,000 unit In 0.45 % NaCl 1 500ml.bag @ 8.16 UNITS/KG/HR 19.98 mls/hr IV .[facility] Rx#: [id number] Oral 250 Output: Urine 600 3600 1550 Other: Voiding Method Indwelling Catheter # Bowel Movements 0 - Constitutional General appearance: Present: cooperative, no acute distress - EENT Eyes: Present: anicteric sclerae, EOMI, PERRLA, dentition normal, normal appearance ENT: Present: NA/AT, normal oropharynx - Neck Neck: Present: normal ROM - Respiratory Respiratory: bilateral: CTA, diminished, negative: dullness, rales, rhonchi, wheezing - Cardiovascular Rhythm: regular Heart sounds: normal: S1, S2 Abnormal Heart Sounds: Absent: systolic murmur, diastolic murmur, rub, S3 Gallop , S4 Gallop, click, other - Gastrointestinal General gastrointestinal: Present: normal bowel sounds, soft - Integumentary Integumentary: Present: normal, normal turgor - Neurologic Neurologic: Present: CNII-XII intact - Musculoskeletal Musculoskeletal: Present: gait normal, strength equal bilaterally - Psychiatric Psychiatric: Present: A&O x's 3, appropriate affect, intact judgment & insight - Labs CBC & Chem 7: 01/10/18 09:42 01/10/18 09:42 Labs: Abnormal Lab Results - Last 24 Hours (Table) 01/09/18 01/09/18 01/09/18 Range/Units 17:21 17:26 21:06 Lymphocytes # (1.0-4.8) k/uL APTT (22.0-30.0) sec Chloride (98-107) mmol/L BUN (7-17) mg/dL Glucose (74-99) mg/dL POC Glucose (mg/dL) 283 H 283 H (75-99) mg/dL AST (14-36) U/L ALT (9-52) U/L Troponin I 0.041 H* (0.000-0.034) ng/mL 01/09/18 01/10/18 01/10/18 Range/Units 23:27 01:16 07:21 Lymphocytes # (1.0-4.8) k/uL APTT 33.2 H (22.0-30.0) sec Chloride (98-107) mmol/L BUN (7-17) mg/dL Glucose (74-99) mg/dL POC Glucose (mg/dL) 245 H (75-99) mg/dL AST (14-36) U/L ALT (9-52) U/L Troponin I 0.042 H* (0.000-0.034) ng/mL 01/10/18 01/10/18 01/10/18 Range/Units 09:42 09:42 09:42 Lymphocytes # 0.4 L (1.0-4.8) k/uL APTT 30.5 H (22.0-30.0) sec Chloride 97 L (98-107) mmol/L BUN 52 H (7-17) mg/dL Glucose 304 H (74-99) mg/dL POC Glucose (mg/dL) (75-99) mg/dL AST 53 H (14-36) U/L ALT 54 H (9-52) U/L Troponin I (0.000-0.034) ng/mL 01/10/18 Range/Units 11:42 Lymphocytes # (1.0-4.8) k/uL APTT (22.0-30.0) sec Chloride (98-107) mmol/L BUN (7-17) mg/dL Glucose (74-99) mg/dL POC Glucose (mg/dL) 327 H (75-99) mg/dL AST (14-36) U/L ALT (9-52) U/L Troponin I (0.000-0.034) ng/mL Assessment and Plan Plan: 1. Acute on chronic hypoxemic respiratory failure due to acute systolic heart failure with bilateral perfusion as well as COPD exacerbation with pulmonary hypertension moderate persistent asthma exacerbation. Continue Solu-Medrol 60 mg IV push every 6 hours, continue DuoNeb 3 mL nebulization 4 times every day, continue oxygen support, continue the patient on Lasix 40 mgr orally q 8h day as well as metolazone 2.5 mg orally once every day, discontinue IV fluid, pulmonary consultation as well as cardiology consultation. 2. Coronary artery disease status post PCI. Continue patient on aspirin 325 mg orally once every day, Imdur 30 mg orally once every day, Lipitor 40 mg orally once every day. 3. Chronic systolic heart failure with pulmonary hypertension. Continue Lasix 60 mg orally once every day as well as metolazone 2.5 mg orally once every day, continue on entresto. 4. Obstructive sleep apnea on CPAP which it is out of commission for the past 2mos unable to tolerate facemask, patient requires nasal pillows. Dr. Rogel/Adrián To pulmonary for CPAP machine Patient may need to have a BiPAP at home. 5. Mildly Elevated troponins, doubt NSTEMI most likely secondary to cardiac demand mismatch, heparin IV discontinued 5. Restless leg syndrome. Continue Requip. 6. Hypertension, hypertensive cardiovascular disease. Continue Norvasc 5 mg orally once every day, Coreg 12.5 mg orally twice every day, losartan 50 mg orally once every day. 7. Diabetes mellitus type 2 with steroid-induced hyperglycemia. Start the patient on sliding scale insulin. 8. Gout. Continue allopurinol 100 mg orally once every day. 9. Gastroesophageal reflux disease and gastrointestinal prophylaxis. Continue Protonix 40 mg daily. 10. DVT prophylaxis. Heparin 5000 units subcutaneously every 8 hours. 11. Gout. Continue allopurinol 100 mg orally once every day. 12. Depression. Continue Cymbalta 60 mg orally once every day. 13. Admit to inpatient. Estimate length of stay 2 midnights. 14. Full code.
--- NOTE | 2018-01-10 20:19 | P.CRDCN ---
History of Present Illness Consult date: 01/10/18 Chief complaint: Progressive dyspnea History of present illness: This is a pleasant 67-year-old female patient who follows with Dr. Scott in the office on regular basis with an extensive past medical history consistent off severe cardiomyopathy with a known EF around 20%, advanced chronic obstructive pulmonary disease/chronic respiratory failure on home oxygen , recurrent hospital admission with congestive heart failure, morbid obesity, as well as multiple comorbid conditions, presented to the hospital complaining of progressive dyspnea for the last several days. Beside that the patient was found to have an intra-abdominal abscess and she has been followed at [facility] as well as here by Dr. Guillen. For the last few days she has been experiencing progressive exertional dyspnea as well as bilateral lower extremities edema. She did not have any symptoms of chest pain or chest discomfort. No cough. No fever or chills. No dizziness or lightheadedness and no syncope. The chest x-ray showed findings consistent with CHF. The EKG showed sinus rhythm with IVCD. The computed tomography scan of the chest was negative for PE. The BMP was checked and came in to be around 3000. The patient was admitted to the hospital and she was started on Lasix IV. The last echocardiogram showed severe cardiomyopathy. The patient stated that she was compliant with her diet overall. She was also compliant with her medications. No recent history of upper respiratory infection. 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 triple bypass 2007, picc line -since removed. one cardiac stent Past Anesthesia/Blood Transfusion Reactions: Motion Sickness, No Reported Reaction Additional Past Anesthesia/Blood Transfusion Reaction / Comment(s): Pt has received blood without reaction. Date of Last Stent Placement:: 2009 Past Psychological History: Anxiety, Depression Smoking Status: Former smoker Past Alcohol Use History: None Reported Past Drug Use History: None Reported - Past Family History Mother Family Medical History: Cancer Additional Family Medical History / Comment(s): Mother had lung cancer. Father Family Medical History: Liver Disease Additional Family Medical History / Comment(s): Father of cirrhosis of the liver. He was a alcoholic. Medications and Allergies Home Medications Medication Instructions Recorded Confirmed Type Atorvastatin [Lipitor] 40 mg PO HS 03/09/16 01/09/18 History Montelukast Sodium [Singulair] 10 mg PO HS 03/09/16 01/09/18 History Isosorbide Mononitrate ER [Imdur] 15 mg PO DAILY 02/09/17 01/09/18 History Levothyroxine Sodium [Synthroid] 25 mcg PO DAILY 02/09/17 01/09/18 History Carvedilol [Coreg*] 12.5 mg PO BID-W/MEALS #60 tab 06/19/17 01/09/18 Rx DULoxetine HCL [Cymbalta] 30 mg PO DAILY@1200 10/10/17 01/09/18 History Fluticasone Propionate [Flovent 2 puff INHALATION RT-BID 10/10/17 01/09/18 History Hfa 110mcg] HYDROcodone/APAP 10-325MG [[place] 1 tab PO TID PRN 10/10/17 01/09/18 History 10-325] amLODIPine [Norvasc] 5 mg PO DAILY 10/10/17 01/09/18 History Allopurinol [Zyloprim] 100 mg PO DAILY tab 10/13/17 01/09/18 Rx Amiodarone [Cordarone] 200 mg PO DAILY tab 10/13/17 01/09/18 Rx Cholecalciferol [Vitamin D3] 2,000 unit PO DAILY@1200 tab 10/13/17 01/09/18 Rx Furosemide [Lasix] 60 mg PO BID #60 tab 10/13/17 01/09/18 Rx Magnesium Oxide [Mag-Ox] 400 mg PO DAILY #0 tab 10/13/17 01/09/18 Rx Metolazone [Zaroxolyn] 2.5 mg PO DAILY PRN #30 tab 10/13/17 01/09/18 Rx Nitroglycerin Sl Tabs [Nitrostat] 0.4 mg SUBLINGUAL Q5M PRN #25 tab 10/13/17 Rx Spironolactone [Aldactone] 25 mg PO DAILY #30 tab 10/13/17 01/09/18 Rx Albuterol Nebulized [Ventolin 2.5 mg INHALATION RT-QID PRN 01/09/18 01/09/18 History Nebulized] Fluticasone Nasal [place] [Flonase 2 spr EA NOSTRIL DAILY 01/09/18 01/09/18 History Nasal [place]] Insulin Aspart [NovoLOG See Protocol SQ AC-TID 01/09/18 01/09/18 History (formulary)] Insulin Glargine [Lantus] 30 unit SQ HS 01/09/18 01/09/18 History Lactulose 20 gm PO BID 01/09/18 01/09/18 History Losartan Potassium [Cozaar] 25 mg PO BID 01/09/18 01/09/18 History Potassium Chloride [Klor-Con 20] 20 meq PO BID 01/09/18 01/09/18 History Sacubitril/Valsartan [Entresto 24 1 tab PO BID 01/09/18 01/09/18 History mg-26 mg Tablet] rOPINIRole HCL [Requip] 1 mg PO BID 01/09/18 01/09/18 History Allergies Allergy/AdvReac Type Severity Reaction Status Date / Time cephalexin monohydrate Allergy Unknown Rash/Hives Verified 01/09/18 11:44 [From Keflex] yellow dye Allergy Unknown Verified 01/09/18 11:44 Physical Exam Vitals: Vital Signs Temp Pulse Pulse Resp BP Pulse Ox 01/10/18 16:53 78 01/10/18 16:42 76 01/10/18 15:00 97.3 F L 77 14 109/60 94 L 01/10/18 12:17 80 01/10/18 12:05 80 01/10/18 08:54 80 01/10/18 08:37 84 01/10/18 06:36 98.2 F 88 18 111/62 98 01/09/18 23:00 97.8 F 83 18 97/56 97 Intake and Output 01/10/18 01/10/1801/10/18 06:59 14:59 22:59 Intake Total 145.854 354.146 Output Total 2600 1550 Balance -2454.146 -1195.854 Intake: Intake, IV Titration 145.854 354.146 Amount Heparin Sod,Pork in 0.45% 145.854 354.146 NaCl 25,000 unit In 0.45 % NaCl 1 500ml.bag @ 8.16 UNITS/KG/HR 19.98 mls/hr IV .Q24H [facility] Rx#: [id number] Output: Urine 2600 1550 Other: Voiding Method Indwelling Catheter Indwelling Catheter # Bowel Movements 0 Weight 128.5 kg - Constitutional General appearance: no acute distress - Respiratory Respiratory: bilateral: CTA - Cardiovascular Rhythm: regular Heart sounds: normal: S1, S2 Results 01/10/18 09:42 01/10/18 09:42 Cardiac Enzymes 01/09/18 01/10/18 01/10/18 Range/Units 23:27 09:42 15:18 AST 53 H (14-36) U/L Troponin I 0.042 H* 0.026 (0.000-0.034) ng/mL Coagulation 01/10/18 01/10/18 01/10/18 Range/Units 01:16 09:42 15:18 APTT 33.2 H 30.5 H 55.2 H (22.0-30.0) sec CBC 01/10/18 Range/Units 09:42 WBC 7.0 (3.8-10.6) k/uL RBC 4.01 (3.80-5.40) m/uL Hgb 12.6 (11.4-16.0) gm/dL Hct 38.8 (34.0-46.0) % Plt Count 178 (150-450) k/uL Comprehensive Metabolic Panel 01/10/18 Range/Units 09:42 Sodium 138 (137-145) mmol/L Potassium 3.6 (3.5-5.1) mmol/L Chloride 97 L (98-107) mmol/L Carbon Dioxide 25 (22-30) mmol/L BUN 52 H (7-17) mg/dL Creatinine 1.01 (0.52-1.04) mg/dL Glucose 304 H (74-99) mg/dL Calcium 8.8 (8.4-10.2) mg/dL AST 53 H (14-36) U/L ALT 54 H (9-52) U/L Alkaline Phosphatase 79 (38-126) U/L Total Protein 6.7 (6.3-8.2) g/dL Albumin 3.6 (3.5-5.0) g/dL Current Medications Generic Name Dose Route Start Last Admin Trade Name Freq PRN Reason Stop Dose Admin Hydrocodone Bitart/Acetaminophen 1 each 01/09/18 15:44 01/10/18 18:00 [place] 10 PO 1 each TID PRN Administration Pain Albuterol Sulfate 2.5 mg 01/09/18 15:44 Ventolin Nebulized INHALATION RT-QID PRN Shortness Of Breath Albuterol/Ipratropium 3 ml 01/09/18 12:00 01/10/18 16:40 Duoneb 0.5 Mg-3 Mg/3 Ml Soln INHALATION 3 ml RT-QID [facility] Administration Allopurinol 100 mg 01/10/18 09:00 01/10/18 08:19 Zyloprim PO 100 mg DAILY [facility] Administration Amiodarone HCl 200 mg 01/10/18 09:00 01/10/18 08:19 Cordarone PO 200 mg DAILY [facility] Administration Amlodipine Besylate 5 mg 01/10/18 09:00 01/10/18 08:18 Norvasc PO 5 mg DAILY [facility] Administration Aspirin 325 mg 01/09/18 19:00 01/10/18 08:19 Aspirin PO 325 mg DAILY [facility] Administration Atorvastatin Calcium 40 mg 01/09/18 21:00 01/09/18 21:45 Lipitor PO 40 mg HS [facility] Administration Azithromycin 500 mg 01/10/18 09:00 01/10/18 08:18 Zithromax PO 500 mg DAILY [facility] Administration Carvedilol 12.5 mg 01/09/18 17:30 01/10/18 17:29 Coreg PO 12.5 mg BID-W/MEALS [facility] Administration Cholecalciferol 2,000 unit 01/10/18 12:00 01/10/18 11:16 Vitamin D3 PO 2,000 unit DAILY@1200 [facility] Administration Duloxetine HCl 30 mg 01/09/18 17:00 01/10/18 11:16 Cymbalta PO 30 mg DAILY@1200 [facility] Administration Enoxaparin Sodium 40 mg 01/11/18 09:00 Lovenox SQ DAILY [facility] Famotidine 20 mg 01/10/18 21:00 Pepcid PO BID [facility] Fluticasone Propionate 2 spray 01/10/18 09:00 01/10/18 08:19 Flonase Nasal [place] EA NOSTRIL 2 spray DAILY [facility] Administration Furosemide 40 mg 01/09/18 17:45 01/10/18 17:29 Lasix IV 40 mg Q8HR [facility] Administration Sodium Chloride 1,000 mls @ 20 mls/hr 01/09/18 11:30 01/10/18 11:18 Saline 0.9% IV 20 mls/hr .Q24H [facility] Administration Insulin Aspart 0 unit 01/09/18 17:30 01/10/18 17:28 Novolog SQ 100 unit ACHS [facility] Administration Protocol Insulin Detemir 30 unit 01/09/18 21:00 01/09/18 21:44 Levemir SQ 30 unit HS [facility] Administration Isosorbide Mononitrate 15 mg 01/10/18 09:00 01/10/18 08:18 Imdur PO 15 mg DAILY [facility] Administration Lactulose 20 gm 01/09/18 21:00 01/10/18 08:18 Cephulac PO 20 gm BID [facility] Administration Levothyroxine Sodium 25 mcg 01/10/18 06:30 01/10/18 07:03 Synthroid PO 25 mcg 0630 [facility] Administration Magnesium Oxide 400 mg 01/10/18 12:00 01/10/18 11:16 Mag-Ox PO 400 mg 1200 [facility] Administration Methylprednisolone Sodium Succinate 60 mg 01/09/18 12:00 01/10/18 17:29 Solu-Medrol IV 60 mg Q6HR [facility] Administration Metolazone 2.5 mg 01/09/18 17:45 01/10/18 08:18 Zaroxolyn PO 2.5 mg DAILY [facility] Administration Montelukast Sodium 10 mg 01/09/18 21:00 01/09/18 21:45 Singulair PO 10 mg HS [facility] Administration Nitroglycerin 0.4 mg 01/09/18 15:44 Nitrostat SUBLINGUAL Q5M PRN Chest Pain Potassium Chloride 20 meq 01/09/18 21:00 01/10/18 08:18 K-Dur 20 PO 20 meq BID [facility] Administration Ropinirole HCl 1 mg 01/09/18 21:00 01/10/18 08:18 Requip PO 1 mg BID [facility] Administration Sacubitril/Valsartan 1 each 01/09/18 21:00 01/10/18 08:18 Entresto 24 Mg-26 Mg Tablet PO 1 each BID [facility] Administration Spironolactone 25 mg 01/10/18 09:00 01/10/18 08:18 Aldactone PO 25 mg DAILY [facility] Administration Intake and Output 01/10/18 01/10/18 01/10/18 06:59 14:59 22:59 Intake Total 145.854 354.146 Output Total 2600 1550 Balance -2454.146 -1195.854 Intake: Intake, IV Titration 145.854 354.146 Amount Heparin Sod,Pork in 0.45% 145.854 354.146 NaCl 25,000 unit In 0.45 % NaCl 1 500ml.bag @ 8.16 UNITS/KG/HR 19.98 mls/hr IV .Q24H [facility] Rx#: [id number] Output: Urine 2600 1550 Other: Voiding Method Indwelling Catheter Indwelling Catheter # Bowel Movements 0 Weight 128.5 kg 01/10/18 09:42 01/10/18 09:42 Assessment and Plan Assessment: Assessment #1 acute on chronic respiratory failure secondary to CHF as well as COPD #2 CHF exacerbation secondary to systolic dysfunction #3 chronic respiratory failure #4 morbid obesity #5 multiple comorbid conditions Plan #1 continue the current dose of Lasix IV #2 continue monitor the kidney function and electrolytes #3 the patient does need to be evaluated for AICD probably as an outpatient #4 continue monitor the weight #5 follow-up with the patient. Thank you for allowing us participate in her care and we will continue following up with her
[2018-01-10] MEDS: MONTELUKAST 10 MG TAB PO SCH (20:35)
[2018-01-10] MEDS: ATORVASTATIN 40 MG TAB PO SCH (20:35)
[2018-01-10] MEDS: FAMOTIDINE 20 MG TAB PO SCH (20:36)
[2018-01-10 20:41] LABS: Glucose,Whole Blood 351 mg/dL (75-99)
[2018-01-10 20:41] LABS: Glucose,Whole Blood 538 mg/dL (75-99)
[2018-01-10] MEDS: INSULIN DETEMIR 100 UNIT/ML 10 ML VIAL SQ SCH (21:48)
[2018-01-11] MEDS: HYDROcodone/APAP 10-325MG 1 EACH TAB PO PRN ×3 (06:48→23:22)
[2018-01-11] MEDS: methylPREDNISolone SOD SUCCI 125 MG/2 ML VIAL IV SCH (06:48)
[2018-01-11] MEDS: LEVOTHYROXINE 25 MCG TAB PO SCH (06:50)
[2018-01-11] MEDS: ALLOPURINOL 100 MG TAB PO SCH (07:33)
[2018-01-11] MEDS: FAMOTIDINE 20 MG TAB PO SCH (07:33)
[2018-01-11] MEDS: AZITHROMYCIN 500 MG TAB PO SCH (07:33)
[2018-01-11] MEDS: FUROSEMIDE 10 MG/ML 4 ML VIAL IV SCH ×3 (07:33→23:22)
[2018-01-11] MEDS: MAGNESIUM OXIDE 400 MG TAB PO SCH (07:33)
[2018-01-11] MEDS: ISOSORBIDE MONONITRATE ER 15 MG TAB PO SCH (07:33)
[2018-01-11] MEDS: CHOLECALCIFEROL 1,000 UNIT TAB PO SCH (07:33)
[2018-01-11] MEDS: LACTULOSE 20 GM/30 ML CUP PO SCH ×2 (07:34→19:58)
[2018-01-11] MEDS: SPIRONOLACTONE 25 MG TAB PO SCH (07:34)
[2018-01-11] MEDS: CARVEDILOL 12.5 MG TAB PO SCH ×2 (07:34→17:49)
[2018-01-11] MEDS: POTASSIUM CHLORIDE ER 20 MEQ TAB.ER PO SCH ×2 (07:34→19:58)
[2018-01-11] MEDS: SACUBITRIL/VALSARTAN 24 MG-26 MG TABLET PO SCH ×2 (07:34→19:58)
[2018-01-11] MEDS: amLODIPine 5 MG TAB PO SCH (07:34)
[2018-01-11] MEDS: AMIODARONE 200 MG TAB PO SCH ×2 (07:34→19:56)
[2018-01-11] MEDS: ENOXAPARIN 40 MG/0.4 ML SYRINGE SQ SCH (07:34)
[2018-01-11] MEDS: METOLAZONE 2.5 MG TAB PO SCH (07:35)
[2018-01-11] MEDS: FLUTICASONE 50MCG/SPRAY NASAL 16GM EA NOSTRIL SCH (07:35)
[2018-01-11] MEDS: ASPIRIN 325 MG TAB PO SCH (07:37)
[2018-01-11 07:45] LABS: Albumin 3.8 g/dL (3.5-5.0); Potassium 3.3 mmol/L (3.5-5.1); Total Bilirubin 0.5 mg/dL (0.2-1.3); Total Protein 6.9 g/dL (6.3-8.2)
[2018-01-11] MEDS: INSULIN ASPART 100 UNIT/ML 1 ML 10 ML VIAL SQ SCH ×6 (07:49→21:17)
[2018-01-11 08:08] LABS: Basophils % (A) 0 %; Eosinophils % (A) 0 %; HCT 41.7 % (34.0-46.0); HGB 13.1 gm/dL (11.4-16.0); Hypochromasia Slight; Lymphocytes # (A) 0.4 k/uL (1.0-4.8); Lymphocytes % (A) 4 %; MCH 29.8 pg (25.0-35.0); MCHC 31.4 g/dL (31.0-37.0); MCV 94.8 fL (80.0-100.0); Mean Platelet Volume 7.9; Monocytes # (A) 0.4 k/uL (0-1.0); Monocytes % (A) 4 %; Neutrophils # (A) 9.4 k/uL (1.3-7.7); Neutrophils % (A) 91 %; Platelet Count 200 k/uL (150-450); RDW 15.1 % (11.5-15.5); WBC 10.3 k/uL (3.8-10.6)
[2018-01-11 08:23] LABS: Glucose,Whole Blood 315 mg/dL (75-99)
[2018-01-11] MEDS: IPRATROPIUM-ALBUTEROL 3 ML NEB INHALATION SCH ×4 (08:23→19:01)
[2018-01-11] MEDS: DULoxetine HCL 30 MG CAPSULE.DR PO SCH (12:48)
[2018-01-11] MEDS: SODIUM CHLORIDE 0.9% 1,000 ML IV SCH (12:50)
[2018-01-11 12:59] LABS: Glucose,Whole Blood 275 mg/dL (75-99)
[2018-01-11] MEDS: ALPRAZolam 0.25 MG TAB PO PRN (13:07)
--- NOTE | 2018-01-11 13:53 | P.PN ---
Subjective This is a 66 years old female patient of Dr. Miles Scott cardiology Dr. Birdie To pulmonary with past medical history of sytolic heart failure last reported ejection fraction 20% last June 2017, advanced COPD, history of colon cancer with ruptured bowels for which she was transferred to [facility] ended up having partial colectomy and colostomy which was reversed later. Patient was found to have an intra-abdominal abscess on computed tomography scan which was considered to be a sterile abscess, followed by Tino Hayward and Dr. Guillen. patient is chronically on on oxygen at 2 L nasal cannula , patient does have a nebulizer at home she also does have a CPAP that does not work properly, and hasn't used it for the past 2 months . Patient was seen in the emergency room secondary to worsening shortness of breath, he was seen in emergency room 3 days ago and was discharged to home, , her last prednisone was over 2 weeks ago when she saw Dr. Birdie To, she was given Lasix in the emergency room and was discharged to home. Patient denies any worsening of edema she does have chronic mild lower edema, clear cough, no fever some have sweats and chills, no palpitations no chest pain. Patient did not bring her home meds today and they were questioning and entresto use against losartan. In the emergency room, creatinine was 1.07 from a previous of 0.095, AST and ALT are mildly elevated arm 76/53, YARN REWINDER proBNP of 3010, O2 sats at 92% 2 L nasal cannula, CTA of the chest performed January 06 negative for pulmonary emboli. Patient admitted for COPD moderate persistent asthma exacerbation along with mixed systolic CHF exacerbation. Echocardiogram requested, IV Solu-Medrol, IV Lasix, cardiology and pulmonary to see on consultation 01/10: Patient has no new complaints today, still with this in exertion, otherwise no conversant dyspnea, echo pending, cardiology to see might need aicd based on June EF of under 20%, currently on entresto troponin was slightly elevated however plateaued, doubt NSTEMI, heparin iv to be discontinued 01/11: Patient evaluated today, denies any worsening shortness of breath. She was encouraged to get out of bed and ambulate in the hallways today. Physical and occupational therapy was ordered. She was consulted by cardiology who plans on possible ACID as an outpatient. She continues on IV lasix 40 mg Q8 hours. Solumedrol decreased to 40mg Q8 hours. Vital signs are stable, she denies any chest pain or discomfort. Will plan to discontinue Franklin catheter tomorrow morning. Objective - Vital Signs Vital signs: Vital Signs Temp 96.1 F L 01/11/18 07:00 Pulse 84 01/11/18 08:23 Resp 16 01/11/18 08:15 BP 122/68 01/11/18 07:00 Pulse Ox 96 01/11/18 07:00 Intake & Output 01/10/18 01/11/18 01/11/18 18:59 06:59 18:59 Intake Total 354.146 Output Total 1550 3000 1050 Balance -1195.854 -3000 -1050 Weight 114.5 kg Intake: Intake, IV Titration 354.146 Amount Heparin Sod,Pork in 0.45% 354.146 NaCl 25,000 unit In 0.45 % NaCl 1 500ml.bag @ 8.16 UNITS/KG/HR 19.98 mls/hr IV .Q24H [facility] Rx#: [id number] Output: Urine 1550 3000 1050 Other: Voiding Method Indwelling Catheter Indwelling Catheter Indwelling Catheter # Bowel Movements 0 1 - Exam - Constitutional General appearance: Present: cooperative, no acute distress - EENT Eyes: Present: anicteric sclerae, EOMI, PERRLA, dentition normal, normal appearance ENT: Present: NA/AT, normal oropharynx - Neck Neck: Present: normal ROM - Respiratory Respiratory: bilateral: CTA, diminished, negative: dullness, rales, rhonchi, wheezing - Cardiovascular Rhythm: regular Heart sounds: normal: S1, S2 Abnormal Heart Sounds: Absent: systolic murmur, diastolic murmur, rub, S3 Gallop , S4 Gallop, click, other - Gastrointestinal General gastrointestinal: Present: normal bowel sounds, soft - Integumentary Integumentary: Present: normal, normal turgor - Neurologic Neurologic: Present: CNII-XII intact - Musculoskeletal Musculoskeletal: Present: gait normal, strength equal bilaterally - Psychiatric Psychiatric: Present: A&O x's 3, appropriate affect, intact judgment & insight - Labs CBC & Chem 7: 01/11/18 07:51 01/11/18 07:10 Labs: Abnormal Lab Results - Last 24 Hours (Table) 01/10/18 01/10/18 01/10/18 Range/Units 11:42 15:18 17:24 Neutrophils # (1.3-7.7) k/uL Lymphocytes # (1.0-4.8) k/uL APTT 55.2 H (22.0-30.0) sec Potassium (3.5-5.1) mmol/L Chloride (98-107) mmol/L Carbon Dioxide (22-30) mmol/L BUN (7-17) mg/dL Creatinine (0.52-1.04) mg/dL Glucose (74-99) mg/dL POC Glucose (mg/dL) 327 H 251 H (75-99) mg/dL 01/10/18 01/10/18 01/11/18 Range/Units 20:37 20:39 07:10 Neutrophils # (1.3-7.7) k/uL Lymphocytes # (1.0-4.8) k/uL APTT (22.0-30.0) sec Potassium 3.3 L (3.5-5.1) mmol/L Chloride 93 L (98-107) mmol/L Carbon Dioxide 31 H (22-30) mmol/L BUN 61 H (7-17) mg/dL Creatinine 1.06 H (0.52-1.04) mg/dL Glucose 310 H (74-99) mg/dL POC Glucose (mg/dL) 538 H 351 H (75-99) mg/dL 01/11/18 01/11/18 Range/Units 07:22 07:51 Neutrophils # 9.4 H (1.3-7.7) k/uL Lymphocytes # 0.4 L (1.0-4.8) k/uL APTT (22.0-30.0) sec Potassium (3.5-5.1) mmol/L Chloride (98-107) mmol/L Carbon Dioxide (22-30) mmol/L BUN (7-17) mg/dL Creatinine (0.52-1.04) mg/dL Glucose (74-99) mg/dL POC Glucose (mg/dL) 315 H (75-99) mg/dL Assessment and Plan Plan: 1. Acute on chronic hypoxemic respiratory failure due to acute systolic heart failure with bilateral perfusion as well as COPD exacerbation with pulmonary hypertension moderate persistent asthma exacerbation. Continue Solu-Medrol 40 mg IV push every 8 hours, continue DuoNeb 3 mL nebulization 4 times every day, continue oxygen support, continue the patient on Lasix 40 mg 8h day as well as metolazone 2.5 mg orally once every day, discontinue IV fluid, pulmonary consultation as well as cardiology consultation. 2. Coronary artery disease status post PCI. Continue patient on aspirin 325 mg orally once every day, Imdur 30 mg orally once every day, Lipitor 40 mg orally once every day. 3. Chronic systolic heart failure with pulmonary hypertension. Continue Lasix 40 mg orally once every day as well as metolazone 2.5 mg orally once every day, continue on entresto. 4. Obstructive sleep apnea on CPAP which it is out of commission for the past 2 months unable to tolerate facemask, patient requires nasal pillows. Dr. Birdie To pulmonary for CPAP machine Patient may need to have a BiPAP at home. 5. Mildly Elevated troponins, doubt NSTEMI most likely secondary to cardiac demand mismatch, heparin IV discontinued 5. Restless leg syndrome. Continue Requip. 6. Hypertension, hypertensive cardiovascular disease. Continue Norvasc 5 mg orally once every day, Coreg 12.5 mg orally twice every day, losartan 50 mg orally once every day. 7. Diabetes mellitus type 2 with steroid-induced hyperglycemia. Start the patient on sliding scale insulin. 8. Gout. Continue allopurinol 100 mg orally once every day. 9. Gastroesophageal reflux disease and gastrointestinal prophylaxis. Continue Protonix 40 mg daily. 10. DVT prophylaxis. Heparin 5000 units subcutaneously every 8 hours. 11. Gout. Continue allopurinol 100 mg orally once every day. 12. Depression. Continue Cymbalta 60 mg orally once every day. 13. Admit to inpatient. Estimate length of stay 2 midnights. 14. Full code. The above impression and plan of care have been discussed and directed by signing physician. Lauren Morillo nurse practitioner acting as scribe for signing physician.
[2018-01-11 15:19] LABS: Hemoglobin A1C 7.5 % (4.0-6.0)
--- NOTE | 2018-01-11 15:23 | PN ---
PROGRESS NOTE DATE OF SERVICE: 01/11/2018. She has been hemodynamically stable. She is less short of breath. PHYSICAL EXAMINATION: Respiratory rate is 16, pulse rate of 84, temperature 96.1, blood pressure 122/68, O2 saturation on 2 L by nasal cannula is 96%. HEENT reveals no new changes. Chest is clear. Cardiovascular system reveals a S1, S2. Abdomen is soft. There is trace to 1+ pedal edema. IMPRESSION: 1. Acute on chronic respiratory failure secondary to congestive heart failure with acute exacerbation. 2. Asthma with acute exacerbation. 3. Obstructive sleep apnea. 4. Cor pulmonale. 5. Previous history of colon cancer. 6. Cardiomyopathy for which she is being considered for AICD. At this point in time continue steroids, bronchodilators, keep her negative fluid balance, have her seen by Oncology regarding history of cancer. It is unclear what stage of cancer is at this time. She previously had lymph nodes. Depending on how she does we should make further changes to her care. She was counseled regarding her conditions. MMODL / IJN: [id number] /
[2018-01-11] MEDS: methylPREDNISolone SOD SUCCI 40 MG/ML 1 ML VIAL IV SCH ×2 (15:29→23:22)
[2018-01-11 17:27] LABS: Glucose,Whole Blood 279 mg/dL (75-99)
--- NOTE | 2018-01-11 18:40 | ECHOF ---
Referral Reason:chf MEASUREMENTS -------- HEIGHT: 162.6 cm WEIGHT: 114.3 kg BP: 141/65 IVSd: 1.6 cm (0.6 - 1.1) LVIDd: 5.1 cm (3.9 - 5.3) LVPWd: 1.5 cm (0.6 - 1.1) IVSs: 1.7 cm LVIDs: 4.8 cm LVPWs: 1.5 cm Ao Diam: 3.3 cm (2.0 - 3.7) AV Cusp: 2.0 cm (1.5 - 2.6) LA Diam: 4.8 cm (2.7 - 3.8) MV EXCURSION: 18.221 mm (> 18.000) MV EF SLOPE: 81 mm/s (70 - 150) EPSS: 3.1 cm MV E Darvin: 0.77 m/s MV DecT: 171 ms MV A Darvin: 0.56 m/s MV E/A Ratio: 1.37 RAP: 5.00 mmHg RVSP: 9.71 mmHg FINDINGS -------- Sinus rhythm. This was a technically difficult study with suboptimal views. The left ventricular size is normal. There is severe concentric left ventricular hypertrophy. The re is severe global hypokinesis of LV . Overall left ventricular systolic function is severely impa ired with, an EF between 20 - 25 %. The right ventricle is normal in size and function. The left atrium is moderately dilated. The right atrium is normal in size. Lumason used The aortic valve is trileaflet, and appears structurally normal. No aortic stenosis or regurgitation. The mitral valve leaflets are mildly thickened. There is trace mitral regurgitation. Trace tricuspid regurgitation present. The right ventricular systolic pressure, as measured by Dopp ler, is 9.71mmHg. Pulmonic valve appears structurally normal. The aortic root size is normal. The pericardium is normal. CONCLUSIONS -------- 1. Sinus rhythm. 2. This was a technically difficult study with suboptimal views. 3. The left ventricular size is normal. 4. There is severe concentric left ventricular hypertrophy. 5. There is severe global hypokinesis of LV . 6. Overall left ventricular systolic function is severely impaired with, an EF between 20 - 25 %. 7. The right ventricle is normal in size and function. 8. The left atrium is moderately dilated. 9. The right atrium is normal in size. 10. Lumason used 11. The aortic valve is trileaflet, and appears structurally normal. No aortic stenosis or regurgitat ion. 12. The mitral valve leaflets are mildly thickened. 13. There is trace mitral regurgitation. 14. Trace tricuspid regurgitation present. 15. The right ventricular systolic pressure, as measured by Doppler, is 9.71mmHg. 16. Pulmonic valve appears structurally normal. 17. The aortic root size is normal. 18. The pericardium is normal. GROCERY SACKER: Mary Stoddard RDCS
[2018-01-11] MEDS ORDERED: CARVEDILOL 12.5 MG TAB PO STA (19:02)
[2018-01-11] MEDS: BUDESONIDE 0.5 MG/2 ML NEBU INHALATION SCH (19:02)
[2018-01-11] MEDS: MONTELUKAST 10 MG TAB PO SCH (19:57)
[2018-01-11] MEDS: ATORVASTATIN 40 MG TAB PO SCH (19:58)
[2018-01-11 20:51] LABS: Glucose,Whole Blood 321 mg/dL (75-99)
[2018-01-11] MEDS: INSULIN DETEMIR 100 UNIT/ML 10 ML VIAL SQ SCH (21:16)
[2018-01-11] MEDS ORDERED: DILTIAZEM ORAL 30 MG TAB PO STA (21:31)
[2018-01-11] MEDS ORDERED: Magnesium Replacement Protocol 1 EACH MISC MISCELLANE PRN (22:14)
[2018-01-12 04:38] LABS: Basophils % (A) 0 %; Eosinophils % (A) 0 %; HCT 43.4 % (34.0-46.0); HGB 13.7 gm/dL (11.4-16.0); Lymphocytes # (A) 0.4 k/uL (1.0-4.8); Lymphocytes % (A) 3 %; MCH 29.7 pg (25.0-35.0); MCHC 31.5 g/dL (31.0-37.0); MCV 94.1 fL (80.0-100.0); Mean Platelet Volume 8.2; Monocytes # (A) 0.7 k/uL (0-1.0); Monocytes % (A) 4 %; Neutrophils # (A) 15.5 k/uL (1.3-7.7); Neutrophils % (A) 93 %; Platelet Count 188 k/uL (150-450); RBC 4.61 m/uL (3.80-5.40); WBC 16.8 k/uL (3.8-10.6)
[2018-01-12] MEDS: LEVOTHYROXINE 25 MCG TAB PO SCH (06:15)
[2018-01-12 07:22] LABS: Glucose,Whole Blood 300 mg/dL (75-99)
[2018-01-12] MEDS: POTASSIUM CHLORIDE ER 20 MEQ TAB.ER PO SCH ×2 (07:39→20:39)
[2018-01-12] MEDS: AZITHROMYCIN 500 MG TAB PO SCH (07:39)
[2018-01-12] MEDS: SPIRONOLACTONE 25 MG TAB PO SCH (07:40)
[2018-01-12] MEDS: CHOLECALCIFEROL 1,000 UNIT TAB PO SCH (07:40)
[2018-01-12] MEDS: ALLOPURINOL 100 MG TAB PO SCH (07:40)
[2018-01-12] MEDS: FAMOTIDINE 20 MG TAB PO SCH (07:40)
[2018-01-12] MEDS: METOLAZONE 2.5 MG TAB PO SCH (07:40)
[2018-01-12] MEDS: ISOSORBIDE MONONITRATE ER 15 MG TAB PO SCH (07:40)
[2018-01-12] MEDS: HYDROcodone/APAP 10-325MG 1 EACH TAB PO PRN ×3 (07:41→22:19)
[2018-01-12] MEDS: SACUBITRIL/VALSARTAN 24 MG-26 MG TABLET PO SCH ×2 (07:41→20:39)
[2018-01-12] MEDS: AMIODARONE 200 MG TAB PO SCH ×2 (07:41→20:39)
[2018-01-12] MEDS: CARVEDILOL 12.5 MG TAB PO SCH ×2 (07:41→18:27)
[2018-01-12] MEDS: ASPIRIN 325 MG TAB PO SCH (07:41)
[2018-01-12] MEDS: MAGNESIUM OXIDE 400 MG TAB PO SCH (07:41)
[2018-01-12] MEDS: INSULIN ASPART 100 UNIT/ML 1 ML 10 ML VIAL SQ SCH ×7 (07:42→22:15)
[2018-01-12] MEDS: FUROSEMIDE 10 MG/ML 4 ML VIAL IV SCH ×3 (07:42→23:42)
[2018-01-12] MEDS: methylPREDNISolone SOD SUCCI 40 MG/ML 1 ML VIAL IV SCH ×3 (07:42→23:42)
[2018-01-12] MEDS: ENOXAPARIN 40 MG/0.4 ML SYRINGE SQ SCH (07:42)
[2018-01-12] MEDS: FLUTICASONE 50MCG/SPRAY NASAL 16GM EA NOSTRIL SCH (07:43)
[2018-01-12] MEDS: LACTULOSE 20 GM/30 ML CUP PO SCH ×3 (07:44→21:18)
[2018-01-12] MEDS: IPRATROPIUM-ALBUTEROL 3 ML NEB INHALATION SCH ×4 (08:10→20:49)
[2018-01-12] MEDS: BUDESONIDE 0.5 MG/2 ML NEBU INHALATION SCH ×2 (08:10→20:49)
--- NOTE | 2018-01-12 11:27 | PN ---
PROGRESS NOTE She was seen on 01/12/2018. She has been hemodynamically stable. She is less short of breath. PHYSICAL EXAMINATION: On physical examination, respiratory rate is 18, pulse rate 84, temperature 97.8, blood pressure 170/53, O2 saturation on 2 L by nasal cannula is 97%. HEENT reveals no new changes. Chest reveals decreased breath sounds. No wheeze. Cardiovascular system reveals an S1, S2. Abdomen is soft. There is 1+ pedal edema. White count of 16.8, hemoglobin of 13.7. Glucose of 300. IMPRESSION AT THIS TIME: 1. Acute on chronic respiratory failure with congestive heart failure exacerbation. 2. Asthma with acute exacerbation. 3. Obstructive sleep apnea. 4. Cor pulmonale. 5. Cardiomyopathy. 6. Colon cancer, stage of which is unclear as she did have lymph node involvement at her resectional surgery. At this point in time, would continue her on bronchodilators, aerosolized steroids, GI and DVT prophylaxis, diuretics, leukotriene receptor antagonists and IV steroids. Have the patient further evaluated by Surgery and Oncology per her request. As regards to obstructive sleep apnea, the patient is unable to wear her CPAP only because of the lack of a mask. Otherwise, she has been compliant and medically requires this to help treat and prevent cor pulmonale as well as cardiomyopathy. MMODL / IJN: [id number] /
[2018-01-12 12:01] LABS: Glucose,Whole Blood 287 mg/dL (75-99)
[2018-01-12] MEDS: DULoxetine HCL 30 MG CAPSULE.DR PO SCH (12:09)
[2018-01-12] MEDS: SODIUM CHLORIDE 0.9% 1,000 ML IV SCH (12:14)
--- NOTE | 2018-01-12 13:20 | P.PN ---
Subjective This is a 66 years old female patient of Dr. Miles Scott cardiology Dr. Birdie To pulmonary with past medical history of sytolic heart failure last reported ejection fraction 20% last June 2017, advanced COPD, history of colon cancer with ruptured bowels for which she was transferred to [facility] ended up having partial colectomy and colostomy which was reversed later. Patient was found to have an intra-abdominal abscess on computed tomography scan which was considered to be a sterile abscess, followed by Tino Hayward and Dr. Guillen. patient is chronically on on oxygen at 2 L nasal cannula , patient does have a nebulizer at home she also does have a CPAP that does not work properly, and hasn't used it for the past 2 months . Patient was seen in the emergency room secondary to worsening shortness of breath, he was seen in emergency room 3 days ago and was discharged to home, , her last prednisone was over 2 weeks ago when she saw Dr. Birdie To, she was given Lasix in the emergency room and was discharged to home. Patient denies any worsening of edema she does have chronic mild lower edema, clear cough, no fever some have sweats and chills, no palpitations no chest pain. Patient did not bring her home meds today and they were questioning and entresto use against losartan. In the emergency room, creatinine was 1.07 from a previous of 0.095, AST and ALT are mildly elevated arm 76/53, [employer] proBNP of 3010, O2 sats at 92% 2 L nasal cannula, CTA of the chest performed January 06 negative for pulmonary emboli. Patient admitted for COPD moderate persistent asthma exacerbation along with mixed systolic CHF exacerbation. Echocardiogram requested, IV Solu-Medrol, IV Lasix, cardiology and pulmonary to see on consultation 01/10: Patient has no new complaints today, still with this in exertion, otherwise no conversant dyspnea, echo pending, cardiology to see might need aicd based on June EF of under 20%, currently on entresto troponin was slightly elevated however plateaued, doubt NSTEMI, heparin iv to be discontinued 01/11: Patient evaluated today, denies any worsening shortness of breath. She was encouraged to get out of bed and ambulate in the hallways today. Physical and occupational therapy was ordered. She was consulted by cardiology who plans on possible ACID as an outpatient. She continues on IV lasix 40 mg Q8 hours. Solumedrol decreased to 40mg Q8 hours. Vital signs are stable, she denies any chest pain or discomfort. Will plan to discontinue Franklin catheter tomorrow morning. 01/12: Patient sitting up in bedside chair. She was noted go into atrial fibrillation last night with a rate in the 130's. Medications were adjusted, heart rate is now controlled and in the 80's. She reports she did get up and ambulate this morning and is tolerating short distances well. She denies any chest pain, palpitations, dizziness, or increased shortness of breath. Glucose still elevated, Novolog was increased yesterday to 6 units pre meal and sliding scale, will increase Levimir to 40 units at HS. Franklin catheter will be discontinued this morning. Objective - Vital Signs Vital signs: Vital Signs Temp 97.8 F 01/12/18 06:00 Pulse 86 01/12/18 08:25 Resp 18 01/12/18 08:00 BP 170/53 01/12/18 06:00 Pulse Ox 95 01/12/18 08:13 Intake & Output 01/11/18 01/12/18 01/12/18 18:59 06:59 18:59 Output Total 1050 1825 Balance -1050 -1825 Weight 122 kg Output: Urine 1050 1825 Other: Voiding Method Indwelling Catheter Indwelling Catheter Indwelling Catheter # Voids 3 - Exam - Constitutional General appearance: Present: cooperative, no acute distress - EENT Eyes: Present: anicteric sclerae, EOMI, PERRLA, dentition normal, normal appearance ENT: Present: NA/AT, normal oropharynx - Neck Neck: Present: normal ROM - Respiratory Respiratory: bilateral: CTA, diminished, negative: dullness, rales, rhonchi, wheezing - Cardiovascular Rhythm: regular Heart sounds: normal: S1, S2 Abnormal Heart Sounds: Absent: systolic murmur, diastolic murmur, rub, S3 Gallop , S4 Gallop, click, other - Gastrointestinal General gastrointestinal: Present: normal bowel sounds, soft - Integumentary Integumentary: Present: normal, normal turgor - Neurologic Neurologic: Present: CNII-XII intact - Musculoskeletal Musculoskeletal: Present: gait normal, strength equal bilaterally - Psychiatric Psychiatric: Present: A&O x's 3, appropriate affect, intact judgment & insight - Labs CBC & Chem 7: 01/12/18 04:07 01/11/18 07:10 Labs: Abnormal Lab Results - Last 24 Hours (Table) 01/10/18 01/11/18 01/11/18 Range/Units 09:42 12:26 17:09 WBC (3.8-10.6) k/uL Neutrophils # (1.3-7.7) k/uL Lymphocytes # (1.0-4.8) k/uL POC Glucose (mg/dL) 275 H 279 H (75-99) mg/dL Hemoglobin A1c 7.5 H (4.0-6.0) % 01/11/18 01/12/18 01/12/18 Range/Units 20:49 04:07 06:58 WBC 16.8 H (3.8-10.6) k/uL Neutrophils # 15.5 H (1.3-7.7) k/uL Lymphocytes # 0.4 L (1.0-4.8) k/uL POC Glucose (mg/dL) 321 H 300 H (75-99) mg/dL Hemoglobin A1c (4.0-6.0) % Assessment and Plan Plan: 1. Acute on chronic hypoxemic respiratory failure due to acute systolic heart failure with bilateral perfusion as well as COPD exacerbation with pulmonary hypertension moderate persistent asthma exacerbation. Continue Solu-Medrol 40 mg IV push every 8 hours, continue DuoNeb 3 mL nebulization 4 times every day, continue oxygen support, continue the patient on Lasix 40 mg 8h day as well as metolazone 2.5 mg orally once every day, discontinue IV fluid, pulmonary consultation as well as cardiology consultation. 2. Coronary artery disease status post PCI. Continue patient on aspirin 325 mg orally once every day, Imdur 30 mg orally once every day, Lipitor 40 mg orally once every day. 3. Chronic systolic heart failure with pulmonary hypertension. Continue Lasix 40 mg orally once every day as well as metolazone 2.5 mg orally once every day, continue on entresto. 4. Obstructive sleep apnea on CPAP which it is out of commission for the past 2 months unable to tolerate facemask, patient requires nasal pillows. S/P [facility] pulmonary for CPAP machine Patient may need to have a BiPAP at home. 5. Mildly Elevated troponins, doubt NSTEMI most likely secondary to cardiac demand mismatch, heparin IV discontinued 5. Restless leg syndrome. Continue Requip. 6. Hypertension, hypertensive cardiovascular disease. Continue Norvasc 5 mg orally once every day, Coreg 12.5 mg orally twice every day, losartan 50 mg orally once every day. 7. Diabetes mellitus type 2 with steroid-induced hyperglycemia. Start the patient on sliding scale insulin. 8. Gout. Continue allopurinol 100 mg orally once every day. 9. Gastroesophageal reflux disease and gastrointestinal prophylaxis. Continue Protonix 40 mg daily. 10. DVT prophylaxis. Heparin 5000 units subcutaneously every 8 hours. 11. Gout. Continue allopurinol 100 mg orally once every day. 12. Depression. Continue Cymbalta 60 mg orally once every day. 13. Admit to inpatient. Estimate length of stay 2 midnights. 14. Full code. The above impression and plan of care have been discussed and directed by signing physician. Lauren Morillo nurse practitioner acting as scribe for signing physician.
[2018-01-12] MEDS: ALPRAZolam 0.25 MG TAB PO PRN (14:16)
--- NOTE | 2018-01-12 15:53 | P.GSCN ---
History of Present Illness Consult date: 01/12/18 History of present illness: 67-year-old female presents to the hospital with what appears to be respiratory failure. She has a very complicated surgical history. She is also very poor historian. She is noted to have a perforated bowel that was operated on at [facility]. She was also found to have colon cancer and had a resection of her colon at that time as well. 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 She states that she was seen by an oncologist and states she was not qualify for chemotherapy at the time. She states that her physician at [facility] suggested a colonoscopy to follow her history of colon cancer, that she has not had. Currently, she states she is having normal bowel movements without any blood in her stool. She is taking laxatives. She complains of some mild nausea. She is tolerating her diet. She is currently being managed by the pulmonary and cardiology team due to a recent history of worsening shortness of breath. She is also scheduled for an AICD placement later this week. Review of Systems All systems: negative Past Medical History Past Medical History: Asthma, Cancer, Heart Failure, COPD, Diabetes Mellitus, Hearing Disorder / Deafness, Hyperlipidemia, Hypertension, Osteoarthritis (OA), Pneumonia, Renal Disease, Sleep Apnea/CPAP/BIPAP, Vascular Disorder Additional Past Medical History / Comment(s): ANEMIA,(previously charted pulmonary hypertension, combined systolic and diastolic failure, last ejection fraction 35% August 2016), diabetic neuropathy, gout, chronic pain, restless leg syndrome, uses CPAP, colon Ca, constipation, History of Any Multi-Drug Resistant Organisms: None Reported Past Surgical History: Bladder Surgery, Cholecystectomy, Coronary Bypass/CABG, Heart Catheterization, Heart Catheterization With Stent, Hernia Repair, Hysterectomy, Joint Replacement, Orthopedic Surgery Additional Past Surgical History / Comment(s): RUPTURED BOWEL-HAD COLOSTOMY since reversed,lX2 RT KNEE REPLACEMENTS, [place] cataract surg. triple bypass 2007, picc line -since removed. one cardiac stent Past Anesthesia/Blood Transfusion Reactions: Motion Sickness, No Reported Reaction Additional Past Anesthesia/Blood Transfusion Reaction / Comm: Pt has received blood without reaction. Date of Last Stent Placement:: 2009 Past Psychological History: Anxiety, Depression Smoking Status: Former smoker Past Alcohol Use History: None Reported Past Drug Use History: None Reported - Past Family History Mother Family Medical History: Cancer Additional Family Medical History / Comment(s): Mother had lung cancer. Father Family Medical History: Liver Disease Additional Family Medical History / Comment(s): Father of cirrhosis of the liver. He was a alcoholic. Medications and Allergies Home Medications Medication Instructions Recorded Confirmed Type Atorvastatin [Lipitor] 40 mg PO HS 03/09/16 01/09/18 History Montelukast Sodium [Singulair] 10 mg PO HS 03/09/16 01/09/18 History Isosorbide Mononitrate ER [Imdur] 15 mg PO DAILY 02/09/17 01/09/18 History Levothyroxine Sodium [Synthroid] 25 mcg PO DAILY 02/09/17 01/09/18 History Carvedilol [Coreg*] 12.5 mg PO BID-W/MEALS #60 tab 06/19/17 01/09/18 Rx DULoxetine HCL [Cymbalta] 30 mg PO DAILY@1200 10/10/17 01/09/18 History Fluticasone Propionate [Flovent 2 puff INHALATION RT-BID 10/10/17 01/09/18 History Hfa 110mcg] HYDROcodone/APAP 10-325MG [[place] 1 tab PO TID PRN 10/10/17 01/09/18 History 10-325] amLODIPine [Norvasc] 5 mg PO DAILY 10/10/17 01/09/18 History Allopurinol [Zyloprim] 100 mg PO DAILY tab 10/13/17 01/09/18 Rx Amiodarone [Cordarone] 200 mg PO DAILY tab 10/13/17 01/09/18 Rx Cholecalciferol [Vitamin D3] 2,000 unit PO DAILY@1200 tab 10/13/17 01/09/18 Rx Furosemide [Lasix] 60 mg PO BID #60 tab 10/13/17 01/09/18 Rx Magnesium Oxide [Mag-Ox] 400 mg PO DAILY #0 tab 10/13/17 01/09/18 Rx Metolazone [Zaroxolyn] 2.5 mg PO DAILY PRN #30 tab 10/13/17 01/09/18 Rx Nitroglycerin Sl Tabs [Nitrostat] 0.4 mg SUBLINGUAL Q5M PRN #25 tab 10/13/17 Rx Spironolactone [Aldactone] 25 mg PO DAILY #30 tab 10/13/17 01/09/18 Rx Albuterol Nebulized [Ventolin 2.5 mg INHALATION RT-QID PRN 01/09/18 01/09/18 History Nebulized] Fluticasone Nasal [place] [Flonase 2 spr EA NOSTRIL DAILY 01/09/18 01/09/18 History Nasal [place]] Insulin Aspart [NovoLOG See Protocol SQ AC-TID 01/09/18 01/09/18 History (formulary)] Insulin Glargine [Lantus] 30 unit SQ HS 01/09/18 01/09/18 History Lactulose 20 gm PO BID 01/09/18 01/09/18 History Losartan Potassium [Cozaar] 25 mg PO BID 01/09/18 01/09/18 History Potassium Chloride [Klor-Con 20] 20 meq PO BID 01/09/18 01/09/18 History Sacubitril/Valsartan [Entresto 24 1 tab PO BID 01/09/18 01/09/18 History mg-26 mg Tablet] rOPINIRole HCL [Requip] 1 mg PO BID 01/09/18 01/09/18 History Allergies Allergy/AdvReac Type Severity Reaction Status Date / Time cephalexin monohydrate Allergy Unknown Rash/Hives Verified 01/09/18 11:44 [From Keflex] yellow dye Allergy Unknown Verified 01/09/18 11:44 Surgical - Exam Osteopathic Statement: *. No significant issues noted on an osteopathic structural exam other than those noted in the History and Physical/Consult. Vital Signs Temp Pulse Resp BP Pulse Ox 97.7 F 72 24 107/64 96 01/09/18 10:24 01/09/18 10:24 01/09/18 10:24 01/09/18 10:24 01/09/18 10:24 - General well developed, no distress - Eyes PERRL - ENT normal mucosa, no hearing loss - Neck no masses, no bruits, trachea midline - Respiratory normal respiratory effort - Abdomen Soft, nontender, nondistended, chronic incisions are healed, there is a palpable and reducible ventral hernia, no rebound, no guarding - Neurologic normal sensation - Psychiatric oriented to time, oriented to person, oriented to place Results - Labs 01/12/18 04:07 01/11/18 07:10 Abnormal Lab Results - Last 24 Hours (Table) 07/01/18 07/02/18 07/02/18 Range/Units 09:42 17:09 20:49 WBC (3.8-10.6) k/uL Neutrophils # (1.3-7.7) k/uL Lymphocytes # (1.0-4.8) k/uL POC Glucose (mg/dL) 279 H 321 H (75-99) mg/dL Hemoglobin A1c 7.5 H (4.0-6.0) % Troponin I (0.000-0.034) ng/mL 01/12/18 01/12/18 01/12/18 Range/Units 04:07 06:58 10:07 WBC 16.8 H (3.8-10.6) k/uL Neutrophils # 15.5 H (1.3-7.7) k/uL Lymphocytes # 0.4 L (1.0-4.8) k/uL POC Glucose (mg/dL) 300 H (75-99) mg/dL Hemoglobin A1c (4.0-6.0) % Troponin I 0.036 H* (0.000-0.034) ng/mL 01/12/18 Range/Units 11:56 WBC (3.8-10.6) k/uL Neutrophils # (1.3-7.7) k/uL Lymphocytes # (1.0-4.8) k/uL POC Glucose (mg/dL) 287 H (75-99) mg/dL Hemoglobin A1c (4.0-6.0) % Troponin I (0.000-0.034) ng/mL Microbiology - Last 24 Hours (Table) 01/09/18 11:30 Blood Culture - Preliminary Blood No Growth after 72 hours Diabetes panel 01/10/18 Range/Units 09:42 Hemoglobin A1c 7.5 H (4.0-6.0) % Assessment and Plan (1) History of colon cancer Narrative/Plan: At this point, the patient has had previous resection for colon cancer and has been followed by oncology in the past. It is unclear whether she is being monitored closely for any recurrence of colon CA. Oncology has been consultation, I will await their recommendation on any staging for history of colon cancer that would be necessary. At this time, with the patient clearly having respiratory and cardiac issues, we will continue medical management for these issues. If a future colonoscopy is needed, we can plan this out as an outpatient. This can be either done with myself or with the patient's surgical team at [facility]. I will continue to follow this patient while she is in the hospital with you. Thank you for this consultation, I look forward in providing in this patient's care. Current Visit: No Status: Acute Code(s): Z85.038 - PERSONAL HISTORY OF MALIGNANT NEOPLASM OF LARGE INTESTINE SNOMED Code(s): 314492789
[2018-01-12] MEDS ORDERED: IPRATROPIUM-ALBUTEROL 3 ML NEB ONE (16:00)
[2018-01-12] MEDS ORDERED: CARVEDILOL 12.5 MG TAB ONE (16:00)
[2018-01-12] MEDS ORDERED: FUROSEMIDE 10 MG/ML 4 ML VIAL ONE (16:00)
[2018-01-12] MEDS ORDERED: methylPREDNISolone SOD SUCCI 125 MG/2 ML VIAL ONE (16:00)
[2018-01-12 17:48] LABS: Glucose,Whole Blood 169 mg/dL (75-99)
--- NOTE | 2018-01-12 19:54 | XR ---
EXAMINATION TYPE: XR abdomen 2V DATE OF EXAM: 01/12/2018 COMPARISON: 03/09/2016 HISTORY: Abdominal pain TECHNIQUE: 4 views FINDINGS: There are distended loops of gas-filled large and small bowel in the right side of the abdo men. There is no sign of free air. There are clips from cholecystectomy. There is multilevel spondylo tic change in the lumbar spine. There are multiple calcifications over the right upper quadrant that could be in the right kidney. Lung bases are clear. IMPRESSION: Intestinal gas pattern consistent with ileus. No free air. Possible right renal calcifica tions. Small bowel gas and distention appears new compared to old exam. Intestine extends to the right side and there could be a large abdominal wall hernia.
[2018-01-12] MEDS: MONTELUKAST 10 MG TAB PO SCH (20:39)
[2018-01-12] MEDS: ATORVASTATIN 40 MG TAB PO SCH (20:39)
[2018-01-12 21:33] LABS: Glucose,Whole Blood 196 mg/dL (75-99)
[2018-01-12] MEDS: INSULIN DETEMIR 100 UNIT/ML 10 ML VIAL SQ SCH (22:14)
[2018-01-13] MEDS: LEVOTHYROXINE 25 MCG TAB PO SCH (06:23)
[2018-01-13 07:16] LABS: Glucose,Whole Blood 213 mg/dL (75-99)
[2018-01-13] MEDS: AZITHROMYCIN 500 MG TAB PO SCH (07:46)
[2018-01-13] MEDS: METOCLOPRAMIDE 10 MG TAB PO SCH ×2 (07:46→17:39)
[2018-01-13] MEDS: CARVEDILOL 12.5 MG TAB PO SCH ×2 (07:47→17:39)
[2018-01-13] MEDS: ASPIRIN 325 MG TAB PO SCH (07:47)
[2018-01-13] MEDS: POTASSIUM CHLORIDE ER 20 MEQ TAB.ER PO SCH ×2 (07:47→19:51)
[2018-01-13] MEDS: SACUBITRIL/VALSARTAN 24 MG-26 MG TABLET PO SCH ×2 (07:48→19:51)
[2018-01-13] MEDS: AMIODARONE 200 MG TAB PO SCH ×2 (07:48→22:03)
[2018-01-13] MEDS: SPIRONOLACTONE 25 MG TAB PO SCH (07:48)
[2018-01-13] MEDS: ISOSORBIDE MONONITRATE ER 15 MG TAB PO SCH (07:49)
[2018-01-13] MEDS: FAMOTIDINE 20 MG TAB PO SCH (07:49)
[2018-01-13] MEDS: FLUTICASONE 50MCG/SPRAY NASAL 16GM EA NOSTRIL SCH (07:50)
[2018-01-13] MEDS: ENOXAPARIN 40 MG/0.4 ML SYRINGE SQ SCH (07:50)
[2018-01-13] MEDS: METOLAZONE 2.5 MG TAB PO SCH (07:51)
--- NOTE | 2018-01-13 08:44 | P.PN ---
Subjective Progress Note Date: 01/13/18 All overnight due to the patient having abdominal pain. States it is a burning sensation in her abdomen. An x-ray was performed and reviewed. Patient does have some dilated small loops of bowel. She did have a bowel movement and stated that made her feel better. Overnight, the patient also did have episodes of A. fib with RVR. She was transferred to telemetry. Currently, the patient states she is feeling better. She denies any nausea vomiting. She did have a bowel movement. Abdominal pain is improving. Objective - Vital Signs Vital signs: Vital Signs Temp 97.4 F L 01/13/18 05:47 Pulse 56 L 01/13/18 05:47 Resp 19 01/13/18 05:47 BP 117/76 01/13/18 05:47 Pulse Ox 96 01/13/18 05:47 Intake & Output 01/12/18 01/13/18 01/13/18 18:59 06:59 18:59 Weight 119.5 kg Other: Voiding Method Indwelling Catheter # Voids 1 1 - Constitutional General appearance: Present: cooperative, no acute distress - Respiratory Details: No difficulty with respiration - Gastrointestinal Gastrointestinal Comment(s): Soft, nontender, nondistended, no rebound, no guarding, palpable and reducible ventral hernia - Psychiatric Psychiatric: Present: A&O x's 3 - Labs CBC & Chem 7: 01/12/18 04:07 01/11/18 07:10 Labs: Abnormal Lab Results - Last 24 Hours (Table) 01/12/18 01/12/18 01/12/18 Range/Units 10:07 11:56 17:44 POC Glucose (mg/dL) 287 H 169 H (75-99) mg/dL Troponin I 0.036 H* (0.000-0.034) ng/mL 01/12/18 01/13/18 Range/Units 21:01 06:56 POC Glucose (mg/dL) 196 H 213 H (75-99) mg/dL Troponin I (0.000-0.034) ng/mL Microbiology - Last 24 Hours (Table) 01/09/18 11:30 Blood Culture - Preliminary Blood No Growth after 72 hours Assessment and Plan (1) Ileus Narrative/Plan: Abdominal x-ray was performed and ileus was found. Patient is continuing to have bowel function however. Continue Reglan. Continue to monitor glucose and electrolyte levels for ileus care. Continue medical management. Current Visit: Yes Status: Acute Code(s): K56.7 - ILEUS, UNSPECIFIED SNOMED Code(s): 198392052
[2018-01-13] MEDS: FUROSEMIDE 10 MG/ML 4 ML VIAL IV SCH ×3 (08:45→23:34)
[2018-01-13] MEDS: methylPREDNISolone SOD SUCCI 40 MG/ML 1 ML VIAL IV SCH ×3 (08:45→23:34)
[2018-01-13] MEDS: ALLOPURINOL 100 MG TAB PO SCH (08:45)
[2018-01-13] MEDS ORDERED: DILTIAZEM DRIP BOLUS FROM BAG 1 MG SOLN IV ONE (09:11)
[2018-01-13 09:32] LABS: Glucose,Whole Blood 234 mg/dL (75-99)
[2018-01-13] MEDS: IPRATROPIUM-ALBUTEROL 3 ML NEB INHALATION SCH ×4 (09:48→20:43)
[2018-01-13] MEDS: BUDESONIDE 0.5 MG/2 ML NEBU INHALATION SCH ×2 (09:48→20:43)
[2018-01-13] MEDS: HEPARIN SOD,PORK IN 0.45% NACL 25,000 UNIT in 0.45% NACL 1 500ML.BAG IV SCH (09:53)
[2018-01-13] MEDS: DILTIAZEM 50 MG in SODIUM CHLORIDE 0.9% 40 ML IV SCH ×2 (09:54→14:14)
[2018-01-13] MEDS: INSULIN ASPART 100 UNIT/ML 1 ML 10 ML VIAL SQ SCH ×7 (10:10→22:03)
[2018-01-13] MEDS: LACTULOSE 20 GM/30 ML CUP PO SCH ×2 (10:11→19:56)
--- NOTE | 2018-01-13 10:13 | PN ---
PROGRESS NOTE DATE OF SERVICE: 01/13/2018. She had a short run of ventricular tachycardia and is due for an AICD placement I believe tomorrow. She continues to have shortness of breath and her heart rate had gone as high as 135 beats per minute. PHYSICAL EXAMINATION: Her blood pressure is 117/76, respiratory rate of 19, pulse of 56, temperature 97.4, O2 saturation on 2 L by nasal cannula is 96%. HEENT reveals no new changes. Chest with decreased breath sounds. Cardiovascular system reveals S1, S2. Abdomen is soft. There is trace to 1+ pedal edema. LABS: Reveal glucose of 213. Troponin 0.036. IMPRESSION: At this time: 1. Acute on chronic respiratory failure. 2. Colon cancer. 3. Possible atrial fibrillation with RVR with aberrant conduction versus ventricular tachycardia. 4. Obesity. 5. Obstructive sleep apnea for which the patient is awaiting further arrangements for a mask as an outpatient. Her prognosis at this time is fair. MMODL / IJN: [id number] /
[2018-01-13] MEDS: PANTOPRAZOLE 40 MG/10 ML VIAL IVP SCH (10:16)
--- NOTE | 2018-01-13 12:18 | P.CONS ---
History of Present Illness - Reason for Consult Consult date: 01/13/18 History of colon cancer - History of Present Illness The patient is a 67-year-old white female, well known to myself. She has multiple medical problems, including a history of stage III ascending colon cancer diagnosed in 09/26. The patient was treated with surgical resection. Based on stage chemotherapy was recommended. However the patient developed an intra-abdominal abscess, which was slow to resolve. The patient was on prolonged antibiotic therapy. Her course was also complicated by poor compliance especially regarding follow-up with infectious diseases. Due to ongoing issues with intra-abdominal infection and inflammation, she was unable to start chemotherapy. She had a PET scan ordered through my office, in 08/30, that showed no definite evidence of recurrence or metastatic disease. There was an area adjacent to the sigmoid colon with uptake. The differential included cancer recurrence. However this was in the same place as the previously noted abscess collection and therefore persistent inflammation/ phlegmon was in the differential. The patient's imaging studies including CAT scans and indicated the possibility of a fistulous connection between the bowel and the area of the abscess. The patient had been followed concurrently with Gen. surgery, I believe Dr. Champagne and then subsequently Dr. Guillen. Because of her prior surgeries, as well as her ongoing medical issues, she was felt to be a high-risk candidate for aggressive surgical approach such as repeat exploration. I believe that a diverting ostomy had resisted to her, but the patient had refused the same consistently. She was also offered a referral to tertiary institution by Dr. Guillen, but was also refusing that, till about 09/27. At that time she did agree to be referred to [facility]. Her family states that she was seen there and colonoscopy recommended. However it does not appear that she followed up. The patient was admitted this time with progressive shortness of breath and weakness. She has been evaluated by pulmonary medicine and cardiology. She was felt to be in congestive heart failure. The patient has known severe ischemic cardiomyopathy. She was noted to be having arrhythmias, and AICD placement is planned. She has also been complaining of abdominal pain. Consult was therefore placed for further evaluation and recommendations Review of Systems Constitutional: Reports poor appetite, Reports weakness Eyes: denies blurred vision, denies pain Ears: deny: decreased hearing, ear discharge, earache, tinnitus Ears, nose, mouth and throat: Denies headache, Denies sore throat Cardiovascular: Reports as per HPI, Reports orthopnea, Reports palpitations, Reports shortness of breath Respiratory: Reports dyspnea Gastrointestinal: Reports as per HPI, Reports abdominal pain Genitourinary: Denies dysuria, Denies hematuria Menstruation: Reports postmenopausal Musculoskeletal: Reports muscle weakness Integumentary: Denies pruritus, Denies rash Neurological: Reports weakness Psychiatric: Denies anxiety, Denies depression Endocrine: Reports fatigue Hematologic/Lymphatic: Reports as per HPI Past Medical History Past Medical History: Asthma, Cancer, Heart Failure, COPD, Diabetes Mellitus, Hearing Disorder / Deafness, Hyperlipidemia, Hypertension, Osteoarthritis (OA), Pneumonia, Renal Disease, Sleep Apnea/CPAP/BIPAP, Vascular Disorder Additional Past Medical History / Comment(s): ANEMIA,(previously charted pulmonary hypertension, combined systolic and diastolic failure, last ejection fraction 35% August 2016), diabetic neuropathy, gout, chronic pain, restless leg syndrome, uses CPAP, colon Ca, constipation, History of Any Multi-Drug Resistant Organisms: None Reported Past Surgical History: Bladder Surgery, Cholecystectomy, Coronary Bypass/CABG, Heart Catheterization, Heart Catheterization With Stent, Hernia Repair, Hysterectomy, Joint Replacement, Orthopedic Surgery Additional Past Surgical History / Comment(s): RUPTURED BOWEL-HAD COLOSTOMY since reversed,lX2 RT KNEE REPLACEMENTS, [place] cataract surg. triple bypass 2007, picc line -since removed. one cardiac stent Past Anesthesia/Blood Transfusion Reactions: Motion Sickness, No Reported Reaction Additional Past Anesthesia/Blood Transfusion Reaction / Comm: Pt has received blood without reaction. Date of Last Stent Placement:: 2009 Past Psychological History: Anxiety, Depression Smoking Status: Former smoker Past Alcohol Use History: None Reported Past Drug Use History: None Reported - Past Family History Mother Family Medical History: Cancer Additional Family Medical History / Comment(s): Mother had lung cancer. Father Family Medical History: Liver Disease Additional Family Medical History / Comment(s): Father of cirrhosis of the liver. He was a alcoholic. Medications and Allergies Home Medications Medication Instructions Recorded Confirmed Type Atorvastatin [Lipitor] 40 mg PO HS 03/09/16 01/09/18 History Montelukast Sodium [Singulair] 10 mg PO HS 03/09/16 01/09/18 History Isosorbide Mononitrate ER [Imdur] 15 mg PO DAILY 02/09/17 01/09/18 History Levothyroxine Sodium [Synthroid] 25 mcg PO DAILY 02/09/17 01/09/18 History Carvedilol [Coreg*] 12.5 mg PO BID-W/MEALS #60 tab 06/19/17 01/09/18 Rx DULoxetine HCL [Cymbalta] 30 mg PO DAILY@1200 10/10/17 01/09/18 History Fluticasone Propionate [Flovent 2 puff INHALATION RT-BID 10/10/17 01/09/18 History Hfa 110mcg] HYDROcodone/APAP 10-325MG [Og[place]by 1 tab PO TID PRN 10/10/17 01/09/18 History 10-325] amLODIPine [Norvasc] 5 mg PO DAILY 10/10/17 01/09/18 History Allopurinol [Zyloprim] 100 mg PO DAILY tab 10/13/17 01/09/18 Rx Amiodarone [Cordarone] 200 mg PO DAILY tab 10/13/17 01/09/18 Rx Cholecalciferol [Vitamin D3] 2,000 unit PO DAILY@1200 tab 10/13/17 01/09/18 Rx Furosemide [Lasix] 60 mg PO BID #60 tab 10/13/17 01/09/18 Rx Magnesium Oxide [Mag-Ox] 400 mg PO DAILY #0 tab 10/13/17 01/09/18 Rx Metolazone [Zaroxolyn] 2.5 mg PO DAILY PRN #30 tab 10/13/17 01/09/18 Rx Nitroglycerin Sl Tabs [Nitrostat] 0.4 mg SUBLINGUAL Q5M PRN #25 tab 10/13/17 Rx Spironolactone [Aldactone] 25 mg PO DAILY #30 tab 10/13/17 01/09/18 Rx Albuterol Nebulized [Ventolin 2.5 mg INHALATION RT-QID PRN 01/09/18 01/09/18 History Nebulized] Fluticasone Nasal [place] [Flonase 2 spr EA NOSTRIL DAILY 01/09/18 01/09/18 History Nasal [place]] Insulin Aspart [NovoLOG See Protocol SQ AC-TID 01/09/18 01/09/18 History (formulary)] Insulin Glargine [Lantus] 30 unit SQ HS 01/09/18 01/09/18 History Lactulose 20 gm PO BID 01/09/18 01/09/18 History Losartan Potassium [Cozaar] 25 mg PO BID 01/09/18 01/09/18 History Potassium Chloride [Klor-Con 20] 20 meq PO BID 01/09/18 01/09/18 History Sacubitril/Valsartan [Entresto 24 1 tab PO BID 01/09/18 01/09/18 History mg-26 mg Tablet] rOPINIRole HCL [Requip] 1 mg PO BID 01/09/18 01/09/18 History Allergies Allergy/AdvReac Type Severity Reaction Status Date / Time cephalexin monohydrate Allergy Unknown Rash/Hives Verified 01/09/18 11:44 [From Keflex] yellow dye Allergy Unknown Verified 01/09/18 11:44 Physical Exam Vitals: Vital Signs Temp Pulse Pulse Resp BP BP Pulse Ox 01/13/18 07:50 129 H 156/83 97 01/13/18 07:40 135 H 22 01/13/18 05:47 97.4 F L 56 L 19 117/76 96 01/12/18 23:00 97.5 F L 62 17 119/71 94 L 01/12/18 21:05 62 01/12/18 20:52 60 01/12/18 18:20 97 F L 97 16 114/84 01/12/18 16:15 61 01/12/18 16:05 59 L 01/12/18 15:00 96.2 F L 59 L 18 107/44 97 Intake and Output 01/12/18 01/13/18 01/13/18 22:59 06:59 14:59 Other: # Voids 1 1 Weight 122 kg 119.5 kg - Constitutional Lethargic, response is appropriate. Appears generally weak and fatigued General appearance: no acute distress - EENT Eyes: EOMI, PERRLA ENT: hearing grossly normal, normal oropharynx - Neck Neck: no lymphadenopathy Thyroid: bilateral: normal size - Respiratory Respiratory: bilateral: diminished - Cardiovascular Rhythm: regular Heart sounds: normal: S1, S2 - Gastrointestinal Extensive postsurgical changes and 2-3 areas of ventral herniation General gastrointestinal: normal bowel sounds, soft Localized gastrointestinal: tender: diffuse - Integumentary Integumentary: normal - Neurologic Neurologic: CNII-XII intact - Musculoskeletal Musculoskeletal: generalized weakness, strength equal bilaterally - Psychiatric Psychiatric: A&O x's 3, appropriate affect Results CBC & Chem 7: 01/12/18 04:07 01/11/18 07:10 Labs: Abnormal Lab Results - Last 24 Hours (Table) 01/12/18 01/12/18 01/12/18 Range/Units 11:56 17:44 21:01 POC Glucose (mg/dL) 287 H 169 H 196 H (75-99) mg/dL 01/13/18 01/13/18 Range/Units 06:56 09:21 POC Glucose (mg/dL) 213 H 234 H (75-99) mg/dL Microbiology - Last 24 Hours (Table) 01/09/18 11:30 Blood Culture - Preliminary Blood No Growth after 72 hours Comments: Echocardiogram report reviewed Chest x-ray: report reviewed Abdominal x-ray: report reviewed Assessment and Plan (1) History of colon cancer Narrative/Plan: The patient has had a very complicated history in this regard as noted. Based on her stage, chemotherapy was recommended. However the patient has been unable to have chemotherapy because of prolonged issues with intra-abdominal abscess. The situation was further, indicated by poor compliance with infectious diseases follow-up and antibiotics. She has had repeat imaging prior office which has not shown any definite evidence of cancer recurrence. However there appeared to be a persistent collection at the site of the abscess , with concerns for continuing fistulous communication with the bowel. In this condition, chemotherapy would be very high risk for causing recurrent infection and other bowel competitions including perforation. Unfortunately, the patient is not a good candidate for an aggressive surgical approach for this condition. She has multiple comorbidities, including severe ischemic cardiac myopathy due to which is not felt to be a candidate for any aggressive surgery. Previously, when her performance status was somewhat better, and ostomy had been discussed with her but the patient had refused. Currently she is felt to be a very high risk for essentially any significant surgery. A repeat colonoscopy was recommended by [facility], but it doesn't appear the patient has followed up. She has been seen by the surgical service here. A colonoscopy can be scheduled as a and the patient is felt to be stable enough for the same. I had an extensive discussion with the patient, and her family were at the bedside. As noted, she has not been able to have chemotherapy due to circumstances as described. At this time even if there was no concern about fistula or persistent collection, she would actually be a suboptimal candidate for chemotherapy because of her other medical issues. We discussed repeating imaging for restaging. CAT scans can be scheduled once the patient is status was her AICD placement. It was clearly discussed with the patient and her family, that if the computed tomography scan were to indicate recurrent disease , at this time at least, the patient would be a very poor candidate for any aggressive systemic cancer treatment. They expressed understanding of the same. We will continue to follow with you. CEA will be ordered in the meantime. The case was also discussed in detail with the admitting service. Current Visit: No Status: Acute Code(s): Z85.038 - PERSONAL HISTORY OF MALIGNANT NEOPLASM OF LARGE INTESTINE SNOMED Code(s): 983832436 Plan: The patient has multiple medical problems as noted above. Defer to the admitting service and other consultants for management of the same
[2018-01-13 12:19] LABS: Glucose,Whole Blood 285 mg/dL (75-99)
[2018-01-13] MEDS: HYDROcodone/APAP 10-325MG 1 EACH TAB PO PRN ×2 (13:05→18:37)
[2018-01-13] MEDS: SODIUM CHLORIDE 0.9% 1,000 ML IV SCH (13:06)
[2018-01-13] MEDS: DULoxetine HCL 30 MG CAPSULE.DR PO SCH (13:07)
[2018-01-13] MEDS: CHOLECALCIFEROL 1,000 UNIT TAB PO SCH (13:07)
--- NOTE | 2018-01-13 15:22 | P.PN ---
Subjective Progress Note Date: 01/13/18 This is a 66 years old female patient of Dr. Miles Scott cardiology Dr. Birdie To pulmonary with past medical history of sytolic heart failure last reported ejection fraction 20% last June 2017, advanced COPD, history of colon cancer with ruptured bowels for which she was transferred to [facility] ended up having partial colectomy and colostomy which was reversed later. Patient was found to have an intra-abdominal abscess on computed tomography scan which was considered to be a sterile abscess, followed by T[facility] Hayward and Dr. Guillen. patient is chronically on on oxygen at 2 L nasal cannula , patient does have a nebulizer at home she also does have a CPAP that does not work properly, and hasn't used it for the past 2 months . Patient was seen in the emergency room secondary to worsening shortness of breath, he was seen in emergency room 3 days ago and was discharged to home, , her last prednisone was over 2 weeks ago when she saw Dr. Birdie To, she was given Lasix in the emergency room and was discharged to home. Patient denies any worsening of edema she does have chronic mild lower edema, clear cough, no fever some have sweats and chills, no palpitations no chest pain. Patient did not bring her home meds today and they were questioning and entresto use against losartan. In the emergency room, creatinine was 1.07 from a previous of 0.095, AST and ALT are mildly elevated arm 76/53, [employer] proBNP of 3010, O2 sats at 92% 2 L nasal cannula, CTA of the chest performed January 06 negative for pulmonary emboli. Patient admitted for COPD moderate persistent asthma exacerbation along with mixed systolic CHF exacerbation. Echocardiogram requested, IV Solu-Medrol, IV Lasix, cardiology and pulmonary to see on consultation 01/10: Patient has no new complaints today, still with this in exertion, otherwise no conversant dyspnea, echo pending, cardiology to see might need aicd based on June EF of under 20%, currently on entresto troponin was slightly elevated however plateaued, doubt NSTEMI, heparin iv to be discontinued 01/11: Patient evaluated today, denies any worsening shortness of breath. She was encouraged to get out of bed and ambulate in the hallways today. Physical and occupational therapy was ordered. She was consulted by cardiology who plans on possible ACID as an outpatient. She continues on IV lasix 40 mg Q8 hours. Solumedrol decreased to 40mg Q8 hours. Vital signs are stable, she denies any chest pain or discomfort. Will plan to discontinue Franklin catheter tomorrow morning. 01/12: Patient sitting up in bedside chair. She was noted go into atrial fibrillation last night with a rate in the 130's. Medications were adjusted, heart rate is now controlled and in the 80's. She reports she did get up and ambulate this morning and is tolerating short distances well. She denies any chest pain, palpitations, dizziness, or increased shortness of breath. Glucose still elevated, Novolog was increased yesterday to 6 units pre meal and sliding scale, will increase Levimir to 40 units at HS. Franklin catheter will be discontinued this morning. 01/13: Patient has difficulties today, as the patient's heart rate spelled up to 150, patient has some palpitations no chest pain, still has shortness of breath , patient currently was moved to [address] [place] [address], started on Cardizem, and IV heparin, with plans for AICD placement in the morning, also discussed with general surgery Dr. Jamison, patient has medical ileus without any signs of obstruction, oral diet can be started thereafter oral anticoagulation with it is Xarelto or Eliquis Objective - Vital Signs Vital signs: Vital Signs Temp 97.4 F L 01/13/18 05:47 Pulse 135 H 01/13/18 07:40 Resp 22 01/13/18 07:40 BP 117/76 01/13/18 05:47 Pulse Ox 96 01/13/18 05:47 Intake & Output 01/12/18 01/13/18 01/13/18 18:59 06:59 18:59 Weight 119.5 kg Other: Voiding Method Indwelling Catheter # Voids 1 1 - Constitutional General appearance: Present: cooperative, no acute distress, obese - EENT Eyes: Present: anicteric sclerae, EOMI, PERRLA, dentition normal, normal appearance ENT: Present: hard of hearing, NA/AT, normal oropharynx - Neck Neck: Present: normal ROM - Respiratory Respiratory: bilateral: CTA, negative: diminished, dullness, rales, rhonchi - Cardiovascular Rhythm: irregularly irregular Heart sounds: normal: S1, S2 Abnormal Heart Sounds: Present: systolic murmur - Gastrointestinal General gastrointestinal: Present: normal bowel sounds, soft - Integumentary Integumentary: Present: decreased turgor, normal - Musculoskeletal Musculoskeletal: Present: gait normal, generalized weakness, strength equal bilaterally - Psychiatric Psychiatric: Present: A&O x's 3, appropriate affect, intact judgment & insight - Labs CBC & Chem 7: 01/12/18 04:07 01/11/18 07:10 Labs: Abnormal Lab Results - Last 24 Hours (Table) 01/12/18 01/12/18 01/12/18 Range/Units 10:07 11:56 17:44 POC Glucose (mg/dL) 287 H 169 H (75-99) mg/dL Troponin I 0.036 H* (0.000-0.034) ng/mL 01/12/18 01/13/18 Range/Units 21:01 06:56 POC Glucose (mg/dL) 196 H 213 H (75-99) mg/dL Troponin I (0.000-0.034) ng/mL Microbiology - Last 24 Hours (Table) 01/09/18 11:30 Blood Culture - Preliminary Blood No Growth after 72 hours Abnormal Lab Results 01/12/18 01/12/18 01/12/18 17:44 17:44 21:01 POC Glucose (mg/dL) 169 H 196 H POC Glu Vehicle Detailer ID Krystina Camilo Chelsey Troponin I 0.022 01/13/18 01/13/18 01/13/18 06:56 09:21 11:44 POC Glucose (mg/dL) 213 H 234 H 285 H POC Glu Vehicle Detailer ID Earlene Gonzalez, Amarilis Green, Amarilis Troponin I Laboratory Results - last 24 hr 01/12/18 01/12/18 01/12/18 17:44 17:44 21:01 POC Glucose (mg/dL) 169 H 196 H POC Glu Vehicle Detailer ID Krystina Camilo Chelsey Troponin I 0.022 01/13/18 01/13/18 01/13/18 06:56 09:21 11:44 POC Glucose (mg/dL) 213 H 234 H 285 H POC Glu Vehicle Detailer ID Earlene Gonzalez, Amarilis Green, Amarilis Troponin I Assessment and Plan Plan: 1. Acute on chronic hypoxemic respiratory failure due to acute systolic heart failure with bilateral perfusion as well as COPD exacerbation with pulmonary hypertension moderate persistent asthma exacerbation. Continue Solu-Medrol 40 mg IV push every 8 hours, continue DuoNeb 3 mL nebulization 4 times every day, continue oxygen support, continue the patient on Lasix 40 mg 8h day as well as metolazone 2.5 mg orally once every day, discontinue IV fluid, pulmonary consultation as well as cardiology consultation. 2. A. fib with RVR, Cardizem IV started, IV heparin, then after AICD placement on January 14, patient with decision to factor X a inhibition either xarelto vor Eliquis 3. Coronary artery disease status post PCI. Continue patient on aspirin 325 mg orally once every day, Imdur 30 mg orally once every day, Lipitor 40 mg orally once every day. 4. Chronic systolic heart failure with pulmonary hypertension. Continue Lasix 40 mg orally once every day as well as metolazone 2.5 mg orally once every day, continue on entresto. 5. Obstructive sleep apnea on CPAP which it is out of commission for the past 2 months unable to tolerate facemask, patient requires nasal pillows. Dr. Rogel/Adrián To pulmonary for CPAP machine Patient may need to have a BiPAP at home. 6. Mildly Elevated troponins, doubt NSTEMI most likely secondary to cardiac demand mismatch, heparin IV discontinued and IV heparin is restarted secondary to A. fib with RVR 7. Colon Cancer history, oncology is on consult, status post hemicolectomy with complicated postop course seen at [facility] post discharge, no current wounds on exam, ileus on x-rays. General surgery has cleared for diet, no surgical intervention at this time 8. Restless leg syndrome. Continue Requip. 9 Hypertension, hypertensive cardiovascular disease. Continue Norvasc 5 mg orally once every day, Coreg 12.5 mg orally twice every day, losartan 50 mg orally once every day. 10. Diabetes mellitus type 2 with steroid-induced hyperglycemia. Start the patient on sliding scale insulin. 11 Gout. Continue allopurinol 100 mg orally once every day. 12 Gastroesophageal reflux disease and gastrointestinal prophylaxis. Continue Protonix 40 mg daily. 13. DVT prophylaxis. Currently on IV heparin secondary to RVR A. fib, would transition to long-term anticoagulation with Xarelto or Eliquis 14. Gout. Continue allopurinol 100 mg orally once every day. 12. Depression. Continue Cymbalta 60 mg orally once every day. 13. Admit to inpatient. Estimate length of stay 2 midnights. 14. Full code.
--- NOTE | 2018-01-13 16:32 | P.PN ---
Subjective Progress Note Date: 01/13/18 Principal diagnosis: CHF/A. fib This is a pleasant 67-year-old female patient who follows with Dr. Scott in the office on regular basis with an extensive past medical history consistent off severe cardiomyopathy with a known EF around 20%, advanced chronic obstructive pulmonary disease/chronic respiratory failure on home oxygen , recurrent hospital admission with congestive heart failure, morbid obesity, as well as multiple comorbid conditions, presented to the hospital complaining of progressive dyspnea for the last several days. Beside that the patient was found to have an intra-abdominal abscess and she has been followed at [facility] as well as here by Dr. Guillen. For the last few days she has been experiencing progressive exertional dyspnea as well as bilateral lower extremities edema. She did not have any symptoms of chest pain or chest discomfort. No cough. No fever or chills. No dizziness or lightheadedness and no syncope. The chest x-ray showed findings consistent with CHF. The EKG showed sinus rhythm with IVCD. The computed tomography scan of the chest was negative for PE. The BMP was checked and came in to be around 3000. The patient was admitted to the hospital and she was started on Lasix IV. The last echocardiogram showed severe cardiomyopathy. The patient was scheduled to undergo an AICD tomorrow but earlier today she developed an A. fib with RVR. She was transferred to [facility]. She was started on Cardizem drip. She is on beta dandy with Coreg which we will continue. Also she will be started on heparin IV until she had the AICD then she will be started on oral anticoagulation. Objective - Vital Signs Vital signs: Vital Signs Temp 96.3 F L 01/13/18 11:35 Pulse 112 H 01/13/18 16:19 Resp 18 01/13/18 11:35 BP 122/65 01/13/18 11:35 Pulse Ox 97 01/13/18 11:35 Intake & Output 01/12/18 01/13/18 01/13/18 18:59 06:59 18:59 Intake Total 781.667 Balance 781.667 Weight 119.5 kg Intake: Intake, IV Titration 181.667 Amount Diltiazem 50 mg In Sodium 21.667 Chloride 0.9% 40 ml @ 5 MG/HR 5 mls/hr IV .Q10H [facility] Rx#:[id number] Sodium Chloride 0.9% 1, 160 000 ml @ 20 mls/hr IV . Q24H [facility] Rx#:[id number] Oral 600 Other: Voiding Method Indwelling Catheter # Voids 1 1 - Constitutional General appearance: Present: mild distress - Respiratory Respiratory: bilateral: diminished - Cardiovascular Rhythm: irregularly irregular Heart sounds: normal: S1, S2 - Labs CBC & Chem 7: 01/12/18 04:07 01/11/18 07:10 Labs: Abnormal Lab Results - Last 24 Hours (Table) 01/12/18 01/12/18 01/13/18 Range/Units 17:44 21:01 06:56 POC Glucose (mg/dL) 169 H 196 H 213 H (75-99) mg/dL 01/13/18 01/13/18 Range/Units 09:21 11:44 POC Glucose (mg/dL) 234 H 285 H (75-99) mg/dL Microbiology - Last 24 Hours (Table) 01/09/18 11:30 Blood Culture - Preliminary Blood No Growth after 96 hours Assessment and Plan Assessment: Assessment #1 acute on chronic respiratory failure secondary to CHF as well as COPD #2 CHF exacerbation secondary to systolic dysfunction #3 chronic respiratory failure #4 morbid obesity #5 multiple comorbid conditions #6 A. fib with RVR Plan #1 start the patient on heparin IV. She needs oral anticoagulation once AICD is in place #2 continue the current medical treatment with Lasix as well #3 continue monitor the kidney function and electrolytes #4 follow-up with the patient. Thank you for allowing us participate in her care and we will continue following up with her
[2018-01-13] MEDS: ONDANSETRON 4 MG/2 ML VIAL IVP PRN (16:54)
[2018-01-13 17:03] LABS: Glucose,Whole Blood 199 mg/dL (75-99)
[2018-01-13] MEDS: MONTELUKAST 10 MG TAB PO SCH (19:50)
[2018-01-13] MEDS: ATORVASTATIN 40 MG TAB PO SCH (19:51)
[2018-01-13 21:16] LABS: Glucose,Whole Blood 254 mg/dL (75-99)
[2018-01-13] MEDS: INSULIN DETEMIR 100 UNIT/ML 10 ML VIAL SQ SCH (22:04)
[2018-01-14] MEDS: ONDANSETRON 4 MG/2 ML VIAL IVP PRN ×2 (00:14→16:33)
[2018-01-14] MEDS: IPRATROPIUM-ALBUTEROL 3 ML NEB INHALATION SCH ×5 (00:31→19:43)
[2018-01-14] MEDS: ALPRAZolam 0.25 MG TAB PO PRN (00:37)
[2018-01-14] MEDS: DILTIAZEM 50 MG in SODIUM CHLORIDE 0.9% 40 ML IV SCH ×2 (05:16→16:25)
[2018-01-14] MEDS: SENNOSIDES-DOCUSATE SODIUM 1 EACH TAB PO SCH ×2 (05:24→09:56)
[2018-01-14] MEDS: MAG HYDROX/AL HYDROX/SIMETH 30 ML CUP PO SCH ×4 (05:24→18:16)
[2018-01-14] MEDS: HYDROcodone/APAP 10-325MG 1 EACH TAB PO PRN ×2 (05:24→12:02)
[2018-01-14 06:19] LABS: Basophils % (A) 0 %; Eosinophils % (A) 0 %; HCT 48.2 % (34.0-46.0); HGB 15.6 gm/dL (11.4-16.0); Lymphocytes # (A) 0.4 k/uL (1.0-4.8); Lymphocytes % (A) 3 %; MCH 30.8 pg (25.0-35.0); MCHC 32.5 g/dL (31.0-37.0); MCV 94.8 fL (80.0-100.0); Mean Platelet Volume 8.2; Monocytes # (A) 0.6 k/uL (0-1.0); Monocytes % (A) 4 %; Neutrophils # (A) 12.2 k/uL (1.3-7.7); Neutrophils % (A) 92 %; Platelet Count 193 k/uL (150-450); RBC 5.08 m/uL (3.80-5.40); RDW 15.3 % (11.5-15.5); WBC 13.3 k/uL (3.8-10.6)
[2018-01-14 06:38] LABS: Glucose,Whole Blood 299 mg/dL (75-99)
[2018-01-14] MEDS: CARVEDILOL 12.5 MG TAB PO SCH ×2 (06:53→16:34)
[2018-01-14] MEDS: LEVOTHYROXINE 25 MCG TAB PO SCH (06:54)
[2018-01-14 07:01] LABS: Albumin 3.6 g/dL (3.5-5.0); Potassium 3.1 mmol/L (3.5-5.1); Total Protein 6.7 g/dL (6.3-8.2)
[2018-01-14] MEDS: HEPARIN SOD,PORK IN 0.45% NACL 25,000 UNIT in 0.45% NACL 1 500ML.BAG IV SCH (07:07)
[2018-01-14] MEDS ORDERED: POTASSIUM CHLORIDE ER 20 MEQ TAB.ER PO SCH (08:00)
[2018-01-14] MEDS: INSULIN ASPART 100 UNIT/ML 1 ML 10 ML VIAL SQ SCH ×5 (08:03→17:50)
[2018-01-14 08:20] LABS: Appearance,Urine Clear (Clear); Bilirubin,Urine Negative (Negative); Blood,Urine Negative (Negative); Color,Urine Yellow; Glucose,Urine (UA) Negative (Negative); Ketones,Urine Negative (Negative); Leukocyte Esterase,Urine Negative (Negative); Nitrite,Urine Negative (Negative); Protein,Urine Negative (Negative); Specific Gravity,Urine 1.011 (1.001-1.035); Urobilinogen,Urine <2.0 mg/dL (<2.0)
[2018-01-14] MEDS: BUDESONIDE 0.5 MG/2 ML NEBU INHALATION SCH ×2 (08:25→19:43)
[2018-01-14] MEDS: FUROSEMIDE 10 MG/ML 4 ML VIAL IV SCH (09:53)
[2018-01-14] MEDS: POTASSIUM CHLORIDE ER 20 MEQ TAB.ER PO SCH ×3 (09:53→12:34)
[2018-01-14] MEDS: ASPIRIN 325 MG TAB PO SCH (09:54)
[2018-01-14] MEDS: SACUBITRIL/VALSARTAN 24 MG-26 MG TABLET PO SCH (09:54)
[2018-01-14] MEDS: METOCLOPRAMIDE 10 MG TAB PO SCH ×2 (09:54→17:50)
[2018-01-14] MEDS: ALLOPURINOL 100 MG TAB PO SCH (09:55)
[2018-01-14] MEDS: PANTOPRAZOLE 40 MG/10 ML VIAL IVP SCH (09:55)
[2018-01-14] MEDS: AMIODARONE 200 MG TAB PO SCH (09:55)
[2018-01-14] MEDS: SPIRONOLACTONE 25 MG TAB PO SCH (09:56)
[2018-01-14] MEDS: AZITHROMYCIN 500 MG TAB PO SCH (09:56)
[2018-01-14] MEDS: METOLAZONE 2.5 MG TAB PO SCH (09:57)
[2018-01-14] MEDS: LACTULOSE 20 GM/30 ML CUP PO SCH (09:57)
[2018-01-14] MEDS: ISOSORBIDE MONONITRATE ER 15 MG TAB PO SCH (09:58)
[2018-01-14] MEDS: FLUTICASONE 50MCG/SPRAY NASAL 16GM EA NOSTRIL SCH (09:59)
[2018-01-14] MEDS: methylPREDNISolone SOD SUCCI 40 MG/ML 1 ML VIAL IV SCH ×2 (10:03→16:35)
[2018-01-14] MEDS: SODIUM CHLORIDE 0.9% 1,000 ML IV SCH ×2 (10:03→11:43)
--- NOTE | 2018-01-14 10:19 | P.PN ---
<Karolyn Gomez E - Last Filed: 01/14/18 10:05> Subjective Progress Note Date: 01/14/18 Interval History: 01/14/18- patient is being seen and examined on rounds for follow-up. Patient is resting up in bed on 2 L of supplemental oxygen via nasal cannula. She continues to have shortness of breath with exertion and activity. She did have some episodes of tachycardia and was put on a Cardizem drip. Lantus for her to go for an AICD placement with cardiology however is unclear on when that will take place. She continues on heparin drip per cardiology until AICD can be placed. She was evaluated by surgical services for a possible ileus and there are no plans for surgical intervention at this time and to continue with medical management. Patient states that the breathing treatments have been helping her shortness of breath. Objective - Vital Signs Vital signs: Vital Signs Temp 97.3 F L 01/14/18 04:00 Pulse 72 01/14/18 08:40 Resp 20 01/14/18 04:00 BP 130/85 01/14/18 04:00 Pulse Ox 94 L 01/14/18 04:00 Intake & Output 01/13/18 01/14/18 01/14/18 18:59 06:59 18:59 Intake Total 781.667 928.527 5.686 Balance 781.667 928.527 5.686 Weight 106.5 kg Intake: Intake, IV Titration 181.667 678.527 5.686 Amount Diltiazem 50 mg In Sodium 21.667 Chloride 0.9% 40 ml @ 5 MG/HR 5 mls/hr IV .Q10H [facility] Rx#:[id number] Heparin Sod,Pork in 0.45% 458.527 5.686 NaCl 25,000 unit In 0.45 % NaCl 1 500ml.bag @ 8.3 UNITS/KG/HR 19.83 mls/hr IV .Q24H [facility] Rx#: [id number] Sodium Chloride 0.9% 1, 160 220 000 ml @ 20 mls/hr IV . Q24H [facility] Rx#:[id number] Oral 600 250 Other: Voiding Method Bedside Commode # Voids 2 400 - Exam GENERAL EXAM: Alert, tired, morbidly obese, comfortable in no apparent distress. HEAD: Normocephalic. EYES: Normal reaction of pupils, equal size. NOSE: Clear with pink turbinates. THROAT: No erythema or exudates. NECK: No masses, no JVD. CHEST: No chest wall deformity. LUNGS: Lungs noted to have decreased air entry with some expiratory wheezing scattered. CVS: S1 and S2 normal with no audible mumurs, regular rhythm. ABDOMEN: No hepatosplenomegaly, normal bowel sounds, no guarding or rigidity. EXTREMITIES: +1 edema noted, pedal pulses palpable. CENTRAL NERVOUS SYSTEM: No focal deficits, tone is normal in all 4 extremities. - Labs CBC & Chem 7: 01/14/18 05:48 01/14/18 05:48 Labs: Abnormal Lab Results - Last 24 Hours (Table) 01/13/18 01/13/18 01/13/18 Range/Units 11:44 16:39 16:45 WBC (3.8-10.6) k/uL Hct (34.0-46.0) % Neutrophils # (1.3-7.7) k/uL Lymphocytes # (1.0-4.8) k/uL APTT 46.2 H (22.0-30.0) sec Sodium (137-145) mmol/L Potassium (3.5-5.1) mmol/L Chloride (98-107) mmol/L Carbon Dioxide (22-30) mmol/L BUN (7-17) mg/dL Creatinine (0.52-1.04) mg/dL Glucose (74-99) mg/dL POC Glucose (mg/dL) 285 H 199 H (75-99) mg/dL 01/13/18 01/13/18 01/14/18 Range/Units 20:55 20:57 05:48 WBC 13.3 H (3.8-10.6) k/uL Hct 48.2 H (34.0-46.0) % Neutrophils # 12.2 H (1.3-7.7) k/uL Lymphocytes # 0.4 L (1.0-4.8) k/uL APTT 53.4 H (22.0-30.0) sec Sodium (137-145) mmol/L Potassium (3.5-5.1) mmol/L Chloride (98-107) mmol/L Carbon Dioxide (22-30) mmol/L BUN (7-17) mg/dL Creatinine (0.52-1.04) mg/dL Glucose (74-99) mg/dL POC Glucose (mg/dL) 254 H (75-99) mg/dL 01/14/18 01/14/18 01/14/18 Range/Units 05:48 05:48 06:36 WBC (3.8-10.6) k/uL Hct (34.0-46.0) % Neutrophils # (1.3-7.7) k/uL Lymphocytes # (1.0-4.8) k/uL APTT 85.2 H (22.0-30.0) sec Sodium 136 L (137-145) mmol/L Potassium 3.1 L (3.5-5.1) mmol/L Chloride 85 L (98-107) mmol/L Carbon Dioxide 36 H (22-30) mmol/L BUN 82 H* (7-17) mg/dL Creatinine 1.27 H (0.52-1.04) mg/dL Glucose 273 H (74-99) mg/dL POC Glucose (mg/dL) 299 H (75-99) mg/dL Microbiology - Last 24 Hours (Table) 01/09/18 11:30 Blood Culture - Preliminary Blood No Growth after 96 hours Assessment and Plan Assessment: Assessment Acute on chronic respiratory failure requiring supplemental oxygen History of Colon cancer Chronic systolic heart failure with pulmonary hypertension Acute exacerbation of COPD Possible atrial fibrillation with RVR versus V. tach Morbid obesity Obstructive sleep apnea Plan Medications have been reviewed and will be continued as ordered. Obtain chest x-ray Continue with pulmonary hygiene, coughing and deep breathing exercises, and supportive care. Supplemental oxygen to maintain oxygen saturations of 92% or better. Continue nebulizer treatments. Initiate and encourage incentive spirometer Awaiting arrangements for mask as an outpatient for her CPAP machine Cardiology, hematology oncology and surgical services also on consult GI and DVT prophylaxis. . Cardizem drip and heparin drip per cardiology Oral anticoagulation after AICD placement We will continue to monitor labs/results and adjust treatment as necessary. Further recommendations pending. I performed an examination of the patient and discussed their management with the nurse practitioner. I have reviewed the nurse practitioner's note and agree with the documented findings and plan of care. <Zaira Morejon - Last Filed: 01/14/18 15:17> Objective - Vital Signs Vital signs: Vital Signs Temp 96.3 F L 01/14/18 11:45 Pulse 76 01/14/18 11:50 Resp 18 01/14/18 11:45 BP 102/66 01/14/18 11:45 Pulse Ox 95 01/14/18 11:45 Intake & Output 01/13/18 01/14/18 01/14/18 18:59 06:59 18:59 Intake Total 781.667 928.527 205.686 Balance 781.667 928.527 205.686 Weight 106.5 kg 106.5 kg Intake: Intake, IV Titration 181.667 678.527 5.686 Amount Diltiazem 50 mg In Sodium 21.667 Chloride 0.9% 40 ml @ 5 MG/HR 5 mls/hr IV .Q10H [facility] Rx#:[id number] Heparin Sod,Pork in 0.45% 458.527 5.686 NaCl 25,000 unit In 0.45 % NaCl 1 500ml.bag @ 8.3 UNITS/KG/HR 19.83 mls/hr IV .Q24H [facility] Rx#: [id number] Sodium Chloride 0.9% 1, 160 220 000 ml @ 20 mls/hr IV . Q24H [facility] Rx#:[id number] Oral 600 250 200 Other: Voiding Method Bedside Commode # Voids 2 400 3 - Labs CBC & Chem 7: 01/14/18 05:48 01/14/18 05:48 Labs: Abnormal Lab Results - Last 24 Hours (Table) 01/13/18 01/13/18 01/13/18 Range/Units 16:39 16:45 20:55 WBC (3.8-10.6) k/uL Hct (34.0-46.0) % Neutrophils # (1.3-7.7) k/uL Lymphocytes # (1.0-4.8) k/uL APTT 46.2 H (22.0-30.0) sec Sodium (137-145) mmol/L Potassium (3.5-5.1) mmol/L Chloride (98-107) mmol/L Carbon Dioxide (22-30) mmol/L BUN (7-17) mg/dL Creatinine (0.52-1.04) mg/dL Glucose (74-99) mg/dL POC Glucose (mg/dL) 199 H 254 H (75-99) mg/dL 01/13/18 01/14/18 01/14/18 Range/Units 20:57 05:48 05:48 WBC 13.3 H (3.8-10.6) k/uL Hct 48.2 H (34.0-46.0) % Neutrophils # 12.2 H (1.3-7.7) k/uL Lymphocytes # 0.4 L (1.0-4.8) k/uL APTT 53.4 H (22.0-30.0) sec Sodium 136 L (137-145) mmol/L Potassium 3.1 L (3.5-5.1) mmol/L Chloride 85 L (98-107) mmol/L Carbon Dioxide 36 H (22-30) mmol/L BUN 82 H* (7-17) mg/dL Creatinine 1.27 H (0.52-1.04) mg/dL Glucose 273 H (74-99) mg/dL POC Glucose (mg/dL) (75-99) mg/dL 01/14/18 01/14/18 01/14/18 Range/Units 05:48 06:36 11:47 WBC (3.8-10.6) k/uL Hct (34.0-46.0) % Neutrophils # (1.3-7.7) k/uL Lymphocytes # (1.0-4.8) k/uL APTT 85.2 H (22.0-30.0) sec Sodium (137-145) mmol/L Potassium (3.5-5.1) mmol/L Chloride (98-107) mmol/L Carbon Dioxide (22-30) mmol/L BUN (7-17) mg/dL Creatinine (0.52-1.04) mg/dL Glucose (74-99) mg/dL POC Glucose (mg/dL) 299 H 323 H (75-99) mg/dL 01/14/18 Range/Units 13:41 WBC (3.8-10.6) k/uL Hct (34.0-46.0) % Neutrophils # (1.3-7.7) k/uL Lymphocytes # (1.0-4.8) k/uL APTT 82.4 H (22.0-30.0) sec Sodium (137-145) mmol/L Potassium (3.5-5.1) mmol/L Chloride (98-107) mmol/L Carbon Dioxide (22-30) mmol/L BUN (7-17) mg/dL Creatinine (0.52-1.04) mg/dL Glucose (74-99) mg/dL POC Glucose (mg/dL) (75-99) mg/dL Microbiology - Last 24 Hours (Table) 01/09/18 11:30 Blood Culture - Preliminary Blood No Growth after 120 hours Assessment and Plan Assessment: Patient seen and examined. Patient states she is feeling "okay." She states her breathing is okay. She states she has not used her BiPAP at home because of the mask issue. [facility] has been contacted and they need a copy of the original PSG. We are trying to locate and obtain this sleep study for the patient. The patient currently has an ileus which is being medically managed at this time. The patient is supposed to undergo AICD placement once she is more medically stable. She is currently on a heparin drip. Her ejection fraction 20-25%. Continue albuterol, Pulmicort, azithromycin, Solu-Medrol taper. Continue to monitor. PT and OT. ~Zaira Morejon,
[2018-01-14 11:49] LABS: Glucose,Whole Blood 323 mg/dL (75-99)
[2018-01-14] MEDS: CHOLECALCIFEROL 1,000 UNIT TAB PO SCH (12:02)
[2018-01-14] MEDS: DULoxetine HCL 30 MG CAPSULE.DR PO SCH (12:04)
[2018-01-14] MEDS: MAGNESIUM OXIDE 400 MG TAB PO SCH (12:35)
[2018-01-14 13:32] VITALS: BMI 40.3
--- NOTE | 2018-01-14 13:50 | P.PN ---
Subjective Progress Note Date: 01/14/18 This is a pleasant 67-year-old female patient who follows with Dr. Scott in the office on regular basis with an extensive past medical history consistent off severe cardiomyopathy with a known EF around 20%, advanced chronic obstructive pulmonary disease/chronic respiratory failure on home oxygen , recurrent hospital admission with congestive heart failure, morbid obesity, as well as multiple comorbid conditions, presented to the hospital complaining of progressive dyspnea for the last several days.Beside that the patient was found to have an intra-abdominal abscess and she has been followed at [facility] as well as here by Dr. Guillen.For the last few days prior to her admission here, she had been experiencing progressive exertional dyspnea as well as bilateral lower extremities edema. She did not have any symptoms of chest pain or chest discomfort. No cough. No fever or chills. No dizziness or lightheadedness and no syncope. The chest x-ray showed findings consistent with CHF. The EKG showed sinus rhythm with IVCD. The computed tomography scan of the chest was negative for PE. The BMP was checked and came in to be around 3000. The patient was admitted to the hospital and she was started on Lasix IV. The last echocardiogram showed severe cardiomyopathy. She was started on Cardizem drip. She is on beta dandy with Coreg which we will continue. There had been some discussion regarding the patient being scheduled for AICD implantation. It was explained to the patient and the family that she will require implantation of AICD once she is stable. Today her white blood cell count is elevated, she is complaining of significant abdominal discomfort with associated nausea. Blood pressure 102/60 with a heart rate in the 70s, 95% on 2 L of oxygen. White blood cell count 13.3, hemoglobin 15.6, platelet count 193. Sodium 136, potassium 3.1, BUN 82, creatinine 1.2. Objective - Vital Signs Vital signs: Vital Signs Temp 97.3 F L 01/14/18 04:00 Pulse 76 01/14/18 11:50 Resp 20 01/14/18 04:00 BP 130/85 01/14/18 04:00 Pulse Ox 94 L 01/14/18 04:00 Intake & Output 01/13/18 01/14/18 01/14/18 18:59 06:59 18:59 Intake Total 781.667 928.527 5.686 Balance 781.667 928.527 5.686 Weight 106.5 kg Intake: Intake, IV Titration 181.667 678.527 5.686 Amount Diltiazem 50 mg In Sodium 21.667 Chloride 0.9% 40 ml @ 5 MG/HR 5 mls/hr IV .Q10H [facility] Rx#:[id number] Heparin Sod,Pork in 0.45% 458.527 5.686 NaCl 25,000 unit In 0.45 % NaCl 1 500ml.bag @ 8.3 UNITS/KG/HR 19.83 mls/hr IV .Q24H [facility] Rx#: [id number] Sodium Chloride 0.9% 1, 160 220 000 ml @ 20 mls/hr IV . Q24H [facility] Rx#:[id number] Oral 600 250 Other: Voiding Method Bedside Commode # Voids 2 400 - Exam PHYSICAL EXAMINATION: GENERAL: 67 year female complaining of some abdominal discomfort and nausea at the time of my examination HEENT: Head is atraumatic, normocephalic. Pupils equal, round. Sclera anicteric. Conjunctiva are clear. Mucous membranes of the mouth are moist. Neck is supple. There is no elevated jugular venous pressure.] bruit is heard. HEART EXAMINATION: R S1 and S2 irregularly irregular a systolic murmur is heard CHEST EXAMINATION: Lungs are clear to auscultation ABDOMEN: Soft, obese, mild generalized tenderness. Bowel sounds are heard. No organomegaly noted. EXTREMITIES: 2+ peripheral pulses with no evidence of peripheral edema and no calf tenderness noted. NEUROLOGIC patient is awake, alert and oriented ?-3. . - Labs CBC & Chem 7: 01/14/18 05:48 01/14/18 05:48 Labs: Abnormal Lab Results - Last 24 Hours (Table) 01/13/18 01/13/18 01/13/18 Range/Units 16:39 16:45 20:55 WBC (3.8-10.6) k/uL Hct (34.0-46.0) % Neutrophils # (1.3-7.7) k/uL Lymphocytes # (1.0-4.8) k/uL APTT 46.2 H (22.0-30.0) sec Sodium (137-145) mmol/L Potassium (3.5-5.1) mmol/L Chloride (98-107) mmol/L Carbon Dioxide (22-30) mmol/L BUN (7-17) mg/dL Creatinine (0.52-1.04) mg/dL Glucose (74-99) mg/dL POC Glucose (mg/dL) 199 H 254 H (75-99) mg/dL 01/13/18 01/14/18 01/14/18 Range/Units 20:57 05:48 05:48 WBC 13.3 H (3.8-10.6) k/uL Hct 48.2 H (34.0-46.0) % Neutrophils # 12.2 H (1.3-7.7) k/uL Lymphocytes # 0.4 L (1.0-4.8) k/uL APTT 53.4 H (22.0-30.0) sec Sodium 136 L (137-145) mmol/L Potassium 3.1 L (3.5-5.1) mmol/L Chloride 85 L (98-107) mmol/L Carbon Dioxide 36 H (22-30) mmol/L BUN 82 H* (7-17) mg/dL Creatinine 1.27 H (0.52-1.04) mg/dL Glucose 273 H (74-99) mg/dL POC Glucose (mg/dL) (75-99) mg/dL 01/14/18 01/14/18 01/14/18 Range/Units 05:48 06:36 11:47 WBC (3.8-10.6) k/uL Hct (34.0-46.0) % Neutrophils # (1.3-7.7) k/uL Lymphocytes # (1.0-4.8) k/uL APTT 85.2 H (22.0-30.0) sec Sodium (137-145) mmol/L Potassium (3.5-5.1) mmol/L Chloride (98-107) mmol/L Carbon Dioxide (22-30) mmol/L BUN (7-17) mg/dL Creatinine (0.52-1.04) mg/dL Glucose (74-99) mg/dL POC Glucose (mg/dL) 299 H 323 H (75-99) mg/dL Microbiology - Last 24 Hours (Table) 01/09/18 11:30 Blood Culture - Preliminary Blood No Growth after 96 hours Assessment and Plan Plan: Assessment and plan 1. Acute on chronic hypoxemic respiratory failure secondary to acute systolic heart failure with bilateral effusion as well as COPD exacerbation with pulmonary hypertension 2. A. fib with RVR, persistent, currently on IV heparin, Xarelto will need to be reinitiated. 3. Coronary artery disease status post PCI. 4. Acute on chronic systolic heart failure with pulmonary hypertension. 5. Obstructive sleep apnea on CPAP which it is out of commission for the past 2 months unable to tolerate facemask 6. Mildly Elevated troponins, doubt NSTEMI most likely secondary to cardiac demand mismatch, 7. Colon Cancer history, 8. Restless leg syndrome. 9 Hypertension 10. Diabetes mellitus 11 Gout. 12 Gastroesophageal reflux disease 13 morbid obesity 14 ischemic cardiomyopathy 15 History of intra-abdominal abscess, for which she was followed at [facility] Plan Once the patient is stable overall, she will require implantation of AICD. At this point in time, she is currently on IV heparin, her oral anticoagulation will need to be resumed. We will decrease her aspirin to 81 mg daily. We will also discontinue the IV Lasix today and start the patient on oral Lasix. DNP note has been reviewed, I agree with a documented findings and plan of care. Patient was seen and examined.
--- NOTE | 2018-01-14 13:54 | P.PN ---
Subjective Progress Note Date: 01/14/18 This is a 66 years old female patient of Dr. Miles Scott cardiology Dr. Birdie To pulmonary with past medical history of sytolic heart failure last reported ejection fraction 20% last June 2017, advanced COPD, history of colon cancer with ruptured bowels for which she was transferred to [facility] ended up having partial colectomy and colostomy which was reversed later. Patient was found to have an intra-abdominal abscess on computed tomography scan which was considered to be a sterile abscess, followed by Tino Hayward and Dr. Guillen. patient is chronically on on oxygen at 2 L nasal cannula , patient does have a nebulizer at home she also does have a CPAP that does not work properly, and hasn't used it for the past 2 months . Patient was seen in the emergency room secondary to worsening shortness of breath, he was seen in emergency room 3 days ago and was discharged to home, , her last prednisone was over 2 weeks ago when she saw Dr. Birdie To, she was given Lasix in the emergency room and was discharged to home. Patient denies any worsening of edema she does have chronic mild lower edema, clear cough, no fever some have sweats and chills, no palpitations no chest pain. Patient did not bring her home meds today and they were questioning and entresto use against losartan. 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 Patient admitted for COPD moderate persistent asthma exacerbation along with mixed systolic CHF exacerbation. Echocardiogram requested, IV Solu-Medrol, IV Lasix, cardiology and pulmonary to see on consultation 01/10: Patient has no new complaints today, still with this in exertion, otherwise no conversant dyspnea, echo pending, cardiology to see might need aicd based on June EF of under 20%, currently on entresto troponin was slightly elevated however plateaued, doubt NSTEMI, heparin iv to be discontinued 01/11: Patient evaluated today, denies any worsening shortness of breath. She was encouraged to get out of bed and ambulate in the hallways today. Physical and occupational therapy was ordered. She was consulted by cardiology who plans on possible ACID as an outpatient. She continues on IV lasix 40 mg Q8 hours. Solumedrol decreased to 40mg Q8 hours. Vital signs are stable, she denies any chest pain or discomfort. Will plan to discontinue Franklin catheter tomorrow morning. 01/12: Patient sitting up in bedside chair. She was noted go into atrial fibrillation last night with a rate in the 130's. Medications were adjusted, heart rate is now controlled and in the 80's. She reports she did get up and ambulate this morning and is tolerating short distances well. She denies any chest pain, palpitations, dizziness, or increased shortness of breath. Glucose still elevated, Novolog was increased yesterday to 6 units pre meal and sliding scale, will increase Levimir to 40 units at HS. Franklin catheter will be discontinued this morning. 01/13: Patient has difficulties today, as the patient's heart rate spelled up to 150, patient has some palpitations no chest pain, still has shortness of breath , patient currently was moved to [address] [place] [address], started on Cardizem, and IV heparin, with plans for AICD placement in the morning, also discussed with general surgery Dr. Jamison, patient has medical ileus without any signs of obstruction, oral diet can be started thereafter oral anticoagulation with it is Xarelto or Eliquis 01/14: Discussed with cardiology, there is no current plan for AICD placement today. She has had weight loss of 16 kg since admission. Patient is currently on Lasix 40 mg IV every 8 hours and Solu-Medrol 40 every 8 hours. She continues to complain of not having a bowel movement but is passing gas. MiraLAX added daily along with Senokot. Patient is complaining that she is incontinent of urine in the bed but she did get up to commode earlier today. Noted that physical therapy and occupational therapy is recommended at home with homecare but patient does not seem to be active enough to get out of bed in order to get to a commode chair and concern for her safety at home. Last for physical therapy to reassess and gearcase assembler to follow-up regarding discharge plan. Potassium 3.1 which has been replaced. BUN is up to 82 and creatinine 1.27. White count is currently at 13.3. Blood sugars are running in the 200s and 300s and both Levemir and NovoLog scheduled with meals increased. Objective - Vital Signs Vital signs: Vital Signs Temp 97.3 F L 01/14/18 04:00 Pulse 76 01/14/18 04:48 Resp 20 01/14/18 04:00 BP 130/85 01/14/18 04:00 Pulse Ox 94 L 01/14/18 04:00 Intake & Output 01/13/18 01/14/18 01/14/18 18:59 06:59 18:59 Intake Total 781.667 928.527 5.686 Balance 781.667 928.527 5.686 Weight 106.5 kg Intake: Intake, IV Titration 181.667 678.527 5.686 Amount Diltiazem 50 mg In Sodium 21.667 Chloride 0.9% 40 ml @ 5 MG/HR 5 mls/hr IV .Q10H PHUONG Rx#:[id number] Heparin Sod,Pork in 0.45% 458.527 5.686 NaCl 25,000 unit In 0.45 % NaCl 1 500ml.bag @ 8.3 UNITS/KG/HR 19.83 mls/hr IV .Q24H PHUONG Rx#: [id number] Sodium Chloride 0.9% 1, 160 220 000 ml @ 20 mls/hr IV . Q24H PHUONG Rx#:[id number] Oral 600 250 Other: Voiding Method Bedside Commode # Voids 2 400 - Exam General appearance: Present: cooperative, no acute distress, obese - EENT Eyes: Present: anicteric sclerae, EOMI, PERRLA, dentition normal, normal appearance ENT: Present: hard of hearing, NA/AT, normal oropharynx - Neck Neck: Present: normal ROM - Respiratory Respiratory: bilateral: CTA, negative: diminished, dullness, rales, rhonchi - Cardiovascular Rhythm: irregularly irregular Heart sounds: normal: S1, S2 Abnormal Heart Sounds: Present: systolic murmur - Gastrointestinal General gastrointestinal: Present: normal bowel sounds, soft - Integumentary Integumentary: Present: decreased turgor, normal - Musculoskeletal Musculoskeletal: Present: gait normal, generalized weakness, strength equal bilaterally - Psychiatric Psychiatric: Present: A&O x's 3, appropriate affect, intact judgment & insight - Labs CBC & Chem 7: 01/14/18 05:48 01/14/18 05:48 Labs: Abnormal Lab Results - Last 24 Hours (Table) 01/13/18 01/13/18 01/13/18 Range/Units 09:21 11:44 16:39 WBC (3.8-10.6) k/uL Hct (34.0-46.0) % Neutrophils # (1.3-7.7) k/uL Lymphocytes # (1.0-4.8) k/uL APTT (22.0-30.0) sec Sodium (137-145) mmol/L Potassium (3.5-5.1) mmol/L Chloride (98-107) mmol/L Carbon Dioxide (22-30) mmol/L BUN (7-17) mg/dL Creatinine (0.52-1.04) mg/dL Glucose (74-99) mg/dL POC Glucose (mg/dL) 234 H 285 H 199 H (75-99) mg/dL 01/13/18 01/13/18 01/13/18 Range/Units 16:45 20:55 20:57 WBC (3.8-10.6) k/uL Hct (34.0-46.0) % Neutrophils # (1.3-7.7) k/uL Lymphocytes # (1.0-4.8) k/uL APTT 46.2 H 53.4 H (22.0-30.0) sec Sodium (137-145) mmol/L Potassium (3.5-5.1) mmol/L Chloride (98-107) mmol/L Carbon Dioxide (22-30) mmol/L BUN (7-17) mg/dL Creatinine (0.52-1.04) mg/dL Glucose (74-99) mg/dL POC Glucose (mg/dL) 254 H (75-99) mg/dL 01/14/18 01/14/18 01/14/18 Range/Units 05:48 05:48 05:48 WBC 13.3 H (3.8-10.6) k/uL Hct 48.2 H (34.0-46.0) % Neutrophils # 12.2 H (1.3-7.7) k/uL Lymphocytes # 0.4 L (1.0-4.8) k/uL APTT 85.2 H (22.0-30.0) sec Sodium 136 L (137-145) mmol/L Potassium 3.1 L (3.5-5.1) mmol/L Chloride 85 L (98-107) mmol/L Carbon Dioxide 36 H (22-30) mmol/L BUN 82 H* (7-17) mg/dL Creatinine 1.27 H (0.52-1.04) mg/dL Glucose 273 H (74-99) mg/dL POC Glucose (mg/dL) (75-99) mg/dL 01/14/18 Range/Units 06:36 WBC (3.8-10.6) k/uL Hct (34.0-46.0) % Neutrophils # (1.3-7.7) k/uL Lymphocytes # (1.0-4.8) k/uL APTT (22.0-30.0) sec Sodium (137-145) mmol/L Potassium (3.5-5.1) mmol/L Chloride (98-107) mmol/L Carbon Dioxide (22-30) mmol/L BUN (7-17) mg/dL Creatinine (0.52-1.04) mg/dL Glucose (74-99) mg/dL POC Glucose (mg/dL) 299 H (75-99) mg/dL Microbiology - Last 24 Hours (Table) 01/09/18 11:30 Blood Culture - Preliminary Blood No Growth after 96 hours Assessment and Plan Plan: 1. Acute on chronic hypoxemic respiratory failure due to acute on chronic systolic heart failure with bilateral perfusion as well as COPD exacerbation with pulmonary hypertension moderate persistent asthma exacerbation. Continue Solu-Medrol 40 mg IV push every 8 hours, continue DuoNeb 3 mL nebulization 4 times every day, continue oxygen support, continue the patient on Lasix 40 mg 8h day as well as metolazone 2.5 mg orally once every day, discontinue IV fluid , pulmonary consultation as well as cardiology consultation. 2. A. fib with RVR, Cardizem IV started, IV heparin, AICD placement to be determined by cardiology, patient with decision to factor X a inhibition either xarelto vor Eliquis. Continue amiodarone 200 mg twice daily. 3. Coronary artery disease status post PCI. Continue patient on aspirin 325 mg orally once every day, Imdur 15 mg orally once every day, Lipitor 40 mg orally once every day. 4. Chronic systolic heart failure with pulmonary hypertension. Continue Lasix , metolazone and entresto. 5. Obstructive sleep apnea on CPAP which it is out of commission for the past 2 months unable to tolerate facemask, patient requires nasal pillows. Dr. Birdie To pulmonary for CPAP machine Patient may need to have a BiPAP at home. 6. Mildly Elevated troponins, doubt NSTEMI most likely secondary to cardiac demand mismatch, heparin IV discontinued and IV heparin is restarted secondary to A. fib with RVR 7. Colon Cancer history, oncology is on consult, status post hemicolectomy with complicated postop course seen at [facility] post discharge, no current wounds on exam, ileus on x-rays. General surgery has cleared for diet, no surgical intervention at this time 8. Restless leg syndrome. Continue Requip. 9 Hypertension, hypertensive cardiovascular disease. Continue Norvasc 5 mg orally once every day, Coreg 12.5 mg orally twice every day, losartan 50 mg orally once every day. 10. Diabetes mellitus type 2 with steroid-induced hyperglycemia. Start the patient on sliding scale insulin. 11 Gout. Continue allopurinol 100 mg orally once every day. 12 Gastroesophageal reflux disease and gastrointestinal prophylaxis. Continue Protonix 40 mg daily. 13. DVT prophylaxis. Currently on IV heparin secondary to RVR A. fib, would transition to long-term anticoagulation with Xarelto or Eliquis 14. Gout. Continue allopurinol 100 mg orally once every day. 12. Depression, recurrent. Continue Cymbalta 60 mg orally once every day. 13. Full code. Discharge plan: To be determined Impression and plan of care have been directed as dictated by the signing physician. Charmaine Fowler nurse practitioner acting as scribe for signing physician.
--- NOTE | 2018-01-14 14:53 | XR ---
EXAMINATION TYPE: XR chest 2V DATE OF EXAM: 01/14/2018 COMPARISON: Prior chest 01/09/2018 HISTORY: Shortness of breath and weakness TECHNIQUE: Frontal and lateral views of the chest are obtained. FINDINGS: There is no focal air space opacity, pleural effusion, or pneumothorax seen. The cardiac silhouette size is stable, enlarged. Patient is post median sternotomy, there are coronary artery ca lcifications. Prominent lung volume, increased AP diameter chest may be indicative of COPD. Thoracic spondylosis noted. Patient is rotated. The osseous structures are intact. IMPRESSION: No acute cardiopulmonary process. Patient is rotated, follow-up as indicated.
[2018-01-14] MEDS ORDERED: FUROSEMIDE 40 MG TAB PO SCH (16:00)
[2018-01-14] MEDS ORDERED: POLYETHYLENE GLYCOL 3350 17 GM POWD.PACK PO SCH (16:00)
[2018-01-14 16:42] LABS: Glucose,Whole Blood 386 mg/dL (75-99)
[2018-01-14] MEDS: IOPAMIDOL-300 CONTRAST 30 ML VIAL (ORAL USE) PO PRN ×2 (17:03→18:17)
[2018-01-14] MEDS ORDERED: INSULIN ASPART 100 UNIT/ML 1 ML 10 ML VIAL SQ SCH (17:30)
--- NOTE | 2018-01-14 19:44 | CT ---
EXAMINATION TYPE: CT abdomen pelvis wo con DATE OF EXAM: 01/14/2018 COMPARISON: 07/01/2017 HISTORY: Vomiting and nausea. CT DLP: 1462.8 mGycm Automated exposure control for dose reduction was used. TECHNIQUE: Helical acquisition of images was performed from the lung bases through the pelvis. FINDINGS: Lung bases are clear. There is no pleural effusion. Heart is enlarged. There is no pericardial effusi on. Liver shows no focal defect. There are clips from cholecystectomy. Bile ducts are not dilated. Sp jasson appears normal. There is no evidence of a pancreatic mass. Left kidney is quite small. Right kid teresa shows no hydronephrosis. Right kidney has normal size. There are multiple dilated loops of contrast-filled small bowel in the mid abdomen. Distal small jimmy l is not dilated. Small bowel is dilated to 5.5 cm. There is no ascites. Abdominal aorta is atheromat ous. There is no retroperitoneal adenopathy. There is transition point in the incarcerated ventral he rnia in the right mid abdomen. Hernia contains dilated small bowel. There is multilevel spondylotic changes in the lumbar spine. There is no compression fracture. There is multilevel lumbar spinal stenosis. IMPRESSION: INCARCERATED VENTRAL HERNIA THAT CONTAINS SMALL BOWEL. THERE IS A HIGH-GRADE MECHANICAL SMALL BOWEL O BSTRUCTION THAT IS NEW COMPARED TO OLD EXAM. OBSTRUCTION IS AT THE HERNIA. Hernia is also present on the old exam.
[2018-01-14] MEDS ORDERED: INSULIN DETEMIR 100 UNIT/ML 10 ML VIAL SQ SCH (21:00)
[2018-01-14 21:04] LABS: Glucose,Whole Blood 242 mg/dL (75-99)
--- NOTE | 2018-01-14 21:14 | XR ---
EXAMINATION TYPE: XR abdomen 1V DATE OF EXAM: 01/14/2018 COMPARISON: 01/12/2018 HISTORY: Abdominal pain. Tube placement. TECHNIQUE: 2 portable supine views FINDINGS: There is nasogastric tube that has tip probably in the gastric fundus. There are multiple d ilated loops of small bowel in the mid abdomen. There is no sign of free air. IMPRESSION: Nasogastric tube is probably in good position.
[2018-01-14] MEDS ORDERED: SCOPOLAMINE 1.5MG/72HR PATCH TRANSDERM PRN (21:41)
[2018-01-14] MEDS ORDERED: MORPHINE SULFATE 2 MG/ML SYRINGE IVP ONE (21:41)
[2018-01-14] MEDS ORDERED: LORazepam 2 MG/ML INJ IV PRN (21:41)
[2018-01-14] MEDS ORDERED: MORPHINE SULFATE (100 MG/2 ML) 100 MG in SODIUM CHLORIDE 0.9% 100 ML IV SCH (21:45)
[2018-01-14 23:49] VITALS: BP 152/87; PULSE 66; RESP 20; TEMP 97.5
[2018-01-15] MEDS: MAG HYDROX/AL HYDROX/SIMETH 30 ML CUP PO SCH (00:37)
[2018-01-15] MEDS: INSULIN ASPART 100 UNIT/ML 1 ML 10 ML VIAL SQ SCH (00:38)
[2018-01-15] MEDS: ATORVASTATIN 40 MG TAB PO SCH (00:38)
[2018-01-15] MEDS: AMIODARONE 200 MG TAB PO SCH (00:38)
[2018-01-15] MEDS: LACTULOSE 20 GM/30 ML CUP PO SCH (00:40)
[2018-01-15] MEDS: POTASSIUM CHLORIDE ER 20 MEQ TAB.ER PO SCH (00:40)
[2018-01-15] MEDS: MONTELUKAST 10 MG TAB PO SCH (00:40)
[2018-01-15] MEDS: SACUBITRIL/VALSARTAN 24 MG-26 MG TABLET PO SCH (00:41)
[2018-01-15] MEDS: methylPREDNISolone SOD SUCCI 40 MG/ML 1 ML VIAL IV SCH (01:54)
[2018-01-15] MEDS: DILTIAZEM 50 MG in SODIUM CHLORIDE 0.9% 40 ML IV SCH (01:58)
[2018-01-15] MEDS: SODIUM CHLORIDE 0.9% 1,000 ML IV SCH (06:23)
--- NOTE | 2018-01-15 07:06 | CONS ---
CONSULTATION DATE OF SERVICE: 01/14/2018 REASON FOR CONSULTATION: Abdominal infection. HISTORY OF PRESENT ILLNESS: The patient is a 67-year-old female with past medical history significant for colon cancer with perforation for which the patient did have partial colectomy and colostomy and subsequent reversal. The patient clinical course has been complicated by development of abdominal abscess that has been treated with multiple courses of antibiotic therapy and she has been referred to multiple surgeons. However, she was considered to be a high risk for any drainage procedure and the patient has been off antibiotic therapy for almost a year now. The patient now presenting to the [facility] ER on 01/09/2018 with chief complaints of increasing shortness of breath. The patient has been admitted to the hospital for management of underlying pulmonary status. The patient had a CT angiogram that was negative for PE. The patient was scheduled to undergo placement of a defibrillator for her low EF. However, this was canceled this morning as the patient's white count was elevated with concern for possible infection. Subsequently, infectious disease was consulted for further recommendation. The patient seemed to be lethargic and has been complaining of abdominal pain mostly across the abdominal area, more of a dull pain at times colicky with associated nausea and vomiting, intense to almost 7 to 8 out of 10, though no fever or chills has been recorded and no diarrhea. REVIEW OF SYSTEMS: CONSTITUTIONAL: Positive for weakness. No high-grade fever. EYES: No complaint. ENT: No complaint. RESPIRATORY: As per HPI. CARDIOVASCULAR: As per HPI. GENITOURINARY: No complaint. GASTROINTESTINAL : As per HPI. MUSCULOSKELETAL: No complaint. INTEGUMENTARY: No complaint. PSYCHOLOGICAL: No complaint. ENDOCRINE: No complaint. NEUROLOGIC: No complaint. PAST MEDICAL HISTORY: Significant for diabetes mellitus, hypertension, hyperlipidemia, osteoarthritis, pneumonia, renal insufficiency, colon cancer. PAST SURGICAL HISTORY: Bladder surgery, cholecystectomy, coronary artery bypass grafting, heart catheterization with stent, hernia repair, hysterectomy, laparotomy for ruptured bowel with colostomy with subsequent reversal, right knee replacement, bilateral cataract surgery. SOCIAL HISTORY: Remote history of smoking. No drinking or drug use. FAMILY HISTORY: Mother with history of lung cancer. Father history of cirrhosis of the liver. ALLERGIES: CEPHALEXIN and YELLOW DYE. MEDICATIONS: Medications include the patient is currently on [place], Maalox, Ventolin, Zyloprim, Xanax, amiodarone, aspirin, Lipitor, Zithromax, diltiazem, Cymbalta, Lasix, NovoLog, Levemir, Imdur, Synthroid, Ativan, Mag oxide, Solu-Medrol, Reglan, Zaroxolyn, Singulair, Zofran. PHYSICAL EXAMINATION: On examination, blood pressure is 100/69 with a pulse of 65 temperature is 96.9. She is 94% on 2 L nasal cannula. General description is an elderly female lying in bed in no distress. No tachypnea or accessory muscle of respiration use. HEENT examination shows no pallor or scleral icterus. Oral mucous membrane is dry. No pharyngeal erythema or thrush. NECK: Trachea central. No thyromegaly. LUNGS: Unlabored breathing, decreased breath sounds at the bases. No wheeze or crackle. HEART: S1, S2. Irregular rate and rhythm. ABDOMEN: Soft, mildly distended. No guarding or rigidity. EXTREMITIES: Some trace edema feet. SKIN EXAMINATION: No rash or mass palpable. NEUROLOGICAL: Patient is awake, alert, oriented x2. Mood and affect normal. LABS: Hemoglobin 15.6, white count 13.3, white count initially was 16.8. BUN of 82, creatinine 1.27. Potassium 3.1. Blood culture has been negative. UA was negative. A CT of abdomen and pelvis was requested which did show incarcerated hernia that contained small bowel, high-grade mechanical small bowel obstruction. DIAGNOSTIC IMPRESSION AND PLAN: 1. Patient with leukocytosis which is likely source abdominal in a patient who does have abdominal pain with nausea and vomiting, now with evidence of a mechanical small bowel obstruction and incarcerated hernia in a patient who did have previous history of complicated abdominal surgery with perforated bowel requiring colostomy and reversal. The likely organism would currently be the gram negative both aerobes and anaerobes. 2. Patient known to have a CEPHALEXIN allergy that limits the number of antibiotics can safely use. PLAN: 1. The patient would need to go to the OR for correction of this incarcerated ventral hernia for which Surgery is already on the case. Apparently the patient's family has refused surgical intervention and would like to go hospice and that may be appropriate for her at this point. 2. No need for any systemic antibiotic therapy in view of change in her clinical condition and switch to hospice. ID would sign off. HERNAN / SRINIVAS: [id number] /
[2018-01-15] MEDS ORDERED: ASPIRIN 81 MG PO SCH (09:00)
[2018-01-15] MEDS: BUDESONIDE 0.5 MG/2 ML NEBU INHALATION SCH (09:25)
[2018-01-15] MEDS: IPRATROPIUM-ALBUTEROL 3 ML NEB INHALATION SCH (09:25)
--- NOTE | 2018-01-15 09:43 | P.PN ---
<Karolyn Gomez E - Last Filed: 01/15/18 09:36> Subjective Progress Note Date: 01/15/18 Interval History: 01/14/18- patient is being seen and examined on rounds for follow-up. Patient is resting up in bed on 2 L of supplemental oxygen via nasal cannula. She continues to have shortness of breath with exertion and activity. She did have some episodes of tachycardia and was put on a Cardizem drip. Lantus for her to go for an AICD placement with cardiology however is unclear on when that will take place. She continues on heparin drip per cardiology until AICD can be placed. She was evaluated by surgical services for a possible ileus and there are no plans for surgical intervention at this time and to continue with medical management. Patient states that the breathing treatments have been helping her shortness of breath. 01/15/18- patient being seen examined and evaluated today on rounds. History the patient was seen and examined by infectious disease. A CT of the abdomen and pelvis was obtained and did show an incarcerated ventral hernia that contained small bowel. There was a high-grade mechanical small bowel obstruction that is new compared to the old exam. Obstruction is at that hernia. Surgical services and primary care were notified. Apparently the patient does have a complicated history of abdominal abscess that she has had partial colectomies and colostomies with reversals as well as colon cancer with perforations. She has been referred to multiple surgeries however was too high risk for any drainage procedure in the last year. AICD is on hold due to these new findings. It was suggested and recommended that the patient be transferred to a higher level of care to a surgical ICU, for intervention and treatment. The POA and the patient both declined the transfer and declined any further invasive treatment at this time. Both the patient and the POA would like to go forth with hospice at this time. Objective - Vital Signs Vital signs: Vital Signs Temp 97.5 F L 01/14/18 22:45 Pulse 66 01/15/18 04:00 Resp 20 01/15/18 04:00 BP 152/87 01/14/18 22:45 Pulse Ox 97 01/14/18 22:45 Intake & Output 01/14/18 01/15/18 01/15/18 18:59 06:59 18:59 Intake Total 205.686 10 Output Total 1900 Balance 205.686 -1890 Weight 106.5 kg 124 kg Intake: Intake, IV Titration 5.686 10 Amount Heparin Sod,Pork in 0.45% 5.686 NaCl 25,000 unit In 0.45 % NaCl 1 500ml.bag @ 8.3 UNITS/KG/HR 19.83 mls/hr IV .Q24H PHUONG Rx#: [id number] Morphine Sulfate (100 mg/ 10 2 ml) 100 mg In Sodium Chloride 0.9% 100 ml @ 1 MG/HR 1.02 mls/hr IV . Q24H PHUONG Rx#:[id number] Oral 200 Output: Gastric Drainage 1700 Urine 200 Uretheral ([place]) 200 Other: Voiding Method Indwelling Catheter # Voids 3 - Exam GENERAL EXAM: Alert, lethargic, morbidly obese, comfortable in no apparent distress. HEAD: Normocephalic. EYES: Normal reaction of pupils, equal size. NOSE: Clear with pink turbinates. THROAT: No erythema or exudates. NECK: No masses, no JVD. CHEST: No chest wall deformity. LUNGS: Lungs noted to have decreased air entry with some expiratory wheezing scattered. Shallow breathing CVS: S1 and S2 normal with no audible mumurs, regular rhythm. ABDOMEN: No hepatosplenomegaly, normal bowel sounds, guarding present. EXTREMITIES: +1 edema noted, pedal pulses palpable. CENTRAL NERVOUS SYSTEM: No focal deficits, tone is normal in all 4 extremities. - Labs CBC & Chem 7: 01/14/18 05:48 01/14/18 05:48 Labs: Abnormal Lab Results - Last 24 Hours (Table) 01/14/18 01/14/18 01/14/18 Range/Units 05:48 11:47 13:41 APTT 82.4 H (22.0-30.0) sec POC Glucose (mg/dL) 323 H (75-99) mg/dL Procalcitonin 0.12 H (0.02-0.09) ng/mL 01/14/18 01/14/18 Range/Units 16:40 21:02 APTT (22.0-30.0) sec POC Glucose (mg/dL) 386 H 242 H (75-99) mg/dL Procalcitonin (0.02-0.09) ng/mL Microbiology - Last 24 Hours (Table) 01/09/18 11:30 Blood Culture - Preliminary Blood No Growth after 120 hours Assessment and Plan Assessment: Assessment Acute on chronic respiratory failure requiring supplemental oxygen History of Colon cancer Chronic systolic heart failure with pulmonary hypertension Acute exacerbation of COPD Possible atrial fibrillation with RVR versus V. tach Morbid obesity Obstructive sleep apnea Plan Per the patient and POA they are in agreement with going forth with hospitalist at this time. Patient and POA Decline any further surgical or invasive treatments, they request a Hospice consult Medications have been reviewed and will be continued as ordered. Continue with pulmonary hygiene, coughing and deep breathing exercises, and supportive care. Supplemental oxygen to maintain oxygen saturations of 92% or better. Continue nebulizer treatments. Initiate and encourage incentive spirometer Cardiology, hematology/oncology, ID and surgical services also on consult GI and DVT prophylaxis. . We will sign off of this patient and we'll see this patient only on an as- needed basis do not hesitate to contact us with any questions or concerns I performed an examination of the patient and discussed their management with the nurse practitioner. I have reviewed the nurse practitioner's note and agree with the documented findings and plan of care. <Zaira Morejon A - Last Filed: 01/15/18 14:37> Objective - Vital Signs Vital signs: Vital Signs Temp 97.5 F L 01/14/18 22:45 Pulse 66 01/15/18 08:00 Resp 20 01/15/18 08:00 BP 152/87 01/14/18 22:45 Pulse Ox 97 01/14/18 22:45 Intake & Output 01/14/18 01/15/18 01/15/18 18:59 06:59 18:59 Intake Total 205.686 10 Output Total 1900 750 Balance 205.686 -1890 -750 Weight 106.5 kg 124 kg Intake: Intake, IV Titration 5.686 10 Amount Heparin Sod,Pork in 0.45% 5.686 NaCl 25,000 unit In 0.45 % NaCl 1 500ml.bag @ 8.3 UNITS/KG/HR 19.83 mls/hr IV .Q24H [facility]UONG Rx#: [id number] Morphine Sulfate (100 mg/ 10 2 ml) 100 mg In Sodium Chloride 0.9% 100 ml @ 1 MG/HR 1.02 mls/hr IV . Q24H [facility]UONG Rx#:[id number] Oral 200 Output: Gastric Drainage 1700 Urine 200 750 Uretheral ([place]) 200 Other: Voiding Method Indwelling Catheter Indwelling Catheter # Voids 3 - Labs CBC & Chem 7: 01/14/18 05:48 01/14/18 05:48 Labs: Abnormal Lab Results - Last 24 Hours (Table) 01/14/18 01/14/18 01/14/18 Range/Units 05:48 13:41 16:40 APTT 82.4 H (22.0-30.0) sec POC Glucose (mg/dL) 386 H (75-99) mg/dL Procalcitonin 0.12 H (0.02-0.09) ng/mL 01/14/18 Range/Units 21:02 APTT (22.0-30.0) sec POC Glucose (mg/dL) 242 H (75-99) mg/dL Procalcitonin (0.02-0.09) ng/mL Microbiology - Last 24 Hours (Table) 01/09/18 11:30 Blood Culture - Final Blood No Growth after 144 hours Assessment and Plan Assessment: Plan is for hospice. Continue present management. ~Zaira Morejon DO
--- NOTE | 2018-01-15 10:36 | P.PN ---
Subjective Mrs. Uribe is seen resting comfortably in bed. Multiple members of the family are at the bedside. They have informed me that they would like to proceed with comfort care measures. A CT of abdomen/pelvis was obtained yesterday afternoon that revealed an incarcerated ventral hernia containing small bowel with high grade mechanical small bowel obstruction. Discussion was had with family regarding initiating anticoagulation and in light of the new developments with incarcerated hernia, high grade bowel obstruction and comfort care they have declined starting this at this time. The risks have been explained to them and they are aware. Questions have been answered appropriately and they have been advised to call with further questions or concerns. Objective - Vital Signs Vital signs: Vital Signs Temp 97.5 F L 01/14/18 22:45 Pulse 66 01/15/18 04:00 Resp 20 01/15/18 04:00 BP 152/87 01/14/18 22:45 Pulse Ox 97 01/14/18 22:45 Intake & Output 01/14/18 01/15/18 01/15/18 18:59 06:59 18:59 Intake Total 205.686 10 Output Total 1900 Balance 205.686 -1890 Weight 106.5 kg 124 kg Intake: Intake, IV Titration 5.686 10 Amount Heparin Sod,Pork in 0.45% 5.686 NaCl 25,000 unit In 0.45 % NaCl 1 500ml.bag @ 8.3 UNITS/KG/HR 19.83 mls/hr IV .Q24H [facility] Rx#: [id number] Morphine Sulfate (100 mg/ 10 2 ml) 100 mg In Sodium Chloride 0.9% 100 ml @ 1 MG/HR 1.02 mls/hr IV . Q24H [facility]UONG Rx#:[id number] Oral 200 Output: Gastric Drainage 1700 Urine 200 Uretheral ([place]) 200 Other: Voiding Method Indwelling Catheter # Voids 3 - Labs CBC & Chem 7: 01/14/18 05:48 01/14/18 05:48 Labs: Abnormal Lab Results - Last 24 Hours (Table) 01/14/18 01/14/18 01/14/18 Range/Units 05:48 11:47 13:41 APTT 82.4 H (22.0-30.0) sec POC Glucose (mg/dL) 323 H (75-99) mg/dL Procalcitonin 0.12 H (0.02-0.09) ng/mL 01/14/18 01/14/18 Range/Units 16:40 21:02 APTT (22.0-30.0) sec POC Glucose (mg/dL) 386 H 242 H (75-99) mg/dL Procalcitonin (0.02-0.09) ng/mL Microbiology - Last 24 Hours (Table) 01/09/18 11:30 Blood Culture - Preliminary Blood No Growth after 120 hours Assessment and Plan Assessment: ASSESSMENT 1. Acute on chronic hypoxemic respiratory failure secondary to acute systolic heart failure with bilateral effusion as well as COPD exacerbation with pulmonary hypertension 2. Atrial fibrillation with rapid ventricular response, paroxysmal. Currently converted back to sinus. 3. Coronary artery disease status post PCI. 4. Acute on chronic systolic heart failure with pulmonary hypertension. 5. Obstructive sleep apnea on CPAP which it is out of commission for the past 2 months unable to tolerate facemask 6. Mildly elevated troponins, doubt NSTEMI most likely secondary to cardiac demand mismatch, 7. History of colon cancer 8. Restless leg syndrome. 9. Hypertension 10. Diabetes mellitus 11. Gout. 12. Gastroesophageal reflux disease 13. Morbid obesity, BMI 46.9 14. Ischemic cardiomyopathy 15. History of intra-abdominal abscess, for which she was followed at [facility] Comfort care measures at this time. No anticoagulation per family. We will follow as needed, please feel free to call with questions or concerns moving forward. Nurse Practitioner note has been reviewed, I agree with a documented findings and plan of care. Patient was seen and examined.
--- NOTE | 2018-01-15 13:24 | P.DS ---
Providers Date of admission: 01/09/18 11:29 Expected date of discharge: 01/15/18 Attending physician: Spencer Aguila Consults: 01/09/18 11:29 Consult Physician Routine Consulting Provider: Winter Maya Consult Reason/Comments: chf Do you want consulting provider notified?: Yes 01/09/18 15:54 Consult Physician Routine Consulting Provider: Gera To Consult Reason/Comments: copd/asthma Do you want consulting provider notified?: Yes 01/12/18 10:07 Consult Physician Routine Consulting Provider: Chau Ashraf Consult Reason/Comments: colon cancer Do you want consulting provider notified?: Yes 01/12/18 10:08 Consult Physician Routine Consulting Provider: Emerald Matos Consult Reason/Comments: colon cancer possible recurrence Do you want consulting provider notified?: Yes 01/14/18 15:13 Consult Physician Routine Consulting Provider: Luisa Mace Consult Reason/Comments: abdominal infection Do you want consulting provider notified?: Yes Primary care physician: Lul Aquino [facility] Course: This is a 66 years old female patient of Dr. Miles Scott cardiology Dr. Birdie To pulmonary with past medical history of sytolic heart failure last reported ejection fraction 20% last June 2017, advanced COPD, history of colon cancer with ruptured bowels for which she was transferred to [facility] ended up having partial colectomy and colostomy which was reversed later. Patient was found to have an intra-abdominal abscess on computed tomography scan which was considered to be a sterile abscess, followed by [facility] and Dr. Guillen. patient is chronically on on oxygen at 2 L nasal cannula , patient does have a nebulizer at home she also does have a CPAP that does not work properly, and hasn't used it for the past 2 months . Patient was seen in the emergency room secondary to worsening shortness of breath, he was seen in emergency room 3 days ago and was discharged to home, , her last prednisone was over 2 weeks ago when she saw Dr. Birdie To, she was given Lasix in the emergency room and was discharged to home. Patient denies any worsening of edema she does have chronic mild lower edema, clear cough, no fever some have sweats and chills, no palpitations no chest pain. Patient did not bring her home meds today and they were questioning and entresto use against losartan. In the emergency room, creatinine was 1.07 from a previous of 0.095, AST and ALT are mildly elevated arm 76/53, [employer] REPRESENTATIVE proBNP of 3010, O2 sats at 92% 2 L nasal cannula, CTA of the chest performed January 06 negative for pulmonary emboli. Patient admitted for COPD moderate persistent asthma exacerbation along with mixed systolic CHF exacerbation. Echocardiogram requested, IV Solu-Medrol, IV Lasix, cardiology and pulmonary to see on consultation 01/10: Patient has no new complaints today, still with this in exertion, otherwise no conversant dyspnea, echo pending, cardiology to see might need aicd based on June EF of under 20%, currently on entresto troponin was slightly elevated however plateaued, doubt NSTEMI, heparin iv to be discontinued 01/11: Patient evaluated today, denies any worsening shortness of breath. She was encouraged to get out of bed and ambulate in the hallways today. Physical and occupational therapy was ordered. She was consulted by cardiology who plans on possible ACID as an outpatient. She continues on IV lasix 40 mg Q8 hours. Solumedrol decreased to 40mg Q8 hours. Vital signs are stable, she denies any chest pain or discomfort. Will plan to discontinue Franklin catheter tomorrow morning. 01/12: Patient sitting up in bedside chair. She was noted go into atrial fibrillation last night with a rate in the 130's. Medications were adjusted, heart rate is now controlled and in the 80's. She reports she did get up and ambulate this morning and is tolerating short distances well. She denies any chest pain, palpitations, dizziness, or increased shortness of breath. Glucose still elevated, Novolog was increased yesterday to 6 units pre meal and sliding scale, will increase Levimir to 40 units at HS. Franklin catheter will be discontinued this morning. 01/13: Patient has difficulties today, as the patient's heart rate spelled up to 150, patient has some palpitations no chest pain, still has shortness of breath , patient currently was moved to , started on Cardizem, and IV heparin, with plans for AICD placement in the morning, also discussed with general surgery Dr. Jamison, patient has medical ileus without any signs of obstruction, oral diet can be started thereafter oral anticoagulation with it is Xarelto or Eliquis 01/14: Discussed with cardiology, there is no current plan for AICD placement today. She has had weight loss of 16 kg since admission. Patient is currently on Lasix 40 mg IV every 8 hours and Solu-Medrol 40 every 8 hours. She continues to complain of not having a bowel movement but is passing gas. MiraLAX added daily along with Senokot. Patient is complaining that she is incontinent of urine in the bed but she did get up to commode earlier today. Noted that physical therapy and occupational therapy is recommended at home with homecare but patient does not seem to be active enough to get out of bed in order to get to a commode chair and concern for her safety at home. Last for physical therapy to reassess and sample case porter to follow-up regarding discharge plan. Potassium 3.1 which has been replaced. BUN is up to 82 and creatinine 1.27. White count is currently at 13.3. Blood sugars are running in the 200s and 300s and both Levemir and NovoLog scheduled with meals increased. 01/15: Patient underwent CAT scan of the abdomen and pelvis without contrast that showed incarcerated ventral hernia containing small bowel. High-grade mechanical small bowel obstruction that is new compared to old exam. Obstruction is at the hernia. There was some talk of transferring the patient [facility] the patient does not want to undergo any further surgical intervention. Patient was switched over to DO NOT RESUSCITATE and hospice referral was placed. Patient was transferred to the [facility] floor. Patient has been open to [facility] hospice care as an inpatient. Discharge diagnoses: 1. Acute on chronic hypoxemic respiratory failure due to acute on chronic systolic heart failure with bilateral perfusion as well as COPD exacerbation with pulmonary hypertension moderate persistent asthma exacerbation. 2. A. fib with RVR, paroxysmal atrial fibrillation 3. Coronary artery disease status post PCI. 4. Chronic systolic heart failure with pulmonary hypertension and ischemic cardiomyopathy. 5. Obstructive sleep apnea 6. Mildly Elevated troponins, acute coronary syndrome ruled out 7. Incarcerated ventral hernia with small bowel obstruction 8. Colon cancer history status post hemicolectomy with complicated postop course seen at [facility] post discharge 9. Restless leg syndrome. 10. Hypertension, hypertensive cardiovascular disease. 11. Diabetes mellitus type 2 with steroid-induced hyperglycemia. 12. Gout, stable. 13. Gastroesophageal reflux disease 14. Depression, recurrent. Discharge plan: Transition to inpatient hospice Impression and plan of care have been directed as dictated by the signing physician. Charmaine Fowler nurse practitioner acting as scribe for signing physician. Patient Condition at Discharge: Undetermined Plan - Discharge Summary Discharge Rx Participant: No New Discharge Prescriptions: No Action Montelukast Sodium [Singulair] 10 mg PO HS Atorvastatin [Lipitor] 40 mg PO HS Isosorbide Mononitrate ER [Imdur] 15 mg PO DAILY Levothyroxine Sodium [Synthroid] 25 mcg PO DAILY Carvedilol [Coreg*] 12.5 mg PO BID-W/MEALS #60 tab amLODIPine [Norvasc] 5 mg PO DAILY HYDROcodone/APAP 10-325MG [[place] 10-325] 1 tab PO TID PRN PRN Reason: Pain Fluticasone Propionate [Flovent Hfa 110mcg] 2 puff INHALATION RT-BID DULoxetine HCL [Cymbalta] 30 mg PO DAILY@1200 Allopurinol [Zyloprim] 100 mg PO DAILY tab Amiodarone [Cordarone] 200 mg PO DAILY tab Cholecalciferol [Vitamin D3] 2,000 unit PO DAILY@1200 tab Furosemide [Lasix] 60 mg PO BID #60 tab Magnesium Oxide [Mag-Ox] 400 mg PO DAILY #0 tab Metolazone [Zaroxolyn] 2.5 mg PO DAILY PRN #30 tab PRN Reason: weight gain Nitroglycerin Sl Tabs [Nitrostat] 0.4 mg SUBLINGUAL Q5M PRN #25 tab PRN Reason: Chest Pain Spironolactone [Aldactone] 25 mg PO DAILY #30 tab Albuterol Nebulized [Ventolin Nebulized] 2.5 mg INHALATION RT-QID PRN PRN Reason: Shortness Of Breath Fluticasone Nasal [place] [Flonase Nasal [place]] 2 spr EA NOSTRIL DAILY Insulin Glargine [Lantus] 30 unit SQ HS Lactulose 20 gm PO BID Losartan Potassium [Cozaar] 25 mg PO BID Sacubitril/Valsartan [Entresto 24 mg-26 mg Tablet] 1 tab PO BID rOPINIRole HCL [Requip] 1 mg PO BID Potassium Chloride [Klor-Con 20] 20 meq PO BID Insulin Aspart [NovoLOG (formulary)] See Protocol SQ AC-TID Discharge Medication List Atorvastatin [Lipitor] 40 mg PO HS 03/09/16 [History] Montelukast Sodium [Singulair] 10 mg PO HS 03/09/16 [History] Isosorbide Mononitrate ER [Imdur] 15 mg PO DAILY 02/09/17 [History] Levothyroxine Sodium [Synthroid] 25 mcg PO DAILY 02/09/17 [History] Carvedilol [Coreg*] 12.5 mg PO BID-W/MEALS #60 tab 06/19/17 [Rx] DULoxetine HCL [Cymbalta] 30 mg PO DAILY@1200 10/10/17 [History] Fluticasone Propionate [Flovent Hfa 110mcg] 2 puff INHALATION RT-BID 10/10/17 [ History] HYDROcodone/APAP 10-325MG [[place] 10-325] 1 tab PO TID PRN 10/10/17 [History] amLODIPine [Norvasc] 5 mg PO DAILY 10/10/17 [History] Allopurinol [Zyloprim] 100 mg PO DAILY tab 10/13/17 [Rx] Amiodarone [Cordarone] 200 mg PO DAILY tab 10/13/17 [Rx] Cholecalciferol [Vitamin D3] 2,000 unit PO DAILY@1200 tab 10/13/17 [Rx] Furosemide [Lasix] 60 mg PO BID #60 tab 10/13/17 [Rx] Magnesium Oxide [Mag-Ox] 400 mg PO DAILY #0 tab 10/13/17 [Rx] Metolazone [Zaroxolyn] 2.5 mg PO DAILY PRN #30 tab 10/13/17 [Rx] Nitroglycerin Sl Tabs [Nitrostat] 0.4 mg SUBLINGUAL Q5M PRN #25 tab 10/13/17 [Rx ] Spironolactone [Aldactone] 25 mg PO DAILY #30 tab 10/13/17 [Rx] Albuterol Nebulized [Ventolin Nebulized] 2.5 mg INHALATION RT-QID PRN 01/09/18 [ History] Fluticasone Nasal [place] [Flonase Nasal [place]] 2 spr EA NOSTRIL DAILY 01/09/18 [ History] Insulin Aspart [NovoLOG (formulary)] See Protocol SQ AC-TID 01/09/18 [History] Insulin Glargine [Lantus] 30 unit SQ HS 01/09/18 [History] Lactulose 20 gm PO BID 01/09/18 [History] Losartan Potassium [Cozaar] 25 mg PO BID 01/09/18 [History] Potassium Chloride [Klor-Con 20] 20 meq PO BID 01/09/18 [History] Sacubitril/Valsartan [Entresto 24 mg-26 mg Tablet] 1 tab PO BID 01/09/18 [ History] rOPINIRole HCL [Requip] 1 mg PO BID 01/09/18 [History] Follow up Appointment(s)/Referral(s): Lul Aquino MD [Primary Care Provider] - 1 Week Gera To MD [STAFF PHYSICIAN] - 1 Week Ty Scott MD [STAFF PHYSICIAN] - 1 Week Discharge Disposition: HOME SELF-CARE
== END 2018-01-15 11:32 | disposition home or self-care (01) | DRG 291 ==
LOC: EC 10:13 → 4MS4W 11:29 → 6SEL 01-13 08:04 → 5ONC 01-14 22:39
PROVIDERS: ADMIT Internal Medicine; ATTEND Internal Medicine
DX: I11.0 Hypertensive heart disease with heart failure (principal); J96.21 Acute and chronic respiratory failure with hypoxia; J44.1 Chronic obstructive pulmonary disease with (acute) exacerbation; J45.41 Moderate persistent asthma with (acute) exacerbation; K43.6 Other and unspecified ventral hernia with obstruction, without gangrene; F33.9 Major depressive disorder, recurrent, unspecified; K56.7 Ileus, unspecified; Z68.42 Body mass index [BMI] 45.0-49.9, adult; E11.40 Type 2 diabetes mellitus with diabetic neuropathy, unspecified; E11.65 Type 2 diabetes mellitus with hyperglycemia; E66.01 Morbid (severe) obesity due to excess calories; E78.5 Hyperlipidemia, unspecified; F41.9 Anxiety disorder, unspecified; G25.81 Restless legs syndrome; G47.33 Obstructive sleep apnea (adult) (pediatric); H91.90 Unspecified hearing loss, unspecified ear; I25.10 Atherosclerotic heart disease of native coronary artery without angina pectoris; I25.5 Ischemic cardiomyopathy; I27.29 Other secondary pulmonary hypertension; I27.81 Cor pulmonale (chronic); I48.0 Paroxysmal atrial fibrillation; I50.23 Acute on chronic systolic (congestive) heart failure; K21.9 Gastro-esophageal reflux disease without esophagitis; M10.9 Gout, unspecified; R32 Unspecified urinary incontinence; T38.0X5A Adverse effect of glucocorticoids and synthetic analogues, initial encounter; G89.29 Other chronic pain; M19.90 Unspecified osteoarthritis, unspecified site; R77.9 Abnormality of plasma protein, unspecified; D72.829 Elevated white blood cell count, unspecified; Z51.5 Encounter for palliative care; Z66 Do not resuscitate; Z79.4 Long term (current) use of insulin; Z79.51 Long term (current) use of inhaled steroids; Z79.82 Long term (current) use of aspirin; Z79.899 Other long term (current) drug therapy; Z79.52 Long term (current) use of systemic steroids; Z88.1 Allergy status to other antibiotic agents; Z91.048 Other nonmedicinal substance allergy status; Z85.038 Personal history of other malignant neoplasm of large intestine; Z90.49 Acquired absence of other specified parts of digestive tract; Z99.81 Dependence on supplemental oxygen; Z96.651 Presence of right artificial knee joint; Z95.5 Presence of coronary angioplasty implant and graft; Z95.1 Presence of aortocoronary bypass graft; Z91.19 Patient's noncompliance with other medical treatment and regimen; Z90.710 Acquired absence of both cervix and uterus; Z87.891 Personal history of nicotine dependence; Z98.42 Cataract extraction status, left eye; Z98.41 Cataract extraction status, right eye; Z96.1 Presence of intraocular lens; Z80.1 Family history of malignant neoplasm of trachea, bronchus and lung; Z84.89 Family history of other specified conditions
CPT/HCPCS: 36415; 71046; 74018; 74019; 74176; 80053; 81001; 81003; 82378; 82550; 82553; 83036; 83735; 83880; 84145; 84484; 85025; 85610; 85652; 85730; 86140; 87040; 93005; 93306; 94640; 94660; 94760; 96374; 96375; 99285

== ENCOUNTER 2018-01-15 11:34 | Inpatient (IN) | payer MEDICAID ==
[2018-01-15] MEDS ORDERED: ACETAMINOPHEN SUPPOSITORY 650 MG SUPP RECTAL PRN (11:48)
[2018-01-15] MEDS ORDERED: LORazepam 2 MG/ML INJ IV PRN (11:48)
[2018-01-15] MEDS ORDERED: SCOPOLAMINE 1.5MG/72HR PATCH TRANSDERM PRN (11:48)
[2018-01-15] MEDS ORDERED: ONDANSETRON 4 MG/2 ML VIAL IVP PRN (11:48)
[2018-01-15] MEDS ORDERED: BISACODYL 10 MG SUPP RECTAL PRN (11:56)
[2018-01-15] MEDS: MORPHINE SULFATE (100 MG/2 ML) 100 MG in SODIUM CHLORIDE 0.9% 100 ML IV SCH (14:27)
[2018-01-16] MEDS: MORPHINE SULFATE (100 MG/2 ML) 100 MG in SODIUM CHLORIDE 0.9% 100 ML IV SCH (10:07)
--- NOTE | 2018-01-16 15:37 | P.HPIM ---
History of Present Illness H&P Date: 01/16/18 This is a 66 years old female patient of Dr. Miles Scott cardiology Dr. Birdie To pulmonary with past medical history of sytolic heart failure last reported ejection fraction 20% last June 2017, advanced COPD, history of colon cancer with ruptured bowels for which she was transferred to [facility] ended up having partial colectomy and colostomy which was reversed later. Patient was found to have an intra-abdominal abscess on computed tomography scan which was considered to be a sterile abscess, followed by Tino Hayward and Dr. Guillen. patient is chronically on on oxygen at 2 L nasal cannula , patient does have a nebulizer at home she also does have a CPAP that does not work properly, and hasn't used it for the past 2 months . Patient was seen in the emergency room secondary to worsening shortness of breath, he was seen in emergency room 3 days ago and was discharged to home, , her last prednisone was over 2 weeks ago when she saw Dr. Birdie To, she was given Lasix in the emergency room and was discharged to home. Patient denies any worsening of edema she does have chronic mild lower edema, clear cough, no fever some have sweats and chills, no palpitations no chest pain. Patient did not bring her home meds today and they were questioning and entresto use against losartan. In the emergency room, creatinine was 1.07 from a previous of 0.095, AST and ALT are mildly elevated arm 76/53, MATERIALS ASSISTANT proBNP of 3010, O2 sats at 92% 2 L nasal cannula, CTA of the chest performed January 06 negative for pulmonary emboli. Patient admitted for COPD moderate persistent asthma exacerbation along with mixed systolic CHF exacerbation. Echocardiogram requested, IV Solu-Medrol, IV Lasix, cardiology and pulmonary to see on consultation 01/10: Patient has no new complaints today, still with this in exertion, otherwise no conversant dyspnea, echo pending, cardiology to see might need aicd based on June EF of under 20%, currently on entresto troponin was slightly elevated however plateaued, doubt NSTEMI, heparin iv to be discontinued 01/11: Patient evaluated today, denies any worsening shortness of breath. She was encouraged to get out of bed and ambulate in the hallways today. Physical and occupational therapy was ordered. She was consulted by cardiology who plans on possible ACID as an outpatient. She continues on IV lasix 40 mg Q8 hours. Solumedrol decreased to 40mg Q8 hours. Vital signs are stable, she denies any chest pain or discomfort. Will plan to discontinue Franklin catheter tomorrow morning. 01/12: Patient sitting up in bedside chair. She was noted go into atrial fibrillation last night with a rate in the 130's. Medications were adjusted, heart rate is now controlled and in the 80's. She reports she did get up and ambulate this morning and is tolerating short distances well. She denies any chest pain, palpitations, dizziness, or increased shortness of breath. Glucose still elevated, Novolog was increased yesterday to 6 units pre meal and sliding scale, will increase Levimir to 40 units at HS. Franklin catheter will be discontinued this morning. 01/13: Patient has difficulties today, as the patient's heart rate spelled up to 150, patient has some palpitations no chest pain, still has shortness of breath , patient currently was moved to [address] [place] [address], started on Cardizem, and IV heparin, with plans for AICD placement in the morning, also discussed with general surgery Dr. Jamison, patient has medical ileus without any signs of obstruction, oral diet can be started thereafter oral anticoagulation with it is Xarelto or Eliquis 01/14: Discussed with cardiology, there is no current plan for AICD placement today. She has had weight loss of 16 kg since admission. Patient is currently on Lasix 40 mg IV every 8 hours and Solu-Medrol 40 every 8 hours. She continues to complain of not having a bowel movement but is passing gas. MiraLAX added daily along with Senokot. Patient is complaining that she is incontinent of urine in the bed but she did get up to commode earlier today. Noted that physical therapy and occupational therapy is recommended at home with homecare but patient does not seem to be active enough to get out of bed in order to get to a commode chair and concern for her safety at home. Last for physical therapy to reassess and hospice case manager to follow-up regarding discharge plan. Potassium 3.1 which has been replaced. BUN is up to 82 and creatinine 1.27. White count is currently at 13.3. Blood sugars are running in the 200s and 300s and both Levemir and NovoLog scheduled with meals increased. 01/15: Patient underwent CAT scan of the abdomen and pelvis without contrast that showed incarcerated ventral hernia containing small bowel. High-grade mechanical small bowel obstruction that is new compared to old exam. Obstruction is at the hernia. There was some talk of transferring the patient [facility] the patient does not want to undergo any further surgical intervention. Patient was switched over to DO NOT RESUSCITATE and hospice referral was placed. Patient was transferred to [facility] floor. Patient has been open to [facility] hospice care as an inpatient. 01/16 patient examined bedside is comfortable with hospice nurse. She was requesting to remove the NG tube overnight which was not removed as it increased patient's abdominal distention and bloating currently NG tube on suction to help keep patient comfortable Review of Systems ROS unobtainable: due to mental status Past Medical History Past Medical History: Asthma, Cancer, Heart Failure, COPD, Diabetes Mellitus, Hearing Disorder / Deafness, Hyperlipidemia, Hypertension, Osteoarthritis (OA), Pneumonia, Renal Disease, Sleep Apnea/CPAP/BIPAP, Vascular Disorder Additional Past Medical History / Comment(s): ANEMIA,(previously charted pulmonary hypertension, combined systolic and diastolic failure, last ejection fraction 35% August 2016), diabetic neuropathy, gout, chronic pain, restless leg syndrome, uses CPAP, colon Ca, constipation, History of Any Multi-Drug Resistant Organisms: None Reported Past Surgical History: Bladder Surgery, Cholecystectomy, Coronary Bypass/CABG, Heart Catheterization, Heart Catheterization With Stent, Hernia Repair, Hysterectomy, Joint Replacement, Orthopedic Surgery Additional Past Surgical History / Comment(s): RUPTURED BOWEL-HAD COLOSTOMY since reversed,lX2 RT KNEE REPLACEMENTS, [place] cataract surg. triple bypass 2007, picc line -since removed. one cardiac stent Past Anesthesia/Blood Transfusion Reactions: Motion Sickness, No Reported Reaction Additional Past Anesthesia/Blood Transfusion Reaction / Comment(s): Pt has received blood without reaction. Date of Last Stent Placement:: 2009 Past Psychological History: Anxiety, Depression Additional Psychological History / Comment(s): Pt resides with her spouse in single level home that has no steps to enter home. She uses a walker at times. She has a CPAP, nebulizer and blood glucose monitor at home.previously [facility] home care in past Smoking Status: Never smoker Past Alcohol Use History: None Reported Additional Past Alcohol Use History / Comment(s): SMOKED 1 & 1/2 PPD-QUIT 2010, SMOKED FOR 47 YEARS. Past Drug Use History: None Reported - Past Family History Mother Family Medical History: Cancer Additional Family Medical History / Comment(s): Mother had lung cancer. Father Family Medical History: Liver Disease Additional Family Medical History / Comment(s): Father of cirrhosis of the liver. He was a alcoholic. Medications and Allergies Home Medications Medication Instructions Recorded Confirmed Type Atorvastatin [Lipitor] 40 mg PO HS 03/09/16 01/15/18 History Montelukast Sodium [Singulair] 10 mg PO HS 03/09/16 01/15/18 History Isosorbide Mononitrate ER [Imdur] 15 mg PO DAILY 02/09/17 01/15/18 History Levothyroxine Sodium [Synthroid] 25 mcg PO DAILY 02/09/17 01/15/18 History Carvedilol [Coreg*] 12.5 mg PO BID-W/MEALS #60 tab 06/19/17 01/15/18 Rx DULoxetine HCL [Cymbalta] 30 mg PO DAILY@1200 10/10/17 01/15/18 History Fluticasone Propionate [Flovent 2 puff INHALATION RT-BID 10/10/17 01/15/18 History Hfa 110mcg] HYDROcodone/APAP 10-325MG [[place] 1 tab PO TID PRN 10/10/17 01/15/18 History 10-325] amLODIPine [Norvasc] 5 mg PO DAILY 10/10/17 01/15/18 History Allopurinol [Zyloprim] 100 mg PO DAILY tab 10/13/17 01/15/18 Rx Amiodarone [Cordarone] 200 mg PO DAILY tab 10/13/17 01/15/18 Rx Cholecalciferol [Vitamin D3] 2,000 unit PO DAILY@1200 tab 10/13/17 01/15/18 Rx Furosemide [Lasix] 60 mg PO BID #60 tab 10/13/17 01/15/18 Rx Magnesium Oxide [Mag-Ox] 400 mg PO DAILY #0 tab 10/13/17 01/15/18 Rx Metolazone [Zaroxolyn] 2.5 mg PO DAILY PRN #30 tab 10/13/17 01/15/18 Rx Nitroglycerin Sl Tabs [Nitrostat] 0.4 mg SUBLINGUAL Q5M PRN #25 tab 10/13/1712/28 Rx Spironolactone [Aldactone] 25 mg PO DAILY #30 tab 10/13/17 01/15/18 Rx Albuterol Nebulized [Ventolin 2.5 mg INHALATION RT-QID PRN 01/09/18 01/15/18 History Nebulized] Fluticasone Nasal [place] [Flonase 2 spr EA NOSTRIL DAILY 01/09/18 01/15/18 History Nasal [place]] Insulin Aspart [NovoLOG See Protocol SQ AC-TID 01/09/18 01/15/18 History (formulary)] Insulin Glargine [Lantus] 30 unit SQ HS 01/09/18 01/15/18 History Lactulose 20 gm PO BID 01/09/18 01/15/18 History Losartan Potassium [Cozaar] 25 mg PO BID 01/09/18 01/15/18 History Potassium Chloride [Klor-Con 20] 20 meq PO BID 01/09/18 01/15/18 History Sacubitril/Valsartan [Entresto 24 1 tab PO BID 01/09/18 01/15/18 History mg-26 mg Tablet] rOPINIRole HCL [Requip] 1 mg PO BID 01/09/18 01/15/18 History Allergies Allergy/AdvReac Type Severity Reaction Status Date / Time cephalexin monohydrate Allergy Unknown Rash/Hives Verified 01/15/18 13:43 [From Keflex] yellow dye Allergy Unknown Verified 01/15/18 13:43 Physical Exam Vitals: Intake and Output 01/16/18 01/16/18 01/16/18 06:59 14:59 22:59 Intake Total 216.569 38.148 Output Total 100 Balance 116.569 38.148 Intake: IV 160 normal saline @ 20cc/hr 160 Intake, IV Titration 56.569 38.148 Amount Morphine Sulfate (100 mg/ 56.569 38.148 2 ml) 100 mg In Sodium Chloride 0.9% 100 ml @ 1 MG/HR 1.02 mls/hr IV . Q24H [facility] Rx#:[id number] Output: Gastric Drainage 100 Other: Voiding Method Indwelling Catheter - Constitutional General appearance: Decreased alertness, no acute distress, obese - EENT Eyes: Open [facility] grossly normal - Neck Neck: normal ROM - Respiratory Respiratory: bilateral: CTA - Cardiovascular Rhythm: Irregularly irregular Heart sounds: normal: S1, S2 - Gastrointestinal General gastrointestinal: normal bowel sounds, soft, distended - Integumentary Integumentary: no rash - Neurologic Neurologic: Could not be assessed due to mental status - Musculoskeletal Musculoskeletal: strength equal bilaterally - Psychiatric Psychiatric: Could not be assessed Thrombosis Risk Factor Assmnt - DVT/VTE Prophylaxis DVT/VTE Prophylaxis: Contraindicated - See note Assessment and Plan Plan: 1. Acute on chronic hypoxemic respiratory failure due to acute on chronic systolic heart failure with bilateral perfusion as well as COPD exacerbation with pulmonary hypertension moderate persistent asthma exacerbation. On hospice. continue the patient on Lasix 40 mg 8h day as well as metolazone 2.5 mg orally once every day, discontinue IV fluid 2. A. fib with RVR, continue hospice care Continue amiodarone 200 mg twice daily. 3. Coronary artery disease status post PCI. Imdur 15 mg orally once every day , Lipitor 40 mg orally once every day. 4. Chronic systolic heart failure with pulmonary hypertension. Continue Lasix , metolazone 5. Obstructive sleep apnea on CPAP which it is out of commission for the past 2 months unable to tolerate facemask, patient requires nasal pillows. Dr. Rogel/Adrián To pulmonary for CPAP machine Patient may need to have a BiPAP at home. 6. Mildly Elevated troponins, doubt NSTEMI most likely secondary to cardiac demand mismatch, 7. Colon Cancer history, oncology is on consult, status post hemicolectomy with complicated postop course seen at [facility] post discharge, no current wounds on exam, ileus on x-rays. Incarcerated hernia on CT scan. NG tube in place. No surgical intervention patient is on hospice 8. Hypertensive cardiovascular disease. Continue Norvasc 5 mg orally once every day, Coreg 12.5 mg orally twice every day, losartan 50 mg orally once every day. 10. Diabetes mellitus type 2 with steroid-induced hyperglycemia. 11 Gout. Continue allopurinol 100 mg orally once every day. 12. Depression, recurrent. Continue Cymbalta 60 mg orally once every day. 13. Hospice care
== END 2018-01-16 22:30 | disposition expired | DRG 291 ==
LOC: 5ONC 11:34
PROVIDERS: ADMIT Family Medicine; ATTEND Family Medicine
DX: I11.0 Hypertensive heart disease with heart failure (principal); J96.21 Acute and chronic respiratory failure with hypoxia; F33.9 Major depressive disorder, recurrent, unspecified; J45.41 Moderate persistent asthma with (acute) exacerbation; K43.6 Other and unspecified ventral hernia with obstruction, without gangrene; K56.699 Other intestinal obstruction unspecified as to partial versus complete obstruction; J44.1 Chronic obstructive pulmonary disease with (acute) exacerbation; E11.40 Type 2 diabetes mellitus with diabetic neuropathy, unspecified; E11.65 Type 2 diabetes mellitus with hyperglycemia; Z79.4 Long term (current) use of insulin; T38.0X5A Adverse effect of glucocorticoids and synthetic analogues, initial encounter; E78.5 Hyperlipidemia, unspecified; F41.9 Anxiety disorder, unspecified; G25.81 Restless legs syndrome; G47.33 Obstructive sleep apnea (adult) (pediatric); H91.90 Unspecified hearing loss, unspecified ear; I25.10 Atherosclerotic heart disease of native coronary artery without angina pectoris; I27.20 Pulmonary hypertension, unspecified; I48.91 Unspecified atrial fibrillation; I50.43 Acute on chronic combined systolic (congestive) and diastolic (congestive) heart failure; M10.9 Gout, unspecified; R32 Unspecified urinary incontinence; Z51.5 Encounter for palliative care; Z66 Do not resuscitate; Z79.51 Long term (current) use of inhaled steroids; Z79.899 Other long term (current) drug therapy; Z80.1 Family history of malignant neoplasm of trachea, bronchus and lung; Z85.038 Personal history of other malignant neoplasm of large intestine; Z90.49 Acquired absence of other specified parts of digestive tract; Z90.710 Acquired absence of both cervix and uterus; Z95.1 Presence of aortocoronary bypass graft; Z95.5 Presence of coronary angioplasty implant and graft; Z79.890 Hormone replacement therapy; Z88.1 Allergy status to other antibiotic agents; Z87.891 Personal history of nicotine dependence; Z81.1 Family history of alcohol abuse and dependence; G89.29 Other chronic pain; Z87.01 Personal history of pneumonia (recurrent); M19.90 Unspecified osteoarthritis, unspecified site